=== PATIENT | female | born 1945 | race Caucasian/White ===

== ENCOUNTER 2018-02-15 13:08 | Inpatient (IN) | payer MEDICARE, SELFPAY ==
[2018-02-15 13:09] VITALS: BP 132/83; PULSE 80; RESP 16; TEMP 36.6; O2SAT 97; BMI 23.6
--- NOTE | 2018-02-15 13:36 | NURSING ---
NO LW OR POA
--- NOTE | 2018-02-15 13:54 | CT_ITS ---
STUDY: CT BRAIN WITHOUT CONTRAST REASON FOR EXAM: Female, 72 years old. Fall RADIATION DOSAGE (If Supplied By Facility): CTDIvol = ( 44.99 ) mGy, DLP = ( 796.11 ) mGycm TECHNIQUE: Transaxial CT imaging of the brain was performed without administration of intravenous contrast material. Individualized dose optimization techniques were used for this CT. COMPARISON: None. FINDINGS: No evidence for shift of midline structures, mass effect or compression of ventricles noted. No acute intra-axial or extra-axial hemorrhage is seen. Bilateral frontal approach deep brain stimulator leads noted with its tip likely in the thalami. Intracranial atherosclerotic vascular calcifications seen. The calvarium appears intact. Mucosal thickening of the ethmoid air cells with partial opacification likely relate with sinusitis. IMPRESSION: No evidence for acute intracranial hemorrhage, mass effect or acute large territory infarcts. Mild chronic small vessel disease with age-related involutional changes. Bifrontal approach deep brain stimulator leads with their tips likely in the thalami. Electronically Signed: Jeff Griffin, at 14:53 EDT Tel , Service support , CT/Brain/Head without Contrast
--- NOTE | 2018-02-15 13:55 | CT_ITS ---
STUDY: CT ABDOMEN AND PELVIS WITH CONTRAST REASON FOR EXAM: Female, 72 years old. Fall and left hip pain RADIATION DOSAGE (If Supplied By Facility): CTDIvol = ( 12.97 ) mGy, DLP = ( 630.17 ) mGycm TECHNIQUE: Transaxial images were obtained from the dome of the diaphragm to the symphysis pubis without oral contrast. 100 ml of Isovue 300 contrast was administered. Sagittal and coronal images were reconstructed. Individualized dose optimization techniques were used for this CT. COMPARISON: None. FINDINGS: Lung bases demonstrate no evidence for consolidative process. Small cyst in the right middle lobe. Some no pericardial effusion. Small hiatal hernia Hepatic steatosis. Mild dilatation of the intra and extrahepatic bile ducts. Gallbladder is not visualized. Adrenal glands appear unremarkable. Spleen appears unremarkable. The pancreas are grossly within normal limits. Kidneys demonstrate no evidence for hydronephrosis. Uncomplicated colonic diverticulosis seen. Low-attenuation lesion in the left kidney likely renal cysts. Degenerative changes in the sacroiliac joints. Diffuse osteopenia. Degenerative changes in the lumbar spine L1 vertebral body compression fracture with approximately 20% loss of vertebral body height and minimal retropulsion. IMPRESSION: Acute L1 vertebral body compression fracture with 20% loss of vertebral body height and mild retropulsion. Mild dilatation of the intra and extrahepatic bile ducts postcholecystectomy. Subtle left-sided femoral neck fracture suspected however not confirmed. Please consider dedicated CT examination of the left hip for further assessment. Electronically Signed: Jeff Griffin, at 15:48 EDT Tel , Service support , CT/Abdomen/Pelvis W IV Cont ONLY
[2018-02-15 14:16] LABS: Absolute Lymphocyte Count 0.98 X10^3/ul (0.83-4.51); Absolute Neutrophil Count 4.4 X10^3/uL (2.0-7.7); Basophil# 0.01 X10^3/uL; Basophil% 0.2 % (0-1); Eosinophil# 0.03 X10^3/uL; Eosinophils% 0.5 % (0-5); Hematocrit 38.5 % (37-47); Hemoglobin 12.4 g/dl (12.0-15.0); Lymphocyte # 0.98 X10^3/ul (4.0); Lymphocyte % 16.2 % (19-41); Mean Corp Hgb Conc 32.2 g/gl (32-36); Mean Corpuscular Hgb 29.6 pg (27.0-32.0); Mean Corpuscular Volume 91.9 fL (81-99); Mean Platelet Vol. 10.2 fl (6.2-12.0); Monocyte# 0.56 X10^3/uL; Monocyte% 9.3 % (0-10); Neutrophil # 4.43 X10^3/uL (2.7-7.7); Neutrophil % 73.1 % (47-70); POSITIVE COUNT NO; POSITIVE DIFFERENTIAL NO; POSITIVE MORPHOLOGY NO; Platelet Count 191 K/mm3 (150-450); RBC Distribution Width CV 13.5 % (11.6-14.6); RBC Distribution Width SD 44.8 fl (35.1-43.9); Red Blood Count 4.19 M/mm3 (4.2-5.4); White Blood Count 6.1 K/mm3 (4.4-11.0)
[2018-02-15] MEDS: Ondansetron 4 MG/2 ML Vial IV (14:20)
[2018-02-15] MEDS: Morphine 4 MG/ML Syringe IV ×2 (14:20→16:40)
[2018-02-15 14:28] LABS: Anion Gap 7 (5-15); BUN 24 mg/dL (7-18); BUN/Creat Ratio 31.4 RATIO (10-20); Calcium,Total 8.5 mg/dL (8.5-10.1); Chloride 105 mmol/L (98-107); Creatinine, Serum 0.76 mg/dL (0.55-1.02); EST Glomerular Filtration Rate 79 mL/min (>60); Est Glom Filt Rate - Afr Amer 96 mL/min (>60); Estimated Creatinine Clearance 46.43 ml/min; Glucose 87 mg/dL (74-106); Potassium 4.2 mmol/L (3.5-5.1); Sodium Level 142 mmol/L (136-145)
--- NOTE | 2018-02-15 14:42 | RAD_ITS ---
STUDY: X-RAY CHEST REASON FOR EXAM: Female, 72 years old. Status post fall and pain TECHNIQUE: COMPARISON: None. FINDINGS: No lung consolidation or pneumothorax. Cardiac size is enlarged. Prominent superior mediastinum noted possibly relate with a enlarged substernal thyroid. Slight leftward deviation of the trachea. Vagal stimulator seen. Small nodule in the right lower lobe. Slight eventration of the right hemidiaphragm. Vascular calcifications of the aortic knob. IMPRESSION: No evidence for focal airspace consolidation or pneumothorax Electronically Signed: Jeff Griffin, at 15:42 EDT Tel , Service support , RAD/Chest 1 View (Portable)
--- NOTE | 2018-02-15 14:47 | RAD_ITS ---
STUDY: X-RAY - LEFT SHOULDER REASON FOR EXAM: Female, 72 years old. Status post fall TECHNIQUE: 2 view(s) of the shoulder. COMPARISON: None. FINDINGS: Degenerative changes in the glenohumeral joints as well as acromioclavicular joints noted. No definite evidence for acute fractures. Visualized ribs appear intact. IMPRESSION: No definite evidence for acute humeral fractures or dislocation Electronically Signed: Jeff Grfifin, at 15:43 EDT Tel , Service support , RAD/Shoulder min 2 Views
[2018-02-15 15:35] VITALS: BP 137/89; PULSE 79; RESP 20; O2SAT 96
--- NOTE | 2018-02-15 16:04 | NURSING ---
DR WILEY FOR DR HEMPHILL
--- NOTE | 2018-02-15 16:06 | CT_ITS ---
STUDY: CT LEFT hip WITHOUT CONTRAST REASON FOR EXAM: Female, 72 years old. Fall left hip pain RADIATION DOSAGE (If Supplied By Facility): CTDIvol = ( 19.30 ) mGy, DLP = ( 443.09 ) mGycm TECHNIQUE: Thin section transaxial imaging was obtained, with sagittal and coronal reconstructed images. Individualized dose optimization techniques were used for this CT. COMPARISON: None. FINDINGS: No acute fracture is demonstrated. There is no dislocation. There is mild hip joint space narrowing. There is colonic diverticulosis. CT/Extremity Lower without Contra IMPRESSION: No acute fracture is demonstrated. Electronically Signed: Lili Rosenthal MD at 16:50 EDT , Service support ,
--- NOTE | 2018-02-15 16:13 | ED.DCSUM_ITS ---
- ER Visit Summary Date of Service: 02/15/18 Chief Complaint: [Fall] History of Present Illness: The patient is a 72 F [presents to the emergency department via EMS status post fall at home today. Patient states that she reached for something on the kitchen table and lost her balance falling to the floor. Patient complaining of pain in her left hip, back, and left shoulder. Patient denies loss of consciousness. Patient does not believe she hit her head. She denies any neck pain. She denies any abdominal pain. She denies any dyspnea.] Physical Examination: [HEENT-PERRLA, EOMI. Cranial nerves II through XII grossly intact. TMs clear. Mucous membranes moist. No adenopathy. Head is atraumatic. Patient has no C-spine tenderness on palpation and normal active range of motion is painless. Cardiovascular-regular rate and rhythm without murmur or ectopy Lungs-clear to auscultation, chest wall stable without crepitus or subcu emphysema Abdomen-normoactive bowel sounds, soft, nontender, no rebound or rigidity, no peritoneal signs. Back exam-patient has diffuse tenderness to the upper lumbar spine on palpation. Patient has tenderness diffusely to the lumbar paraspinal musculature. Extremities-intact ?4, normal range of motion, normal pulses, atraumatic]. Left hip-no shortening or rotational deformity noted. Minimal tenderness with logrolling and straight leg raise. Neurovascularly intact distally. Test Results: CBC with differential obtained was normal. Chemistries were normal. Chest x-ray showed nothing acute. Left shoulder x-rays showed no fractures. CT brain showed nothing acute. CT abdomen and pelvis showed L1 compression fracture that appears to be acute of about 20%. Patient also noted to have a subtle femoral neck fracture on the left and recommended dedicated CT of the hip versus MRI to definitively diagnose. [] Emergency Department Course and Treatment: [Patient was medicated with morphine and Zofran] Treatment Plan: [Patient will be admitted and a CT scan of the left hip was ordered.] Disposition: [Admit] Impression: [Mechanical fall L1 compression fracture Left femoral neck fracture] This note was generated with [employer] dictation software. It may contain incorrect words, spelling, and punctuation that were not noted in review of the chart prior to signing ED Disposition - Plan for ED Patient: Chief Complaint: Fall Referrals: [facility] Doctor,Out of [Primary Care Provider] -
--- NOTE | 2018-02-15 16:18 | NURSING ---
MED SURG ACUTE L1 COMPRESSION FX, LT HIP FX PAINTSIL
--- NOTE | 2018-02-15 16:36 | PCM.HP.STD ---
<Km Dang - Last Filed: 02/15/18 16:36> Problem List (1) Hip fracture Status: Acute (2) Compression fracture Status: Acute (3) Debility Status: Chronic (4) Parkinson disease Status: Chronic (5) Orthostatic hypotension due to Parkinson's disease Status: Chronic History of Present Illness Date of Admission: 02/15/18 Chief Complaint: fall, back pain The patient is a 72 year old F who presented to the ER by squad for severe back pain. She has a hx of advanced parkinson s/p DPS placement, orthostatic hypotension, and debility. She fell today when she attempted to reach out for something on the table. She normally uses a walker and was noted not to be using it at the time. She loss balance falling forward, striking the table, then striking the refrigerator and falling to the floor. This was not witnessed. Prior to the fall she denies any LH, or dizziness, or CP. She lay on the ground in excruciating pain. Her called 911 as he could not get her up. She was brought to the ER and CT showed possible left hip fracture and L1 compression fracture. She appears to be in significant pain with grimace throughout the interview. She also had a fall at home last week. She denies VIZCARRA. She is very slow to respond. and sister are present. Advance directives are at home, plans to retrieve, in the mean time he expressly desires her to be full code at this time until the advance directives are found. [] Past Medical History Past Medical History (Chronic Problems): Chronic Problems Debility (Chronic) Parkinson disease (Chronic) Orthostatic hypotension due to Parkinson's disease (Chronic) Allergies Penicillins Allergy (Verified 02/15/18 13:13) Swelling Home Medications: Ambulatory Orders Medication Instructions Recorded Atorvastatin Calcium [Lipitor] 10 mg PO QHS 02/15/18 Carbidopa/Levodopa 25/100 [Sinemet] 1 tablet PO TIDAC 02/15/18 Cholecalciferol (Vitamin D3) 2,000 unit PO DAILY 02/15/18 [Vitamin D3] Clopidogrel Bisulfate [Plavix] 75 mg PO DAILY 02/15/18 Donepezil HCl [Aricept] 10 mg PO DAILY 02/15/18 Famotidine [Pepcid] 40 mg PO DAILY 02/15/18 Ferrous Gluconate 325 mg PO DAILY@0802/15/18 Flaxseed Oil [[place]-3 Flaxseed Oil] 1,000 mg PO DAILY 02/15/18 Fludrocortisone Acetate [Florinef] 0.1 mg GT DAILY@79902/15/18 Gabapentin [Neurontin] 300 mg PO QHS 02/15/18 Midodrine HCl 10 mg PO TID 02/15/18 Potassium Chloride [Klor-Con 10] 10 meq PO BID 02/15/18 Sertraline HCl [Zoloft] 50 mg PO DAILY 02/15/18 Ubidecarenone [Co Q-10] 100 mg PO DAILY 02/15/18 Surgical History: cholecystectomy, hysterectomy, - - DBS Psychiatric History: No pertinent psych hx RETAIL GROCER History: No pertinent RETAIL GROCER history Lives: Alone Smoking Status: Former smoker Tobacco Use: Non-smoker Alcohol: None Drugs: None - *Family History Maternal History Items: Dementia Paternal History Items: Dementia Sibling History Items: Heart Disease Review of Systems Constitutional: Denies: Chills, Fever, Weight Change HEENT: Denies: Head Aches, Sinus Congestion, Sinus Drainage Cardiovascular: Denies: Chest Pain, Palpitations Respiratory: Denies: Cough, Shortness of breath at rest, Sputum production Gastrointestinal: Denies: Abdominal Pain, Nausea, Vomiting Genitourinary: Denies: Dysuria Musculoskeletal: Reports: Joint Pain, Muscle pain. Denies: Joint Tenderness Skin: Denies: Rash, Wounds Neurological: Denies: Focal weakness, Numbness, Tingling Psychiatric: Denies: Anxiety, Depression, Homicidal Ideations, Suicidal Ideations Hematologic/ Lymphatic: Denies: Easy Bruising, Easy Bleeding VTE Information - Inpt Only VTE Present on Admission: No VTE Mechan Device Prophylaxis: SCD's VTE Pharm Prophylaxis ordered?: No Patient Problems: Active and Suspected Problems Compression fracture (Acute) Hip fracture (Acute) - Physical Exam General: Alert, Oriented x3, Cooperative HEENT: Atraumatic, PERRLA, EOMI, Normocephalic Neck: Supple, No JVD, Negative Carotid Bruits Lungs: Clear to auscultation, Normal air movement Cardiovascular: Regular rate, No murmurs Abdomen: Bowel Sounds Present, Soft, Non Tender Extremities: No edema, Capillary Refill Less than 3 Seconds, Tenderness - left hip Skin: No rashes, No breakdown, - - small bruise left hip Musculoskeletal: No Tenderness to Palpation of Joints or Extremities Neurological: Cranial nerves II-XII grossly intact, - - masked facies Psych/Mental Status: Normal Affect, Appropriate, Alert and oriented to time, place, person, mood and affect Vital Signs Temp Pulse Resp BP Pulse Ox 97.8 F 79 20 H 137/89 H 96 02/15/18 13:09 02/15/18 15:35 02/15/18 15:35 02/15/18 15:35 02/15/18 15:35 Assessment/Plan Active and Suspected Problems Compression fracture (Acute) Hip fracture (Acute) 1. Acute left hip fracture s/p mechanical fall - follow up imaging is pending. Consult to Dr. Easley. CBC and BMP unremarkable at this time. Continue Vit D. Will get preop EKG, gentle IV hydration. Shoudler XR negative. CT brain with chronic changes. Get PTOT evals. She has minimal activity at home normally. Her is her primary caregiver. 2. Acute L1 compression fracture - consult to Dr. Valdez for possible kyphoplasty 3. Hx advanced parkinson disease and with related orthostatic hypotension - continue home meds. has deep brain stimulator, Pt likely cannot have MRI with this. Follows Dr. Mcclelland in [place] for neurology. . Code status: FULL code at this time DVT ppx: SCDs DC planning: PTOT, likely needs placed. <Paintsil,[place] - Last Filed: 02/15/18 17:17> History of Present Illness The patient is a 72 year old F [] Past Medical History Allergies Penicillins Allergy (Verified 02/15/18 13:13) Swelling - Physical Exam Vital Signs Temp Pulse Resp BP Pulse Ox 97.8 F 80 14 142/87 H 96 02/15/18 13:09 02/15/18 16:46 02/15/18 16:46 02/15/18 16:46 02/15/18 16:46 Assessment/Plan Patient was seen and examined with physician human resources executive assistant Km Dang. She is a 72-year-old female with past medical history of advanced Parkinson's disease complicated by dementia and autonomic dysfunction, on Florinef, Aricept, ambulates with a walker who was asymptomatic this morning and was said to be reaching across a table when she overreached and fell on her left side and back and hit her head. The EMS was called. Her vitals were stable in the ED, labs were stable, she is not on any blood thinners. Imaging of the head was negative for any bleed. Abdominal pelvis CT showed L1 compression fracture, probable left hip fracture. Patient lives alone with the who also ambulates with a cane. Skin exam shows patient was alert oriented with mask facies, not pale no jaundice, in mild discomfort from pain. Heart sounds 1 and 2 are present, no murmurs, loud S1, lung exam was vesicular breath sounds no added sounds. Abdominal exam was unremarkable with no palpable organs or hepatosplenomegaly. There is tenderness over the left hip and the low back with some old bruises over her left hip. a/p: 1. Mechanical fall in a patient with advanced Parkinson's disease 2. Acute L1 compression fracture, will consult Dr. Valdez 3. Acute left hip fracture, Dr. Thompson consult, pain control, PT and OT to evaluate and treat 4. Parkinson's disease, advanced with cognitive impairment and autonomic dysfunction 5. Deficiency anemia, on p.o. iron 6. Code Status is full code, is a healthcare power of state's attorney, will bring paperwork for DNR later Code Visit Inpatient E&M: 80812 Init Hosp L3
[2018-02-15] MEDS: Carbidopa/Levodopa 25/100 Tablet PO (16:39)
[2018-02-15] MEDS: Ferrous Gluconate 325 MG Tablet PO (16:39)
[2018-02-15] MEDS: Midodrine HCl 5 MG Tablet 10 MG PO ×2 (16:40→22:38)
[2018-02-15 16:46] VITALS: BP 142/87; PULSE 80; RESP 14; O2SAT 96
--- NOTE | 2018-02-15 16:46 | HP.PCM_ITS ---
<Km Dang - Last Filed: 02/15/18 16:36> Problem List (1) Hip fracture Status: Acute (2) Compression fracture Status: Acute (3) Debility Status: Chronic (4) Parkinson disease Status: Chronic (5) Orthostatic hypotension due to Parkinson's disease Status: Chronic History of Present Illness Date of Admission: 02/15/18 Chief Complaint: fall, back pain The patient is a 72 year old F who presented to the ER by squad for severe back pain. She has a hx of advanced parkinson s/p DPS placement, orthostatic hypotension, and debility. She fell today when she attempted to reach out for something on the table. She normally uses a walker and was noted not to be using it at the time. She loss balance falling forward, striking the table, then striking the refrigerator and falling to the floor. This was not witnessed. Prior to the fall she denies any LH, or dizziness, or CP. She lay on the ground in excruciating pain. Her called 911 as he could not get her up. She was brought to the ER and CT showed possible left hip fracture and L1 compression fracture. She appears to be in significant pain with grimace throughout the interview. She also had a fall at home last week. She denies VIZCARRA. She is very slow to respond. and sister are present. Advance directives are at home, plans to retrieve, in the mean time he expressly desires her to be full code at this time until the advance directives are found. [] Past Medical History Past Medical History (Chronic Problems): Chronic Problems Debility (Chronic) Parkinson disease (Chronic) Orthostatic hypotension due to Parkinson's disease (Chronic) Allergies Penicillins Allergy (Verified 02/15/18 13:13) Swelling Home Medications: Ambulatory Orders Medication Instructions Recorded Atorvastatin Calcium [Lipitor] 10 mg PO QHS 02/15/18 Carbidopa/Levodopa 25/100 [Sinemet] 1 tablet PO TIDAC 02/15/18 Cholecalciferol (Vitamin D3) 2,000 unit PO DAILY 02/15/18 [Vitamin D3] Clopidogrel Bisulfate [Plavix] 75 mg PO DAILY 02/15/18 Donepezil HCl [Aricept] 10 mg PO DAILY 02/15/18 Famotidine [Pepcid] 40 mg PO DAILY 02/15/18 Ferrous Gluconate 325 mg PO DAILY@0802/15/18 Flaxseed Oil [[place]-3 Flaxseed Oil] 1,000 mg PO DAILY 02/15/18 Fludrocortisone Acetate [Florinef] 0.1 mg GT DAILY@79902/15/18 Gabapentin [Neurontin] 300 mg PO QHS 02/15/18 Midodrine HCl 10 mg PO TID 02/15/18 Potassium Chloride [Klor-Con 10] 10 meq PO BID 02/15/18 Sertraline HCl [Zoloft] 50 mg PO DAILY 02/15/18 Ubidecarenone [Co Q-10] 100 mg PO DAILY 02/15/18 Surgical History: cholecystectomy, hysterectomy, - - DBS Psychiatric History: No pertinent psych hx PRACTICE DIRECTOR History: No pertinent PRACTICE DIRECTOR history Lives: Alone Smoking Status: Former smoker Tobacco Use: Non-smoker Alcohol: None Drugs: None - *Family History Maternal History Items: Dementia Paternal History Items: Dementia Sibling History Items: Heart Disease Review of Systems Constitutional: Denies: Chills, Fever, Weight Change HEENT: Denies: Head Aches, Sinus Congestion, Sinus Drainage Cardiovascular: Denies: Chest Pain, Palpitations Respiratory: Denies: Cough, Shortness of breath at rest, Sputum production Gastrointestinal: Denies: Abdominal Pain, Nausea, Vomiting Genitourinary: Denies: Dysuria Musculoskeletal: Reports: Joint Pain, Muscle pain. Denies: Joint Tenderness Skin: Denies: Rash, Wounds Neurological: Denies: Focal weakness, Numbness, Tingling Psychiatric: Denies: Anxiety, Depression, Homicidal Ideations, Suicidal Ideations Hematologic/ Lymphatic: Denies: Easy Bruising, Easy Bleeding VTE Information - Inpt Only VTE Present on Admission: No VTE Mechan Device Prophylaxis: SCD's VTE Pharm Prophylaxis ordered?: No Patient Problems: Active and Suspected Problems Compression fracture (Acute) Hip fracture (Acute) - Physical Exam General: Alert, Oriented x3, Cooperative HEENT: Atraumatic, PERRLA, EOMI, Normocephalic Neck: Supple, No JVD, Negative Carotid Bruits Lungs: Clear to auscultation, Normal air movement Cardiovascular: Regular rate, No murmurs Abdomen: Bowel Sounds Present, Soft, Non Tender Extremities: No edema, Capillary Refill Less than 3 Seconds, Tenderness - left hip Skin: No rashes, No breakdown, - - small bruise left hip Musculoskeletal: No Tenderness to Palpation of Joints or Extremities Neurological: Cranial nerves II-XII grossly intact, - - masked facies Psych/Mental Status: Normal Affect, Appropriate, Alert and oriented to time, place, person, mood and affect Vital Signs Temp Pulse Resp BP Pulse Ox 97.8 F 79 20 H 137/89 H 96 02/15/18 13:09 02/15/18 15:35 02/15/18 15:35 02/15/18 15:35 02/15/18 15:35 Assessment/Plan Active and Suspected Problems Compression fracture (Acute) Hip fracture (Acute) 1. Acute left hip fracture s/p mechanical fall - follow up imaging is pending. Consult to Dr. Easley. CBC and BMP unremarkable at this time. Continue Vit D. Will get preop EKG, gentle IV hydration. Shoudler XR negative. CT brain with chronic changes. Get PTOT evals. She has minimal activity at home normally. Her is her primary caregiver. 2. Acute L1 compression fracture - consult to Dr. Valdez for possible kyphoplasty 3. Hx advanced parkinson disease and with related orthostatic hypotension - continue home meds. has deep brain stimulator, Pt likely cannot have MRI with this. Follows Dr. Mcclelland in [place] for neurology. . Code status: FULL code at this time DVT ppx: SCDs DC planning: PTOT, likely needs placed. <Paintsil,[place] - Last Filed: 02/15/18 17:17> History of Present Illness The patient is a 72 year old F [] Past Medical History Allergies Penicillins Allergy (Verified 02/15/18 13:13) Swelling - Physical Exam Vital Signs Temp Pulse Resp BP Pulse Ox 97.8 F 80 14 142/87 H 96 02/15/18 13:09 02/15/18 16:46 02/15/18 16:46 02/15/18 16:46 02/15/18 16:46 Assessment/Plan Patient was seen and examined with physician visitor use assistant Km Dang. She is a 72-year-old female with past medical history of advanced Parkinson's disease complicated by dementia and autonomic dysfunction, on Florinef, Aricept , ambulates with a walker who was asymptomatic this morning and was said to be reaching across a table when she overreached and fell on her left side and back and hit her head. The EMS was called. Her vitals were stable in the ED, labs were stable, she is not on any blood thinners. Imaging of the head was negative for any bleed. Abdominal pelvis CT showed L1 compression fracture, probable left hip fracture. Patient lives alone with the who also ambulates with a cane. Skin exam shows patient was alert oriented with mask facies, not pale no jaundice, in mild discomfort from pain. Heart sounds 1 and 2 are present, no murmurs, loud S1, lung exam was vesicular breath sounds no added sounds. Abdominal exam was unremarkable with no palpable organs or hepatosplenomegaly. There is tenderness over the left hip and the low back with some old bruises over her left hip. a/p: 1. Mechanical fall in a patient with advanced Parkinson's disease 2. Acute L1 compression fracture, will consult Dr. Valdez 3. Acute left hip fracture, Dr. Thompson consult, pain control, PT and OT to evaluate and treat 4. Parkinson's disease, advanced with cognitive impairment and autonomic dysfunction 5. Deficiency anemia, on p.o. iron 6. Code Status is full code, is a healthcare power of private duty rn, will bring paperwork for DNR later Code Visit Inpatient E&M: 67164 Init Hosp L3
[2018-02-15 17:19] VITALS: BMI 21.8
[2018-02-15 17:45] VITALS: BP 148/84; PULSE 81; RESP 16; TEMP 36.8; O2SAT 98
--- NOTE | 2018-02-15 19:41 | PCM.HOSP.N ---
Hospitalist Note Discussed imaging w/ Dr. Easley, no acute hip fracture on dedicated CT. Discussed L1 fx and at that time will d/c consult with Orthopedic surgery and request consult to Dr. Valdez.
[2018-02-15] MEDS: 0.9% Normal Saline 1,000 ML 75 ML IV (19:58)
[2018-02-15 19:59] VITALS: PULSE 73
[2018-02-15] MEDS: Morphine 2 MG/ML Syringe 1 MG IV (20:04)
[2018-02-15] MEDS: 0.9% NaCl Peripheral Flush Adult/Peds IV (20:04)
[2018-02-15] MEDS: Gabapentin 300 MG Capsule PO (22:37)
[2018-02-15] MEDS: Atorvastatin Calcium 10 MG Tablet PO (22:37)
[2018-02-15] MEDS: Acetaminophen 500 MG Tablet 1000 MG PO (22:38)
[2018-02-15 22:50] VITALS: BP 125/83; PULSE 77; RESP 18; TEMP 36.4; O2SAT 94
[2018-02-16] VITALS (10 sets, daily range): BP systolic 127–189; BP diastolic 69–107; PULSE 68–92; RESP 16–18; TEMP 36.6–37; O2SAT 93–97
[2018-02-16] MEDS: Midodrine HCl 5 MG Tablet 10 MG PO ×2 (05:12→14:49)
[2018-02-16] MEDS: Acetaminophen 500 MG Tablet 1000 MG PO ×3 (05:12→22:42)
[2018-02-16 06:23] LABS: Absolute Lymphocyte Count 1.11 X10^3/ul (0.83-4.51); Absolute Neutrophil Count 3.7 X10^3/uL (2.0-7.7); Basophil# 0.01 X10^3/uL; Basophil% 0.2 % (0-1); Eosinophil# 0.11 X10^3/uL; Hematocrit 37.9 % (37-47); Lymphocyte # 1.11 X10^3/ul (4.0); Lymphocyte % 20.7 % (19-41); Mean Corp Hgb Conc 31.7 g/gl (32-36); Mean Corpuscular Hgb 29.2 pg (27.0-32.0); Mean Corpuscular Volume 92.2 fL (81-99); Mean Platelet Vol. 10.5 fl (6.2-12.0); Monocyte# 0.43 X10^3/uL; Neutrophil % 68.9 % (47-70); Platelet Count 217 K/mm3 (150-450); RBC Distribution Width CV 13.4 % (11.6-14.6); RBC Distribution Width SD 45.3 fl (35.1-43.9); Red Blood Count 4.11 M/mm3 (4.2-5.4); White Blood Count 5.4 K/mm3 (4.4-11.0)
[2018-02-16 06:38] LABS: Anion Gap 6 (5-15); BUN 22 mg/dL (7-18); BUN/Creat Ratio 26.8 RATIO (10-20); Calcium,Total 8.2 mg/dL (8.5-10.1); Chloride 108 mmol/L (98-107); Creatinine, Serum 0.82 mg/dL (0.55-1.02); EST Glomerular Filtration Rate 73 mL/min (>60); Est Glom Filt Rate - Afr Amer 88 mL/min (>60); Estimated Creatinine Clearance 54.34 ml/min; Glucose 80 mg/dL (74-106); Potassium 4.1 mmol/L (3.5-5.1); Sodium Level 143 mmol/L (136-145)
[2018-02-16 07:00] LABS: POSITIVE COUNT NO; POSITIVE DIFFERENTIAL NO; POSITIVE MORPHOLOGY NO
[2018-02-16] MEDS: 0.9% Normal Saline 1,000 ML 75 ML IV ×2 (07:30→20:40)
--- NOTE | 2018-02-16 09:00 | PCM.PN.HOSP ---
Patient Problems: Active and Suspected Problems Compression fracture (Acute) Hip fracture (Acute) Subjective: Patient is a 72-year-old lady with past medical history sent on for advanced Parkinson's disease complicated by dementia with autonomic dysfunction who presented following a fall. CT obtained demonstrated L1 compression fracture also suspicion of probable left hip fracture however imaging studies did not demonstrate any hip fracture. Patient admitted to regular regular floor for further management Objective: GENERAL: in no apparent distress. HEENT: Clear conjunctiva, NECK; supple, normal thyroid, CHEST: Clear to auscultation bilaterally, HEART: Regular S1 S2, no audible murmurs ABDOMEN: soft, non-tender, normoactive bowel sounds, RECTAL: deferred EXTREMITIES: No edema, no clubbing, no cyanosis. 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; unsteady gait SKIN: No rash Vitals/I&O's: Vital Signs Temp Pulse Resp BP Pulse Ox 98.6 F 68 16 157/69 H 93 02/16/18 05:05 02/16/18 05:05 02/16/18 05:05 02/16/18 05:05 02/16/18 05:05 Oxygen Delivery Method Room Air Weight: 59.421 kg Body Mass Index (BMI) 21.8 Intake and Output for Last 24 Hours 02/14/18 02/15/18 02/16/18 23:59 23:59 23:59 Intake Total 240 / 240 869 / 869 Output Total 400 / 400 Balance 240 / 240 469 / 469 Laboratory Results 02/16/18 05:34: WBC 5.4, RBC 4.11 L, Hgb 12.0, Hct 37.9, MCV 92.2, MCH 29.2, MCHC 31.7 L, RDW 13.4, RDW Differential 45.3 H, Plt Count 217, MPV 10.5, Immature Gran % (Auto) 0.200, Neut % (Auto) 68.9, Lymph % (Auto) 20.7, Christian % (Auto) 8.0, Eos % (Auto) 2.0, Baso % (Auto) 0.2, Absolute Neuts (auto) 3.7, Absolute Lymphs (auto) 1.11, Total Counted Not Reportable 02/16/18 05:34: Sodium 143, Potassium 4.1, Chloride 108 H, Carbon Dioxide 29.0, Anion Gap 6, BUN 22 H, Creatinine 0.82, Estim Creat Clear Calc 54.34, Est GFR (MDRD) Af Amer 88, Est GFR (MDRD) Non-Af 73, BUN/Creatinine Ratio 26.8 H, Glucose 80, Calcium 8.2 L Current Medications Acetaminophen (Tylenol) 1,000 mg PO Q8 [facility] Last Admin: 02/16/18 05:12 Dose: 1,000 mg Atorvastatin Calcium (Lipitor) 10 mg PO QHS [facility] Last Admin: 02/15/18 22:37 Dose: 10 mg Bisacodyl (Dulcolax) 5 mg PO DAILY PRN PRN PRN Reason: Constipation Carbidopa/Levodopa (Sinemet) 1 tablet PO 5X/DAY [facility] Cholecalciferol (Vitamin D) 2,000 unit PO DAILY [facility] Clopidogrel Bisulfate (Plavix) 75 mg PO DAILY [facility] Donepezil HCl (Aricept) 10 mg PO DAILY [facility] Enoxaparin Sodium (Lovenox) 40 mg SC DAILY@1000 [facility] Famotidine (Pepcid) 40 mg PO DAILY [facility] Ferrous Gluconate (Ferrous Gluconate) 325 mg PO DAILY@0800 [facility] Fludrocortisone Acetate (Florinef) 0.1 mg PO DAILY@0800 [facility] Gabapentin (Neurontin) 600 mg PO QHS [facility] Sodium Chloride () 1,000 mls @ 75 mls/hr IV .[id number] [facility] Last Admin: 02/15/18 19:58 Dose: 75 mls/hr Magnesium Hydroxide (Milk Of Magnesia) 30 ml PO DAILY PRN PRN PRN Reason: Constipation Midodrine (Proamatine) 10 mg PO TID [facility] Last Admin: 02/16/18 05:12 Dose: 10 mg Morphine Sulfate () 1 mg IV Q4H PRN PRN PRN Reason: SEVERE PAIN (6-10/10) Last Admin: 02/15/18 20:04 Dose: 1 mg Ondansetron HCl (Zofran) 4 mg IV Q8H PRN PRN PRN Reason: NAUSEA Oxycodone HCl (Oxyir) 5 mg PO Q4H PRN PRN PRN Reason: SEVERE PAIN (6-10/10) Potassium Chloride (K-Dur) 10 meq PO BID [facility] Last Admin: 02/15/18 22:38 Dose: 10 meq Psyllium Hydrophilic Mucilloid (Metamucil) 1 packet PO DAILY PRN PRN PRN Reason: CONSTIPATION Sertraline HCl (Zoloft) 50 mg PO DAILY [facility] Sodium Chloride () 5 - 30 ml IV UD PRN PRN Reason: SALINE FLUSH Last Admin: 02/15/18 20:04 Dose: 5 ml Sodium Chloride (Sodium Chloride) 1 gm PO TID [facility] Medical Necessity - Tobacco Use Smoking Status: Former smoker Tobacco Use: Non-smoker Assessment/Plan Active and Suspected Problems Compression fracture (Acute) Hip fracture (Acute) Patient is a 72-year-old lady with past medical history sent on for advanced Parkinson's disease complicated by dementia with autonomic dysfunction who presented following a fall. CT obtained demonstrated L1 compression fracture also suspicion of probable left hip fracture however imaging studies did not demonstrate any hip fracture. Patient admitted to regular regular floor for further management 1. Mechanical fall with L1 compression fracture patient has been admitted to regular nursing floor for symptomatic management 2. Left hip contusion CT was negative for hip fracture 3. Advanced Parkinson's disease with cognitive impairment and autonomic dysfunction 4. Anemia secondary to anemia of chronic disorder Clinical Impression(s) from Imaging Studies Lower Extremity CT 02/15/18 16:06 IMPRESSION: No acute fracture is demonstrated. Electronically Signed: Lili Rosenthal MD at 16:50 EDT , Service support , Code Visit Inpatient E&M: 41921 Subs Hosp L2
--- NOTE | 2018-02-16 09:09 | PN_ITS ---
Patient Problems: Active and Suspected Problems Compression fracture (Acute) Hip fracture (Acute) Subjective: Patient is a 72-year-old lady with past medical history sent on for advanced Parkinson's disease complicated by dementia with autonomic dysfunction who presented following a fall. CT obtained demonstrated L1 compression fracture also suspicion of probable left hip fracture however imaging studies did not demonstrate any hip fracture. Patient admitted to regular regular floor for further management Objective: GENERAL: in no apparent distress. HEENT: Clear conjunctiva, NECK; supple, normal thyroid, CHEST: Clear to auscultation bilaterally, HEART: Regular S1 S2, no audible murmurs ABDOMEN: soft, non-tender, normoactive bowel sounds, RECTAL: deferred EXTREMITIES: No edema, no clubbing, no cyanosis. CARE WORKER: no lateralizing signs; unsteady gait SKIN: No rash Vitals/I&O's: Vital Signs Temp Pulse Resp BP Pulse Ox 98.6 F 68 16 157/69 H 93 02/16/18 05:05 02/16/18 05:05 02/16/18 05:05 02/16/18 05:05 02/16/18 05:05 Oxygen Delivery Method Room Air Weight: 59.421 kg Body Mass Index (BMI) 21.8 Intake and Output for Last 24 Hours 02/14/18 02/15/18 02/16/18 23:59 23:59 23:59 Intake Total 240 / 240 869 / 869 Output Total 400 / 400 Balance 240 / 240 469 / 469 Laboratory Results 02/16/18 05:34: WBC 5.4, RBC 4.11 L, Hgb 12.0, Hct 37.9, MCV 92.2, MCH 29.2, MCHC 31.7 L, RDW 13.4, RDW Differential 45.3 H, Plt Count 217, MPV 10.5, Immature Gran % (Auto) 0.200, Neut % (Auto) 68.9, Lymph % (Auto) 20.7, [place] % ( Auto) 8.0, Eos % (Auto) 2.0, Baso % (Auto) 0.2, Absolute Neuts (auto) 3.7, Absolute Lymphs (auto) 1.11, Total Counted Not Reportable 02/16/18 05:34: Sodium 143, Potassium 4.1, Chloride 108 H, Carbon Dioxide 29.0, Anion Gap 6, BUN 22 H, Creatinine 0.82, Estim Creat Clear Calc 54.34, Est GFR ( MDRD) Af Amer 88, Est GFR (MDRD) Non-Af 73, BUN/Creatinine Ratio 26.8 H, Glucose 80, Calcium 8.2 L Current Medications Acetaminophen (Tylenol) 1,000 mg PO Q8 [facility] Last Admin: 02/16/18 05:12 Dose: 1,000 mg Atorvastatin Calcium (Lipitor) 10 mg PO QHS [facility] Last Admin: 02/15/18 22:37 Dose: 10 mg Bisacodyl (Dulcolax) 5 mg PO DAILY PRN PRN PRN Reason: Constipation Carbidopa/Levodopa (Sinemet) 1 tablet PO 5X/DAY [facility] Cholecalciferol (Vitamin D) 2,000 unit PO DAILY [facility] Clopidogrel Bisulfate (Plavix) 75 mg PO DAILY [facility] Donepezil HCl (Aricept) 10 mg PO DAILY [facility] Enoxaparin Sodium (Lovenox) 40 mg SC DAILY@1000 [facility] Famotidine (Pepcid) 40 mg PO DAILY [facility] Ferrous Gluconate (Ferrous Gluconate) 325 mg PO DAILY@0800 [facility] Fludrocortisone Acetate (Florinef) 0.1 mg PO DAILY@0800 [facility] Gabapentin (Neurontin) 600 mg PO QHS [facility] Sodium Chloride () 1,000 mls @ 75 mls/hr IV .[id number] [facility] Last Admin: 02/15/18 19:58 Dose: 75 mls/hr Magnesium Hydroxide (Milk Of Magnesia) 30 ml PO DAILY PRN PRN PRN Reason: Constipation Midodrine (Proamatine) 10 mg PO TID [facility] Last Admin: 02/16/18 05:12 Dose: 10 mg Morphine Sulfate () 1 mg IV Q4H PRN PRN PRN Reason: SEVERE PAIN (6-10/10) Last Admin: 02/15/18 20:04 Dose: 1 mg Ondansetron HCl (Zofran) 4 mg IV Q8H PRN PRN PRN Reason: NAUSEA Oxycodone HCl (Oxyir) 5 mg PO Q4H PRN PRN PRN Reason: SEVERE PAIN (6-10/10) Potassium Chloride (K-Dur) 10 meq PO BID [facility] Last Admin: 02/15/18 22:38 Dose: 10 meq Psyllium Hydrophilic Mucilloid (Metamucil) 1 packet PO DAILY PRN PRN PRN Reason: CONSTIPATION Sertraline HCl (Zoloft) 50 mg PO DAILY [facility] Sodium Chloride () 5 - 30 ml IV UD PRN PRN Reason: SALINE FLUSH Last Admin: 02/15/18 20:04 Dose: 5 ml Sodium Chloride (Sodium Chloride) 1 gm PO TID [facility] Medical Necessity - Tobacco Use Smoking Status: Former smoker Tobacco Use: Non-smoker Assessment/Plan Active and Suspected Problems Compression fracture (Acute) Hip fracture (Acute) Patient is a 72-year-old lady with past medical history sent on for advanced Parkinson's disease complicated by dementia with autonomic dysfunction who presented following a fall. CT obtained demonstrated L1 compression fracture also suspicion of probable left hip fracture however imaging studies did not demonstrate any hip fracture. Patient admitted to regular regular floor for further management 1. Mechanical fall with L1 compression fracture patient has been admitted to regular nursing floor for symptomatic management 2. Left hip contusion CT was negative for hip fracture 3. Advanced Parkinson's disease with cognitive impairment and autonomic dysfunction 4. Anemia secondary to anemia of chronic disorder Clinical Impression(s) from Imaging Studies Lower Extremity CT 02/15/18 16:06 IMPRESSION: No acute fracture is demonstrated. Electronically Signed: Lili Rosenthal MD at 16:50 EDT , Service support , Code Visit Inpatient E&M: 11006 Subs Hosp L2
--- NOTE | 2018-02-16 10:09 | CASEMGMT ---
Addendum entered by Staci Waggoner 02/16/18 10:29: It should be noted that pt did mention a history of depression. She states that she is currently taking Zoloft for her depression. She denied receiving counseling services and denied symptoms at this time. Original Note: Social Work Assessment Referral Date: 02/16/2018 Date of Assessment: 02/16/2018 Reason for Consult: Possible SNF placement at discharge Informant: Dr. Florin RENE met with pt to complete initial assessment. SW introduced self and role at [facility]. Pt was alert and orientated x4. Pt states that she lives with her at home and it is a 3 story home. Pt states that there are steps to enter her home but states that she enters her home through her garage where there are no steps. Pt sates that before coming to hospital she was dependent on ADLs. She states that her was her primary support and assist her with ADLs. Pt states that she has a walker, grab bars in shower and that her has a cane at home. SW asked pt if she would be interested in SNF placement at discharge due to her recent fall and weakness. Pt states that she may be interested but is unsure of what facility she would like. SW left a copy of nearby nursing facilities and informed pt to look over sheet and that this worker will be back later to see if she would like this worker to send a referral to one of the nursing facilities. SW will check back with pt later to see if she has determined a nursing facility. SW also informed pt that she may be interested in home health care with skilled therapy coming into her home for additional help if needed. Pt was receptive to this. Substance Abuse Hx: Pt denied Mental Health Hx: Pt denied Plan: Possible SNF placement Rn Wound will continue to follow to assist with discharge planning. Staci Waggoner RETAIL TEAM LEADER, TANK TRUCK ENGINE MECHANIC
[2018-02-16] MEDS: Ferrous Gluconate 325 MG Tablet PO (10:14)
[2018-02-16] MEDS: Fludrocortisone Acetate 0.1 MG Tablet PO (10:21)
[2018-02-16] MEDS: Carbidopa/Levodopa 25/100 Tablet PO ×4 (10:21→22:23)
[2018-02-16] MEDS: Clopidogrel Bisulfate 75 MG Tablet PO (10:21)
[2018-02-16] MEDS: Famotidine 20 MG Tablet 40 MG PO (10:21)
[2018-02-16] MEDS: Enoxaparin 40 MG/0.4 ML Syringe SC (10:22)
[2018-02-16] MEDS: Donepezil HCl 10 MG Tablet PO (10:22)
[2018-02-16] MEDS: Sertraline 50 MG Tablet PO (10:22)
[2018-02-16] MEDS: oxyCODONE 5 MG Tablet PO (10:32)
[2018-02-16] MEDS: Bisacodyl 5 MG Tablet PO (10:33)
--- NOTE | 2018-02-16 12:30 | CASEMGMT ---
Addendum entered by Staci Waggoner 02/16/18 13:41: ANJU met with pt's in room with pt. SW informed pt and her that pt/ot are recommending pt go to a care home facility for rehabilitation. SW encouraged pt and her to discuss nursing homes and to discuss possible placement. SW informed pt and her that pt is requiring moderate to max assist and that a short term stay at a care home facility could be beneficial for pt to gain her strength. Pt and pt's was receptive to this and states that they will discuss possible placement. Hog Worker will continue to follow to assist with discharge planning. Plan: Possible SNF placement [facility] Original Note: Social Work Note SW met with pt again to provide list of nursing homes that are in network with [facility]. Pt states that she has reviewed the fci list but would like this worker to talk to her regarding fci placement. ANJU called pt's [facility] and left a message regarding fci placement. Hog Worker will follow up with pt and pt's as time allows. Plan: Possible SNF placement [facility]
[2018-02-16] MEDS: SODIUM CHLORIDE 1 GM TABLET PO ×2 (14:54→22:23)
[2018-02-16] MEDS: Gabapentin 600 MG Tablet PO (22:22)
[2018-02-16] MEDS: Atorvastatin Calcium 10 MG Tablet PO (22:22)
[2018-02-17 02:27] VITALS: PULSE 66
[2018-02-17 05:04] VITALS: BP 174/110; PULSE 70; RESP 16; TEMP 36.8; O2SAT 99
[2018-02-17] MEDS: SODIUM CHLORIDE 1 GM TABLET PO ×2 (05:08→14:37)
[2018-02-17] MEDS: Carbidopa/Levodopa 25/100 Tablet PO ×3 (05:08→14:37)
[2018-02-17 06:18] VITALS: PULSE 72
[2018-02-17] MEDS: hydrALAZINE 20 MG/ML Vial 10 MG IV (06:18)
[2018-02-17] MEDS: Acetaminophen 500 MG Tablet 1000 MG PO ×2 (06:44→14:37)
--- NOTE | 2018-02-17 08:12 | PCM.PN.HOSP ---
Patient Problems: Active and Suspected Problems Compression fracture (Acute) Hip fracture (Acute) Subjective: Patient seen still complains of hip pain. Patient case was discussed with the by case management plan is for patient to be discharged to snf facility pending insurance approval Objective: GENERAL: in no apparent distress. HEENT: Clear conjunctiva, NECK; supple, normal thyroid, CHEST: Clear to auscultation bilaterally, HEART: Regular S1 S2, no audible murmurs ABDOMEN: soft, non-tender, normoactive bowel sounds, RECTAL: deferred EXTREMITIES: No edema, no clubbing, no cyanosis. 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; unsteady gait SKIN: No rash Vitals/I&O's: Vital Signs Temp Pulse Resp BP Pulse Ox 98.3 F 72 16 174/110 H 99 02/17/18 05:04 02/17/18 06:18 02/17/18 05:04 02/17/18 05:04 02/17/18 05:04 Oxygen Delivery Method Room Air Weight: 59.421 kg Body Mass Index (BMI) 21.8 Intake and Output for Last 24 Hours 02/15/18 02/16/18 02/17/18 23:59 23:59 23:59 Intake Total 240 / 240 2336 / 2336 528 / 528 Output Total 500 / 500 Balance 240 / 240 1836 / 1836 528 / 528 Current Medications Acetaminophen (Tylenol) 1,000 mg PO Q8 [facility] Last Admin: 02/17/18 06:44 Dose: 1,000 mg Atorvastatin Calcium (Lipitor) 10 mg PO QHS [facility] Last Admin: 02/16/18 22:22 Dose: 10 mg Bisacodyl (Dulcolax) 5 mg PO DAILY PRN PRN PRN Reason: Constipation Last Admin: 02/16/18 10:33 Dose: 5 mg Carbidopa/Levodopa (Sinemet) 1 tablet PO 5X/DAY [facility] Last Admin: 02/17/18 05:08 Dose: 1 tablet Cholecalciferol (Vitamin D) 2,000 unit PO DAILY [facility] Last Admin: 02/16/18 10:22 Dose: 2,000 unit Clopidogrel Bisulfate (Plavix) 75 mg PO DAILY [facility] Last Admin: 02/16/18 10:21 Dose: 75 mg Donepezil HCl (Aricept) 10 mg PO DAILY [facility] Last Admin: 02/16/18 10:22 Dose: 10 mg Enoxaparin Sodium (Lovenox) 40 mg SC DAILY@1000 [facility] Last Admin: 02/16/18 10:22 Dose: 40 mg Famotidine (Pepcid) 40 mg PO DAILY [facility] Last Admin: 02/16/18 10:21 Dose: 40 mg Ferrous Gluconate (Ferrous Gluconate) 325 mg PO DAILY@0800 [facility] Last Admin: 02/16/18 10:14 Dose: 325 mg Fludrocortisone Acetate (Florinef) 0.1 mg PO DAILY@0800 [facility] Last Admin: 02/16/18 10:21 Dose: 0.1 mg Gabapentin (Neurontin) 600 mg PO QHS [facility] Last Admin: 02/16/18 22:22 Dose: 600 mg Hydralazine HCl (Apresoline Iv) 10 mg IV Q6H PRN PRN PRN Reason: Hypertension Last Admin: 02/17/18 06:18 Dose: 10 mg Sodium Chloride () 1,000 mls @ 75 mls/hr IV .[id number] [facility] Last Admin: 02/16/18 20:40 Dose: 75 mls/hr Lidocaine (Lidoderm Patch) 2 patch TOPICAL DAILY [facility] PRN Reason: Protocol Magnesium Hydroxide (Milk Of Magnesia) 30 ml PO DAILY PRN PRN PRN Reason: Constipation Midodrine (Proamatine) 10 mg PO TID [facility] Last Admin: 02/17/18 06:07 Dose: Not Given Morphine Sulfate () 1 mg IV Q4H PRN PRN PRN Reason: SEVERE PAIN (6-10/10) Last Admin: 02/15/18 20:04 Dose: 1 mg Nutritional Formula (Lactose Free) (Ensure Enlive) 120 ml PO 4X/DAY [facility] Last Admin: 02/16/18 22:23 Dose: 120 ml Ondansetron HCl (Zofran) 4 mg IV Q8H PRN PRN PRN Reason: NAUSEA Oxycodone HCl (Oxyir) 5 mg PO Q4H PRN PRN PRN Reason: SEVERE PAIN (6-10/10) Last Admin: 02/16/18 10:32 Dose: 5 mg Potassium Chloride (K-Dur) 10 meq PO BID [facility] Last Admin: 02/16/18 22:22 Dose: 10 meq Psyllium Hydrophilic Mucilloid (Metamucil) 1 packet PO DAILY PRN PRN PRN Reason: CONSTIPATION Sertraline HCl (Zoloft) 50 mg PO DAILY [facility] Last Admin: 02/16/18 10:22 Dose: 50 mg Sodium Chloride () 5 - 30 ml IV UD PRN PRN Reason: SALINE FLUSH Last Admin: 02/15/18 20:04 Dose: 5 ml Sodium Chloride (Sodium Chloride) 1 gm PO TID [facility] Last Admin: 02/17/18 05:08 Dose: 1 gm Medical Necessity - Tobacco Use Smoking Status: Former smoker Tobacco Use: Non-smoker Assessment/Plan Active and Suspected Problems Compression fracture (Acute) Hip fracture (Acute) Patient is a 72-year-old lady with past medical history sent on for advanced Parkinson's disease complicated by dementia with autonomic dysfunction who presented following a fall. CT obtained demonstrated L1 compression fracture also suspicion of probable left hip fracture however imaging studies did not demonstrate any hip fracture. Patient admitted to regular regular floor for further management 1. Mechanical fall with L1 compression fracture patient has been admitted to regular nursing floor for symptomatic management consult was placed to PT OT recommendation is for patient to be discharged to a snf facility. Case subsequently discussed with case management arrangements are underway for patient to be placed once insurance approval is obtained 2. Left hip contusion CT was negative for hip fracture 3. Advanced Parkinson's disease with cognitive impairment and autonomic dysfunction 4. Anemia secondary to anemia of chronic disorder 5. DVT prophylaxis; Lovenox Clinical Impression(s) from Imaging Studies Lower Extremity CT 02/15/18 16:06 IMPRESSION: No acute fracture is demonstrated. Electronically Signed: Lili Rosenthal MD at 16:50 EDT , Service support , Code Visit Inpatient E&M: [id number] Subs Hosp L2
--- NOTE | 2018-02-17 08:17 | PN_ITS ---
Patient Problems: Active and Suspected Problems Compression fracture (Acute) Hip fracture (Acute) Subjective: Patient seen still complains of hip pain. Patient case was discussed with the by case management plan is for patient to be discharged to [facility] facility pending insurance approval Objective: GENERAL: in no apparent distress. HEENT: Clear conjunctiva, NECK; supple, normal thyroid, CHEST: Clear to auscultation bilaterally, HEART: Regular S1 S2, no audible murmurs ABDOMEN: soft, non-tender, normoactive bowel sounds, RECTAL: deferred EXTREMITIES: No edema, no clubbing, no cyanosis. 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; unsteady gait SKIN: No rash Vitals/I&O's: Vital Signs Temp Pulse Resp BP Pulse Ox 98.3 F 72 16 174/110 H 99 02/17/18 05:04 02/17/18 06:18 02/17/18 05:04 02/17/18 05:04 02/17/18 05:04 Oxygen Delivery Method Room Air Weight: 59.421 kg Body Mass Index (BMI) 21.8 Intake and Output for Last 24 Hours 02/15/18 02/16/18 02/17/18 23:59 23:59 23:59 Intake Total 240 / 240 2336 / 2336 528 / 528 Output Total 500 / 500 Balance 240 / 240 1836 / 1836 528 / 528 Current Medications Acetaminophen (Tylenol) 1,000 mg PO Q8 [facility] Last Admin: 02/17/18 06:44 Dose: 1,000 mg Atorvastatin Calcium (Lipitor) 10 mg PO QHS [facility] Last Admin: 02/16/18 22:22 Dose: 10 mg Bisacodyl (Dulcolax) 5 mg PO DAILY PRN PRN PRN Reason: Constipation Last Admin: 02/16/18 10:33 Dose: 5 mg Carbidopa/Levodopa (Sinemet) 1 tablet PO 5X/DAY [facility] Last Admin: 02/17/18 05:08 Dose: 1 tablet Cholecalciferol (Vitamin D) 2,000 unit PO DAILY [facility] Last Admin: 02/16/18 10:22 Dose: 2,000 unit Clopidogrel Bisulfate (Plavix) 75 mg PO DAILY [facility] Last Admin: 02/16/18 10:21 Dose: 75 mg Donepezil HCl (Aricept) 10 mg PO DAILY [facility] Last Admin: 02/16/18 10:22 Dose: 10 mg Enoxaparin Sodium (Lovenox) 40 mg SC DAILY@1000 [facility] Last Admin: 02/16/18 10:22 Dose: 40 mg Famotidine (Pepcid) 40 mg PO DAILY [facility] Last Admin: 02/16/18 10:21 Dose: 40 mg Ferrous Gluconate (Ferrous Gluconate) 325 mg PO DAILY@0800 [facility] Last Admin: 02/16/18 10:14 Dose: 325 mg Fludrocortisone Acetate (Florinef) 0.1 mg PO DAILY@0800 [facility] Last Admin: 02/16/18 10:21 Dose: 0.1 mg Gabapentin (Neurontin) 600 mg PO QHS [facility] Last Admin: 02/16/18 22:22 Dose: 600 mg Hydralazine HCl (Apresoline Iv) 10 mg IV Q6H PRN PRN PRN Reason: Hypertension Last Admin: 02/17/18 06:18 Dose: 10 mg Sodium Chloride () 1,000 mls @ 75 mls/hr IV .[id number] [facility] Last Admin: 02/16/18 20:40 Dose: 75 mls/hr Lidocaine (Lidoderm Patch) 2 patch TOPICAL DAILY [facility] PRN Reason: Protocol Magnesium Hydroxide (Milk Of Magnesia) 30 ml PO DAILY PRN PRN PRN Reason: Constipation Midodrine (Proamatine) 10 mg PO TID [facility] Last Admin: 02/17/18 06:07 Dose: Not Given Morphine Sulfate () 1 mg IV Q4H PRN PRN PRN Reason: SEVERE PAIN (6-10/10) Last Admin: 02/15/18 20:04 Dose: 1 mg Nutritional Formula (Lactose Free) (Ensure Enlive) 120 ml PO 4X/DAY [facility] Last Admin: 02/16/18 22:23 Dose: 120 ml Ondansetron HCl (Zofran) 4 mg IV Q8H PRN PRN PRN Reason: NAUSEA Oxycodone HCl (Oxyir) 5 mg PO Q4H PRN PRN PRN Reason: SEVERE PAIN (6-10/10) Last Admin: 02/16/18 10:32 Dose: 5 mg Potassium Chloride (K-Dur) 10 meq PO BID [facility] Last Admin: 02/16/18 22:22 Dose: 10 meq Psyllium Hydrophilic Mucilloid (Metamucil) 1 packet PO DAILY PRN PRN PRN Reason: CONSTIPATION Sertraline HCl (Zoloft) 50 mg PO DAILY [facility] Last Admin: 02/16/18 10:22 Dose: 50 mg Sodium Chloride () 5 - 30 ml IV UD PRN PRN Reason: SALINE FLUSH Last Admin: 02/15/18 20:04 Dose: 5 ml Sodium Chloride (Sodium Chloride) 1 gm PO TID [facility] Last Admin: 02/17/18 05:08 Dose: 1 gm Medical Necessity - Tobacco Use Smoking Status: Former smoker Tobacco Use: Non-smoker Assessment/Plan Active and Suspected Problems Compression fracture (Acute) Hip fracture (Acute) Patient is a 72-year-old lady with past medical history sent on for advanced Parkinson's disease complicated by dementia with autonomic dysfunction who presented following a fall. CT obtained demonstrated L1 compression fracture also suspicion of probable left hip fracture however imaging studies did not demonstrate any hip fracture. Patient admitted to regular regular floor for further management 1. Mechanical fall with L1 compression fracture patient has been admitted to regular nursing floor for symptomatic management consult was placed to PT OT recommendation is for patient to be discharged to a [facility] facility. Case subsequently discussed with case management arrangements are underway for patient to be placed once insurance approval is obtained 2. Left hip contusion CT was negative for hip fracture 3. Advanced Parkinson's disease with cognitive impairment and autonomic dysfunction 4. Anemia secondary to anemia of chronic disorder 5. DVT prophylaxis; Lovenox Clinical Impression(s) from Imaging Studies Lower Extremity CT 02/15/18 16:06 IMPRESSION: No acute fracture is demonstrated. Electronically Signed: Lili Rosenthal MD at 16:50 EDT , Service support , Code Visit Inpatient E&M: [id number] Subs Hosp L2
[2018-02-17 08:24] VITALS: BP 92/61; PULSE 83; RESP 18; TEMP 36.3; O2SAT 97
--- NOTE | 2018-02-17 09:02 | PCM.DC ---
- Discharge Diagnoses Current Active Problems: Current Active and Chronic Problems Debility (Chronic) Parkinson disease (Chronic) Compression fracture (Acute) Hip fracture (Acute) Orthostatic hypotension due to Parkinson's disease (Chronic) You will use the following diet at home:: No restrictions Allergies/Adverse Reactions: Allergies Penicillins Allergy (Verified 02/15/18 13:13) Swelling Medications to take at Discharge Atorvastatin Calcium [Lipitor] 10 mg PO QHS 02/15/18 Carbidopa/Levodopa 25/100 [Sinemet 25/100] 1 tablet PO 5X/DAY 02/15/18 Cholecalciferol (Vitamin D3) [Vitamin D3] 2,000 unit PO DAILY 02/15/18 Clopidogrel Bisulfate [Plavix] 75 mg PO QHS 02/15/18 Donepezil HCl [Aricept] 10 mg PO QHS 02/15/18 Famotidine [Pepcid] 40 mg PO QHS 02/15/18 Ferrous Gluconate 325 mg PO DAILY@1500 02/15/18 Flaxseed Oil [[place]-3 Flaxseed Oil] 1,000 mg PO DAILY 02/15/18 Fludrocortisone Acetate [Florinef] 0.1 mg GT DAILY@0900 02/15/18 Gabapentin [Neurontin] 600 mg PO QHS 02/15/18 Midodrine HCl 10 mg PO TID 02/15/18 Potassium Chloride [Klor-Con 10] 10 meq PO BID 02/15/18 Sertraline HCl [Zoloft] 50 mg PO QHS 02/15/18 Ubidecarenone [Co Q-10] 100 mg PO DAILY 02/15/18 Sodium Chloride 1 gm PO TID 02/16/18 Acetaminophen [Tylenol] 1,000 mg PO Q8 #0 tablet 02/17/18 Primary Care Physician: Ravin Farias,Out of [Primary Care Provider] - Please follow up with your Primary Care Physician in: in 5-7 days Proposed Discharge Date: 02/17/18
--- NOTE | 2018-02-17 09:05 | PCM.DC.SUM ---
Discharge Date and Diagnosis - Problem List Patient Problems: Active and Suspected Problems Compression fracture (Acute) Date of Admission: 02/15/18 Date of Discharge: 02/17/18 - Primary Discharge Diagnosis Active and Suspected Problems Compression fracture (Acute) - Secondary Discharge Diagnosis Chronic Problems Debility (Chronic) Parkinson disease (Chronic) Orthostatic hypotension due to Parkinson's disease (Chronic) Hospital Course and Treatment Imaging Results: Clinical Impression(s) from Imaging Studies Lower Extremity CT 02/15/18 16:06 IMPRESSION: No acute fracture is demonstrated. Electronically Signed: Lili Rosenthal MD at 16:50 EDT , Service support , Summary of Care Provided: Patient is a 72-year-old lady with past medical history sent on for advanced Parkinson's disease complicated by dementia with autonomic dysfunction who presented following a fall. CT obtained demonstrated L1 compression fracture also suspicion of probable left hip fracture however imaging studies did not demonstrate any hip fracture. Patient admitted to regular regular floor for further management 1. Mechanical fall with L1 compression fracture patient has been admitted to regular nursing floor for symptomatic management consult was placed to PT OT recommendation is for patient to be discharged to a half-way facility. Case subsequently discussed with case management recommendation was for patient to have been discharged to half-way facility however insisted on home with home health versus outpatient therapy so seen in consultation by Dr. Valdez pain management recommended initiation of Lidoderm patch plan is for patient to undergo kyphoplasty as outpatient on 02/18/18 2. Left hip contusion CT was negative for hip fracture 3. Advanced Parkinson's disease with cognitive impairment and autonomic dysfunction 4. Anemia secondary to anemia of chronic disorder 5. DVT prophylaxis; Lovenox Discharge Diet: No Restrictions Discharge Activity: Return to Normal Activity Home Medications: Medications to take at Discharge Atorvastatin Calcium [Lipitor] 10 mg PO QHS 02/15/18 Carbidopa/Levodopa 25/100 [Sinemet 25/100] 1 tablet PO 5X/DAY 02/15/18 Cholecalciferol (Vitamin D3) [Vitamin D3] 2,000 unit PO DAILY 02/15/18 Clopidogrel Bisulfate [Plavix] 75 mg PO QHS 02/15/18 Donepezil HCl [Aricept] 10 mg PO QHS 02/15/18 Famotidine [Pepcid] 40 mg PO QHS 02/15/18 Ferrous Gluconate 325 mg PO DAILY@1500 02/15/18 Flaxseed Oil [[place]-3 Flaxseed Oil] 1,000 mg PO DAILY 02/15/18 Fludrocortisone Acetate [Florinef] 0.1 mg GT DAILY@0900 02/15/18 Gabapentin [Neurontin] 600 mg PO QHS 02/15/18 Midodrine HCl 10 mg PO TID 02/15/18 Potassium Chloride [Klor-Con 10] 10 meq PO BID 02/15/18 Sertraline HCl [Zoloft] 50 mg PO QHS 02/15/18 Ubidecarenone [Co Q-10] 100 mg PO DAILY 02/15/18 Sodium Chloride 1 gm PO TID 02/16/18 Acetaminophen [Tylenol] 1,000 mg PO Q8 #0 tablet 02/17/18 Lidocaine [Lidoderm Patch] 2 patch TOPICAL DAILY #30 patch 02/17/18 Following Prescrptions Were Given to Patient: Lidocaine [Lidoderm Patch] 2 patch TOPICAL DAILY #30 patch Primary Care Physician: Ravin Farias,Out of [Primary Care Provider] - Please follow up with your Primary Care Physician in: in 5-7 days Disposition: Home with Home Health Minutes spent on discharge:: 35 Patient Condition:: Stable Medical Necessity - Tobacco Use Smoking Status: Former smoker Tobacco Use: Non-smoker Meaningful Use Info Meaningful Use Diagnoses (Choose all that apply): None applicable Code Visit Inpatient E&M: 87059 Disch Hosp
--- NOTE | 2018-02-17 09:09 | CASEMGMT ---
Social Work Note SW met with pt to discuss d/c planning. SW asked pt if she has determined discharge plans and informed her that doctor is ready for discharge. Pt states that she thinks she and her family are leaning towards more outpatient therapy vs. home health therapy instead of senior care placement. SW asked pt for permission to call her [facility] and pt gave permissions. SW placed call to pt's [facility] and left a message in regards to discharge planning. SW informed Pepe that doctor is ready for discharge. SW will wait for call back from pt's and will see if pt's comes into the hospital to see pt. Station Supervisor will continue to follow to assist with discharge planning. Plan: Outpatient therapy vs. Home Health Staci Waggoner MEDIA OPERATOR, LITHOGRAPH PRINTER
--- NOTE | 2018-02-17 09:54 | CASEMGMT ---
Social Work Note Pt's is now in room with pt. SW met with pt and pt's to discuss discharge planning. SW informed pt and pt's that the doctor is ready to discharge pt and that this worker has the scripts for outpatient therapy if they want to follow up with outpatient therapy at discharge. Per this workers conversation with pt and her family yesterday they are wanting outpatient therapy and not SNF placement. Pt's states that he would like to follow up with Dr. Valdez who wants to follow up with the orthopedics to see about hip. Pt's states that he will be calling Dr. Valdez about pt's hip. Pt's states that they are wanting outpatient therapy at discharge. SW states that this worker will let staff know pt's request and that he will be calling Dr. Valdez. SW informed charge nurse Kelsie about this. Per Kelsie, pt's CT scan came back negative for fracture and that pt has a hip contusion. ODALIS Lobo and Charge Nurse Kelsie instructed this worker to inform pt and her that the CT scan was negative and that pt can follow up with outpatient therapy, pt can see her PCP in 5-7 days and if pt continues to have hip pain then she can follow up outpatient with an orthopedic surgeon. SW informed pt and pt's of this. Per, pt's Dr. Vadlez informed them that pt's CT scan may actually show a fracture and that is why he wanted pt to follow up with orthopedic before pt discharges. SW informed pt that this worker will relay the message to staff. SW informed pt and pt's that this worker has the scripts for outpatient therapy and that they can take the scripts to a facility of their choice to receive outpatient therapy. SW informed Charge Nurse Kelsie of pt's comments regarding Dr. Valdez telling the family pt may have a hip fracture. Charge Nurse Kelsie in to speak with pt. Plan: Outpatient therapy Staci Waggoner FAMILY AND MARRIAGE COUNSELLOR, HELPER STEEL FABRICATION
[2018-02-17] MEDS: Clopidogrel Bisulfate 75 MG Tablet PO (10:06)
[2018-02-17] MEDS: Sertraline 50 MG Tablet PO (10:06)
[2018-02-17] MEDS: Donepezil HCl 10 MG Tablet PO (10:06)
[2018-02-17] MEDS: Famotidine 20 MG Tablet 40 MG PO (10:06)
[2018-02-17] MEDS: Fludrocortisone Acetate 0.1 MG Tablet PO (10:07)
[2018-02-17] MEDS: Enoxaparin 40 MG/0.4 ML Syringe SC (10:07)
[2018-02-17] MEDS: Lidocaine 5% Patch 2 PATCH TOPICAL (10:07)
[2018-02-17] MEDS: Ferrous Gluconate 325 MG Tablet PO (10:07)
[2018-02-17] MEDS: 0.9% Normal Saline 1,000 ML 75 ML IV (10:17)
--- NOTE | 2018-02-17 11:14 | CASEMGMT ---
Social Work Note ODALIS Lobo and SW in to see patient and pt's regarding discharge planning. ODALIS Lobo explained to pt outpatient therapy verse home health therapy. ODALIS Luna explained that if pt wanted Home Health care then pt would have to be deemed home bound. ODALIS Luna explained that pt will be unable to do both outpatient therapy and home health therapy at the same time. ODALIS COSBY informed pt and her about private care for pt and pt's states that they won't be able to afford private duty. ODALIS COSBY states that outpatient therapy scripts are ready for pt and pt and her can take the scripts to any facility they want for outpatient therapy. ODALIS Luna informed pt and pt's that pt is ready for discharge and discharge paperwork has been submitted. Pt's states that he has to leave for physical therapy but should be back to the hospital around 1:30-3:00. Pt's sister also came into room during discussion and this information was relayed to her as well. Pt's sister was receptive to information provided to them, but pt's states that he still would like to hear back from Dr. Valdez regarding hip. ODALIS Luna states that there were two ct scans done on pt and the second one confirmed that pt doesn't have a fracture and medically pt is ready for discharge. ANJU placed outpatient therapy scripts and medication list on pt's chart. Plan: Discharge Home and follow up with outpatient therapy and PCP in 5-7 days Staci Waggoner MSW, ANTIQUE FINISHER
[2018-02-17 14:24] VITALS: BP 111/66; PULSE 89; RESP 18; TEMP 36.4; O2SAT 97
[2018-02-17] MEDS: Midodrine HCl 5 MG Tablet 10 MG PO (14:38)
== END 2018-02-17 15:00 | disposition home health service (06) | DRG 552 ==
LOC: ED 16:21 → MS3 16:30
PROVIDERS: Admitting Provider Internal Medicine; Emergency Provider Emergency Medicine; Visit Provider Internal Medicine
DX: S32.019A Unspecified fracture of first lumbar vertebra, initial encounter for closed fracture (principal); G20 Parkinson's disease; F02.80 Dementia in other diseases classified elsewhere, unspecified severity, without behavioral disturbance, psychotic disturbance, mood disturbance, and anxiety; I95.1 Orthostatic hypotension; F45.8 Other somatoform disorders; D53.9 Nutritional anemia, unspecified; D63.8 Anemia in other chronic diseases classified elsewhere; S70.02XA Contusion of left hip, initial encounter; W01.10XA Fall on same level from slipping, tripping and stumbling with subsequent striking against unspecified object, initial encounter; Y93.9 Activity, unspecified; Y92.000 Kitchen of unspecified non-institutional (private) residence as the place of occurrence of the external cause; Y99.9 Unspecified external cause status; Z79.02 Long term (current) use of antithrombotics/antiplatelets; Z79.899 Other long term (current) drug therapy; Z87.891 Personal history of nicotine dependence
CPT/HCPCS: 36415; 70450; 71045; 73030; 73700; 74177; 80048; 85025; 97162; 97166; 97530; 97802; 99285; J7030; Q9967; A4216; J2405

== ENCOUNTER 2018-04-12 11:05 | Emergency (ER) | payer MEDICARE, SELFPAY ==
[2018-04-12 11:06] VITALS: BP 160/141; PULSE 82; RESP 18; TEMP 36.4; O2SAT 98; BMI 19.0
--- NOTE | 2018-04-12 11:45 | CT_ITS ---
STUDY: CT BRAIN WITHOUT CONTRAST REASON FOR EXAM: Female, 73 years old. Fall. History of Parkinson's disease. RADIATION DOSAGE (If Supplied By Facility): CTDIvol = ( 44.99 ) mGy, DLP = ( 745.49 ) mGycm TECHNIQUE: Transaxial CT imaging of the brain was performed without administration of intravenous contrast material. Individualized dose optimization techniques were used for this CT. COMPARISON: None. FINDINGS: There is hyperostosis frontalis internus. Stimulator leads pass through bifrontal jones holes and through the periventricular tissues to the bilateral thalami. Lead wires connected to the stimulator is passed through the frontoparietal to occipital scalp and down the posterior aspect of the visualized upper neck. There is mild cerebral atrophy with widening of the extra-axial spaces and ventricular dilatation. There is mildly asymmetric left temporoparietal atrophy and enlargement of the left sylvian fissure compared to the right. On the other hand, the posterior and temporal horns of the right lateral ventricle is mildly larger than the left. Normal white matter tracts of the cerebral hemispheres. Normal basal ganglia and thalami. Focal low density in the mid jelani of the left of midline on series 2 image 12, series 6 on image 51 may be artifact versus focal old lacunar infarct. Normal cerebellum. There is no intracranial hemorrhage. There are no findings of an acute ischemic infarction. The right posterior ethmoid sinus is opacified. CT/Brain/Head without Contrast IMPRESSION: 1. Stimulator leads passing through bifrontal jones holes to the bilateral thalami are noted. 2. Chronic involutional changes of the brain. No acute intracranial pathology/injury. 3. Opacified right posterior ethmoid sinus. Electronically Signed: Christian Gonsalves MD at 12:41 EDT , Service support ,
--- NOTE | 2018-04-12 11:45 | RAD_ITS ---
STUDY: X-RAY - LEFT HAND, ATTENTION THIRD FINGER REASON FOR EXAM: Female, 73 years old. Fall, pain. TECHNIQUE: 3 view(s) of the finger were obtained. COMPARISON: None. FINDINGS: Normal metacarpal head. Normal metacarpophalangeal joint. Normal proximal phalanx. Normal middle phalanx. Normal distal phalanx. Normal proximal interphalangeal joint. Normal distal interphalangeal joint. Mild soft tissue swelling at the level of the head of the proximal phalanx. There is no demonstrated fracture. RAD/Finger(s) Min 2 Views IMPRESSION: No acute fracture of the left third finger. Electronically Signed: Christian Gonsalves MD at 12:32 EDT , Service support ,
[2018-04-12] MEDS: HYDROcodone Bitartrate/Apap 5/325 Tablet PO (12:04)
[2018-04-12] MEDS: Ondansetron ODT 4 MG Tablet PO (12:05)
[2018-04-12] MEDS: Carbidopa/Levodopa 25/100 Tablet PO (12:33)
[2018-04-12] MEDS: Midodrine HCl 5 MG Tablet 10 MG PO (12:33)
[2018-04-12 12:35] VITALS: BP 170/125
--- NOTE | 2018-04-12 12:54 | ED.DCSUM_ITS ---
- ER Visit Summary Date of Service: 04/12/18 Chief Complaint: Fall History of Present Illness: The patient is a [address] Grider. Patient fell approximately 1030 this morning. She is typically wheelchair bound. had left and she was in the kitchen. When he returned he found that she did try to get out of her wheelchair and falling. No loss of consciousness. She is on Plavix, but no blood thinners. She denies any neck, back, shoulder, wrist, or hip pain. She reports that she has moderate pain to her left middle finger. Physical Examination: Vitals: Stable. Afebrile. Head: Abrasions to the right side of the forehead and to the hairline on the right. Neck: No vertebral tenderness. Full ROM without difficulty. Cleared by NEXUS criteria. Back: No vertebral tenderness. General: A&O x 3. NAD. Cardiovascular exam: Regular rate and rhythm, no murmur, rub or gallop. Respiratory exam: Chest nontender. No crepitus. Clear to auscultation bilaterally. No wheezes or stridor. Abdominal exam: Soft, nontender, nondistended, normal bowel sounds. No pain in RUQ or LUQ specifically. No peritoneal signs. Extremity: Contusion to the back of the PIP joint left middle finger. Decreased range of motion secondary to pain. Neurovascular intact distally. Test Results: CT head shows chronic changes. Left third finger x-ray shows no fracture. Emergency Department Course and Treatment: Patient was treated with [place], Sinemet, and Midrin. She is resting comfortably. Treatment Plan: Patient be discharged instructions to follow-up with Dr. Grider in 1 week if not improving. Return to the emergency department for any worsening symptoms. Disposition: To home in improved and stable condition. Impression: 1. Mechanical fall. 2. Abrasions to forehead. 3. Contusion left middle finger. This note was generated with [employer] dictation software. It may contain incorrect words, spelling, and punctuation that were not noted in review of the chart prior to signing ED Disposition - Plan for ED Patient: Disposition: Home or Assisted Living Chief Complaint: Fall Instructions: ED Contusion Finger, ED Head Injury Closed Referrals: Moises Whelan MD [Primary Care Provider] - 1 Week if not improving
[2018-04-12 13:20] VITALS: BP 171/94; PULSE 70; RESP 16; O2SAT 96
--- NOTE | 2018-04-12 13:20 | ED.RN ---
RN HELPED PT TO BEDSIDE COMMODE. HELPED GET HER DRESSED AND INTO WHEELCHAIR. USED WHEELCHAIR TO ASSIST INTO CAR.
== END 2018-04-12 13:21 | disposition home or self-care (01) ==
LOC: ED 12:36
PROVIDERS: Emergency Provider Emergency Medicine
DX: S60.032A Contusion of left middle finger without damage to nail, initial encounter (principal); S00.81XA Abrasion of other part of head, initial encounter; E78.00 Pure hypercholesterolemia, unspecified; G20 Parkinson's disease; Z99.3 Dependence on wheelchair; Z79.02 Long term (current) use of antithrombotics/antiplatelets; Z79.899 Other long term (current) drug therapy; W05.0XXA Fall from non-moving wheelchair, initial encounter; Y93.89 Activity, other specified; Y92.000 Kitchen of unspecified non-institutional (private) residence as the place of occurrence of the external cause; Y99.8 Other external cause status
CPT/HCPCS: 70450; 73140; 99284

== ENCOUNTER 2018-05-31 23:01 | Emergency (ER) | payer MEDICARE, SELFPAY ==
[2018-05-31 23:02] VITALS: BP 198/115; PULSE 80; RESP 18; TEMP 37; O2SAT 99; BMI 21.2
--- NOTE | 2018-05-31 23:04 | ED.VISSUMM ---
- ER Visit Summary Date of Service: 05/31/18 Chief Complaint: Fall, left hip pain History of Present Illness: The patient is a 73 F with history of Parkinson's disease who is in a wheelchair presents after fall. Patient cannot remember the details of the fall. Apparently, per squad, she fell and landed on her left side. There was no report of head injury. Since then, she has had increasing pain in the left side and has been able to bear weight. Patient denies any prior fracture. She does have a recent history of lumbar compression fracture, but she states the pain is only in her left groin. She denies any fevers, chills, other systemic symptoms. She has not taken anything for the pain. Physical Examination: Vital signs reviewed General: Well-nourished, well-developed Head: Normocephalic, atraumatic Eyes: Pupils equal and reactive, extraocular muscles intact Neck, supple, no lymphadenopathy Heart: Regular rate and rhythm Respiratory: No distress, clear bilaterally Abdomen: Soft, nontender, nondistended, no peritoneal signs Back: Nontender Extremities: Mild tenderness over the left greater trochanter and pain with motion. Normal pulses. Skin intact. Skin: Normal color no rash Neuro: Alert and oriented, no focal or lateralizing deficits Test Results: [] Emergency Department Course and Treatment: The patient only had mild pain over the left greater trochanter on arrival. She was given fentanyl and Zofran. Plain films were obtained which did not show evidence of acute fracture. The patient did have nitrite positive urine, but only 0-5 whites. She has had no urinary symptoms. I do not feel this represents a urinary tract infection. With negative x-ray, the patient was able to stand and bear weight. She is basically wheelchair-bound at home. She has had no further pain. I do feel that this is likely contusion. At this time, I do for the patient is safe for discharge and agrees with plan of care. Treatment Plan: [] Disposition: Discharge Impression: 1. Left hip contusion This note was generated with [email or web address].comation software. It may contain incorrect words, spelling, and punctuation that were not noted in review of the chart prior to signing ED Disposition - Plan for ED Patient: Chief Complaint: Fall Instructions: ED Mechanical Fall Referrals: Moises Whelan MD [Primary Care Provider] -
[2018-05-31 23:06] VITALS: O2SAT 99
[2018-05-31 23:32] LABS: Mucous, Urine 0 SEEN /hpf (<or=2+); Red Blood Cells-Urine 0 SEEN /hpf (0-5); Squamous Epithelial Cells - UA 0 SEEN /hpf (5-10)
[2018-05-31] MEDS: Ondansetron 4 MG/2 ML Vial IV (23:35)
[2018-05-31] MEDS: fentaNYL 100 MCG/2 ML Ampul 25 MCG IV (23:36)
[2018-05-31 23:49] LABS: Absolute Lymphocyte Count 1.76 X10^3/ul (0.83-4.51); Absolute Neutrophil Count 7.2 X10^3/uL (2.0-7.7); Basophil# 0.02 X10^3/uL; Basophil% 0.2 % (0-1); Eosinophil# 0.08 X10^3/uL; Eosinophils% 0.8 % (0-5); Hematocrit 40.5 % (37-47); Hemoglobin 13.3 g/dl (12.0-15.0); Lymphocyte # 1.76 X10^3/ul (4.0); Lymphocyte % 17.4 % (19-41); Mean Corp Hgb Conc 32.8 g/gl (32-36); Mean Corpuscular Hgb 29.9 pg (27.0-32.0); Mean Platelet Vol. 10.4 fl (6.2-12.0); Monocyte# 1.02 X10^3/uL; Monocyte% 10.1 % (0-10); Neutrophil # 7.19 X10^3/uL (2.7-7.7); Neutrophil % 71.2 % (47-70); Platelet Count 257 K/mm3 (150-450); RBC Distribution Width CV 14.1 % (11.6-14.6); RBC Distribution Width SD 46.6 fl (35.1-43.9); Red Blood Count 4.45 M/mm3 (4.2-5.4); White Blood Count 10.1 K/mm3 (4.4-11.0)
--- NOTE | 2018-05-31 23:50 | RAD_ITS ---
STUDY: X-RAY - PELVIS AND LEFT HIP REASON FOR EXAM: Female, 73 years old. Status post fall. TECHNIQUE: Radiological exam, hip, unilateral, with pelvis, 3 views. COMPARISON: None. FINDINGS: There is a non-specific bowel gas pattern. There are multiple calcified phleboliths. Normal bilateral iliac wings, sacroiliac joints and visualized sacrum. Normal bilateral superior and inferior pubic rami. Normal pubic symphysis. Normal bilateral ischial tuberosities. There are osteoarthritic changes of the femoral head with marginal osteophyte formation. There is osteoarthritic spur formation of the acetabular rim. Normal hip joint. RAD/Hip 2-3 Views with Pelvis IMPRESSION: Mild degenerative arthrosis of the hip. No demonstrated fracture, dislocation, or destructive osseous lesion. Electronically Signed: Phan Woods MD at 0:34 EDT , Service support ,
[2018-05-31 23:55] LABS: Color, Urine Yellow (Yellow); Glucose, Dipstick NEGATIVE (Normal); Ketone-Dipstick 5 mg/dl (Negative); Leukocyte Esterase-Dipstick 100 /ul (Negative); Nitrite-Dipstick Positive (Negative); Occult Blood-Urine 50 /ul (Negative); Protein-Dipstick Negative (Negative); Urine Bilirubin Dipstick Negative (Negative); Urine Clarity Clear (Clear); Urine Urobilinogen Normal (Normal)
[2018-05-31 23:56] LABS: POSITIVE COUNT NO; POSITIVE DIFFERENTIAL NO; POSITIVE MORPHOLOGY NO
[2018-06-01 00:04] LABS: ALB/GLOB Ratio 1.2 RATIO (0.9-2.4); AST(SGOT) 11 U/L (15-37); Alanine Aminotransfer ALT/SGPT 10 U/L (13-56); Alkaline Phosphatase 105 U/L (45-117); Anion Gap 9 (5-15); BUN 34 mg/dL (7-18); BUN/Creat Ratio 37.4 RATIO (10-20); Calcium,Total 9.9 mg/dL (8.5-10.1); Chloride 105 mmol/L (98-107); Creatinine, Serum 0.91 mg/dL (0.55-1.02); EST Glomerular Filtration Rate 65 mL/min (>60); Est Glom Filt Rate - Afr Amer 78 mL/min (>60); Estimated Creatinine Clearance 50.28 ml/min; Globulin 3.3 g/dL (2.2-4.2); Glucose 92 mg/dL (74-106); Potassium 4.2 mmol/L (3.5-5.1); Protein, Total 7.3 g/dL (6.4-8.2); Sodium Level 143 mmol/L (136-145)
[2018-06-01 00:07] LABS: Bacteria 3+ /hpf (None Seen); White Blood Cells 0-5 SEEN /hpf (0-5)
[2018-06-01 01:08] VITALS: RESP 18; O2SAT 96
[2018-06-01 01:54] VITALS: BP 165/95; PULSE 69; RESP 18; O2SAT 98
== END 2018-06-01 01:55 | disposition skilled nursing facility (03) ==
PROVIDERS: Emergency Provider Emergency Medicine
DX: S70.02XA Contusion of left hip, initial encounter (principal); W19.XXXA Unspecified fall, initial encounter; Y93.9 Activity, unspecified; Y92.9 Unspecified place or not applicable; Y99.9 Unspecified external cause status; G20 Parkinson's disease; I25.10 Atherosclerotic heart disease of native coronary artery without angina pectoris; I10 Essential (primary) hypertension; F03.90 Unspecified dementia, unspecified severity, without behavioral disturbance, psychotic disturbance, mood disturbance, and anxiety; Z99.3 Dependence on wheelchair; Z79.02 Long term (current) use of antithrombotics/antiplatelets; Z79.899 Other long term (current) drug therapy
CPT/HCPCS: 51702; 73502; 80053; 81001; 85025; 96374; 96375; 99285; A4216; J2405

== ENCOUNTER → 2018-07-08 06:00 | Outpatient (REF) | payer MEDICARE, SELFPAY ==
[2018-07-08 08:06] LABS: Color, Urine Yellow (Yellow); Glucose, Dipstick Normal (Normal); Ketone-Dipstick Negative (Negative); Leukocyte Esterase-Dipstick 500 /ul (Negative); Nitrite-Dipstick Positive (Negative); Occult Blood-Urine 25 /ul (Negative); Protein-Dipstick 15 mg/dl (Negative); Urine Bilirubin Dipstick Negative (Negative); Urine Clarity Sl. Cloudy (Clear); Urine Urobilinogen Normal (Normal)
== END ==
DX: N39.0 Urinary tract infection, site not specified (principal)
CPT/HCPCS: 81002; 87086; 87088; 87186

== ENCOUNTER 2018-07-14 10:10 | Emergency (ER) | payer MEDICARE, SELFPAY ==
[2018-07-14] VITALS (8 sets, daily range): BP systolic 113–158; BP diastolic 87–105; PULSE 79–195; RESP 12–20; TEMP 36.3; O2SAT 94–99; BMI 21.0
--- NOTE | 2018-07-14 10:17 | EKG12_ITS ---
Test Reason : REPEAT Blood Pressure : / mmHG Vent. Rate : 083 BPM Atrial Rate : 083 BPM P-R Int : 132 ms QRS Dur : 062 ms QT Int : 380 ms P-R-T Axes : 037 002 030 degrees QTc Int : 446 ms Normal sinus rhythm Cannot rule out Inferior infarct , age undetermined Abnormal ECG Confirmed by ANTONIO MARTIN ([id number]), news videotape editor SHINE PENNINGTON ([id number]) on 07/21/2018 2:15:08 PM Referred By: AGAPITO Confirmed By:ANTONIO MARTIN
--- NOTE | 2018-07-14 10:23 | ED.DCSUM_ITS ---
- ER Visit Summary Date of Service: 07/14/18 Chief Complaint: Palpitations History of Present Illness: The patient is a 73 F with palpitations that started 1 hour ago. She has a history of Parkinson's disease and hypertension. She feels lightheaded and dizzy and weak. No chest pain shortness of breath prior to this. No history of arrhythmias. Physical Examination: Patient is slightly diaphoretic, quite tachycardic in the 180s and 190s. She has clear lung soft abdomen does not look pale, she does appear in some distress. Test Results: Emergency Department Course and Treatment: EKG did show SVT, was given to give adenosine the patient spontaneously converted to sinus rhythm. He was monitored for a few hours, she has an unremarkable workup she continues to remain in sinus rhythm I will discharge her. I did talk to Dr. Kirk who will see her outpatient and he suggested low-dose beta blockers. The hospital EKG showed SVT, however the prehospital EKG showed atrial fibrillation which makes me worried about underlying atrial flutter that would have been missed on the hospital EKG, however I cannot see flutter waves. Regardless after discussing with Dr. Kirk he does not recommend any new blood thinners and he will follow up with her in the next 2-3 days. Disposition: [Discharge stable condition] Impression: [SVT] This note was generated with [employer] dictation software. It may contain incorrect words, spelling, and punctuation that were not noted in review of the chart prior to signing ED Disposition - Plan for ED Patient: Disposition: Home or Assisted Living Chief Complaint: Palpitations Prescriptions: Metoprolol Tartrate 25 mg PO BID #60 tab Referrals: Owen Grewal MD [STAFF PHYSICIAN] - 3-5 Days
[2018-07-14 10:33] LABS: Absolute Neutrophil Count 3.4 X10^3/uL (2.0-7.7); Basophil# 0.04 X10^3/uL; Basophil% 0.7 % (0-1); Eosinophil# 0.04 X10^3/uL; Eosinophils% 0.7 % (0-5); Hematocrit 41.6 % (37-47); Hemoglobin 13.7 g/dl (12.0-15.0); Lymphocyte % 30.9 % (19-41); Mean Corp Hgb Conc 32.9 g/gl (32-36); Mean Corpuscular Hgb 29.9 pg (27.0-32.0); Mean Corpuscular Volume 90.8 fL (81-99); Mean Platelet Vol. 10.5 fl (6.2-12.0); Monocyte# 0.56 X10^3/uL; Monocyte% 9.6 % (0-10); Neutrophil # 3.38 X10^3/uL (2.7-7.7); Neutrophil % 57.9 % (47-70); Platelet Count 294 K/mm3 (150-450); RBC Distribution Width CV 15.1 % (11.6-14.6); RBC Distribution Width SD 49.3 fl (35.1-43.9); Red Blood Count 4.58 M/mm3 (4.2-5.4); White Blood Count 5.8 K/mm3 (4.4-11.0)
[2018-07-14] MEDS: Ondansetron 4 MG/2 ML Vial IV (10:33)
[2018-07-14 10:35] LABS: POSITIVE COUNT NO; POSITIVE DIFFERENTIAL NO; POSITIVE MORPHOLOGY NO
--- NOTE | 2018-07-14 10:46 | EKG12_ITS ---
Test Reason : CP/AFIB Blood Pressure : / mmHG Vent. Rate : 187 BPM Atrial Rate : 187 BPM P-R Int : 000 ms QRS Dur : 068 ms QT Int : 234 ms P-R-T Axes : 000 037 176 degrees QTc Int : 413 ms Supraventricular tachycardia Marked ST abnormality, possible inferolateral subendocardial injury Abnormal ECG Confirmed by ANTONIO MARTIN ([id number]), fan mail editor SHINE PENNINGTON ([id number]) on 07/21/2018 2:15:25 PM Referred By: JOBY/AGAPITO Confirmed By:ANTONIO MARTIN
[2018-07-14 10:50] LABS: Anion Gap 11 (5-15); BUN 20 mg/dL (7-18); BUN/Creat Ratio 18.5 RATIO (10-20); Calcium,Total 9.4 mg/dL (8.5-10.1); Chloride 105 mmol/L (98-107); Creatinine, Serum 1.08 mg/dL (0.55-1.02); EST Glomerular Filtration Rate 53 mL/min (>60); Est Glom Filt Rate - Afr Amer 64 mL/min (>60); Estimated Creatinine Clearance 43.93 ml/min; Glucose 119 mg/dL (74-106); Potassium 3.9 mmol/L (3.5-5.1); Sodium Level 143 mmol/L (136-145)
[2018-07-14] MEDS: Carbidopa/Levodopa 25/100 Tablet PO (13:55)
== END 2018-07-14 14:43 | disposition home or self-care (01) ==
PROVIDERS: Emergency Provider Emergency Medicine; Family Provider Family Medicine; PCP Family Medicine
DX: I47.1 Supraventricular tachycardia (principal); I48.91 Unspecified atrial fibrillation; G20 Parkinson's disease; I10 Essential (primary) hypertension; Z72.0 Tobacco use; Z79.899 Other long term (current) drug therapy
CPT/HCPCS: 71045; 80048; 84484; 85025; 93005; 96374; 99285; J7030; A4216; J0153; J2405

== ENCOUNTER → 2018-07-28 09:00 | Outpatient (REF) | payer MEDICARE, SELFPAY ==
[2018-07-28 11:01] LABS: Color, Urine Yellow (Yellow); Glucose, Dipstick Normal (Normal); Ketone-Dipstick Negative (Negative); Leukocyte Esterase-Dipstick 500 /ul (Negative); Nitrite-Dipstick Positive (Negative); Occult Blood-Urine 25 /ul (Negative); Protein-Dipstick 15 mg/dl (Negative); Specific Gravity, Urine 1.015 (1.002-1.030); Urine Bilirubin Dipstick Negative (Negative); Urine Clarity Sl. Cloudy (Clear); Urine Urobilinogen Normal (Normal); Urine pH 6.5 (5.0 - 8.0)
== END ==
DX: N32.81 Overactive bladder (principal)
CPT/HCPCS: 81002; 87086; 87088; 87186

== ENCOUNTER 2018-09-29 14:43 | Emergency (ER) | payer MEDICARE, SELFPAY ==
[2018-09-29 14:45] VITALS: BP 132/78; PULSE 88; RESP 16; TEMP 35.9; O2SAT 98; BMI 20.5
--- NOTE | 2018-09-29 15:04 | CT_ITS ---
STUDY: CT CERVICAL SPINE WITHOUT CONTRAST REASON FOR EXAM: Female, 73 years old. History of Parkinson's. Lost balance, fall. RADIATION DOSAGE (If Supplied By Facility): CTDIvol = ( 17.11 ) mGy, DLP = ( 344.93 ) mGycm TECHNIQUE: High resolution transaxial imaging was performed without contrast material. Sagittal and coronal images were reconstructed. Individualized dose optimization techniques were used for this CT. COMPARISON: None FINDINGS: Normal craniovertebral junction. There are degenerative changes of the anterior atlantoaxial articulation. There is mild chronic deformity of the odontoid process. Normal to mildly exaggerated cervical lordosis. No acute fracture of the vertebral bodies and posterior osseous elements. C2-3: Right posterolateral endplate spurring. There is right posterior disc height narrowing. There are hypertrophic degenerative arthrosis of the bilateral facet articulations with moderately severe joint space narrowing Normal central canal and intervertebral neuroforamina. C3-4: There is osseous fusion of the vertebral endplates. Osseous fusion of the bilateral facet articulations also noted. Normal central canal and intervertebral neuroforamina. C4-5: Anterior C4 endplate osteophyte and mild left posterolateral endplate spurring. Normal disc height and morphology. Degenerative degenerative arthroses of the bilateral facet articulations with moderately severe joint space narrowing on the right and moderate narrowing on the left. Normal central canal. Mild osseous encroachment on the left intervertebral neuroforamen. C5-6: Anterior endplate spurring. Subcortical cystic degenerative change at the anterior margin of the superior C6 endplate. Normal disc height and morphology. Hypertrophic degenerative arthroses and moderate joint space narrowing of the bilateral facet articulations. Normal central canal and intervertebral neuroforamina. C6-7: Normal endplates. Normal disc height and morphology. Early degenerative arthrosis of the right facet articulation. Normal central canal and intervertebral neuroforamina. C7-T1: Minor anterior and posterior lateral endplate spurring. Normal disc height and morphology. Early degenerative arthrosis of the right facet articulation. Normal central canal and intervertebral neuroforamina. Normal visualized soft tissue structures. Not fully included in the [id number] is a 10.2 x 7 x 4.85 cm heterogeneous right thyroid mass that mildly displaces the lower cervical trachea and extends into the upper mediastinum. There is also mild heterogeneous enlargement of the lower left thyroid lobe. CT/Spine Cervical without Contras IMPRESSION: 1. No acute fracture of the cervical spine. 2. Multilevel degenerative changes, as described above. 3. Large right thyroid mass as well as mild heterogeneous enlargement of the lower left thyroid lobe. If clinically indicated, this can be further evaluated with thyroid ultrasound and/or nuclear medicine thyroid uptake and scan. Electronically Signed: Christian Gonsalves MD at 16:01 EST , Service support ,
--- NOTE | 2018-09-29 15:04 | CT_ITS ---
STUDY: CT BRAIN WITHOUT CONTRAST REASON FOR EXAM: Female, 73 years old. Lost balance, fall. RADIATION DOSAGE (If Supplied By Facility): CTDIvol = ( 44.99 ) mGy, DLP = ( 779.24 ) mGycm TECHNIQUE: Transaxial CT imaging of the brain was performed without administration of intravenous contrast material. Individualized dose optimization techniques were used for this CT. COMPARISON: Noncontrast CT brain April 12, 2018. FINDINGS: Stimulator leads again seen passing up along the bilateral soft tissues of the neck, then coursing to the upper frontal scalp where they pass through bilateral high frontal jones holes to the bilateral thalami. There is hyperostosis frontalis internus. There is mild cerebral atrophy with widening of the extra-axial spaces and ventricular dilatation. Mildly asymmetric left temporal lobe atrophy compared to the right is unchanged. Normal white matter tracts of the cerebral hemispheres. Normal basal ganglia and thalami. Normal brainstem. Normal cerebellum. There is no intracranial hemorrhage. There are no findings of an acute ischemic infarction. There is mucoperiosteal thickening versus mucus inclusion cyst and a posterior right ethmoid air cell. CT/Brain/Head without Contrast IMPRESSION: 1. Stable chronic involutional changes of the brain. No acute intracranial injury. 2. Bilateral stimulator leads extending to the bilateral thalami unchanged. 3. Stable opacification of the posterior right ethmoid air cell. Electronically Signed: Christian Gonsalves MD at 16:06 EST , Service support ,
[2018-09-29] MEDS: HYDROcodone Bitartrate/Apap 5/325 Tablet PO (15:15)
--- NOTE | 2018-09-29 15:30 | RAD_ITS ---
STUDY: X-RAY - RIGHT HAND REASON FOR EXAM: Right hand pain, fall. TECHNIQUE: 3 view(s) of the hand. COMPARISON: None. FINDINGS: There is osteopenia. Normal radiocarpal articulation. Normal distal radioulnar joint. Normal visualized carpal bones. Normal carpal articulations Normal carpometacarpal articulation of the thumb. Normal second through fifth carpometacarpal joints. Normal metacarpi. Normal metacarpophalangeal joint of the thumb. Normal interphalangeal joint of the thumb. Normal proximal and distal phalanges of the thumb. Normal metacarpophalangeal joints of the second through fifth fingers. Normal proximal and distal interphalangeal joints of the second through fifth fingers. Normal phalanges of the second through fifth fingers. The soft tissue structures are unremarkable. RAD/Hand Min 3 Views IMPRESSION: Osteopenia. No demonstrated fracture. Electronically Signed: Allen Peters MD at 16:01 EST Tel , Service support ,
--- NOTE | 2018-09-29 16:28 | ED.VISSUMM ---
- ER Visit Summary Date of Service: 09/29/18 Chief Complaint: Head injury from fall History of Present Illness: The patient is a 73 F who presents for evaluation after a head injury from a fall. Patient has Parkinson's disease and falls easily. She got out of her wheelchair on her own, which she is not supposed to do and subsequently fell onto operative surface. She is complaining of forehead and neck pain. Patient also scraped her hands. Patient denies loss of consciousness. She denies any chest pain, shortness of breath, abdominal pain, or any other complaints. Patient is on Plavix. Physical Examination: Vital signs: afebrile, hemodynamically stable, no hypoxia on room air General: well nourished, well developed, in no distress, coarse resting tremor of the head Skin: warm, dry, no rash, no pallor, abrasions to the dorsum of the hands, contusion over the thenar eminence of the right hand HEENT: normocephalic, superficial abrasions to the mid forehead and the superior bridge of the nose; PERRL, EOMI, moist mucous membranes illusion, no hemotympanum, no septal hematomas Neck: Full range of motion, mild midline tenderness diffusely, no deformities or step-offs Cardiovascular: regular rate and rhythm without murmurs, no peripheral edema, 2+ pulses all distal extremities Respiratory: No increased work of breathing, lungs are clear to auscultation bilaterally, no rales, rhonchi or wheezing, chest nontender Abdominal: Abdomen is soft, nontender with normoactive bowel sounds, no guarding or rebound, no masses MSK: Moves all extremities without pain, no deformities, normal strength, legs of equal length, no pelvic tenderness, full flexion and anterior/exterior rotation of the hips bilaterally without pain Neuro: Awake and alert, oriented ?4. No facial droop, sensation and motor function intact and symmetric Test Results: Clinical Impression(s) from Imaging Studies Brain CT 09/29/18 15:04 IMPRESSION: 1. Stable chronic involutional changes of the brain. No acute intracranial injury. 2. Bilateral stimulator leads extending to the bilateral thalami unchanged. 3. Stable opacification of the posterior right ethmoid air cell. Electronically Signed: Christian Gonsalves MD at 16:06 EST , Service support , Cervical Spine CT 09/29/18 15:04 IMPRESSION: 1. No acute fracture of the cervical spine. 2. Multilevel degenerative changes, as described above. 3. Large right thyroid mass as well as mild heterogeneous enlargement of the lower left thyroid lobe. If clinically indicated, this can be further evaluated with thyroid ultrasound and/or nuclear medicine thyroid uptake and scan. Electronically Signed: Christian Gonsalves MD at 16:01 EST , Service support , Hand X-Ray 09/29/18 15:30 IMPRESSION: Osteopenia. No demonstrated fracture. Electronically Signed: Allen Peters MD at 16:01 EST Tel , Service support , Medications Given Discontinued Medications Hydrocodone Bitart/Acetaminophen ([place] 5mg-325mg) 1 tablet PO X1 ONE Stop: 09/29/18 15:12 Last Admin: 09/29/18 15:15 Dose: 1 tablet Emergency Department Course and Treatment: Patient was given a dose of [place] for pain, as this is the pain medication she is on at home. CT scan of the head showed no intracranial hemorrhage. C-spine CT showed no fractures or dislocations. X-ray of the right hand was performed and showed no fracture. Bacitracin ointment was applied to the superficial abrasions on the forehead and bridge of the nose. Patient is tetanus is up-to-date. She was discharged back to her assisted living facility. Treatment Plan: [] Disposition: [] Impression: Fall with forehead abrasion, nasal bridge abrasion, bilateral hand abrasions, right hand contusion This note was generated with [employer] software. It may contain incorrect words, spelling, and punctuation that were not noted in review of the chart prior to signing ED Disposition - Plan for ED Patient: Chief Complaint: Fall Referrals: Moises Grider MD [Primary Care Provider] -
--- NOTE | 2018-09-29 16:32 | ED.DCSUM_ITS ---
- ER Visit Summary Date of Service: 09/29/18 Chief Complaint: Head injury from fall History of Present Illness: The patient is a 73 F who presents for evaluation after a head injury from a fall. Patient has Parkinson's disease and falls easily. She got out of her wheelchair on her own, which she is not supposed to do and subsequently fell onto operative surface. She is complaining of forehead and neck pain. Patient also scraped her hands. Patient denies loss of consciousness. She denies any chest pain, shortness of breath, abdominal pain, or any other complaints. Patient is on Plavix. Physical Examination: Vital signs: afebrile, hemodynamically stable, no hypoxia on room air General: well nourished, well developed, in no distress, coarse resting tremor of the head Skin: warm, dry, no rash, no pallor, abrasions to the dorsum of the hands, contusion over the thenar eminence of the right hand HEENT: normocephalic, superficial abrasions to the mid forehead and the superior bridge of the nose; PERRL, EOMI, moist mucous membranes illusion, no hemotympanum, no septal hematomas Neck: Full range of motion, mild midline tenderness diffusely, no deformities or step-offs Cardiovascular: regular rate and rhythm without murmurs, no peripheral edema, 2+ pulses all distal extremities Respiratory: No increased work of breathing, lungs are clear to auscultation bilaterally, no rales, rhonchi or wheezing, chest nontender Abdominal: Abdomen is soft, nontender with normoactive bowel sounds, no guarding or rebound, no masses MSK: Moves all extremities without pain, no deformities, normal strength, legs of equal length, no pelvic tenderness, full flexion and anterior/exterior rotation of the hips bilaterally without pain Neuro: Awake and alert, oriented ?4. No facial droop, sensation and motor function intact and symmetric Test Results: Clinical Impression(s) from Imaging Studies Brain CT 09/29/18 15:04 IMPRESSION: 1. Stable chronic involutional changes of the brain. No acute intracranial injury. 2. Bilateral stimulator leads extending to the bilateral thalami unchanged. 3. Stable opacification of the posterior right ethmoid air cell. Electronically Signed: Christian Gonsalves MD at 16:06 EST , Service support , Cervical Spine CT 09/29/18 15:04 IMPRESSION: 1. No acute fracture of the cervical spine. 2. Multilevel degenerative changes, as described above. 3. Large right thyroid mass as well as mild heterogeneous enlargement of the lower left thyroid lobe. If clinically indicated, this can be further evaluated with thyroid ultrasound and/or nuclear medicine thyroid uptake and scan. Electronically Signed: Christian Gonsalves MD at 16:01 EST , Service support , Hand X-Ray 09/29/18 15:30 IMPRESSION: Osteopenia. No demonstrated fracture. Electronically Signed: Allen Peters MD at 16:01 EST Tel , Service support , Medications Given Discontinued Medications Hydrocodone Bitart/Acetaminophen ([place] 5mg-325mg) 1 tablet PO X1 ONE Stop: 09/29/18 15:12 Last Admin: 09/29/18 15:15 Dose: 1 tablet Emergency Department Course and Treatment: Patient was given a dose of [place] for pain, as this is the pain medication she is on at home. CT scan of the head showed no intracranial hemorrhage. C-spine CT showed no fractures or dislocations. X-ray of the right hand was performed and showed no fracture. Bacitracin ointment was applied to the superficial abrasions on the forehead and bridge of the nose. Patient is tetanus is up-to-date. She was discharged back to her assisted living facility. Treatment Plan: [] Disposition: [] Impression: Fall with forehead abrasion, nasal bridge abrasion, bilateral hand abrasions, right hand contusion This note was generated with [employer] software. It may contain incorrect words, spelling, and punctuation that were not noted in review of the chart prior to signing ED Disposition - Plan for ED Patient: Chief Complaint: Fall Referrals: Moises Grider MD [Primary Care Provider] -
--- NOTE | 2018-09-29 16:32 | ED.DEP ---
ED Disposition - Plan for ED Patient: Disposition: Home or Assisted Living Chief Complaint: Fall Instructions: ED Prevention Fall, ED Abrasion Referrals: Moises Grider MD [Primary Care Provider] - 1-2 Days if not improving Additional Instructions: Please keep your wounds clean and protected. Cleanse them gently with warm water and mild soap. You may apply bacitracin ointment to them twice daily, especially on your forehead and nasal bridge. Cover with a bandage as needed for comfort and protection of the wounds. If you have any worsening of your condition or any new concerning symptoms, please return immediately to the emergency department for another evaluation.
[2018-09-29 16:50] VITALS: RESP 16
== END 2018-09-29 16:51 | disposition home or self-care (01) ==
PROVIDERS: Emergency Provider Emergency Medicine; Family Provider Family Medicine; PCP Family Medicine
DX: S00.81XA Abrasion of other part of head, initial encounter (principal); S00.31XA Abrasion of nose, initial encounter; S60.221A Contusion of right hand, initial encounter; S60.512A Abrasion of left hand, initial encounter; M54.2 Cervicalgia; R29.6 Repeated falls; W05.0XXA Fall from non-moving wheelchair, initial encounter; Y93.9 Activity, unspecified; Y92.9 Unspecified place or not applicable; Y99.9 Unspecified external cause status; G20 Parkinson's disease; Z79.02 Long term (current) use of antithrombotics/antiplatelets; Z79.899 Other long term (current) drug therapy
CPT/HCPCS: 70450; 72125; 73130; 99282

== ENCOUNTER → 2018-10-10 16:00 | Outpatient (REF) | payer MEDICARE, SELFPAY ==
[2018-09-29 14:45] VITALS: BMI 20.5
[2018-10-10 16:54] LABS: Color, Urine Yellow (Yellow); Glucose, Dipstick Normal (Normal); Ketone-Dipstick 15 mg/dl (Negative); Leukocyte Esterase-Dipstick 500 /ul (Negative); Nitrite-Dipstick Negative (Negative); Occult Blood-Urine 50 /ul (Negative); Protein-Dipstick 30 mg/dl (Negative); Urine Clarity Cloudy (Clear); Urine Urobilinogen 1 mg/dl (Normal)
[2018-10-10 16:55] LABS: Urine Bilirubin Dipstick 1 mg/dL (Negative)
--- OUTSIDE RECORDS SUMMARY | 2018-12-04 21:28 | XMS RPT_ITS ---
:1945 Author Organization OHIP Support Name Relationship Address Phone R Unavailable Unavailable Unavailable Pepe Laughlin Unavailable [address] + [address] [place] [address] Allen Mildred Unavailable Unavailable + R Unavailable Unavailable Unavailable TRUMAN PEPE Unavailable [address] + [address] [place] [address] ALLEN, MILDRED Unavailable Unavailable + R Unavailable Unavailable Unavailable Pepe Laughlin Unavailable [address] + [address] [place] [address] Allen, Mildred Unavailable Unavailable + R Unavailable Unavailable Unavailable TrumanScoobye Unavailable [address] + [address] [place] [address] Allen, Mildred Unavailable Unavailable + R Unavailable Unavailable Unavailable Truman Pepe Unavailable [address] + [address] [place] [address] Allen Mildred Unavailable Unavailable + R Unavailable Unavailable Unavailable PEPE LAUGHLIN Unavailable [address] + [address] [place] [address] ALLEN MILDRED Unavailable Unavailable + R Unavailable Unavailable Unavailable PEPE LAUGHLIN Unavailable [address] + [place] [address] R Unavailable Unavailable Unavailable PEPE LAUGHLIN Unavailable [address] [phone] [place] [address] R Unavailable Unavailable Unavailable PEPE LAUGHLIN Unavailable [address] [phone] [place] [address] R Unavailable Unavailable Unavailable TRUMAN, PEPE Unavailable [address] [phone] [place] [address] R Unavailable Unavailable Unavailable TRUMAN, PEPE Unavailable [address] [facility] [phone] [place] [address] Care Team Providers Name Role Phone DOCTOR, OUT [facility] Primary Care Unavailable Ungur, Remus Referring Unavailable [place], [place] Admitting Unavailable Kittoe, Riddhi Attending Unavailable Basali, Ayman Consulting Unavailable [place], [place] Admitting Unavailable Ungur, Remus Referring Unavailable DOCTOR, OUT [facility] Primary Care Unavailable [place], [place] Consulting Unavailable [place], [place] Attending Unavailable [place], [place] Admitting Unavailable Kittoe, Riddhi Attending Unavailable Ungur, Remus Referring Unavailable DOCTOR, OUT [facility] Primary Care Unavailable Basali, Ayman Consulting Unavailable Kittoe, Riddhi Consulting Unavailable [place], [place] Admitting Unavailable Kitt[place] Riddhi Attending Unavailable Ungur, Remus Referring Unavailable DOCTOR, OUT [facility] Primary Care Unavailable Basali, Ayman Consulting Unavailable Kittoe, Riddhi Consulting Unavailable Josephine, Brian Attending Unavailable Bursely, Moises Primary Care Unavailable Bursely, Moises Primary Care Unavailable Mariza Shea Attending Unavailable Place, [place] Attending Unavailable José Leal Attending Unavailable Bursley, Moises Primary Care Unavailable Place, [place] Attending Unavailable Bursley, Moises Primary Care Unavailable Meg Jones Attending Unavailable Place, [place] Attending Unavailable ANDREY FORD (PT) Attending Unavailable JESSENIA GRIDER) Referring Unavailable ANDREY FORD (PT) Attending Unavailable JESSENIA GRIDER) Referring Unavailable GOLANDREY GANDARA (PT) Attending Unavailable JESSENIA GRIDER) Referring Unavailable JESSENIA GRIDER) Referring Unavailable JESSENIA GRIDER) Referring Unavailable ANDREY FORD (PT) Attending Unavailable JESSENIA GRIDER) Referring Unavailable SHAYNA ROBISON Attending Unavailable JESSENIA GRIDER) Referring Unavailable JESSENIA GRIDER) Attending Unavailable JESSENIA GRIDER) Referring Unavailable JESSENIA GRIDER) Attending Unavailable JESSENIA GRIDER) Referring Unavailable BURSJESSENIA FRANCOIS) Referring Unavailable JESSENIA GRIDER) Referring Unavailable BURSJESSENIA FRANCOIS) Referring Unavailable JESSENIA GRIDER) Referring Unavailable VENIERSEBASTIEN Wahl Admitting Unavailable SEBASTIEN ANNE Attending Unavailable JESSENIA GRIDER) Referring Unavailable PODLOGAR, BONITA (CHASSIS DRIVER) Referring Unavailable JESSENIA GRIDER) Attending Unavailable JESSENIA GRIDER) Referring Unavailable DENISESHIRA BERUMEN (PT) Attending Unavailable TOI LORENZO Referring Unavailable BURSJESSENIA FRANCOIS) Attending Unavailable JESSENIA GRIDER) Referring Unavailable BURSJESSENIA FRANCOIS) Referring Unavailable RICKISHAYNA Attending Unavailable JACOB, OWEN E Attending Unavailable JACOB, OWEN E Referring Unavailable PODLOGAR, BONITA (CHASSIS DRIVER) Attending Unavailable PODLOGAR, BONITA (CHASSIS DRIVER) Referring Unavailable BURSJESSENIA FRANCOIS) Attending Unavailable JESSENIA GRIDER) Referring Unavailable BURSJESSENIA FRANCOIS) Referring Unavailable VETOVITZ, CHICA (PA) Attending Unavailable JESSENIA GRIDER) Referring Unavailable SHAYNA ROBISON Attending Unavailable JACOB, OWEN E Attending Unavailable JACOB, OWEN E Referring Unavailable VETOVITZ, CHICA (PA) Referring Unavailable VETOVITZ, CHICA (PA) Attending Unavailable JESSENIA GRIDER) Referring Unavailable JESSENIA GRIDER) Attending Unavailable JESSENIA GRIDER) Referring Unavailable JACOB, OWEN E Attending Unavailable JACOB, OWEN E Referring Unavailable JESSENIA GRIDER) Attending Unavailable JESSENIA GRIDER) Referring Unavailable SUDHA POE (NS) Attending Unavailable OWEN JAMES Attending Unavailable SAMUEL JAMESNETH Referring Unavailable PROBLEMS PROBLEMS DATE TYPE CONDITION / CODE ATTENDING STATUS SOURCE 09/07/2018 Unknown N32.81 - Place, Active [place] Overactive [facility] bladder / Hospital N32.81(ICD-10) Repository 07/27/2018 Active Pelvic and NA Active [facility] perineal pain / [place] R10.2(ICD-10) Repository 07/27/2018 Active Overactive NA Active [facility] bladder / [place] N32.81(ICD-10) Repository 07/01/2018 Active Other specified NA Active [facility] fracture of right [place] pubis, subsequent Repository encounter for fracture with routine healing / S32.591D(ICD-10) 07/01/2018 Active Other specified NA Active [facility] fracture of left [place] pubis, subsequent Repository encounter for fracture with routine healing / S32.592D(ICD-10) 08/27/2018 Unknown N39.0 - Urinary Place, Active [place] tract infection, [place] [facility] site not Hospital specified / Repository N39.0(ICD-10) 06/19/2018 Active Left lower NA Active [facility] quadrant pain / [place] R10.32(ICD-10) Repository 06/05/2018 Active Pain in left hip NA Active [facility] / M25.552(ICD-10) [place] Repository 02/23/2018 Unknown S32.019A - Riddhi Jacinto Active [place] [facility] lumbar vertebra, Repository initial encounter for closed fracture / S32.019A(ICD-10) 02/09/2018 Active Diarrhea, NA Active [facility] unspecified / [place] R19.7(ICD-10) Repository 02/09/2018 Active Lower abdominal NA Active [facility] pain, unspecified [place] / R10.30(ICD-10) Repository 02/09/2018 Active Other diseases of NA Active [facility] mediastinum, not [place] elsewhere Repository classified / J98.59(ICD-10) 02/02/2018 Active Disorder of DEBIIEROSEBASTIEN Active [facility] thyroid, C [place] unspecified / Repository E07.9(ICD-10) 01/19/2018 Active Other specified NA Active [facility] diseases of upper [place] respiratory tract Repository / J39.8(ICD-10) 01/16/2018 Active Cramp and spasm / NA Active [facility] R25.2(ICD-10) [place] Repository 01/16/2018 Active Other fatigue / NA Active [facility] R53.83(ICD-10) [place] Repository 01/16/2018 Active Chest pain, NA Active [facility] unspecified / [place] R07.9(ICD-10) Repository 10/30/2017 Active Unknown / ANDREY FORD Active [facility] UNK(Unknown) (PT) [place] Repository PROCEDURES PROCEDURES No Procedure Records FoundRESULTS RESULTS PROGRESS Observed: 10/19/2018 Status: COMPLETED Source: [place] 1:41 PM [facility] REPOSITORY HNO ID: [id number] Author: Sudha Curtis (Car) Jerry Service: (none) Author Type: Nurse Specialist Type: Progress Notes Filed: 10/20/2018 5:06 PM Note Text: October 19, 2018 Jessenia Gridre MD [address] [facility] [place] [address] Mail note to pt. RE: Sandra Laughlin : 1945 MEDICAL NOTE: History of Present Illness: Sandra Laughlin is a 73 year old year old right-handed woman who returns today for evaluation of Parkinson's disease, diagnosed over 30 years ago. The patient is seen accompanied by , ARMEN, and sister, Mildred. She is seen for routine follow up. Last seen by Dr. Robison in June 2018. The plan on that date was: PLAN: --->?Sinemet 25/100 1 tab 5x/day at 9a, noon, 3p, 6p, bedtime ? --->?Continue Aricept, Namenda. ? ? ---> Follow-up: 3 months HPI: Review of Symptoms: Sleep problems/RBD/RLS: yes Impaired memory/Cognition/Driving: yes Bowels/Constipation: yes Urinary problems: yes frequency, urgency, and incontinence Sialorrhea: yes Daytime Swallowing difficulty: yes Depress mood/Anxiety: yes both Rehab/exercise: no She is taking PT at present In addition, the following symptoms typically related to PD were asked: Cognitive difficulties - Yes Hallucinations - Yes Impulse control disorder - No + falls when trying to walk; was reaching for something on the floor and fell forward out of the wheelchair Past Medical History: PAST MEDICAL HISTORY Diagnosis Date - Anxiety - Cataracts, bilateral s/p removal - Dementia - Depression - GERD (gastroesophageal reflux disease) - Hyperlipidemia - Hypotension seeing Dr. James - Incontinence urinary - PAF (paroxysmal atrial fibrillation) ([facility]) 07/19/2018 - Parkinson disease (HCC) - S/P deep brain stimulator placement Seeing Dr. Robison - TIA (transient ischemic attack) suspected Past Family History: FAMILY HISTORY Problem Relation Age of Onset - Cancer Mother - Breast Cancer Sister - Cancer Father skin No family history of PD Allergies: ALLERGIES Allergen Reactions - Penicillin Swelling Current Medications: Current Outpatient Prescriptions: sertraline (ZOLOFT) 100 mg tablet Take 2 tablets by mouth once daily. Disp: 180 tablet Rfl: 1 oxybutynin XL (DITROPAN XL) 5 mg 24 hr tablet Take 1 tablet by mouth once daily. Disp: 30 tablet Rfl: 5 HYDROcodone-acetaminophen (NORCO) 5-325 mg per tablet Take 1 tablet by mouth three times daily for 30 days. Disp: 84 tablet Rfl: 0 COMPOUNDED PRESCRIPTION Dispense one lift chair ICD: G20 Disp: 1 Device Rfl: 0 memantine (NAMENDA) 5 mg tablet Take 1 tablet by mouth once daily. Disp: 30 tablet Rfl: 11 sodium chloride 1 gram tab TAKE 1 TABLET BY MOUTH 3 TIMES A DAY Disp: 90 tablet Rfl: 1 gabapentin (NEURONTIN) 300 mg capsule Take 1 capsule by mouth twice daily for 180 days. Disp: 180 capsule Rfl: 1 fludrocortisone (FLORINEF) 0.1 mg tablet TAKE 1 TABLET EVERY DAY Disp: 90 tablet Rfl: 1 Midodrine HCl (PROAMATINE) 10 mg tablet TAKE 1 TABLET BY MOUTH THREE TIMES DAILY. Disp: 90 tablet Rfl: 5 Cholecalciferol, Vitamin D3, (VITAMIN D-3) 2,000 unit cap Take by mouth. Disp: Rfl: clopidogrel (PLAVIX) 75 mg tablet Take 1 tablet by mouth once daily. Disp: 90 tablet Rfl: 3 donepezil (ARICEPT) 10 mg tablet Take 1 tablet by mouth once daily. Disp: 90 tablet Rfl: 3 famotidine (PEPCID) 40 mg tablet Take 1 tablet by mouth once daily. Disp: 90 tablet Rfl: 0 atorvastatin (LIPITOR) 10 mg tablet Take 1 tablet by mouth once daily. Disp: 90 tablet Rfl: 3 KLOR-CON 10 10 mEq tablet Take 1 tablet by mouth twice daily. Disp: 180 tablet Rfl: 3 carbidopa-levodopa (SINEMET 25-100) 25-100 mg per tablet Take 1 tablet by mouth five times daily. Disp: 450 tablet Rfl: 3 FLAXSEED OIL ORAL Take 1,200 mg by mouth once daily. Disp: Rfl: UBIDECARENONE/VITAMIN E MIXED (COQ10 SG 100 ORAL) Take 100 mg by mouth once daily. Disp: Rfl: ferrous gluconate 324 mg (37.5 mg iron) tablet Take 324 mg by mouth daily with breakfast. Disp: Rfl: Current Facility-Administered Medications: onabotulinum toxin type A 100 Units injection (BOTOX) 100 Units INTRAMUSCULAR q 3 MONTHS Shayna Robison 50 Units at 03/27/18 1210 PHYSICAL EXAMINATION: BP 125/80 Pulse 81 Ht 165.1 cm (5' 5) Wt 51.3 kg (113 lb) SpO2 100% BMI 18.80 kg/m? General Description of Patient: Well appearing, comfortable FOCUSED NEUROLOGIC EXAMINATION: Mental Status: Alert and Oriented to person, place, and date, Normal attention and concentration, Normal fund of knowledge, Normal Language function Memory somewhat impaired Significant anterocollis, unable to straighten very much in the W/C Gait not tested for safety reasons Facial expression: lips parted much of the time, moderately diminished Speech: volume very low, sometimes needed to repeat self to be understood 0 drooling 0 resting tremor 0 rigidity to arms bilaterally Assessment: Sandra Laughlin is a 73 year old year old woman with idiopathic Parkinson's disease who presents today for medical follow up and DBS check. She transferred care from [facility] to [facility] last year. given the length of time she groves had PD, she is doing reasonably well. Hallucinations are worsening. In Dr. Robison's last note she wrote that she will either prescribe Quetiapine or Nuplazid if hallucintations did not improve after UTI was treated. I consulted Dr. Robison today. She was concerned that Quetiapine would cause BP to drop further. Plan: 1. Start Nuplazid 34 mg one tablet daily. Give this at least 3 months to see if it reduces the hallucinations. This is only available through a specialty pharmacy so I submitted it today for insurance approval. The prescription will not be mailed to patient as they cannot obtain it from usual pharmacy. 2. Continue Carbidopa/levodopa 25/100, one every 3 hours for 5 doses daily. 3. Return in [address] Robison for medical visit (Botox) and myself for DBS check. Medical decision making was high complexity due to patient's high complexity due to patient's, complex treatment regimen, multiple medications and risk of side effects, cognitive/behavioral problems effecting or limiting treatment options, complex interaction between medication adjustment and DBS stimulation Time: 3099-5507 medical visit Sudha Poe RN TELECOMMUNICATIONS NETWORK ENGINEER.[facility] PROCEDURE NOTE: History: Bilateral STN DBS placed at [facility] for advanced Parkinson's disease in 2011. Electrode Impedance Check: Rt Electrode Impedance check at 3.0 V did not show open or short circuit. Lt Electrode Impedance check at 3.0 V did not show open or short circuit. Site Cathode (-) Anode (+) Amp (V) PW (us) Rate (Hz) RT PT KT FT OCF Rig Side effects LSTN On 2 1 3.0 60 130 Baseline RIGHT STN 8 9 3.7V 60 130 ITherapy Impedance and Battery check at final settings: Rt brain Lt brain Therapy Impedance OK OK Impression and Plan: This is a 73 year old female with Bilateral STN for Parkinson's disease and cervical dystonia. Notable changes from today's programming include: no changes.. Time: 2788-8831 30 minutes Programming performed by Sudha Poe RN TELECOMMUNICATIONS NETWORK ENGINEER.[facility] Sudha Poe RN APRN.[facility] CNOV Observed: 10/19/2018 Status: COMPLETED Source: [place] 1:25 PM [facility] REPOSITORY Office Visit (NEURMM) SANDRA LAUGHLIN ([id number]) 1945 F Date Time Provider Department 10/19/18 1:25 PM SUDHA POE (CAR) NEURJD During your visit today, we recorded the following information about you: Pulse Blood pressure Weight Height 81/minute 125/80 51.3 kg 1.651 m Sudha Poe RN TELECOMMUNICATIONS NETWORK ENGINEER.SLOT SHIFT MANAGER 10/20/2018 5:06 PM Signed October 19, 2018 Jessenia Grider MD [address] [facility] [address] Mail note to pt. RE: Sandra Laughlin : 1945 MEDICAL NOTE: History of Present Illness: Sandra Laughlin is a 73 year old year old right-handed woman who returns today for evaluation of Parkinson's disease, diagnosed over 30 years ago. The patient is seen accompanied by , ARMEN, and sister, Mildred. She is seen for routine follow up. Last seen by Dr. Robison in June 2018. The plan on that date was: PLAN: --->?Sinemet 25/100 1 tab 5x/day at 9a, noon, 3p, 6p, bedtime ? --->?Continue Aricept, Namenda. ? ? ---> Follow-up: 3 months HPI: Review of Symptoms: Sleep problems/RBD/RLS: yes Impaired memory/Cognition/Driving: yes Bowels/Constipation: yes Urinary problems: yes frequency, urgency, and incontinence Sialorrhea: yes Daytime Swallowing difficulty: yes Depress mood/Anxiety: yes both Rehab/exercise: no She is taking PT at present In addition, the following symptoms typically related to PD were asked: Cognitive difficulties - Yes Hallucinations - Yes Impulse control disorder - No + falls when trying to walk; was reaching for something on the floor and fell forward out of the wheelchair Past Medical History: PAST MEDICAL HISTORY Diagnosis Date - Anxiety - Cataracts, bilateral s/p removal - Dementia - Depression - GERD (gastroesophageal reflux disease) - Hyperlipidemia - Hypotension seeing Dr. James - Incontinence urinary - PAF (paroxysmal atrial fibrillation) ([facility]) 07/19/2018 - Parkinson disease (HCC) - S/P deep brain stimulator placement Seeing Dr. Robison - TIA (transient ischemic attack) suspected Past Family History: FAMILY HISTORY Problem Relation Age of Onset - Cancer Mother - Breast Cancer Sister - Cancer Father skin No family history of PD Allergies: ALLERGIES Allergen Reactions - Penicillin Swelling Current Medications: Current Outpatient Prescriptions: sertraline (ZOLOFT) 100 mg tablet Take 2 tablets by mouth once daily. Disp: 180 tablet Rfl: 1 oxybutynin XL (DITROPAN XL) 5 mg 24 hr tablet Take 1 tablet by mouth once daily. Disp: 30 tablet Rfl: 5 HYDROcodone-acetaminophen (NORCO) 5-325 mg per tablet Take 1 tablet by mouth three times daily for 30 days. Disp: 84 tablet Rfl: 0 COMPOUNDED PRESCRIPTION Dispense one lift chair ICD: G20 Disp: 1 Device Rfl: 0 memantine (NAMENDA) 5 mg tablet Take 1 tablet by mouth once daily. Disp: 30 tablet Rfl: 11 sodium chloride 1 gram tab TAKE 1 TABLET BY MOUTH 3 TIMES A DAY Disp: 90 tablet Rfl: 1 gabapentin (NEURONTIN) 300 mg capsule Take 1 capsule by mouth twice daily for 180 days. Disp: 180 capsule Rfl: 1 fludrocortisone (FLORINEF) 0.1 mg tablet TAKE 1 TABLET EVERY DAY Disp: 90 tablet Rfl: 1 Midodrine HCl (PROAMATINE) 10 mg tablet TAKE 1 TABLET BY MOUTH THREE TIMES DAILY. Disp: 90 tablet Rfl: 5 Cholecalciferol, Vitamin D3, (VITAMIN D-3) 2,000 unit cap Take by mouth. Disp: Rfl: clopidogrel (PLAVIX) 75 mg tablet Take 1 tablet by mouth once daily. Disp: 90 tablet Rfl: 3 donepezil (ARICEPT) 10 mg tablet Take 1 tablet by mouth once daily. Disp: 90 tablet Rfl: 3 famotidine (PEPCID) 40 mg tablet Take 1 tablet by mouth once daily. Disp: 90 tablet Rfl: 0 atorvastatin (LIPITOR) 10 mg tablet Take 1 tablet by mouth once daily. Disp: 90 tablet Rfl: 3 KLOR-CON 10 10 mEq tablet Take 1 tablet by mouth twice daily. Disp: 180 tablet Rfl: 3 carbidopa-levodopa (SINEMET 25-100) 25-100 mg per tablet Take 1 tablet by mouth five times daily. Disp: 450 tablet Rfl: 3 FLAXSEED OIL ORAL Take 1,200 mg by mouth once daily. Disp: Rfl: UBIDECARENONE/VITAMIN E MIXED (COQ10 SG 100 ORAL) Take 100 mg by mouth once daily. Disp: Rfl: ferrous gluconate 324 mg (37.5 mg iron) tablet Take 324 mg by mouth daily with breakfast. Disp: Rfl: Current Facility-Administered Medications: onabotulinum toxin type A 100 Units injection (BOTOX) 100 Units INTRAMUSCULAR q 3 MONTHS Shayna Robison 50 Units at 03/27/18 1210 PHYSICAL EXAMINATION: BP 125/80 Pulse 81 Ht 165.1 cm (5' 5) Wt 51.3 kg (113 lb) SpO2 100% BMI 18.80 kg/m? General Description of Patient: Well appearing, comfortable FOCUSED NEUROLOGIC EXAMINATION: Mental Status: Alert and Oriented to person, place, and date, Normal attention and concentration, Normal fund of knowledge, Normal Language function Memory somewhat impaired Significant anterocollis, unable to straighten very much in the W/C Gait not tested for safety reasons Facial expression: lips parted much of the time, moderately diminished Speech: volume very low, sometimes needed to repeat self to be understood 0 drooling 0 resting tremor 0 rigidity to arms bilaterally Assessment: Sandra Laughlin is a 73 year old year old woman with idiopathic Parkinson's disease who presents today for medical follow up and DBS check. She transferred care from [facility] to [facility] last year. given the length of time she groves had PD, she is doing reasonably well. Hallucinations are worsening. In Dr. Robison's last note she wrote that she will either prescribe Quetiapine or Nuplazid if hallucintations did not improve after UTI was treated. I consulted Dr. Robison today. She was concerned that Quetiapine would cause BP to drop further. Plan: 1. Start Nuplazid 34 mg one tablet daily. Give this at least 3 months to see if it reduces the hallucinations. This is only available through a specialty pharmacy so I submitted it today for insurance approval. The prescription will not be mailed to patient as they cannot obtain it from usual pharmacy. 2. Continue Carbidopa/levodopa 25/100, one every 3 hours for 5 doses daily. 3. Return in [address] Robison for medical visit (Botox) and myself for DBS check. Medical decision making was high complexity due to patient's high complexity due to patient's, complex treatment regimen, multiple medications and risk of side effects, cognitive/behavioral problems effecting or limiting treatment options, complex interaction between medication adjustment and DBS stimulation Time: 8993-7829 medical visit Sudah Poe RN TELECOMMUNICATIONS NETWORK ENGINEER.[facility] PROCEDURE NOTE: History: Bilateral STN DBS placed at [facility] for advanced Parkinson's disease in 2011. Electrode Impedance Check: Rt Electrode Impedance check at 3.0 V did not show open or short circuit. Lt Electrode Impedance check at 3.0 V did not show open or short circuit. Site Cathode (-) Anode (+) Amp (V) PW (us) Rate (Hz) RT PT KT FT OCF Rig Side effects LSTN On 2 1 3.0 60 130 Baseline RIGHT STN 8 9 3.7V 60 130 ITherapy Impedance and Battery check at final settings: Rt brain Lt brain Therapy Impedance OK OK Impression and Plan: This is a 73 year old female with Bilateral STN for Parkinson's disease and cervical dystonia. Notable changes from today's programming include: no changes.. Time: 7884-6567 30 minutes Programming performed by Sudha Poe RN TELECOMMUNICATIONS NETWORK ENGINEER.SLOT SHIFT MANAGER Sudha Poe RN TELECOMMUNICATIONS NETWORK ENGINEER.SLOT SHIFT MANAGER [facility] Referring Provider: SELF [200] Allergies As of Date: 10/19/2018 Noted Allergy Reaction PENICILLIN 05/29/2017 7 - Swelling Date Reviewed: 10/19/2018 Reviewed by: Gabriella Dominguez - Fully Assessed Reason for Visit: Follow Up [171] Cmt: DBS adjustments Primary Visit Diagnosis:Parkinson's disease (HCC) [G20] Other Visit Diagnoses:Hallucinations [R44.3] Abnormality of gait [R26.9] Cervical dystonia [G24.3] Order(s):QUEtiapine (SEROQUEL) 25 mg tabletTake 1 tablet by mouth daily at bedtime.Disp: Rfl: Prescriptions as of 10/19/2018 Sig: ATORVASTATIN 10 MG TABLET Take 1 tablet by mouth once d* CARBIDOPA 25 MG-LEVODOPA 100 * Take 1 tablet by mouth five t* CHOLECALCIFEROL (VITAMIN D3) * Take by mouth. CLOPIDOGREL 75 MG TABLET Take 1 tablet by mouth once d* COMPOUNDED PRESCRIPTION Dispense one lift chair ICD: * DONEPEZIL 10 MG TABLET Take 1 tablet by mouth once d* FAMOTIDINE 40 MG TABLET Take 1 tablet by mouth once d* FERROUS GLUCONATE 324 MG (37.* Take 324 mg by mouth daily wi* FLAXSEED OIL ORAL Take 1,200 mg by mouth once d* FLUDROCORTISONE 0.1 MG TABLET TAKE 1 TABLET EVERY DAY GABAPENTIN 300 MG CAPSULE Take 1 capsule by mouth twice* HYDROCODONE 5 MG-ACETAMINOPHE* Take 1 tablet by mouth three * KLOR-CON 10 MEQ TABLET,EXTEND* Take 1 tablet by mouth twice * MEMANTINE 5 MG TABLET Take 1 tablet by mouth once d* MIDODRINE 10 MG TABLET TAKE 1 TABLET BY MOUTH THREE * OXYBUTYNIN CHLORIDE ER 5 MG T* Take 1 tablet by mouth once d* SERTRALINE 100 MG TABLET Take 2 tablets by mouth once * SODIUM CHLORIDE 1 GRAM TABLET TAKE 1 TABLET BY MOUTH 3 TIME* COQ10 SG 100 ORAL Take 100 mg by mouth once vinod* QUETIAPINE 25 MG TABLET Take 1 tablet by mouth daily * Problem List As Of Date 10/19/2018 Noted Resolved Dementia [F03.90] Parkinson disease (HCC) [G20] Hypotension [I95.9] 10/14/2017 Hyperlipidemia [E78.5] GERD (gastroesophageal reflux disease) [K21.9] TIA (transient ischemic attack) [G45.9] More... Falling [R29.6] INVALID FOR* Crouched gait [R26.89] INVALID FOR* Depression [F32.9] Postural hypotension [I95.1] INVALID FOR* Falls frequently [R29.6] INVALID FOR* Closed bilateral fracture of pubic rami ([facility]) [*INVALID FOR* PAF (paroxysmal atrial fibrillation) ([facility]) [I48*INVALID FOR* Prescriptions ordered this encounter Disp Refills Start End QUETIAPINE 25 MG TABLET 10/20/2018 Class: Med Update Route: ORAL Sig: Take 1 tablet by mouth daily at bedtime. Letter Text Encounter Status:Closed by SUDHA CHILEL on 10/20/18 RALPH Observed: 10/13/2018 Status: COMPLETED Source: [place] 2:00 PM [facility] REPOSITORY [facility] SANDRA LAUGHLIN ([id number]) 1945 F Date Time Provider Department 10/13/18 2:00 PM JESSENIA GRIDER) [facility] During your visit today, we recorded the following information about you: Pulse Respiration Blood pressure 76/minute 14/minute 124/72 Jessenia Grider MD 10/13/2018 5:05 PM Signed Chief Complaint Patient presents with: 4 month follow up HPI Sandra Laughlin is a 73 year old female who presents here today for 4 month follow up appointment. Accompanied by today. Since last OV, patient has had multiple falls at [place]. states that she has been trying to get up and walk on her own without walker or aide around. Has not had any recent injuries with the falls. Has PT sessions twice weekly LE strength and balance. Recently diagnosed with UTI and has been taking bactrim DS as prescribed. Has not been pushing PO fluids as recommended. Only taken 2 doses of abx at this time. UA initiated because nurses did not think patient was acting right, no improvement in behavior thus far. Has not followed up with neurology since last OV. Has appointment with Dr. Robison on 11/23 and with nurse on 10/19. has noticed gradual decline in memory without behavioral disturbance. Parkinsons symptoms have been improved since she had deep brain stimulator placed. Depression: Taking zoloft as prescribed without side effects. has not noticed any worsening mood. Patient states that she gets frustrated easily due to parkinson's and dementia. Admits to feeling more depressed, decreased interest/energy/concentration. Requesting increased dosage of zoloft. Currently taking 150 mg daily. Due for pneumovax. Past medical history, appointments, medications, allergies reviewed. Previous Medical History PAST MEDICAL HISTORY Diagnosis Date - Anxiety - Cataracts, bilateral s/p removal - Dementia - Depression - GERD (gastroesophageal reflux disease) - Hyperlipidemia - Hypotension seeing Dr. James - Incontinence urinary - PAF (paroxysmal atrial fibrillation) ([facility]) 07/19/2018 - Parkinson disease ([facility]) - S/P deep brain stimulator placement Seeing Dr. Robison - TIA (transient ischemic attack) suspected Previous Surgical History PAST SURGICAL HISTORY Procedure Laterality Date - CATARACT SURGERY, COMPLEX Bilateral 2013 - CHOLECYSTECTOMY - HYSTERECTOMY HX - PAST SURGICAL HISTORY OF 2011 deep brain stimulator placement - ROTATOR CUFF REPAIR Bilateral Family History FAMILY HISTORY Problem Relation Age of Onset - Cancer Mother - Breast Cancer Sister - Cancer Father skin Patient Allergies ALLERGIES Allergen Reactions - Penicillin Swelling Current Medications Current Outpatient Prescriptions on File Prior to Visit: sulfamethoxazole-trimethoprim (BACTRIM DS) 800-160 mg per tablet Take 1 tablet by mouth twice daily for 3 days. oxybutynin XL (DITROPAN XL) 5 mg 24 hr tablet Take 1 tablet by mouth once daily. HYDROcodone-acetaminophen (NORCO) 5-325 mg per tablet Take 1 tablet by mouth three times daily for 30 days. sertraline (ZOLOFT) 100 mg tablet Take 1.5 tablets by mouth once daily. COMPOUNDED PRESCRIPTION Dispense one lift chair ICD: G20 memantine (NAMENDA) 5 mg tablet Take 1 tablet by mouth once daily. sodium chloride 1 gram tab TAKE 1 TABLET BY MOUTH 3 TIMES A DAY gabapentin (NEURONTIN) 300 mg capsule Take 1 capsule by mouth twice daily for 180 days. fludrocortisone (FLORINEF) 0.1 mg tablet TAKE 1 TABLET EVERY DAY Midodrine HCl (PROAMATINE) 10 mg tablet TAKE 1 TABLET BY MOUTH THREE TIMES DAILY. Cholecalciferol, Vitamin D3, (VITAMIN D-3) 2,000 unit cap Take by mouth. clopidogrel (PLAVIX) 75 mg tablet Take 1 tablet by mouth once daily. donepezil (ARICEPT) 10 mg tablet Take 1 tablet by mouth once daily. famotidine (PEPCID) 40 mg tablet Take 1 tablet by mouth once daily. atorvastatin (LIPITOR) 10 mg tablet Take 1 tablet by mouth once daily. KLOR-CON 10 10 mEq tablet Take 1 tablet by mouth twice daily. carbidopa-levodopa (SINEMET 25-100) 25-100 mg per tablet Take 1 tablet by mouth five times daily. FLAXSEED OIL ORAL Take 1,200 mg by mouth once daily. UBIDECARENONE/VITAMIN E MIXED (COQ10 SG 100 ORAL) Take 100 mg by mouth once daily. ferrous gluconate 324 mg (37.5 mg iron) tablet Take 324 mg by mouth daily with breakfast. Current Facility-Administered Medications on File Prior to Visit: onabotulinum toxin type A 100 Units injection (BOTOX) Social History Social History Marital status: Spouse name: Years of education: Number of children: Social History Main Topics Smoking status: Former Smoker Packs/day: 0.00 Years: 0.00 Types: Cigarettes Quit date: 11/1999 Smokeless tobacco: Never Used Alcohol use: No Drug use: No Sexual activity: No Review of Symptoms REVIEW OF SYSTEMS GENERAL: No weight loss, malaise or fevers RESPIRATORY: Negative for cough, hemoptysis, wheezing, COPD, dyspnea or shortness of breath CARDIOVASCULAR: Negative for chest pain, leg swelling, hypertension, CHF or palpitations GI: No nausea, vomiting, or diarrhea SKIN: Negative for lesions, rash, and itching EXAM: BP 124/72 Pulse 76 Resp 14 General Appearance: Well appearing, alert, in no acute distress, well-hydrated, well nourished.. Skin: Skin color, texture, turgor normal, no suspicious rashes or lesions. Lungs: lungs clear to auscultation. No wheezing, rhonchi, rales. Heart: RRR without murmur, gallop, or rubs. No ectopy. Abdomen: Normal abdominal exam, Abdomen soft, non-tender. Bowel sounds normal. No masses, organomegaly. Extremities: No deformities, edema, skin discoloration, clubbing or cyanosis. Good capillary refill. . Health Maintenance List DTAP,TDAP,TD(1 - Tdap) due on 1965 BONE DENSITY due on 2011 PAP EVERY 3 YEARS (65-80 YEARS OLD) due on 2011 PNEUMOVAX AGE 65 AND OVER WITH 5YR LOOKBACK(1) due on 2011 MAMMOGRAM due on 05/29/2018 FECAL OCCULT BLOOD due on 10/16/2018 DIABETES SCREEN due on 03/18/2021 LIPID SCREEN due on 05/27/2022 ADULT PREVNAR-13 Completed INFLUENZA Completed HEPATITIS C SCREENING Completed Data reviewed Component Latest Ref Rng AND Units 03/18/2018 07/27/2018 WBC 3.70 - 11.00 k/uL 8.01 6.68 RBC 3.90 - 5.20 m/uL 4.29 4.43 Hemoglobin 11.5 - 15.5 g/dL 12.4 12.8 Hematocrit 36.0 - 46.0 % 39.5 41.4 MCV 80.0 - 100.0 fL 92.1 93.5 MCH 26.0 - 34.0 pG 28.9 28.9 MCHC 30.5 - 36.0 g/dL 31.4 30.9 RDW-CV 11.5 - 15.0 % 13.2 14.5 Platelet Count 150 - 400 k/uL 301 242 MPV 9.0 - 12.7 fL 11.0 10.6 Neut% % 72.0 Abs Neut (ANC) 1.45 - 7.50 k/uL 5.77 Lymph% % 17.4 Abs Lymph 1.00 - 4.00 k/uL 1.39 Peñuelas% % 9.5 Abs Pe[place]uel[place] <0.87 k/uL 0.76 Eosin% % 0.6 Abs Eosin <0.46 k/uL 0.05 Baso% % 0.5 Abs Baso <0.11 k/uL 0.04 Nucleated Reds 0 /100 WBC 0.0 Absolute nRBC <0.01 k/uL <0.01 <0.01 Diff Type Auto Diff Protein, Total 6.3 - 8.0 g/dL 7.5 Albumin 3.9 - 4.9 g/dL 4.2 Calcium 8.5 - 10.2 mg/dL 9.7 Bilirubin, Total 0.2 - 1.3 mg/dL 0.4 Alkaline Phosphatase 32 - 117 U/L 120 (H) AST 13 - 35 U/L 13 Glucose 74 - 99 mg/dL 88 BUN 7 - 21 mg/dL 21 Creatinine 0.58 - 0.96 mg/dL 0.73 Sodium 136 - 144 mmol/L 141 Potassium 3.7 - 5.1 mmol/L 4.0 Chloride 97 - 105 mmol/L 100 CO2 22 - 30 mmol/L 25 Anion Gap 9 - 18 mmol/L 16 ALT 7 - 38 U/L 7 eGFR- >60 eGFR-All Other Races . >60 WSR 0 - 20 mm/hr 18 7 CRP <0.9 mg/dL 0.5 0.2 Lipase 16 - 61 U/L 45 ASSESSMENT/PLAN: 1. Parkinson disease (HCC) - ICD9: 332.0, ICD10: G20 (primary diagnosis) Doing well on sinemet and deep brain stimulator. Follow up with neurology as scheduled. 2. 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 Continue aricept and namenda. F/u with neurology. 3. Moderate episode of recurrent major depressive disorder (HCC) - ICD9: 296.32, ICD10: F33.1 Uncontrolled. Increase zoloft to 200 mg daily. Recheck in 3-4 months. - SERTRALINE 100 MG TABLET 4. Hyperlipidemia, unspecified hyperlipidemia type - ICD9: 272.4, ICD10: E78.5 - good control - Continue current medication. - Encouraged following a low fat, low cholesterol diet. - Discussed the benefits of regular aerobic exercise and weight loss. 5. Recurrent falls - ICD9: V15.88, ICD10: R29.6 Continue PT. Discussed only using wheelchair for ambulation at this time. Should not be ambulating without assistance at all. 6. PAF (paroxysmal atrial fibrillation) (HCC) - ICD9: 427.31, ICD10: I48.0 Rate controlled on current regimen. 7. 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 (HCC) [G20, F02.80] Moderate episode of recurrent major depressive disorder (HCC) [F33.1] Hyperlipidemia, unspecified hyperlipidemia type [E78.5] Recurrent falls [R29.6] PAF (paroxysmal atrial fibrillation) (HCC) [I48.0] Need for vaccination [Z23] Order(s):sertraline (ZOLOFT) 100 mg tabletTake 2 tablets by mouth once daily.Disp: 180 tabletRfl: 1 PNEUMOCOCCAL IMMUNIZATION PPSV 23 [[id number]] Order #: [id number] Prescriptions as of 10/13/2018 Sig: SERTRALINE 100 MG TABLET Take 2 tablets by mouth once * SULFAMETHOXAZOLE 800 MG-TRIME* Take 1 tablet by mouth twice * OXYBUTYNIN CHLORIDE ER 5 MG T* Take 1 tablet by mouth once d* HYDROCODONE 5 MG-ACETAMINOPHE* Take 1 tablet by mouth three * COMPOUNDED PRESCRIPTION Dispense one lift chair ICD: * MEMANTINE 5 MG TABLET Take 1 tablet by mouth once d* SODIUM CHLORIDE 1 GRAM TABLET TAKE 1 TABLET BY MOUTH 3 TIME* GABAPENTIN 300 MG CAPSULE Take 1 capsule by mouth twice* FLUDROCORTISONE 0.1 MG TABLET TAKE 1 TABLET EVERY DAY MIDODRINE 10 MG TABLET TAKE 1 TABLET BY MOUTH THREE * CHOLECALCIFEROL (VITAMIN D3) * Take by mouth. CLOPIDOGREL 75 MG TABLET Take 1 tablet by mouth once d* DONEPEZIL 10 MG TABLET Take 1 tablet by mouth once d* FAMOTIDINE 40 MG TABLET Take 1 tablet by mouth once d* ATORVASTATIN 10 MG TABLET Take 1 tablet by mouth once d* KLOR-CON 10 MEQ TABLET,EXTEND* Take 1 tablet by mouth twice * CARBIDOPA 25 MG-LEVODOPA 100 * Take 1 tablet by mouth five t* FLAXSEED OIL ORAL Take 1,200 mg by mouth once d* COQ10 SG 100 ORAL Take 100 mg by mouth once vinod* FERROUS GLUCONATE 324 MG (37.* Take 324 mg by mouth daily wi* Problem List As Of Date 10/13/2018 Noted Resolved Dementia [F03.90] Parkinson disease (HCC) [G20] Hypotension [I95.9] 10/14/2017 Hyperlipidemia [E78.5] GERD (gastroesophageal reflux disease) [K21.9] TIA (transient ischemic attack) [G45.9] More... Falling [R29.6] INVALID FOR* Crouched gait [R26.89] INVALID FOR* Depression [F32.9] Postural hypotension [I95.1] INVALID FOR* Falls frequently [R29.6] INVALID FOR* Closed bilateral fracture of pubic rami (HCC) [*INVALID FOR* PAF (paroxysmal atrial fibrillation) ([facility]) [I48*INVALID FOR* Prescriptions ordered this encounter Disp Refills Start End SERTRALINE 100 MG TABLET 180 * 1 10/13/2018 Route: ORAL Sig: Take 2 tablets by mouth once daily. Medications Discontinued During This Encounter sertraline (ZOLOFT) 100 mg tablet 45 t* 5 06/19/2018 10/13/2018 Route: ORAL Sig: Take 1.5 tablets by mouth once daily. Disc: Reason for discontinue is not on file. Encounter Status:Closed by JESSENIA GRIDER MD on 10/13/18 PROGRESS Observed: 10/13/2018 Status: COMPLETED Source: [place] 1:59 PM [facility] REPOSITORY O ID: [id number] Author: Jessenia Moreno) Cheo Service: (none) Author Type: Physician Type: Progress Notes Filed: 10/13/2018 5:05 PM Note Text: Chief Complaint Patient presents with: 4 month follow up HPI Sandra Laughlin is a 73 year old female who presents here today for 4 month follow up appointment. Accompanied by today. Since last OV, patient has had multiple falls at [place]. states that she has been trying to get up and walk on her own without walker or aide around. Has not had any recent injuries with the falls. Has PT sessions twice weekly LE strength and balance. Recently diagnosed with UTI and has been taking bactrim DS as prescribed. Has not been pushing PO fluids as recommended. Only taken 2 doses of abx at this time. UA initiated because nurses did not think patient was acting right, no improvement in behavior thus far. Has not followed up with neurology since last OV. Has appointment with Dr. Robison on 11/23 and with nurse on 10/19. has noticed gradual decline in memory without behavioral disturbance. Parkinsons symptoms have been improved since she had deep brain stimulator placed. Depression: Taking zoloft as prescribed without side effects. has not noticed any worsening mood. Patient states that she gets frustrated easily due to parkinson's and dementia. Admits to feeling more depressed, decreased interest/energy/concentration. Requesting increased dosage of zoloft. Currently taking 150 mg daily. Due for pneumovax. Past medical history, appointments, medications, allergies reviewed. Previous Medical History PAST MEDICAL HISTORY Diagnosis Date - Anxiety - Cataracts, bilateral s/p removal - Dementia - Depression - GERD (gastroesophageal reflux disease) - Hyperlipidemia - Hypotension seeing Dr. James - Incontinence urinary - PAF (paroxysmal atrial fibrillation) ([facility]) 07/19/2018 - Parkinson disease ([facility]) - S/P deep brain stimulator placement Seeing Dr. Robison - TIA (transient ischemic attack) suspected Previous Surgical History PAST SURGICAL HISTORY Procedure Laterality Date - CATARACT SURGERY, COMPLEX Bilateral 2013 - CHOLECYSTECTOMY - HYSTERECTOMY HX - PAST SURGICAL HISTORY OF 2011 deep brain stimulator placement - ROTATOR CUFF REPAIR Bilateral Family History FAMILY HISTORY Problem Relation Age of Onset - Cancer Mother - Breast Cancer Sister - Cancer Father skin Patient Allergies ALLERGIES Allergen Reactions - Penicillin Swelling Current Medications Current Outpatient Prescriptions on File Prior to Visit: sulfamethoxazole-trimethoprim (BACTRIM DS) 800-160 mg per tablet Take 1 tablet by mouth twice daily for 3 days. oxybutynin XL (DITROPAN XL) 5 mg 24 hr tablet Take 1 tablet by mouth once daily. HYDROcodone-acetaminophen (NORCO) 5-325 mg per tablet Take 1 tablet by mouth three times daily for 30 days. sertraline (ZOLOFT) 100 mg tablet Take 1.5 tablets by mouth once daily. COMPOUNDED PRESCRIPTION Dispense one lift chair ICD: G20 memantine (NAMENDA) 5 mg tablet Take 1 tablet by mouth once daily. sodium chloride 1 gram tab TAKE 1 TABLET BY MOUTH 3 TIMES A DAY gabapentin (NEURONTIN) 300 mg capsule Take 1 capsule by mouth twice daily for 180 days. fludrocortisone (FLORINEF) 0.1 mg tablet TAKE 1 TABLET EVERY DAY Midodrine HCl (PROAMATINE) 10 mg tablet TAKE 1 TABLET BY MOUTH THREE TIMES DAILY. Cholecalciferol, Vitamin D3, (VITAMIN D-3) 2,000 unit cap Take by mouth. clopidogrel (PLAVIX) 75 mg tablet Take 1 tablet by mouth once daily. donepezil (ARICEPT) 10 mg tablet Take 1 tablet by mouth once daily. famotidine (PEPCID) 40 mg tablet Take 1 tablet by mouth once daily. atorvastatin (LIPITOR) 10 mg tablet Take 1 tablet by mouth once daily. KLOR-CON 10 10 mEq tablet Take 1 tablet by mouth twice daily. carbidopa-levodopa (SINEMET 25-100) 25-100 mg per tablet Take 1 tablet by mouth five times daily. FLAXSEED OIL ORAL Take 1,200 mg by mouth once daily. UBIDECARENONE/VITAMIN E MIXED (COQ10 SG 100 ORAL) Take 100 mg by mouth once daily. ferrous gluconate 324 mg (37.5 mg iron) tablet Take 324 mg by mouth daily with breakfast. Current Facility-Administered Medications on File Prior to Visit: onabotulinum toxin type A 100 Units injection (BOTOX) Social History Social History Marital status: Spouse name: Years of education: Number of children: Social History Main Topics Smoking status: Former Smoker Packs/day: 0.00 Years: 0.00 Types: Cigarettes Quit date: 11/1999 Smokeless tobacco: Never Used Alcohol use: No Drug use: No Sexual activity: No Review of Symptoms REVIEW OF SYSTEMS GENERAL: No weight loss, malaise or fevers RESPIRATORY: Negative for cough, hemoptysis, wheezing, COPD, dyspnea or shortness of breath CARDIOVASCULAR: Negative for chest pain, leg swelling, hypertension, CHF or palpitations GI: No nausea, vomiting, or diarrhea SKIN: Negative for lesions, rash, and itching EXAM: BP 124/72 Pulse 76 Resp 14 General Appearance: Well appearing, alert, in no acute distress, well-hydrated, well nourished.. Skin: Skin color, texture, turgor normal, no suspicious rashes or lesions. Lungs: lungs clear to auscultation. No wheezing, rhonchi, rales. Heart: RRR without murmur, gallop, or rubs. No ectopy. Abdomen: Normal abdominal exam, Abdomen soft, non-tender. Bowel sounds normal. No masses, organomegaly. Extremities: No deformities, edema, skin discoloration, clubbing or cyanosis. Good capillary refill. . Health Maintenance List DTAP,TDAP,TD(1 - Tdap) due on 1965 BONE DENSITY due on 2011 PAP EVERY 3 YEARS (65-80 YEARS OLD) due on 2011 PNEUMOVAX AGE 65 AND OVER WITH 5YR LOOKBACK(1) due on 2011 MAMMOGRAM due on 05/29/2018 FECAL OCCULT BLOOD due on 10/16/2018 DIABETES SCREEN due on 03/18/2021 LIPID SCREEN due on 05/27/2022 ADULT PREVNAR-13 Completed INFLUENZA Completed HEPATITIS C SCREENING Completed Data reviewed Component Latest Ref Rng AND Units 03/18/2018 07/27/2018 WBC 3.70 - 11.00 k/uL 8.01 6.68 RBC 3.90 - 5.20 m/uL 4.29 4.43 Hemoglobin 11.5 - 15.5 g/dL 12.4 12.8 Hematocrit 36.0 - 46.0 % 39.5 41.4 MCV 80.0 - 100.0 fL 92.1 93.5 MCH 26.0 - 34.0 pG 28.9 28.9 MCHC 30.5 - 36.0 g/dL 31.4 30.9 RDW-CV 11.5 - 15.0 % 13.2 14.5 Platelet Count 150 - 400 k/uL 301 242 MPV 9.0 - 12.7 fL 11.0 10.6 Neut% % 72.0 Abs Neut (ANC) 1.45 - 7.50 k/uL 5.77 Lymph% % 17.4 Abs Lymph 1.00 - 4.00 k/uL 1.39 Peñuelas% % 9.5 Abs Pe[place]uel[place] <0.87 k/uL 0.76 Eosin% % 0.6 Abs Eosin <0.46 k/uL 0.05 Baso% % 0.5 Abs Baso <0.11 k/uL 0.04 Nucleated Reds 0 /100 WBC 0.0 Absolute nRBC <0.01 k/uL <0.01 <0.01 Diff Type Auto Diff Protein, Total 6.3 - 8.0 g/dL 7.5 Albumin 3.9 - 4.9 g/dL 4.2 Calcium 8.5 - 10.2 mg/dL 9.7 Bilirubin, Total 0.2 - 1.3 mg/dL 0.4 Alkaline Phosphatase 32 - 117 U/L 120 (H) AST 13 - 35 U/L 13 Glucose 74 - 99 mg/dL 88 BUN 7 - 21 mg/dL 21 Creatinine 0.58 - 0.96 mg/dL 0.73 Sodium 136 - 144 mmol/L 141 Potassium 3.7 - 5.1 mmol/L 4.0 Chloride 97 - 105 mmol/L 100 CO2 22 - 30 mmol/L 25 Anion Gap 9 - 18 mmol/L 16 ALT 7 - 38 U/L 7 eGFR- >60 eGFR-All Other Races . >60 WSR 0 - 20 mm/hr 18 7 CRP <0.9 mg/dL 0.5 0.2 Lipase 16 - 61 U/L 45 ASSESSMENT/PLAN: 1. Parkinson disease (HCC) - ICD9: 332.0, ICD10: G20 (primary diagnosis) Doing well on sinemet and deep brain stimulator. Follow up with neurology as scheduled. 2. 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 Continue aricept and namenda. F/u with neurology. 3. Moderate episode of recurrent major depressive disorder (HCC) - ICD9: 296.32, ICD10: F33.1 Uncontrolled. Increase zoloft to 200 mg daily. Recheck in 3-4 months. - SERTRALINE 100 MG TABLET 4. Hyperlipidemia, unspecified hyperlipidemia type - ICD9: 272.4, ICD10: E78.5 - good control - Continue current medication. - Encouraged following a low fat, low cholesterol diet. - Discussed the benefits of regular aerobic exercise and weight loss. 5. Recurrent falls - ICD9: V15.88, ICD10: R29.6 Continue PT. Discussed only using wheelchair for ambulation at this time. Should not be ambulating without assistance at all. 6. PAF (paroxysmal atrial fibrillation) (HCC) - ICD9: 427.31, ICD10: I48.0 Rate controlled on current regimen. 7. Need for vaccination - ICD9: V05.9, ICD10: Z23 - PNEUMOCOCCAL IMMUNIZATION PPSV 23 Jessenia Grider MD URINALYSIS, ROUTINE Collected: 10/10/2018 Status: F Source: [place] ([place]) 4:00 PM [facility] [place] Order Comment: How was Urine Obtained? CLEAN CATCH TYPE CODE TESTS RESULT OUT OF RANGE REFERENCE UNITS LAB L400.3000 Yellow COLOR Normal Yellow LAB L400.3050 Clear Normal CLARITY Cloudy LAB L400.3200 Normal mg/dl Normal GLUCOSE, UR Normal LAB L400.3300 Negative mg/dL High BILIRUBIN URINE 1 Result Comment: COLOR OF URINE MAY AFFECT DIPSTICK RESULTS. LAB L400.3400 Negative mg/dl High KETONE UR 15 LAB L400.3465 1.002-1.030 Normal SP.GR. DIPSTX 1.020 LAB L400.3550 5.0 - 8.0 pH Normal UR 5.0 LAB L400.3600 Negative mg/dl High PROT DIPSTX 30 LAB L400.3700 Normal mg/dl High UROBILI 1 LAB L400.3750 Negative Normal NITRITE UR Negative LAB L400.3780 Negative /ul High OCCULT 50 BLOOD-UR LAB L400.3800 Negative /ul High LEUK ESTERASE 500 Performed By: #### L400.2010 #### [facility] [address] [place], [address] Observed: 10/10/2018 Status: F Source: [place] CULTURE, URINE 4:00 PM [facility] [place] Urine Culture ORGANISM 1: Presumptive E. coli [place] Count >100,000 Presumptive E. coli: REACTION Amoxacillin/Clavulanic Acid $ <=2 S Ampicillin $ <=2 S Ampicillin/Sulbactam $ <=2 S Cefazolin $ <=4 S Cefepime $ <=1 S Ceftriaxone $ <=1 S Ciprofloxacin $ <=0.25 S ESBL - Ertapenim $$$ <=0.5 S Gentamicin $ <=1 S Imipenem *NF <=0.25 S Levofloxacin $ <=0.12 S Nitrofurantoin $ 32 S Piperacillin/Tazobactam $$ <=4 S Tobramycin $ <=1 S Trimethoprim/Sulfametho $ <=20 S (NF) indicates non-formulary drug at [facility]. Approval by Infectious Disease Specialist required before non-formulary drugs may be ordered and/or dispensed. Performed By: #### [id number] #### [facility] [address] [place], [address] PROGRESS Observed: 10/08/2018 Status: COMPLETED Source: [place] 2:01 PM [facility] REPOSITORY HNO ID: [id number] Author: Owen James Service: (none) Author Type: Physician Type: Progress Notes Filed: 10/08/2018 4:54 PM Note Text: PERTINENT CARDIAC HISTORY TIA - on Plavix Parkinsons - DBS Hypotension - postural HL PAF - high risk for A/C ADHERENCE TO GUIDELINES JOSE ALEJANDRO-I or ARB for HF with prior LVEF<40 (NQF 0081) - N/A ASA or Plavix for ASHD (NQF 0067) - N/A Beta david for ASHD with prior KS or prior LVEF<40 (NQF 0070) - N/A Beta david for HF with prior LVEF<40 (NQF 0083) - N/A JOSE ALEJANDRO-I or ARB for ASHD with DM or prior LVEF<40 (NQF 0066) - N/A Statin therapy for ASHD or FHL or DM - met BMI documented and plan if >25 (NQF 0421) - lifestyle recommendation form Tobacco use screening and referral (NQF 0028) - lifestyle recommendation form Recommendation for whole food, plant based diet - lifestyle recommendation form CLINICAL IMPRESSION/PLAN: Sandra Laughlin is doing well. She is advised to continue her current medication. I've asked her to let me know she has recurrent palpitations. We will not give anticoagulation at this time as she is high risk. I will see her in 6 months or as needed. Written and verbal health teaching given to patient, patient verbalizes understanding and agrees with treatment plan. DIAGNOSIS FOR VISIT: Postural hypotension PAF HISTORY OF PRESENT ILLNESS Sandra Laughlin returns for follow-up of her PAF and postural hypotension. She's had no recurrent palpitations. She's had no recent falls. She denies chest pain. She's had no orthopnea, edema, syncope, TIAs, amaurosis. She discontinued metoprolol as requested. ALLERGIES: ALLERGIES Allergen Reactions - Penicillin Swelling CURRENT OUTPATIENT MEDICATIONS: oxybutynin XL (DITROPAN XL) 5 mg 24 hr tablet Take 1 tablet by mouth once daily. sertraline (ZOLOFT) 100 mg tablet Take 1.5 tablets by mouth once daily. COMPOUNDED PRESCRIPTION Dispense one lift chair ICD: G20 memantine (NAMENDA) 5 mg tablet Take 1 tablet by mouth once daily. sodium chloride 1 gram tab TAKE 1 TABLET BY MOUTH 3 TIMES A DAY fludrocortisone (FLORINEF) 0.1 mg tablet TAKE 1 TABLET EVERY DAY Midodrine HCl (PROAMATINE) 10 mg tablet TAKE 1 TABLET BY MOUTH THREE TIMES DAILY. Cholecalciferol, Vitamin D3, (VITAMIN D-3) 2,000 unit cap Take by mouth. clopidogrel (PLAVIX) 75 mg tablet Take 1 tablet by mouth once daily. donepezil (ARICEPT) 10 mg tablet Take 1 tablet by mouth once daily. famotidine (PEPCID) 40 mg tablet Take 1 tablet by mouth once daily. KLOR-CON 10 10 mEq tablet Take 1 tablet by mouth twice daily. carbidopa-levodopa (SINEMET 25-100) 25-100 mg per tablet Take 1 tablet by mouth five times daily. FLAXSEED OIL ORAL Take 1,200 mg by mouth once daily. UBIDECARENONE/VITAMIN E MIXED (COQ10 SG 100 ORAL) Take 100 mg by mouth once daily. ferrous gluconate 324 mg (37.5 mg iron) tablet Take 324 mg by mouth daily with breakfast. HYDROcodone-acetaminophen (NORCO) 5-325 mg per tablet Take 1 tablet by mouth three times daily for 30 days. gabapentin (NEURONTIN) 300 mg capsule Take 1 capsule by mouth twice daily for 180 days. atorvastatin (LIPITOR) 10 mg tablet Take 1 tablet by mouth once daily. PHYSICAL EXAMINATION: VITAL SIGNS: BP 122/78 Pulse 75 Chest: Clear to auscultation. Trachea is midline. Air entry is equal. Cardiac: Regular rhythm. S1 and S2 are normal. PMI is nondisplaced. There is a soft systolic ejection murmur without radiation. Carotids are brisk without bruits. JVP is less than 10 cm. Abdomen: Soft and nontender. There are no pulsatile masses or bruits. No liver enlargement. Bowel sounds are active. Extremities: No edema. Pulses are intact and symmetrical. Recent labs were reviewed. Renal function is normal. Hemoglobin is normal. Electronically Signed: Owen James MD October 08, 2018 2:01 PM CC: Jessenia Grider MD CNOV Observed: 10/08/2018 Status: COMPLETED Source: [place] 2:00 PM [facility] REPOSITORY Office Visit (CAWSTR) SANDRA LAUGHLIN ([id number]) 1945 F Date Time Provider Department 10/08/18 2:00 PM OWEN JAMES CA[facility]STR During your visit today, we recorded the following information about you: Pulse Blood pressure 75/minute 122/78 Owen James MD 10/08/2018 4:54 PM Signed PERTINENT CARDIAC HISTORY TIA - on Plavix Parkinsons - DBS Hypotension - postural HL PAF - high risk for A/C ADHERENCE TO GUIDELINES JOSE ALEJANDRO-I or ARB for HF with prior LVEF<40 (NQF 0081) - N/A ASA or Plavix for ASHD (NQF 0067) - N/A Beta david for ASHD with prior KS or prior LVEF<40 (NQF 0070) - N/A Beta david for HF with prior LVEF<40 (NQF 0083) - N/A JOSE ALEJANDRO-I or ARB for ASHD with DM or prior LVEF<40 (NQ 0066) - N/A Statin therapy for ASHD or FHL or DM - met BMI documented and plan if >25 (NQ 0421) - lifestyle recommendation form Tobacco use screening and referral ([facility] 0028) - lifestyle recommendation form Recommendation for whole food, plant based diet - lifestyle recommendation form CLINICAL IMPRESSION/PLAN: Sandra Laughlin is doing well. She is advised to continue her current medication. I've asked her to let me know she has recurrent palpitations. We will not give anticoagulation at this time as she is high risk. I will see her in 6 months or as needed. Written and verbal health teaching given to patient, patient verbalizes understanding and agrees with treatment plan. DIAGNOSIS FOR VISIT: Postural hypotension PAF HISTORY OF PRESENT ILLNESS Sandra Laughlin returns for follow-up of her PAF and postural hypotension. She's had no recurrent palpitations. She's had no recent falls. She denies chest pain. She's had no orthopnea, edema, syncope, TIAs, amaurosis. She discontinued metoprolol as requested. ALLERGIES: ALLERGIES Allergen Reactions - Penicillin Swelling CURRENT OUTPATIENT MEDICATIONS: oxybutynin XL (DITROPAN XL) 5 mg 24 hr tablet Take 1 tablet by mouth once daily. sertraline (ZOLOFT) 100 mg tablet Take 1.5 tablets by mouth once daily. COMPOUNDED PRESCRIPTION Dispense one lift chair ICD: G20 memantine (NAMENDA) 5 mg tablet Take 1 tablet by mouth once daily. sodium chloride 1 gram tab TAKE 1 TABLET BY MOUTH 3 TIMES A DAY fludrocortisone (FLORINEF) 0.1 mg tablet TAKE 1 TABLET EVERY DAY Midodrine HCl (PROAMATINE) 10 mg tablet TAKE 1 TABLET BY MOUTH THREE TIMES DAILY. Cholecalciferol, Vitamin D3, (VITAMIN D-3) 2,000 unit cap Take by mouth. clopidogrel (PLAVIX) 75 mg tablet Take 1 tablet by mouth once daily. donepezil (ARICEPT) 10 mg tablet Take 1 tablet by mouth once daily. famotidine (PEPCID) 40 mg tablet Take 1 tablet by mouth once daily. KLOR-CON 10 10 mEq tablet Take 1 tablet by mouth twice daily. carbidopa-levodopa (SINEMET 25-100) 25-100 mg per tablet Take 1 tablet by mouth five times daily. FLAXSEED OIL ORAL Take 1,200 mg by mouth once daily. UBIDECARENONE/VITAMIN E MIXED (COQ10 SG 100 ORAL) Take 100 mg by mouth once daily. ferrous gluconate 324 mg (37.5 mg iron) tablet Take 324 mg by mouth daily with breakfast. HYDROcodone-acetaminophen (NORCO) 5-325 mg per tablet Take 1 tablet by mouth three times daily for 30 days. gabapentin (NEURONTIN) 300 mg capsule Take 1 capsule by mouth twice daily for 180 days. atorvastatin (LIPITOR) 10 mg tablet Take 1 tablet by mouth once daily. PHYSICAL EXAMINATION: VITAL SIGNS: BP 122/78 Pulse 75 Chest: Clear to auscultation. Trachea is midline. Air entry is equal. Cardiac: Regular rhythm. S1 and S2 are normal. PMI is nondisplaced. There is a soft systolic ejection murmur without radiation. Carotids are brisk without bruits. JVP is less than 10 cm. Abdomen: Soft and nontender. There are no pulsatile masses or bruits. No liver enlargement. Bowel sounds are active. Extremities: No edema. Pulses are intact and symmetrical. Recent labs were reviewed. Renal function is normal. Hemoglobin is normal. Electronically Signed: Owen James MD October 08, 2018 2:01 PM CC: MD Owen Lopez MD 10/08/2018 2:01 PM Signed LIFESTYLE CHANGE A healthy lifestyle is the most important component of your overall treatment plan. 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 EAT A WHOLE FOOD, PLANT BASED DIET The nutrition your body gets is more important than the medicine you take. What matters most is the overall way you eat. We encourage you to minimize the use of animal products (which include dairy and all meats except fatty fish) and use whole, unprocessed plant foods to provide your protein, vitamins and other nutrients. We have a lot of information to share with you on this topic. This is not a diet. It is a way of life that you will keep with you. EXERCISE REGULARLY It is not important to spend hours in the gym, lifting weights and perspiring heavily. A total of 2-3 hours per week of aerobic (causing you to be moderately short of breath) exercise is sufficient to improve your health. Talk to us before you begin a new exercise program, if you have heart disease or experience shortness of breath or chest pain. REDUCE STRESS Chronic emotional and physical stress leads to disease. Ways of reducing stress include meditation, visualization, prayer, yoga and other forms of relaxation therapy. Consistency is the vasquez. Find a technique that works for you and do it every day. CULTIVATE RELATIONSHIPS Loneliness and isolation have a major negative impact on health. Seek out others who can love, care for and nurture you. Avoid hurtful relationships. MAINTAIN IDEAL BODY WEIGHT The best way to do this is to do all the things above. Our bodies naturally find the right weight if we keep moving and feed ourselves the right food. If your BMI is greater than 25, we strongly recommend a referral to a weight management program. Please speak to us or your family physician about available programs. AVOID NICOTINE IN ALL FORMS This includes all tobacco products, whether chewed, smoked, vaped, or rubbed on the skin. Smoking cessation programs, which can make use of tobacco substitutes, medications to suppress cravings and behavior management, are available. Please contact your family physician about programs in your area. Referring Provider: OWEN JAMES [[id number]] Allergies As of Date: 10/08/2018 Noted Allergy Reaction PENICILLIN 05/29/2017 7 - Swelling Date Reviewed: 10/08/2018 Reviewed by: Mary Lopez MA - Fully Assessed Reason for Visit: Established Patient [175] Primary Visit Diagnosis:PAF (paroxysmal atrial fibrillation) ([facility]) [I48.0] Other Visit Diagnosis:Hypotension, postural [I95.1] Prescriptions as of 10/08/2018 Sig: OXYBUTYNIN CHLORIDE ER 5 MG T* Take 1 tablet by mouth once d* SERTRALINE 100 MG TABLET Take 1.5 tablets by mouth onc* COMPOUNDED PRESCRIPTION Dispense one lift chair ICD: * MEMANTINE 5 MG TABLET Take 1 tablet by mouth once d* SODIUM CHLORIDE 1 GRAM TABLET TAKE 1 TABLET BY MOUTH 3 TIME* FLUDROCORTISONE 0.1 MG TABLET TAKE 1 TABLET EVERY DAY MIDODRINE 10 MG TABLET TAKE 1 TABLET BY MOUTH THREE * CHOLECALCIFEROL (VITAMIN D3) * Take by mouth. CLOPIDOGREL 75 MG TABLET Take 1 tablet by mouth once d* DONEPEZIL 10 MG TABLET Take 1 tablet by mouth once d* FAMOTIDINE 40 MG TABLET Take 1 tablet by mouth once d* KLOR-CON 10 MEQ TABLET,EXTEND* Take 1 tablet by mouth twice * CARBIDOPA 25 MG-LEVODOPA 100 * Take 1 tablet by mouth five t* FLAXSEED OIL ORAL Take 1,200 mg by mouth once d* COQ10 SG 100 ORAL Take 100 mg by mouth once vinod* FERROUS GLUCONATE 324 MG (37.* Take 324 mg by mouth daily wi* HYDROCODONE 5 MG-ACETAMINOPHE* Take 1 tablet by mouth three * GABAPENTIN 300 MG CAPSULE Take 1 capsule by mouth twice* ATORVASTATIN 10 MG TABLET Take 1 tablet by mouth once d* Problem List As Of Date 10/08/2018 Noted Resolved Dementia [F03.90] Parkinson disease (HCC) [G20] Hypotension [I95.9] 10/14/2017 Hyperlipidemia [E78.5] GERD (gastroesophageal reflux disease) [K21.9] TIA (transient ischemic attack) [G45.9] More... Falling [R29.6] INVALID FOR* Crouched gait [R26.89] INVALID FOR* Depression [F32.9] Postural hypotension [I95.1] INVALID FOR* Falls frequently [R29.6] INVALID FOR* Closed bilateral fracture of pubic rami (HCC) [*INVALID FOR* PAF (paroxysmal atrial fibrillation) (HCC) [I48*INVALID FOR* Other instructions from your clinician: LIFESTYLE CHANGE A healthy lifestyle is the most important component of your overall treatment plan. 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 EAT A WHOLE FOOD, PLANT BASED DIET The nutrition your body gets is more important than the medicine you take. What matters most is the overall way you eat. We encourage you to minimize the use of animal products (which include dairy and all meats except fatty fish) and use whole, unprocessed plant foods to provide your protein, vitamins and other nutrients. We have a lot of information to share with you on this topic. This is not a diet. It is a way of life that you will keep with you. EXERCISE REGULARLY It is not important to spend hours in the gym, lifting weights and perspiring heavily. A total of 2-3 hours per week of aerobic (causing you to be moderately short of breath) exercise is sufficient to improve your health. Talk to us before you begin a new exercise program, if you have heart disease or experience shortness of breath or chest pain. REDUCE STRESS Chronic emotional and physical stress leads to disease. Ways of reducing stress include meditation, visualization, prayer, yoga and other forms of relaxation therapy. Consistency is the vasquez. Find a technique that works for you and do it every day. CULTIVATE RELATIONSHIPS Loneliness and isolation have a major negative impact on health. Seek out others who can love, care for and nurture you. Avoid hurtful relationships. MAINTAIN IDEAL BODY WEIGHT The best way to do this is to do all the things above. Our bodies naturally find the right weight if we keep moving and feed ourselves the right food. If your BMI is greater than 25, we strongly recommend a referral to a weight management program. Please speak to us or your family physician about available programs. AVOID NICOTINE IN ALL FORMS This includes all tobacco products, whether chewed, smoked, vaped, or rubbed on the skin. Smoking cessation programs, which can make use of tobacco substitutes, medications to suppress cravings and behavior management, are available. Please contact your family physician about programs in your area. Encounter Status:Closed by OWEN JAMES MD on 10/08/18 EMERGENCY DEPARTMENT Observed: 09/29/2018 Status: F Source: [place] SUMMARY 5:25 PM [facility] Medical Records Department [address] [place] [address] Emergency Department Summary 09/29/18 1628 MR#: [id number] Acct: [id number] Name: SANDRA LAUGHLIN Rep #: [id number] : 1945 73 From: Meg Jones MD PCP: Moises Grider MD Status: DEP ER - ER Visit Summary Date of Service: 09/29/18 Chief Complaint: Head injury from fall History of Present Illness: The patient is a 73 F who presents for evaluation after a head injury from a fall. Patient has Parkinson's disease and falls easily. She got out of her wheelchair on her own, which she is not supposed to do and subsequently fell onto operative surface. She is complaining of forehead and neck pain. Patient also scraped her hands. Patient denies loss of consciousness. She denies any chest pain, shortness of breath, abdominal pain, or any other complaints. Patient is on Plavix. Physical Examination: Vital signs: afebrile, hemodynamically stable, no hypoxia on room air General: well nourished, well developed, in no distress, coarse resting tremor of the head Skin: warm, dry, no rash, no pallor, abrasions to the dorsum of the hands, contusion over the thenar eminence of the right hand HEENT: normocephalic, superficial abrasions to the mid forehead and the superior bridge of the nose; PERRL, EOMI, moist mucous membranes illusion, no hemotympanum, no septal hematomas Neck: Full range of motion, mild midline tenderness diffusely, no deformities or step-offs Cardiovascular: regular rate and rhythm without murmurs, no peripheral edema, 2+ pulses all distal extremities Respiratory: No increased work of breathing, lungs are clear to auscultation bilaterally, no rales, rhonchi or wheezing, chest nontender Abdominal: Abdomen is soft, nontender with normoactive bowel sounds, no guarding or rebound, no masses MSK: Moves all extremities without pain, no deformities, normal strength, legs of equal length, no pelvic tenderness, full flexion and anterior/exterior rotation of the hips bilaterally without pain Neuro: Awake and alert, oriented 4. No facial droop, sensation and motor function intact and symmetric Test Results: Clinical Impression(s) from Imaging Studies Brain CT 09/29/18 15:04 IMPRESSION: 1. Stable chronic involutional changes of the brain. No acute intracranial injury. 2. Bilateral stimulator leads extending to the bilateral thalami unchanged. 3. Stable opacification of the posterior right ethmoid air cell. Electronically Signed: Gloria Gonsalves MD at 16:06 EST , Service support , Cervical Spine CT 09/29/18 15:04 IMPRESSION: 1. No acute fracture of the cervical spine. 2. Multilevel degenerative changes, as described above. 3. Large right thyroid mass as well as mild heterogeneous enlargement of the lower left thyroid lobe. If clinically indicated, this can be further evaluated with thyroid ultrasound and/or nuclear medicine thyroid uptake and scan. Electronically Signed: Gloria Gonsalves MD at 16:01 EST , Service support , Hand X-Ray 09/29/18 15:30 IMPRESSION: Osteopenia. No demonstrated fracture. Electronically Signed: Allen Peters MD at 16:01 EST Tel , Service support , Medications Given Discontinued Medications Hydrocodone Bitart/Acetaminophen ([place] 5mg-325mg) 1 tablet PO X1 ONE Stop: 09/29/18 15:12 Last Admin: 09/29/18 15:15 Dose: 1 tablet Emergency Department Course and Treatment: Patient was given a dose of [place] for pain, as this is the pain medication she is on at home. CT scan of the head showed no intracranial hemorrhage. C-spine CT showed no fractures or dislocations. X-ray of the right hand was performed and showed no fracture. Bacitracin ointment was applied to the superficial abrasions on the forehead and bridge of the nose. Patient is tetanus is up-to-date. She was discharged back to her assisted living facility. Treatment Plan: [] Disposition: [] Impression: Fall with forehead abrasion, nasal bridge abrasion, bilateral hand abrasions, right hand contusion This note was generated with Satarii dictation software. It may contain incorrect words, spelling, and punctuation that were not noted in review of the chart prior to signing ED Disposition - Plan for ED Patient: Chief Complaint: Fall Referrals: Moises Grider MD [Primary Care Provider] - What to do if you have Problems For any increased pain, shortness of breath, bleeding, nausea or vomiting, chest pain, or any unexpected problems, contact your Primary Care Provider. Call [facility] ([phone]) or report to the closest Emergency Room. Call 911 if necessary. 09/29/18 8897 <Electronically signed by Meg Jones MD> Date Meg Jones MD Cosigner Signature (If Indicated): Date CC: Moises Grider MD DISCHARGE INSTRUCTION Observed: 09/29/2018 Status: F Source: [place] 5:25 PM [facility] Medical Records Department [address] [place] [address] Discharge Instruction 09/29/18 1632 MR#: [id number] Acct: [id number] Name: SANDRA LAUGHLIN Rep #: [id number] : 1945 73 From: Meg Jones MD PCP: Moises Grider MD Status: DEP ER ED Disposition - Plan for ED Patient: Disposition: Home or Assisted Living Chief Complaint: Fall Instructions: ED Prevention Fall, ED Abrasion Referrals: Moises Grider MD [Primary Care Provider] - 1-2 Days if not improving Additional Instructions: Please keep your wounds clean and protected. Cleanse them gently with warm water and mild soap. You may apply bacitracin ointment to them twice daily, especially on your forehead and nasal bridge. Cover with a bandage as needed for comfort and protection of the wounds. If you have any worsening of your condition or any new concerning symptoms, please return immediately to the emergency department for another evaluation. What to do if you have Problems For any increased pain, shortness of breath, bleeding, nausea or vomiting, chest pain, or any unexpected problems, contact your Primary Care Provider. Call [facility] ([phone]) or report to the closest Emergency Room. Call 911 if necessary. 09/29/18 5165 <Electronically signed by Meg Jones MD> Date Meg Jones MD Cosigner Signature (If Indicated): Date CC: Moises Grider MD SPINE CERVICAL Observed: 09/29/2018 Status: F Source: [place] WITHOUT CONTRAS 3:12 PM [facility] Imaging Services [address] [place] [address] Spine Cervical without Contras MR#: [id number] Acct: [id number] Name: SANDRA LAUGHLIN Rep #: [id number] : 1945 F 73 From: Jose Gonsalves MD PCP: Moises Grider MD Status: REG ER Study: Spine Cervical without Contras Date of Exam: 09/29/18 Exam# [id number] Ordering Dr: Meg Jones MD STUDY: CT CERVICAL SPINE WITHOUT CONTRAST REASON FOR EXAM: Female, 73 years old. History of Parkinson's. Lost balance, fall. RADIATION DOSAGE (If Supplied By Facility): CTDIvol = ( 17.11 ) mGy, DLP = ( 344.93 ) mGycm TECHNIQUE: High resolution transaxial imaging was performed without contrast material. Sagittal and coronal images were reconstructed. Individualized dose optimization techniques were used for this CT. COMPARISON: None FINDINGS: Normal craniovertebral junction. There are degenerative changes of the anterior atlantoaxial articulation. There is mild chronic deformity of the odontoid process. Normal to mildly exaggerated cervical lordosis. No acute fracture of the vertebral bodies and posterior osseous elements. C2-3: Right posterolateral endplate spurring. There is right posterior disc height narrowing. There are hypertrophic degenerative arthrosis of the bilateral facet articulations with moderately severe joint space narrowing Normal central canal and intervertebral neuroforamina. C3-4: There is osseous fusion of the vertebral endplates. Osseous fusion of the bilateral facet articulations also noted. Normal central canal and intervertebral neuroforamina. C4-5: Anterior C4 endplate osteophyte and mild left posterolateral endplate spurring. Normal disc height and morphology. Degenerative degenerative arthroses of the bilateral facet articulations with moderately severe joint space narrowing on the right and moderate narrowing on the left. Normal central canal. Mild osseous encroachment on the left intervertebral neuroforamen. C5-6: Anterior endplate spurring. Subcortical cystic degenerative change at the anterior margin of the superior C6 endplate. Normal disc height and morphology. Hypertrophic degenerative arthroses and moderate joint space narrowing of the bilateral facet articulations. Normal central canal and intervertebral neuroforamina. C6-7: Normal endplates. Normal disc height and morphology. Early degenerative arthrosis of the right facet articulation. Normal central canal and intervertebral neuroforamina. C7-T1: Minor anterior and posterior lateral endplate spurring. Normal disc height and morphology. Early degenerative arthrosis of the right facet articulation. Normal central canal and intervertebral neuroforamina. Normal visualized soft tissue structures. Not fully included in the [id number] is a 10.2 x 7 x 4.85 cm heterogeneous right thyroid mass that mildly displaces the lower cervical trachea and extends into the upper mediastinum. There is also mild heterogeneous enlargement of the lower left thyroid lobe. CT/Spine Cervical without Contras IMPRESSION: 1. No acute fracture of the cervical spine. 2. Multilevel degenerative changes, as described above. 3. Large right thyroid mass as well as mild heterogeneous enlargement of the lower left thyroid lobe. If clinically indicated, this can be further evaluated with thyroid ultrasound and/or nuclear medicine thyroid uptake and scan. Electronically Signed: Gloria Gonsalves MD at 16:01 EST , Service support , CC: Moises Grider MD; Meg Jones MD Profiler: Signed HAND MIN 3 VIEWS Observed: 09/29/2018 Status: F Source: [place] 3:12 PM [facility] [place] [facility] Imaging Services [address] [place] [id number] Hand Min 3 Views MR#: [id number] Acct: [id number] Name: SANDRA LAUGHLIN Rep #: [id number] : 1945 F 73 From: Allen Peters MD PCP: Moises Grider MD Status: REG ER Study: Hand Min 3 Views Date of Exam: 09/29/18 Exam# [id number] Ordering Dr: Meg Jones MD STUDY: X-RAY - RIGHT HAND REASON FOR EXAM: Right hand pain, fall. TECHNIQUE: 3 view(s) of the hand. COMPARISON: None. FINDINGS: There is osteopenia. Normal radiocarpal articulation. Normal distal radioulnar joint. Normal visualized carpal bones. Normal carpal articulations Normal carpometacarpal articulation of the thumb. Normal second through fifth carpometacarpal joints. Normal metacarpi. Normal metacarpophalangeal joint of the thumb. Normal interphalangeal joint of the thumb. Normal proximal and distal phalanges of the thumb. Normal metacarpophalangeal joints of the second through fifth fingers. Normal proximal and distal interphalangeal joints of the second through fifth fingers. Normal phalanges of the second through fifth fingers. The soft tissue structures are unremarkable. RAD/Hand Min 3 Views IMPRESSION: Osteopenia. No demonstrated fracture. Electronically Signed: Allen Peters MD at 16:01 EST Tel , Service support , CC: Moises Grider MD; Meg Jones MD Profiler: Signed BRAIN/HEAD WITHOUT Observed: 09/29/2018 Status: F Source: [place] CONTRAST 3:12 PM [facility] Imaging Services [address] [place] [id number] Brain/Head without Contrast MR#: [id number] Acct: [id number] Name: SANDRA LAUGHLIN Rep #: [id number] : 1945 F 73 From: Jose Gonsalves MD PCP: Moises Grider MD Status: REG ER Study: Brain/Head without Contrast Date of Exam: 09/29/18 Exam# [id number] Ordering Dr: Meg Jones MD STUDY: CT BRAIN WITHOUT CONTRAST REASON FOR EXAM: Female, 73 years old. Lost balance, fall. RADIATION DOSAGE (If Supplied By Facility): CTDIvol = ( 44.99 ) mGy, DLP = ( 779.24 ) mGycm TECHNIQUE: Transaxial CT imaging of the brain was performed without administration of intravenous contrast material. Individualized dose optimization techniques were used for this CT. COMPARISON: Noncontrast CT brain April 12, 2018. FINDINGS: Stimulator leads again seen passing up along the bilateral soft tissues of the neck, then coursing to the upper frontal scalp where they pass through bilateral high frontal jones holes to the bilateral thalami. There is hyperostosis frontalis internus. There is mild cerebral atrophy with widening of the extra- axial spaces and ventricular dilatation. Mildly asymmetric left temporal lobe atrophy compared to the right is unchanged. Normal white matter tracts of the cerebral hemispheres. Normal basal ganglia and thalami. Normal brainstem. Normal cerebellum. There is no intracranial hemorrhage. There are no findings of an acute ischemic infarction. There is mucoperiosteal thickening versus mucus inclusion cyst and a posterior right ethmoid air cell. CT/Brain/Head without Contrast IMPRESSION: 1. Stable chronic involutional changes of the brain. No acute intracranial injury. 2. Bilateral stimulator leads extending to the bilateral thalami unchanged. 3. Stable opacification of the posterior right ethmoid air cell. Electronically Signed: Gloria Gonsalves MD at 16:06 EST , Service support , CC: Moises Grider MD; Meg Jones MD Profiler: Signed PROGRESS Observed: 09/07/2018 Status: COMPLETED Source: [place] 8:41 AM [facility] REPOSITORY HNO ID: [id number] Author: Kaylee sAhby Service: (none) Author Type: Automotive Warranty Administrator Type: Progress Notes Filed: 09/07/2018 3:50 PM Note Text: Noted. Thanks PROGRESS Observed: 09/07/2018 Status: COMPLETED Source: [place] 8:41 AM [facility] REPOSITORY HNO ID: [id number] Author: Kaylee Carrera) Isma Service: (none) Author Type: Automotive Warranty Administrator Type: Progress Notes Filed: 09/07/2018 3:50 PM Note Text: Noted. Thanks PROGRESS Observed: 09/04/2018 Status: COMPLETED Source: [place] 1:04 PM [facility] REPOSITORY HNO ID: [id number] Author: Jessenia Moreno) Cheo Service: (none) Author Type: Physician Type: Progress Notes Filed: 09/04/2018 1:04 PM Note Text: Reviewed. PROGRESS Observed: 09/03/2018 Status: COMPLETED Source: [place] 4:03 PM [facility] REPOSITORY HNO ID: [id number] Author: Kaylee García) Almaz Service: (none) Author Type: Registered Nurse Type: Progress Notes Filed: 09/04/2018 12:07 PM Note Text: PRIMARY CARE COORDINATION FOLLOW-UP NOTE Provider Action/FYI Pt functioning well at assisted living with assist for ADLs and Transfer by staff Had her hand caught in W/C spokes recently, no treatment, states it is healing now Discussed PHMA monitoring with spouse, agreeable. Patient identified by name and date of . YES Spoke to spouse Summary: Patient function well with staff assist at [facility]. No recent falls. Staff assist with ADLs and transferring patient States pt got her hand caught in spokes of wheelchair recently and hand looked nasty but is healing now. Agronomy Manager plan for next outreach: Patient will be followed by PHMA monitoring TC to spouse, left message to please call PCC back Kaylee Muse RN September 03, 2018 4:04 PM Signature Kaylee Muse RN September 03, 2018 CNPTOUTREACH Observed: 09/03/2018 Status: COMPLETED Source: [place] 12:00 AM [facility] REPOSITORY Patient Outreach (FAMPWS) SANDRA LAUGHLIN ([id number]) 1945 F Date Time Provider Department 09/03/18 KAYLEE MUSE (RN) CARIEWS During your visit today, we recorded the following information about you: Kaylee Muse RN 09/04/2018 12:07 PM Signed PRIMARY CARE COORDINATION FOLLOW-UP NOTE Provider Action/FYI Pt functioning well at assisted living with assist for ADLs and Transfer by staff Had her hand caught in W/C spokes recently, no treatment, states it is healing now Discussed PHMA monitoring with spouse, agreeable. Patient identified by name and date of . YES Spoke to spouse Summary: Patient function well with staff assist at [facility]. No recent falls. Staff assist with ADLs and transferring patient States pt got her hand caught in spokes of wheelchair recently and hand looked nasty but is healing now. Agronomy Manager plan for next outreach: Patient will be followed by PHMA monitoring TC to spouse, left message to please call PCC back Kaylee Muse RN September 03, 2018 4:04 PM Signature Kaylee Muse RN September 03, 2018 Jessenia Grider MD 09/04/2018 1:04 PM Signed Reviewed. Kaylee Ashby MA 09/07/2018 3:50 PM Signed Noted. Thanks Kaylee Ashby MA 09/07/2018 3:50 PM Signed Noted. 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 CLOPIDOGREL 75 MG TABLET Take 1 tablet by mouth once d* DONEPEZIL 10 MG TABLET Take 1 tablet by mouth once d* FAMOTIDINE 40 MG TABLET Take 1 tablet by mouth once d* ATORVASTATIN 10 MG TABLET Take 1 tablet by mouth once d* KLOR-CON 10 MEQ TABLET,EXTEND* Take 1 tablet by mouth twice * CARBIDOPA 25 MG-LEVODOPA 100 * Take 1 tablet by mouth five t* FLAXSEED OIL ORAL Take 1,200 mg by mouth once d* COQ10 SG 100 ORAL Take 100 mg by mouth once vinod* FERROUS GLUCONATE 324 MG (37.* Take 324 mg by mouth daily wi* Problem List As Of Date 09/03/2018 Noted Resolved Dementia [F03.90] Parkinson disease (HCC) [G20] Hypotension [I95.9] 10/14/2017 Hyperlipidemia [E78.5] GERD (gastroesophageal reflux disease) [K21.9] TIA (transient ischemic attack) [G45.9] More... Falling [R29.6] INVALID FOR* Crouched gait [R26.89] INVALID FOR* Depression [F32.9] Postural hypotension [I95.1] INVALID FOR* Falls frequently [R29.6] INVALID FOR* Closed bilateral fracture of pubic rami (HCC) [*INVALID FOR* PAF (paroxysmal atrial fibrillation) (HCC) [I48*INVALID FOR* Encounter Status:Closed by KAYLEE MUSE on 09/07/18 URINALYSIS, ROUTINE Collected: 07/28/2018 Status: F Source: [place] (DIPSTICK) 9:30 AM [facility] Order Comment: How was Urine Obtained? CLEAN CATCH TYPE CODE TESTS RESULT OUT OF RANGE REFERENCE UNITS LAB L400.3000 Yellow COLOR Normal Yellow LAB L400.3050 Clear Normal CLARITY Sl. Cloudy LAB L400.3200 Normal mg/dl Normal GLUCOSE, UR Normal LAB L400.3300 Negative mg/dL Normal BILIRUBIN URINE Negative LAB L400.3400 Negative mg/dl Normal KETONE UR Negative LAB L400.3465 1.002-1.030 Normal SP.GR. DIPSTX 1.015 LAB L400.3550 5.0 - 8.0 pH UR Normal 6.5 LAB L400.3600 Negative mg/dl High PROT 15 DIPSTX LAB L400.3700 Normal mg/dl Normal UROBILI Normal LAB L400.3750 Negative High NITRITE UR Positive LAB L400.3780 Negative /ul High 25 OCCULT BLOOD-UR LAB L400.3800 Negative /ul High LEUK ESTERASE 500 Performed By: #### L400.2011 #### [facility] [address] [place], [place], [address] Observed: 07/28/2018 Status: F Source: [place] CULTURE, URINE 9:30 AM [facility] Urine Culture ORGANISM 1: Presumptive E. coli [place] Count >100,000 Presumptive E. coli: REACTION Amoxacillin/Clavulanic Acid $ <=2 S Ampicillin $ <=2 S Ampicillin/Sulbactam $ <=2 S Cefazolin $ <=4 S Cefepime $ <=1 S Ceftriaxone $ <=1 S Ciprofloxacin $ <=0.25 S ESBL - Ertapenim $$$ <=0.5 S Gentamicin $ <=1 S Imipenem *NF <=0.25 S Levofloxacin $ <=0.12 S Nitrofurantoin $ 64 I Piperacillin/Tazobactam $$ <=4 S Tobramycin $ <=1 S Trimethoprim/Sulfametho $ <=20 S (NF) indicates non-formulary drug at [facility]. Approval by Infectious Disease Specialist required before non-formulary drugs may be ordered and/or dispensed. Performed By: #### M100.0650 #### [facility] [address] [place], [address] CBC Collected: 07/27/2018 Status: F Source: [place] 12:46 PM [facility] RE[facility] TYPE CODE TESTS RESULT OUT OF REFERENCE UNITS RANGE LAB WBC 3.70-11.00 k/uL WBC 6.68 LAB RBC 3.90-5.20 m/uL RBC 4.43 LAB HGB 11.5-15.5 g/dL Hemoglobin 12.8 LAB HCT 36.0-46.0 % Hematocrit 41.4 LAB MCV 80.0-100.0 fL MCV 93.5 LAB MCH 26.0-34.0 pG MCH 28.9 LAB MCHC 30.5-36.0 g/dL MCHC 30.9 LAB RDWCV 11.5-15.0 % RDW-CV 14.5 LAB PLTCT 150-400 k/uL Platelet Count 242 LAB MPV 9.0-12.7 fL MPV 10.6 LAB ABSNUC <0.01 k/uL Absolute nRBC <0.01 Performed By: #### CBC, WSR, CRP, LIPA #### [facility] [address] [place] [address] SED RATE WESTERGREN Collected: 07/27/2018 Status: F Source: [place] 12:46 PM [facility] REPOSITORY TYPE CODE TESTS RESULT OUT OF REFERENCE UNITS RANGE LAB WSR 0-20 mm/hr Sed Rate Westergren 7 Performed By: #### CBC, WSR, CRP, LIPA #### [place] [address] C-REACTIVE PROTEIN Collected: 07/27/2018 Status: F Source: [place] 12:46 PM [facility] REPOSITORY TYPE CODE TESTS RESULT OUT OF REFERENCE UNITS RANGE LAB CRP <0.9 mg/dL C-Reactive 0.2 Protein Performed By: #### CBC, WSR, CRP, LIPA #### [place] [address] LIPASE Collected: 07/27/2018 Status: F Source: [place] 12:46 PM [facility] REPOSITORY TYPE CODE TESTS RESULT OUT OF REFERENCE UNITS RANGE LAB LIPA 16-61 U/L Lipase 45 Performed By: #### CBC, WSR, CRP, LIPA #### [place] [address] PROGRESS Observed: 07/27/2018 Status: COMPLETED Source: [place] 11:42 AM [facility] REPOSITORY HNO ID: [id number] Author: Jessenia Moreno) Cheo Service: (none) Author Type: Physician Type: Progress Notes Filed: 07/27/2018 9:18 PM Note Text: Chief Complaint Patient presents with: follow up afib Imm/Inj: Flu Vaccine HPI Sandra Laughlin is a 73 year old female who presents here today for Above Complaints. accompanying patient today. Patient was evaluated in the ED for atrial fib/flutter after palpitations and converted spontaneously. Started on metoprolol prior to discharge and recommended follow up with PCP and cardiology. Seen by Dr. James on 07/17 with following recommendations: ?CLINICAL IMPRESSION/PLAN: Sandra Laughlin has had at least one episode of atrial fibrillation. I discussed with her, the fact that she is at significant risk of anticoagulation due to her movement disorder, with occasional falls. In fact, as I was examining her and talking to her in the office, her movement disorder caused her to hit her head several times on the desk. There was no apparent injury . I advised her to discontinue metoprolol and we will watch her rhythm. If she has recurrent palpitations, she has been advised to resume the metoprolol and contact me. She should go back to the emergency department if she has episodes which last more than an hour or are associated with lightheadedness, chest pain or shortness of breath. Her TIAs in the past are of unclear etiology. It is possible that she is having intermittent atrial fibrillation. If she has recurrent episodes, we will have to reevaluate , but anticoagulation will not be started at this time . Total duration of this visit was greater than 30 minutes, of which more than 50% was counseling. I will see her as previously scheduled. Written and verbal health teaching given to patient, patient verbalizes understanding and agrees with treatment plan. Since that OV, patient is still taking metoprolol, they do not remember being told to discontinue at OV with cardiology. Has not had any recurrent symptoms. Denies chest pain, lightheadedness, SOB. Patient continues to have recurrent falls despite using wheelchair. Has alert button in case of falls. Still attending PT 2-3 times per week. Released from ortho for pubic rami fractures. Complaining today of urinary incontinence and diarrhea. States that she gets sudden urge to urinate and cannot make it to the restroom. Denies other urinary symptoms. Present for 6 months. Diarrhea started in the last couple weeks, described as watery with foul odor. Denies blood or mucous. Admits to dark color. Not treating at home. Past medical history, appointments, medications, allergies reviewed. Previous Medical History PAST MEDICAL HISTORY Diagnosis Date - Anxiety - Cataracts, bilateral s/p removal - Dementia - Depression - GERD (gastroesophageal reflux disease) - Hyperlipidemia - Hypotension seeing Dr. James - Incontinence urinary - PAF (paroxysmal atrial fibrillation) ([facility]) 07/19/2018 - Parkinson disease (HCC) - S/P deep brain stimulator placement Seeing Dr. Robison - TIA (transient ischemic attack) suspected Previous Surgical History PAST SURGICAL HISTORY Procedure Laterality Date - CATARACT SURGERY, COMPLEX Bilateral 2013 - CHOLECYSTECTOMY - HYSTERECTOMY HX - PAST SURGICAL HISTORY OF 2011 deep brain stimulator placement - ROTATOR CUFF REPAIR Bilateral Family History FAMILY HISTORY Problem Relation Age of Onset - Cancer Mother - Breast Cancer Sister - Cancer Father skin Patient Allergies ALLERGIES Allergen Reactions - Penicillin Swelling Current Medications Current Outpatient Prescriptions on File Prior to Visit: metoprolol tartrate, short acting, (LOPRESSOR) 25 mg tablet Take 1 tablet by mouth twice daily. Take as needed for HR greater than 100.If rapid HR persists for more than two hours, return to the ED for treatment HYDROcodone-acetaminophen (NORCO) 5-325 mg per tablet Take 1 tablet by mouth three times daily for 30 days. sertraline (ZOLOFT) 100 mg tablet Take 1.5 tablets by mouth once daily. COMPOUNDED PRESCRIPTION Dispense one lift chair ICD: G20 memantine (NAMENDA) 5 mg tablet Take 1 tablet by mouth once daily. sodium chloride 1 gram tab TAKE 1 TABLET BY MOUTH 3 TIMES A DAY gabapentin (NEURONTIN) 300 mg capsule Take 1 capsule by mouth twice daily for 180 days. fludrocortisone (FLORINEF) 0.1 mg tablet TAKE 1 TABLET EVERY DAY Midodrine HCl (PROAMATINE) 10 mg tablet TAKE 1 TABLET BY MOUTH THREE TIMES DAILY. Cholecalciferol, Vitamin D3, (VITAMIN D-3) 2,000 unit cap Take by mouth. clopidogrel (PLAVIX) 75 mg tablet Take 1 tablet by mouth once daily. donepezil (ARICEPT) 10 mg tablet Take 1 tablet by mouth once daily. famotidine (PEPCID) 40 mg tablet Take 1 tablet by mouth once daily. atorvastatin (LIPITOR) 10 mg tablet Take 1 tablet by mouth once daily. KLOR-CON 10 10 mEq tablet Take 1 tablet by mouth twice daily. carbidopa-levodopa (SINEMET 25-100) 25-100 mg per tablet Take 1 tablet by mouth five times daily. FLAXSEED OIL ORAL Take 1,200 mg by mouth once daily. UBIDECARENONE/VITAMIN E MIXED (COQ10 SG 100 ORAL) Take 100 mg by mouth once daily. ferrous gluconate 324 mg (37.5 mg iron) tablet Take 324 mg by mouth daily with breakfast. Current Facility-Administered Medications on File Prior to Visit: onabotulinum toxin type A 100 Units injection (BOTOX) Social History Social History Marital status: Spouse name: Years of education: Number of children: Social History Main Topics Smoking status: Former Smoker Packs/day: 0.00 Years: 0.00 Types: Cigarettes Quit date: 11/1999 Smokeless tobacco: Never Used Alcohol use: No Drug use: No Sexual activity: No Review of Symptoms REVIEW OF SYSTEMS GENERAL: No weight loss, malaise or fevers RESPIRATORY: Negative for cough, hemoptysis, wheezing, COPD, dyspnea or shortness of breath CARDIOVASCULAR: Negative for chest pain, leg swelling, hypertension, CHF or palpitations GI: No nausea, vomiting : See HPI SKIN: Negative for lesions, rash, and itching EXAM: BP 138/86 Pulse 64 Temp 36.3 ?C (97.4 ?F) (Tympanic) Resp 16 Wt 56.2 kg (124 lb) BMI 20.63 kg/m? General Appearance: Well appearing, alert, in no acute distress, well-hydrated, well nourished.. Skin: Skin color, texture, turgor normal, no suspicious rashes or lesions. Lungs: Lungs clear to auscultation. No wheezing, rhonchi, rales. Heart: RRR without murmur, gallop, or rubs. No ectopy. Abdomen: Normal abdominal exam, Abdomen soft, non-tender. Bowel sounds normal. No masses, organomegaly. Extremities: No deformities, edema, skin discoloration, clubbing or cyanosis. Good capillary refill. . Health Maintenance List DTAP,TDAP,TD(1 - Tdap) due on 1965 BONE DENSITY due on 2011 PNEUMOVAX AGE 65 AND OVER WITH 5YR LOOKBACK(1) due on 2011 MAMMOGRAM due on 05/29/2018 INFLUENZA(1) due on 07/11/2018 FECAL OCCULT BLOOD due on 10/16/2018 DIABETES SCREEN due on 03/18/2021 LIPID SCREEN due on 05/27/2022 ADULT PREVNAR-13 Completed HEPATITIS C SCREENING Completed ASSESSMENT/PLAN: 1. PAF (paroxysmal atrial fibrillation) (HCC) - ICD9: 427.31, ICD10: I48.0 (primary diagnosis) Normal exam today. Discontinue metoprolol as recommended by cardiology. Will monitor. 2. Closed bilateral fracture of pubic rami with routine healing, subsequent encounter - ICD9: V54.13, ICD10: S32.591D, S32.592D Healing well per ortho. Released from their service. 3. OAB (overactive bladder) - ICD9: 596.51, ICD10: N32.81 Start oxybutynin daily. Obtain UA and culture to rule out infection. - OXYBUTYNIN CHLORIDE ER 5 MG TABLET,EXTENDED RELEASE 24 HR - URINALYSIS WITH MICROSCOPIC - URINE CULTURE 4. Diarrhea, unspecified type - ICD9: 787.91, ICD10: R19.7 Push PO fluids, increase fiber. Obtain labs to rule out infectious cause. - FECAL OCCULT BLOOD TEST - STOOL CULTURE/EIA - C. DIFFICILE PCR - CBC 5. Dark stools - ICD9: 792.1, ICD10: R19.5 Check FOBT and CBC. 6. Need for vaccination - ICD9: V05.9, ICD10: Z23 - INFLUENZA SEASONAL HIGH DOSE AGE 65+ Jessenia Grider MD PROGRESS Observed: 07/27/2018 Status: COMPLETED Source: [place] 11:40 AM [facility] REPOSITORY O ID: [id number] Author: Jessenia Moreno) Cheo Service: (none) Author Type: Physician Type: Progress Notes Filed: 07/27/2018 9:18 PM Note Text: 73 year old female here for INACTIVATED INFLUENZA VACCINE. 2323-1135 Season Patient is identified by name and date of : Yes [] CONTRAINDICATIONS color enhanced section Age less than 6 months? No Allergy to eggs, chicken, chicken feathers, or chicken dander? No Allergy to thimerosal (a preservative) or formaldehyde? No History of severe reaction to any vaccine component or a previous dose of influenza vaccination? No History of Guillain-Kasson Syndrome within 6 weeks after a previous influenza vaccine? No Current moderate or severe illness? No Current temperature greater or equal to 100.4F? No History of Bone Marrow Transplant in past 6 months or solid organ transplant in the past 3 months ? No [] VERIFICATION color enhanced section Was the answer Yes for any of the above contraindications? No contraindications present. Acceptable to proceed with vaccine. Patient/guardian agrees the above answers are true to the best of their knowledge? Yes Flu vaccine information sheet given? Yes See immunization activity in [facility] for details of immunizations adminstered today. Patient age: [age] year old For The Flu Season 6-35 months old: Fluzone 0.25 ml - IM (Preservative Free) 3 years of age: Fluzone 0.5 ml - IM (Preservative Free) 3 years and older: Fluzone 0.5 ml- IM-(with Preservatives) 65+ years old: Fluzone High-Dose 0.5 ml - IM (Preservative Free) REMEMBER: If patient is less than 9 years of age and this is the first vaccine of Influenza to be received in any flu season, they should receive a second dose in one months time. CNOV Observed: 07/27/2018 Status: COMPLETED Source: [place] 11:40 AM [facility] REPOSITORY [facility] SANDRA LAUGHLIN ([id number]) 1945 F Date Time Provider Department 07/27/18 11:40 AM JESSENIA GRIDER) [facility] During your visit today, we recorded the following information about you: Temperature Pulse Respiration Blood pressure 97.4 degrees 64/minute 16/minute 138/86 Weight 56.2 kg Jessenia Grider MD 07/27/2018 9:18 PM Signed 73 year old female here for INACTIVATED INFLUENZA VACCINE. Season Patient is identified by name and date of : Yes [] CONTRAINDICATIONS color enhanced section Age less than 6 months? No Allergy to eggs, chicken, chicken feathers, or chicken dander? No Allergy to thimerosal (a preservative) or formaldehyde? No History of severe reaction to any vaccine component or a previous dose of influenza vaccination? No History of Guillain-Kasson Syndrome within 6 weeks after a previous influenza vaccine? No Current moderate or severe illness? No Current temperature greater or equal to 100.4F? No History of Bone Marrow Transplant in past 6 months or solid organ transplant in the past 3 months ? No [] VERIFICATION color enhanced section Was the answer Yes for any of the above contraindications? No contraindications present. Acceptable to proceed with vaccine. Patient/guardian agrees the above answers are true to the best of their knowledge? Yes Flu vaccine information sheet given? Yes See immunization activity in [facility] for details of immunizations adminstered today. Patient age: [age] year old For The 2263-1411 Flu Season 6-35 months old: Fluzone 0.25 ml - IM (Preservative Free) 3 years of age: Fluzone 0.5 ml - IM (Preservative Free) 3 years and older: Fluzone 0.5 ml- IM-(with Preservatives) 65+ years old: Fluzone High-Dose 0.5 ml - IM (Preservative Free) REMEMBER: If patient is less than 9 years of age and this is the first vaccine of Influenza to be received in any flu season, they should receive a second dose in one months time. Jessenia Grider MD 07/27/2018 9:18 PM Signed Chief Complaint Patient presents with: follow up afib Imm/Inj: Flu Vaccine HPI Sandra Laughlin is a 73 year old female who presents here today for Above Complaints. accompanying patient today. Patient was evaluated in the ED for atrial fib/flutter after palpitations and converted spontaneously. Started on metoprolol prior to discharge and recommended follow up with PCP and cardiology. Seen by Dr. James on 07/17 with following recommendations: ?CLINICAL IMPRESSION/PLAN: Sandra Laughlin has had at least one episode of atrial fibrillation. I discussed with her, the fact that she is at significant risk of anticoagulation due to her movement disorder, with occasional falls. In fact, as I was examining her and talking to her in the office, her movement disorder caused her to hit her head several times on the desk. There was no apparent injury . I advised her to discontinue metoprolol and we will watch her rhythm. If she has recurrent palpitations, she has been advised to resume the metoprolol and contact me. She should go back to the emergency department if she has episodes which last more than an hour or are associated with lightheadedness, chest pain or shortness of breath. Her TIAs in the past are of unclear etiology. It is possible that she is having intermittent atrial fibrillation. If she has recurrent episodes, we will have to reevaluate , but anticoagulation will not be started at this time . Total duration of this visit was greater than 30 minutes, of which more than 50% was counseling. I will see her as previously scheduled. Written and verbal health teaching given to patient, patient verbalizes understanding and agrees with treatment plan. Since that OV, patient is still taking metoprolol, they do not remember being told to discontinue at OV with cardiology. Has not had any recurrent symptoms. Denies chest pain, lightheadedness, SOB. Patient continues to have recurrent falls despite using wheelchair. Has alert button in case of falls. Still attending PT 2-3 times per week. Released from ortho for pubic rami fractures. Complaining today of urinary incontinence and diarrhea. States that she gets sudden urge to urinate and cannot make it to the restroom. Denies other urinary symptoms. Present for 6 months. Diarrhea started in the last couple weeks, described as watery with foul odor. Denies blood or mucous. Admits to dark color. Not treating at home. Past medical history, appointments, medications, allergies reviewed. Previous Medical History PAST MEDICAL HISTORY Diagnosis Date - Anxiety - Cataracts, bilateral s/p removal - Dementia - Depression - GERD (gastroesophageal reflux disease) - Hyperlipidemia - Hypotension seeing Dr. James - Incontinence urinary - PAF (paroxysmal atrial fibrillation) ([facility]) 07/19/2018 - Parkinson disease (HCC) - S/P deep brain stimulator placement Seeing Dr. Robison - TIA (transient ischemic attack) suspected Previous Surgical History PAST SURGICAL HISTORY Procedure Laterality Date - CATARACT SURGERY, COMPLEX Bilateral 2013 - CHOLECYSTECTOMY - HYSTERECTOMY HX - PAST SURGICAL HISTORY OF 2011 deep brain stimulator placement - ROTATOR CUFF REPAIR Bilateral Family History FAMILY HISTORY Problem Relation Age of Onset - Cancer Mother - Breast Cancer Sister - Cancer Father skin Patient Allergies ALLERGIES Allergen Reactions - Penicillin Swelling Current Medications Current Outpatient Prescriptions on File Prior to Visit: metoprolol tartrate, short acting, (LOPRESSOR) 25 mg tablet Take 1 tablet by mouth twice daily. Take as needed for HR greater than 100.If rapid HR persists for more than two hours, return to the ED for treatment HYDROcodone-acetaminophen (NORCO) 5-325 mg per tablet Take 1 tablet by mouth three times daily for 30 days. sertraline (ZOLOFT) 100 mg tablet Take 1.5 tablets by mouth once daily. COMPOUNDED PRESCRIPTION Dispense one lift chair ICD: G20 memantine (NAMENDA) 5 mg tablet Take 1 tablet by mouth once daily. sodium chloride 1 gram tab TAKE 1 TABLET BY MOUTH 3 TIMES A DAY gabapentin (NEURONTIN) 300 mg capsule Take 1 capsule by mouth twice daily for 180 days. fludrocortisone (FLORINEF) 0.1 mg tablet TAKE 1 TABLET EVERY DAY Midodrine HCl (PROAMATINE) 10 mg tablet TAKE 1 TABLET BY MOUTH THREE TIMES DAILY. Cholecalciferol, Vitamin D3, (VITAMIN D-3) 2,000 unit cap Take by mouth. clopidogrel (PLAVIX) 75 mg tablet Take 1 tablet by mouth once daily. donepezil (ARICEPT) 10 mg tablet Take 1 tablet by mouth once daily. famotidine (PEPCID) 40 mg tablet Take 1 tablet by mouth once daily. atorvastatin (LIPITOR) 10 mg tablet Take 1 tablet by mouth once daily. KLOR-CON 10 10 mEq tablet Take 1 tablet by mouth twice daily. carbidopa-levodopa (SINEMET 25-100) 25-100 mg per tablet Take 1 tablet by mouth five times daily. FLAXSEED OIL ORAL Take 1,200 mg by mouth once daily. UBIDECARENONE/VITAMIN E MIXED (COQ10 SG 100 ORAL) Take 100 mg by mouth once daily. ferrous gluconate 324 mg (37.5 mg iron) tablet Take 324 mg by mouth daily with breakfast. Current Facility-Administered Medications on File Prior to Visit: onabotulinum toxin type A 100 Units injection (BOTOX) Social History Social History Marital status: Spouse name: Years of education: Number of children: Social History Main Topics Smoking status: Former Smoker Packs/day: 0.00 Years: 0.00 Types: Cigarettes Quit date: 11/1999 Smokeless tobacco: Never Used Alcohol use: No Drug use: No Sexual activity: No Review of Symptoms REVIEW OF SYSTEMS GENERAL: No weight loss, malaise or fevers RESPIRATORY: Negative for cough, hemoptysis, wheezing, COPD, dyspnea or shortness of breath CARDIOVASCULAR: Negative for chest pain, leg swelling, hypertension, CHF or palpitations GI: No nausea, vomiting : See HPI SKIN: Negative for lesions, rash, and itching EXAM: BP 138/86 Pulse 64 Temp 36.3 ?C (97.4 ?F) (Tympanic) Resp 16 Wt 56.2 kg (124 lb) BMI 20.63 kg/m? General Appearance: Well appearing, alert, in no acute distress, well-hydrated, well nourished.. Skin: Skin color, texture, turgor normal, no suspicious rashes or lesions. Lungs: Lungs clear to auscultation. No wheezing, rhonchi, rales. Heart: RRR without murmur, gallop, or rubs. No ectopy. Abdomen: Normal abdominal exam, Abdomen soft, non-tender. Bowel sounds normal. No masses, organomegaly. Extremities: No deformities, edema, skin discoloration, clubbing or cyanosis. Good capillary refill. . Health Maintenance List DTAP,TDAP,TD(1 - Tdap) due on 1965 BONE DENSITY due on 2011 PNEUMOVAX AGE 65 AND OVER WITH 5YR LOOKBACK(1) due on 2011 MAMMOGRAM due on 05/29/2018 INFLUENZA(1) due on 07/11/2018 FECAL OCCULT BLOOD due on 10/16/2018 DIABETES SCREEN due on 03/18/2021 LIPID SCREEN due on 05/27/2022 ADULT PREVNAR-13 Completed HEPATITIS C SCREENING Completed ASSESSMENT/PLAN: 1. PAF (paroxysmal atrial fibrillation) (HCC) - ICD9: 427.31, ICD10: I48.0 (primary diagnosis) Normal exam today. Discontinue metoprolol as recommended by cardiology. Will monitor. 2. Closed bilateral fracture of pubic rami with routine healing, subsequent encounter - ICD9: V54.13, ICD10: S32.591D, S32.592D Healing well per ortho. Released from their service. 3. OAB (overactive bladder) - ICD9: 596.51, ICD10: N32.81 Start oxybutynin daily. Obtain UA and culture to rule out infection. - OXYBUTYNIN CHLORIDE ER 5 MG TABLET,EXTENDED RELEASE 24 HR - URINALYSIS WITH MICROSCOPIC - URINE CULTURE 4. Diarrhea, unspecified type - ICD9: 787.91, ICD10: R19.7 Push PO fluids, increase fiber. Obtain labs to rule out infectious cause. - FECAL OCCULT BLOOD TEST - STOOL CULTURE/EIA - C. DIFFICILE PCR - CBC 5. Dark stools - ICD9: 792.1, ICD10: R19.5 Check FOBT and CBC. 6. Need for vaccination - ICD9: V05.9, ICD10: Z23 - INFLUENZA SEASONAL HIGH DOSE AGE 65+ Jessenia Grider MD Referring Provider: SELF [200] Allergies As of Date: 07/27/2018 Noted Allergy Reaction PENICILLIN 05/29/2017 7 - Swelling Date Reviewed: 07/27/2018 Reviewed by: Shahab Christina Ma - Fully Assessed Reason for Visit: follow up afib [Other] Imm/Inj [58] Cmt: Flu Vaccine Reason For Visit History Recorded Primary Visit Diagnosis:PAF (paroxysmal atrial fibrillation) ([facility]) [I48.0] Other Visit Diagnoses:Closed bilateral fracture of pubic rami with routine healing, subsequent encounter [S32.591D, S32.592D] OAB (overactive bladder) [N32.81] Diarrhea, unspecified type [R19.7] Dark stools [R19.5] Need for vaccination [Z23] Order(s):INFLUENZA SEASONAL HIGH DOSE AGE 65+ [[id number]] Order #: [id number] oxybutynin XL (DITROPAN XL) 5 mg 24 hr tabletTake 1 tablet by mouth once daily.Disp: 30 tabletRfl: 5 URINALYSIS WITH MICROSCOPIC [SQUAWMIC] Order #: [id number] URINE CULTURE [SQURCUL] Order #: [id number] FUTURE FECAL OCCULT BLOOD TEST [SQIFOBT] Order #: [id number] FUTURE STOOL CULTURE/EIA [SQSTOCUL] Order #: [id number] FUTURE C. DIFFICILE PCR [SQCDPCR] Order #: [id number] CBC [SQCBC] Order #: [id number] FUTURE Prescriptions as of 07/27/2018 Sig: OXYBUTYNIN CHLORIDE ER 5 MG T* Take 1 tablet by mouth once d* HYDROCODONE 5 MG-ACETAMINOPHE* Take 1 tablet by mouth three * SERTRALINE 100 MG TABLET Take 1.5 tablets by mouth onc* COMPOUNDED PRESCRIPTION Dispense one lift chair ICD: * MEMANTINE 5 MG TABLET Take 1 tablet by mouth once d* SODIUM CHLORIDE 1 GRAM TABLET TAKE 1 TABLET BY MOUTH 3 TIME* GABAPENTIN 300 MG CAPSULE Take 1 capsule by mouth twice* FLUDROCORTISONE 0.1 MG TABLET TAKE 1 TABLET EVERY DAY MIDODRINE 10 MG TABLET TAKE 1 TABLET BY MOUTH THREE * CHOLECALCIFEROL (VITAMIN D3) * Take by mouth. CLOPIDOGREL 75 MG TABLET Take 1 tablet by mouth once d* DONEPEZIL 10 MG TABLET Take 1 tablet by mouth once d* FAMOTIDINE 40 MG TABLET Take 1 tablet by mouth once d* ATORVASTATIN 10 MG TABLET Take 1 tablet by mouth once d* KLOR-CON 10 MEQ TABLET,EXTEND* Take 1 tablet by mouth twice * CARBIDOPA 25 MG-LEVODOPA 100 * Take 1 tablet by mouth five t* FLAXSEED OIL ORAL Take 1,200 mg by mouth once d* COQ10 SG 100 ORAL Take 100 mg by mouth once vinod* FERROUS GLUCONATE 324 MG (37.* Take 324 mg by mouth daily wi* Problem List As Of Date 07/27/2018 Noted Resolved Dementia [F03.90] Parkinson disease (HCC) [G20] Hypotension [I95.9] 10/14/2017 Hyperlipidemia [E78.5] GERD (gastroesophageal reflux disease) [K21.9] TIA (transient ischemic attack) [G45.9] More... Falling [R29.6] INVALID FOR* Crouched gait [R26.89] INVALID FOR* Depression [F32.9] Postural hypotension [I95.1] INVALID FOR* Falls frequently [R29.6] INVALID FOR* Closed bilateral fracture of pubic rami (HCC) [*INVALID FOR* PAF (paroxysmal atrial fibrillation) ([facility]) [I48*INVALID FOR* Prescriptions ordered this encounter Disp Refills Start End OXYBUTYNIN CHLORIDE ER 5 MG TABLET,E* 30 t* 5 07/27/2018 Class: Print RX Route: ORAL Sig: Take 1 tablet by mouth once daily. Medications Discontinued During This Encounter metoprolol tartrate, short acting, (* 07/19/2018 07/27/2018 Class: Med Update Route: ORAL Sig: Take 1 tablet by mouth twice daily. Take as needed for HR greater than 100. If rapid HR persists for more than two hours, return to the ED for treatment Disc: Reason for discontinue is not on file. Encounter Status:Closed by JESSENIA GRIDER MD on 07/27/18 PROGRESS Observed: 07/27/2018 Status: COMPLETED Source: [place] 11:11 AM [facility] REPOSITORY HNO ID: [id number] Author: Chica Velasco (Pa) Service: (none) Author Type: Physician Music Instructor Type: Progress Notes Filed: 07/27/2018 3:07 PM Note Text: Chica Velasco PA-C Department of Orthopaedics Orthopaedics [facility] [address] Dept: [phone] Dept July 27, 2018 CHIEF COMPLAINT: Established Patient (8 week 1 day post b/l Pubic rami fx, xray ) Ms. Sandra Laughlin is a 73 year old female she presents following multiple falls about 8 weeks ago. Her notes that she fell after having a lumbar steroid injection. Patient has pubic rami fractures. She normally relies on the use of a wheelchair and assistance for transfers. The patient has Parkinson's disease. She denies any groin pain today. Has been able to put weight on the left leg during transfers without issues. She has not had any additional falls since her last office visit. ASSESSMENT: S32.591A, S32.592A Closed bilateral fracture of pubic rami, initial encounter ([facility]) (primary encounter diagnosis) PLAN: X-rays shows evidence of healing pubic rami fractures. The patient was advised to continue to increase activities and weightbearing as tolerated until she reaches her baseline. Follow-up as needed. Ms. Sandra Laughlin was advised as to contrast therapies and/or to take analgesics/anti-inflammatories as needed and all contraindications were reviewed. OBJECTIVE: Ms. Sandra Laughlin is a pleasant 73 year old in no apparent distress. Gen:There were no vitals taken for this visit. nl development, non obese, no deformities ENT: Normocephalic, normal hearing, moist mucosa CV: Pulses:DP/PT= 2+ and symmetric, capillary refill < 2 secs, no peripheral edema/varicosities Skin: no rash, bruising or lesions. Good turgor. Psych: cooperative and appropriate, alert and oriented x 3, good mood and affect. Musculoskeletal: No tenderness to palpation. Passive flexion, internal rotation and external rotation of the left hip is without pain. Strength testing was not performed. Patient is neurologically intact. Imaging: * * *Final Report* * * DATE OF EXAM: Jul 27 2018 10:40AM ? WRX ? 5353 ?- ?XR HIP KARTHIK 5V PEL+ AP/LAT EA HIP ?/ PROCEDURE REASON: multiple diagnoses ?? ? * * * * Physician Interpretation * * * * ?HISTORY: 73-YEAR-OLD FEMALE WITH ? Other specified fracture of right pubis, subsequent encounter for fracture with routine healing Other specified fracture of left pubis, subsequent encounter for fracture with routine healing ?. ?bilateral hip pain/fracture followup TECHNIQUE: XR HIP KARTHIK 5V PEL+ AP/LAT EA HIP ?? Laterality: ?BILATERAL ?? Number of different views (projections): 5 COMPARISON: 06/05/2018 left hip RESULT: ?Right hip: Coxa profunda. ?The right hip joint space is maintained. Left hip: Minimal superolateral hip joint space narrowing posteriorly. ? No fracture. Callus formation about healing inferior ischial fracture on the left. Sacroiliac joints are intact. ?Degenerative changes in the symphysis pubis. ?Degenerative changes visualized lumbar spine. Impression IMPRESSION: NO ACUTE BONY ABNORMALITY IN THE RIGHT HIP. MILD DEGENERATIVE CHANGES OF LEFT HIP UNCHANGED. HEALING LEFT INFERIOR ISCHIAL FRACTURE. Profiler: MARGI ? Transcribe Date/Time: Jul 27 2018 ?2:50P Dictated by : GLORIA PAYNE MD This examination was interpreted and the report reviewed and electronically signed by: GLORIA PAYNE MD on Jul 27 2018 ?2:57PM ?EST Supporting Subjective Information Below: Past Surgical History: PAST SURGICAL HISTORY Procedure Laterality Date - CATARACT SURGERY, COMPLEX Bilateral 2014 - CHOLECYSTECTOMY - HYSTERECTOMY HX - PAST SURGICAL HISTORY OF 2012 deep brain stimulator placement - ROTATOR CUFF REPAIR Bilateral Medications: Current Outpatient Prescriptions: metoprolol tartrate, short acting, (LOPRESSOR) 25 mg tablet Take 1 tablet by mouth twice daily. Take as needed for HR greater than 100.If rapid HR persists for more than two hours, return to the ED for treatment HYDROcodone-acetaminophen (NORCO) 5-325 mg per tablet Take 1 tablet by mouth three times daily for 30 days. sertraline (ZOLOFT) 100 mg tablet Take 1.5 tablets by mouth once daily. COMPOUNDED PRESCRIPTION Dispense one lift chair ICD: G20 memantine (NAMENDA) 5 mg tablet Take 1 tablet by mouth once daily. sodium chloride 1 gram tab TAKE 1 TABLET BY MOUTH 3 TIMES A DAY gabapentin (NEURONTIN) 300 mg capsule Take 1 capsule by mouth twice daily for 180 days. fludrocortisone (FLORINEF) 0.1 mg tablet TAKE 1 TABLET EVERY DAY Midodrine HCl (PROAMATINE) 10 mg tablet TAKE 1 TABLET BY MOUTH THREE TIMES DAILY. Cholecalciferol, Vitamin D3, (VITAMIN D-3) 2,000 unit cap Take by mouth. clopidogrel (PLAVIX) 75 mg tablet Take 1 tablet by mouth once daily. donepezil (ARICEPT) 10 mg tablet Take 1 tablet by mouth once daily. famotidine (PEPCID) 40 mg tablet Take 1 tablet by mouth once daily. atorvastatin (LIPITOR) 10 mg tablet Take 1 tablet by mouth once daily. KLOR-CON 10 10 mEq tablet Take 1 tablet by mouth twice daily. carbidopa-levodopa (SINEMET 25-100) 25-100 mg per tablet Take 1 tablet by mouth five times daily. FLAXSEED OIL ORAL Take 1,200 mg by mouth once daily. UBIDECARENONE/VITAMIN E MIXED (COQ10 SG 100 ORAL) Take 100 mg by mouth once daily. ferrous gluconate 324 mg (37.5 mg iron) tablet Take 324 mg by mouth daily with breakfast. Current Facility-Administered Medications: onabotulinum toxin type A 100 Units injection (BOTOX) 100 Units INTRAMUSCULAR q 3 MONTHS Allergies: Penicillin ROS: General (negative for fatigue, malaise, weight loss/gain) HEENT (negative for headache, earache, recent vision changes, sinus pain, sore throat) Respiratory (no recent shortness of breath, hemoptysis) CV (negative for chest tightness, palpitations) Musculoskeletal (see HPI) Psych (no depression, anxiety) This note was partially generated using [employer] voice recognition system, and there may be some incorrect words, spellings, and punctuation that were not noted in checking the note before saving. Chica Velasco PA-C PROGRESS Observed: 07/27/2018 Status: COMPLETED Source: [place] 10:49 AM [facility] REPOSITORY HNO ID: [id number] Author: Georgia (Rn) YUE Heard Service: (none) Author Type: Registered Nurse Type: Progress Notes Filed: 07/27/2018 3:07 PM Note Text: AMB ROOMING INTAKE FLOWSHEET DATA Patient presents with: Established Patient: 8 week 1 day post b/l Pubic rami fx, xray patient is here in wheelchair with spouse. Patient denies pain at this time, xray completed. Georgia Heard RN XR HIP KARTHIK 5V PEL+ Observed: 07/27/2018 Status: F Source: [place] AP/LAT EA HIP 10:40 AM [facility] REPOSITORY * * *Final Report* * * DATE OF EXAM: Jul 27 2018 10:40AM WRX [id number] - XR HIP KARTHIK 5V PEL+ AP/LAT EA HIP / PROCEDURE REASON: multiple diagnoses * * * * Physician Interpretation * * * * HISTORY: 73-YEAR-OLD FEMALE WITH Other specified fracture of right pubis, subsequent encounter for fracture with routine healing Other specified fracture of left pubis, subsequent encounter for fracture with routine healing . bilateral hip pain/fracture followup TECHNIQUE: XR HIP KARTHIK 5V PEL+ AP/LAT EA HIP Laterality: BILATERAL Number of different views (projections): 5 COMPARISON: 06/05/2018 left hip RESULT: Right hip: Coxa profunda. The right hip joint space is maintained. Left hip: Minimal superolateral hip joint space narrowing posteriorly. No fracture. Callus formation about healing inferior ischial fracture on the left. Sacroiliac joints are intact. Degenerative changes in the symphysis pubis. Degenerative changes visualized lumbar spine. IMPRESSION: NO ACUTE BONY ABNORMALITY IN THE RIGHT HIP. MILD DEGENERATIVE CHANGES OF LEFT HIP UNCHANGED. HEALING LEFT INFERIOR ISCHIAL FRACTURE. Profiler: MARGI Transcribe Date/Time: Jul 27 2018 2:50P Dictated by : GLORIA PAYNE MD This examination was interpreted and the report reviewed and electronically signed by: GLORIA PAYNE MD on Jul 27 2018 2:57PM EST [id number] Observed: 07/27/2018 Status: COMPLETED Source: [place] 10:30 AM [facility] REPOSITORY Office Visit (ORTHWS) SANDRA LAUGHLIN ([id number]) 1945 F Date Time Provider Department 07/27/18 10:30 AM CHICA VELASCO) MAGGY During your visit today, we recorded the following information about you: Georgia Heard RN, RN 07/27/2018 3:07 PM Signed AMB ROOMING INTAKE FLOWSHEET DATA Patient presents with: Established Patient: 8 week 1 day post b/l Pubic rami fx, xray patient is here in wheelchair with spouse. Patient denies pain at this time, xray completed. YUE Orona PA-C 07/27/2018 3:07 PM Signed Chica Velasco PA-C Department of Orthopaedics Orthopaedics [address] [place] [id number] Dept: [phone] Dept July 27, 2018 CHIEF COMPLAINT: Established Patient (8 week 1 day post b/l Pubic rami fx, xray ) Ms. Sandra Laughlin is a 73 year old female she presents following multiple falls about 8 weeks ago. Her notes that she fell after having a lumbar steroid injection. Patient has pubic rami fractures. She normally relies on the use of a wheelchair and assistance for transfers. The patient has Parkinson's disease. She denies any groin pain today. Has been able to put weight on the left leg during transfers without issues. She has not had any additional falls since her last office visit. ASSESSMENT: S32.591A, S32.592A Closed bilateral fracture of pubic rami, initial encounter ([facility]) (primary encounter diagnosis) PLAN: X-rays shows evidence of healing pubic rami fractures. The patient was advised to continue to increase activities and weightbearing as tolerated until she reaches her baseline. Follow-up as needed. Ms. Sandra Laughlin was advised as to contrast therapies and/or to take analgesics/anti-inflammatories as needed and all contraindications were reviewed. OBJECTIVE: Ms. Sandra Laughlin is a pleasant 73 year old in no apparent distress. Gen:There were no vitals taken for this visit. nl development, non obese, no deformities ENT: Normocephalic, normal hearing, moist mucosa CV: Pulses:DP/PT= 2+ and symmetric, capillary refill < 2 secs, no peripheral edema/varicosities Skin: no rash, bruising or lesions. Good turgor. Psych: cooperative and appropriate, alert and oriented x 3, good mood and affect. Musculoskeletal: No tenderness to palpation. Passive flexion, internal rotation and external rotation of the left hip is without pain. Strength testing was not performed. Patient is neurologically intact. Imaging: * * *Final Report* * * DATE OF EXAM: Jul 27 2018 10:40AM ? WRX ? 5353 ?- ?XR HIP KARTHIK 5V PEL+ AP/LAT EA HIP ?/ PROCEDURE REASON: multiple diagnoses ?? ? * * * * Physician Interpretation * * * * ?HISTORY: 73-YEAR-OLD FEMALE WITH ? Other specified fracture of right pubis, subsequent encounter for fracture with routine healing Other specified fracture of left pubis, subsequent encounter for fracture with routine healing ?. ?bilateral hip pain/fracture followup TECHNIQUE: XR HIP KARTHIK 5V PEL+ AP/LAT EA HIP ?? Laterality: ?BILATERAL ?? Number of different views (projections): 5 COMPARISON: 06/05/2018 left hip RESULT: ?Right hip: Coxa profunda. ?The right hip joint space is maintained. Left hip: Minimal superolateral hip joint space narrowing posteriorly. ? No fracture. Callus formation about healing inferior ischial fracture on the left. Sacroiliac joints are intact. ?Degenerative changes in the symphysis pubis. ?Degenerative changes visualized lumbar spine. Impression IMPRESSION: NO ACUTE BONY ABNORMALITY IN THE RIGHT HIP. MILD DEGENERATIVE CHANGES OF LEFT HIP UNCHANGED. HEALING LEFT INFERIOR ISCHIAL FRACTURE. Profiler: MARGI ? Transcribe Date/Time: Jul 27 2018 ?2:50P Dictated by : GLORIA PAYNE MD This examination was interpreted and the report reviewed and electronically signed by: GLORIA PAYNE MD on Jul 27 2018 ?2:57PM ?EST Supporting Subjective Information Below: Past Surgical History: PAST SURGICAL HISTORY Procedure Laterality Date - CATARACT SURGERY, COMPLEX Bilateral 2014 - CHOLECYSTECTOMY - HYSTERECTOMY HX - PAST SURGICAL HISTORY OF 2011 deep brain stimulator placement - ROTATOR CUFF REPAIR Bilateral Medications: Current Outpatient Prescriptions: metoprolol tartrate, short acting, (LOPRESSOR) 25 mg tablet Take 1 tablet by mouth twice daily. Take as needed for HR greater than 100.If rapid HR persists for more than two hours, return to the ED for treatment HYDROcodone-acetaminophen (NORCO) 5-325 mg per tablet Take 1 tablet by mouth three times daily for 30 days. sertraline (ZOLOFT) 100 mg tablet Take 1.5 tablets by mouth once daily. COMPOUNDED PRESCRIPTION Dispense one lift chair ICD: G20 memantine (NAMENDA) 5 mg tablet Take 1 tablet by mouth once daily. sodium chloride 1 gram tab TAKE 1 TABLET BY MOUTH 3 TIMES A DAY gabapentin (NEURONTIN) 300 mg capsule Take 1 capsule by mouth twice daily for 180 days. fludrocortisone (FLORINEF) 0.1 mg tablet TAKE 1 TABLET EVERY DAY Midodrine HCl (PROAMATINE) 10 mg tablet TAKE 1 TABLET BY MOUTH THREE TIMES DAILY. Cholecalciferol, Vitamin D3, (VITAMIN D-3) 2,000 unit cap Take by mouth. clopidogrel (PLAVIX) 75 mg tablet Take 1 tablet by mouth once daily. donepezil (ARICEPT) 10 mg tablet Take 1 tablet by mouth once daily. famotidine (PEPCID) 40 mg tablet Take 1 tablet by mouth once daily. atorvastatin (LIPITOR) 10 mg tablet Take 1 tablet by mouth once daily. KLOR-CON 10 10 mEq tablet Take 1 tablet by mouth twice daily. carbidopa-levodopa (SINEMET 25-100) 25-100 mg per tablet Take 1 tablet by mouth five times daily. FLAXSEED OIL ORAL Take 1,200 mg by mouth once daily. UBIDECARENONE/VITAMIN E MIXED (COQ10 SG 100 ORAL) Take 100 mg by mouth once daily. ferrous gluconate 324 mg (37.5 mg iron) tablet Take 324 mg by mouth daily with breakfast. Current Facility-Administered Medications: onabotulinum toxin type A 100 Units injection (BOTOX) 100 Units INTRAMUSCULAR q 3 MONTHS Allergies: Penicillin ROS: General (negative for fatigue, malaise, weight loss/gain) HEENT (negative for headache, earache, recent vision changes, sinus pain, sore throat) Respiratory (no recent shortness of breath, hemoptysis) CV (negative for chest tightness, palpitations) Musculoskeletal (see HPI) Psych (no depression, anxiety) This note was partially generated using Satarii voice recognition system, and there may be some incorrect words, spellings, and punctuation that were not noted in checking the note before saving. Chica Velasco PA-C Referring Provider: JESSENIA GRIDER) [[id number]] Allergies As of Date: 07/27/2018 Noted Allergy Reaction PENICILLIN 05/29/2017 7 - Swelling Date Reviewed: 07/27/2018 Reviewed by: Shahab Christina Ma - Fully Assessed Reason for Visit: Established Patient [175] Cmt: 8 week 1 day post b/l Pubic rami fx, xray Primary Visit Diagnosis:Closed bilateral fracture of pubic rami, initial encounter ([facility]) [S32.591A, S32.592A] Prescriptions as of 07/27/2018 Sig: X METOPROLOL TARTRATE 25 MG TAB* Take 1 tablet by mouth twice * HYDROCODONE 5 MG-ACETAMINOPHE* Take 1 tablet by mouth three * SERTRALINE 100 MG TABLET Take 1.5 tablets by mouth onc* COMPOUNDED PRESCRIPTION Dispense one lift chair ICD: * MEMANTINE 5 MG TABLET Take 1 tablet by mouth once d* SODIUM CHLORIDE 1 GRAM TABLET TAKE 1 TABLET BY MOUTH 3 TIME* GABAPENTIN 300 MG CAPSULE Take 1 capsule by mouth twice* FLUDROCORTISONE 0.1 MG TABLET TAKE 1 TABLET EVERY DAY MIDODRINE 10 MG TABLET TAKE 1 TABLET BY MOUTH THREE * CHOLECALCIFEROL (VITAMIN D3) * Take by mouth. CLOPIDOGREL 75 MG TABLET Take 1 tablet by mouth once d* DONEPEZIL 10 MG TABLET Take 1 tablet by mouth once d* FAMOTIDINE 40 MG TABLET Take 1 tablet by mouth once d* ATORVASTATIN 10 MG TABLET Take 1 tablet by mouth once d* KLOR-CON 10 MEQ TABLET,EXTEND* Take 1 tablet by mouth twice * CARBIDOPA 25 MG-LEVODOPA 100 * Take 1 tablet by mouth five t* FLAXSEED OIL ORAL Take 1,200 mg by mouth once d* COQ10 SG 100 ORAL Take 100 mg by mouth once vinod* FERROUS GLUCONATE 324 MG (37.* Take 324 mg by mouth daily wi* Problem List As Of Date 07/27/2018 Noted Resolved Dementia [F03.90] Parkinson disease (HCC) [G20] Hypotension [I95.9] 10/14/2017 Hyperlipidemia [E78.5] GERD (gastroesophageal reflux disease) [K21.9] TIA (transient ischemic attack) [G45.9] More... Falling [R29.6] INVALID FOR* Crouched gait [R26.89] INVALID FOR* Depression [F32.9] Postural hypotension [I95.1] INVALID FOR* Falls frequently [R29.6] INVALID FOR* Closed bilateral fracture of pubic rami (HCC) [*INVALID FOR* PAF (paroxysmal atrial fibrillation) (HCC) [I48*INVALID FOR* Encounter Status:Closed by CHICA VELASCO PA-C on 07/27/18 PROGRESS Observed: 07/27/2018 Status: COMPLETED Source: [place] 10:24 AM [facility] REPOSITORY O ID: [id number] Author: Jovi Taylor (Tech) Service: (none) Author Type: Drupal Php Developer Type: Progress Notes Filed: 07/27/2018 10:41 AM Note Text: Radiology Service Progress Note PATIENT NAME: Sandra Laughlin DATE OF SERVICE: July 27, 2018 TIME: 10:24 AM PATIENT IDENTITY VERIFICATION COMPLETED USING TWO (2) METHODS: Patient confirmed name verbally and Date of . PATIENT GENDER DATA: Female. status: : No status: NO. PATIENT RELEVANT IMPLANT DATA REVIEWED: Not Applicable RADIOLOGY DEPARTMENT: General X-ray: Exam(s) Completed: Pelvis X-Ray: Pelvis with Hip Bilateral PERIPHERAL IV DATA: Not applicable SIGNED BY: Jovi Lemons July 27, 2018 10:24 AM 12 LEAD ELECTROCARDIOGRAM Observed: 07/21/2018 Status: F Source: [place] 2:15 PM [facility] [place] [facility] Cardiovascular Services [address] [place] [address] 12 Lead EKG 07/14/18 1027 MR#: [id number] Acct: [id number] Name: SANDRA LAUGHLIN Rep #: [id number] : 1945 73 From: Temo Martin MD Attending Dr: Status: DEP ER Ordering Dr: José Leal MD Date: 07/14/18 Location: ED Sex: F C Admitted: Test Reason : REPEAT Blood Pressure : / mmHG Vent. Rate : 083 BPM Atrial Rate : 083 BPM P-R Int : 132 ms QRS Dur : 062 ms QT Int : 380 ms P-R-T Axes : 037 002 030 degrees QTc Int : 446 ms Normal sinus rhythm Cannot rule out Inferior infarct , age undetermined Abnormal ECG Confirmed by TEMO MARTIN ([id number]), scientific editor SHINE PENNINGTON ([id number]) on 07/21/2018 2:15:08 PM Referred By: AGAPITO Confirmed By:TEMO MARTIN 07/21/18 1415 Date Temo Martin MD CC: Moises Grider MD; José Leal MD Signed 12 LEAD ELECTROCARDIOGRAM Observed: 07/21/2018 Status: F Source: [place] 2:15 PM [facility] [place] [facility] Cardiovascular Services [address] [place] [address] 12 Lead EKG 07/14/18 1012 MR#: [id number] Acct: [id number] Name: SANDRA LAUGHLIN Rep #: [id number] : 1945 73 From: Temo Martin MD Attending Dr: Status: DEP ER Ordering Dr: José eLal MD Date: 07/14/18 Location: ED Sex: F C Admitted: Test Reason : CP/AFIB Blood Pressure : / mmHG Vent. Rate : 187 BPM Atrial Rate : 187 BPM P-R Int : 000 ms QRS Dur : 068 ms QT Int : 234 ms P-R-T Axes : 000 037 176 degrees QTc Int : 413 ms Supraventricular tachycardia Marked ST abnormality, possible inferolateral subendocardial injury Abnormal ECG Confirmed by TEMO MARTIN ([id number]), scientific editor SHINE PENNINGTON ([id number]) on 07/21/2018 2:15:25 PM Referred By: VINICIUS Confirmed By:TEMO MARTIN 07/21/18 1415 Date Temo Martin MD CC: Moises Grider MD; José Leal MD Signed PROGRESS Observed: 07/17/2018 Status: COMPLETED Source: [place] 10:14 AM [facility] REPOSITORY [facility] ID: [id number] Author: Owen James Service: (none) Author Type: Physician Type: Progress Notes Filed: 07/19/2018 12:29 PM Note Text: PERTINENT CARDIAC HISTORY TIA - on Plavix Parkinsons - DBS Hypotension - postural HL ADHERENCE TO GUIDELINES JOSE ALEJANDRO-I or ARB for HF with prior LVEF<40 (NQF 0081) - N/A ASA or Plavix for ASHD (NQF 0067) - N/A Beta david for ASHD with prior KS or prior LVEF<40 (NQF 0070) - N/A Beta david for HF with prior LVEF<40 (NQF 0083) - N/A JOSE ALEJANDRO-I or ARB for ASHD with DM or prior LVEF<40 (NQF 0066) - N/A Statin therapy for ASHD or FHL or DM - met BMI documented and plan if >25 (NQF 0421) - lifestyle recommendation form Tobacco use screening and referral (NQF 0028) - lifestyle recommendation form Recommendation for whole food, plant based diet - lifestyle recommendation form CLINICAL IMPRESSION/PLAN: Sandra Laughlin has had at least one episode of atrial fibrillation. I discussed with her, the fact that she is at significant risk of anticoagulation due to her movement disorder, with occasional falls. In fact, as I was examining her and talking to her in the office, her movement disorder caused her to hit her head several times on the desk. There was no apparent injury . I advised her to discontinue metoprolol and we will watch her rhythm. If she has recurrent palpitations, she has been advised to resume the metoprolol and contact me. She should go back to the emergency department if she has episodes which last more than an hour or are associated with lightheadedness, chest pain or shortness of breath. Her TIAs in the past are of unclear etiology. It is possible that she is having intermittent atrial fibrillation. If she has recurrent episodes, we will have to reevaluate , but anticoagulation will not be started at this time . Total duration of this visit was greater than 30 minutes, of which more than 50% was counseling. I will see her as previously scheduled. Written and verbal health teaching given to patient, patient verbalizes understanding and agrees with treatment plan. DIAGNOSIS FOR VISIT: PAF HISTORY OF PRESENT ILLNESS Sandra Laughlin returns for problem follow-up visit. She was recently in the emergency department for evaluation of an episode of palpitation. She was noted in transport to be in atrial fibrillation. She developed what appears to be atrial flutter in the emergency department and then spontaneously converted. She was started on metoprolol. She's had no previous episodes of this type. She has had no chest discomfort. She denies orthopnea, edema, syncope. She's had no TIAs, amaurosis. ALLERGIES: ALLERGIES Allergen Reactions - Penicillin Swelling CURRENT OUTPATIENT MEDICATIONS: metoprolol tartrate, short acting, (LOPRESSOR) 25 mg tablet Take 25 mg by mouth twice daily. HYDROcodone-acetaminophen (NORCO) 5-325 mg per tablet Take 1 tablet by mouth three times daily for 30 days. sertraline (ZOLOFT) 100 mg tablet Take 1.5 tablets by mouth once daily. COMPOUNDED PRESCRIPTION Dispense one lift chair ICD: G20 memantine (NAMENDA) 5 mg tablet Take 1 tablet by mouth once daily. sodium chloride 1 gram tab TAKE 1 TABLET BY MOUTH 3 TIMES A DAY gabapentin (NEURONTIN) 300 mg capsule Take 1 capsule by mouth twice daily for 180 days. fludrocortisone (FLORINEF) 0.1 mg tablet TAKE 1 TABLET EVERY DAY Midodrine HCl (PROAMATINE) 10 mg tablet TAKE 1 TABLET BY MOUTH THREE TIMES DAILY. Cholecalciferol, Vitamin D3, (VITAMIN D-3) 2,000 unit cap Take by mouth. clopidogrel (PLAVIX) 75 mg tablet Take 1 tablet by mouth once daily. donepezil (ARICEPT) 10 mg tablet Take 1 tablet by mouth once daily. famotidine (PEPCID) 40 mg tablet Take 1 tablet by mouth once daily. atorvastatin (LIPITOR) 10 mg tablet Take 1 tablet by mouth once daily. KLOR-CON 10 10 mEq tablet Take 1 tablet by mouth twice daily. carbidopa-levodopa (SINEMET 25-100) 25-100 mg per tablet Take 1 tablet by mouth five times daily. FLAXSEED OIL ORAL Take 1,200 mg by mouth once daily. UBIDECARENONE/VITAMIN E MIXED (COQ10 SG 100 ORAL) Take 100 mg by mouth once daily. ferrous gluconate 324 mg (37.5 mg iron) tablet Take 324 mg by mouth daily with breakfast. PHYSICAL EXAMINATION: VITAL SIGNS: BP 93/61 Pulse 78 Chest: Clear to auscultation. Trachea is midline. Air entry is equal. Cardiac: Regular rhythm. S1 and S2 are normal. PMI is nondisplaced. There is a soft systolic ejection murmur. Carotids are brisk without bruits. JVP is less than 10 cm. Abdomen: Soft and nontender. There are no pulsatile masses or bruits. No liver enlargement. Bowel sounds are active. Extremities: No edema. Pulses are intact and symmetrical. EKG is as described above. Laboratory studies showed no evidence of acute coronary syndrome. Renal function was mildly impaired. Electronically Signed: Owen James MD July 17, 2018 10:14 AM CC: Jessenia Grider MD CNOV Observed: 07/17/2018 Status: COMPLETED Source: [place] 10:00 AM [facility] REPOSITORY Office Visit (CAWSTR) SANDRA LAUGHLIN ([id number]) 1945 F Date Time Provider Department 07/17/18 10:00 AM OWEN JAMES During your visit today, we recorded the following information about you: Pulse Blood pressure 78/minute 93/61 Owen James MD 07/19/2018 12:29 PM Signed PERTINENT CARDIAC HISTORY TIA - on Plavix Parkinsons - DBS Hypotension - postural HL ADHERENCE TO GUIDELINES JOSE ALEJANDRO-I or ARB for HF with prior LVEF<40 (NQF 0081) - N/A ASA or Plavix for ASHD (NQF 0067) - N/A Beta david for ASHD with prior KS or prior LVEF<40 (NQF 0070) - N/A Beta david for HF with prior LVEF<40 (NQF 0083) - N/A JOSE ALEJANDRO-I or ARB for ASHD with DM or prior LVEF<40 (NQF 0066) - N/A Statin therapy for ASHD or FHL or DM - met BMI documented and plan if >25 (NQF 0421) - lifestyle recommendation form Tobacco use screening and referral (NQF 0028) - lifestyle recommendation form Recommendation for whole food, plant based diet - lifestyle recommendation form CLINICAL IMPRESSION/PLAN: Sandra Laughlin has had at least one episode of atrial fibrillation. I discussed with her, the fact that she is at significant risk of anticoagulation due to her movement disorder, with occasional falls. In fact, as I was examining her and talking to her in the office, her movement disorder caused her to hit her head several times on the desk. There was no apparent injury . I advised her to discontinue metoprolol and we will watch her rhythm. If she has recurrent palpitations, she has been advised to resume the metoprolol and contact me. She should go back to the emergency department if she has episodes which last more than an hour or are associated with lightheadedness, chest pain or shortness of breath. Her TIAs in the past are of unclear etiology. It is possible that she is having intermittent atrial fibrillation. If she has recurrent episodes, we will have to reevaluate , but anticoagulation will not be started at this time . Total duration of this visit was greater than 30 minutes, of which more than 50% was counseling. I will see her as previously scheduled. Written and verbal health teaching given to patient, patient verbalizes understanding and agrees with treatment plan. DIAGNOSIS FOR VISIT: PAF HISTORY OF PRESENT ILLNESS Sandra Laughlin returns for problem follow-up visit. She was recently in the emergency department for evaluation of an episode of palpitation. She was noted in transport to be in atrial fibrillation. She developed what appears to be atrial flutter in the emergency department and then spontaneously converted. She was started on metoprolol. She's had no previous episodes of this type. She has had no chest discomfort. She denies orthopnea, edema, syncope. She's had no TIAs, amaurosis. ALLERGIES: ALLERGIES Allergen Reactions - Penicillin Swelling CURRENT OUTPATIENT MEDICATIONS: metoprolol tartrate, short acting, (LOPRESSOR) 25 mg tablet Take 25 mg by mouth twice daily. HYDROcodone-acetaminophen (NORCO) 5-325 mg per tablet Take 1 tablet by mouth three times daily for 30 days. sertraline (ZOLOFT) 100 mg tablet Take 1.5 tablets by mouth once daily. COMPOUNDED PRESCRIPTION Dispense one lift chair ICD: G20 memantine (NAMENDA) 5 mg tablet Take 1 tablet by mouth once daily. sodium chloride 1 gram tab TAKE 1 TABLET BY MOUTH 3 TIMES A DAY gabapentin (NEURONTIN) 300 mg capsule Take 1 capsule by mouth twice daily for 180 days. fludrocortisone (FLORINEF) 0.1 mg tablet TAKE 1 TABLET EVERY DAY Midodrine HCl (PROAMATINE) 10 mg tablet TAKE 1 TABLET BY MOUTH THREE TIMES DAILY. Cholecalciferol, Vitamin D3, (VITAMIN D-3) 2,000 unit cap Take by mouth. clopidogrel (PLAVIX) 75 mg tablet Take 1 tablet by mouth once daily. donepezil (ARICEPT) 10 mg tablet Take 1 tablet by mouth once daily. famotidine (PEPCID) 40 mg tablet Take 1 tablet by mouth once daily. atorvastatin (LIPITOR) 10 mg tablet Take 1 tablet by mouth once daily. KLOR-CON 10 10 mEq tablet Take 1 tablet by mouth twice daily. carbidopa-levodopa (SINEMET 25-100) 25-100 mg per tablet Take 1 tablet by mouth five times daily. FLAXSEED OIL ORAL Take 1,200 mg by mouth once daily. UBIDECARENONE/VITAMIN E MIXED (COQ10 SG 100 ORAL) Take 100 mg by mouth once daily. ferrous gluconate 324 mg (37.5 mg iron) tablet Take 324 mg by mouth daily with breakfast. PHYSICAL EXAMINATION: VITAL SIGNS: BP 93/61 Pulse 78 Chest: Clear to auscultation. Trachea is midline. Air entry is equal. Cardiac: Regular rhythm. S1 and S2 are normal. PMI is nondisplaced. There is a soft systolic ejection murmur. Carotids are brisk without bruits. JVP is less than 10 cm. Abdomen: Soft and nontender. There are no pulsatile masses or bruits. No liver enlargement. Bowel sounds are active. Extremities: No edema. Pulses are intact and symmetrical. EKG is as described above. Laboratory studies showed no evidence of acute coronary syndrome. Renal function was mildly impaired. Electronically Signed: Owen James MD July 17, 2018 10:14 AM CC: MD Owen Lopez MD 07/17/2018 10:16 AM Signed LIFESTYLE CHANGE A healthy lifestyle is the most important component of your overall treatment plan. Please give serious thought to the following areas and commit to making intermediate changes. EAT A WHOLE FOOD, PLANT BASED DIET The nutrition your body gets is more important than the medicine you take. What matters most is the overall way you eat. We encourage you to minimize the use of animal products (which include dairy and all meats except fatty fish) and use whole, unprocessed plant foods to provide your protein, vitamins and other nutrients. We have a lot of information to share with you on this topic. This is not a diet. It is a way of life that you will keep with you. EXERCISE REGULARLY It is not important to spend hours in the gym, lifting weights and perspiring heavily. A total of 2-3 hours per week of aerobic (causing you to be moderately short of breath) exercise is sufficient to improve your health. Talk to us before you begin a new exercise program, if you have heart disease or experience shortness of breath or chest pain. REDUCE STRESS Chronic emotional and physical stress leads to disease. Ways of reducing stress include meditation, visualization, prayer, yoga and other forms of relaxation therapy. Consistency is the vasquez. Find a technique that works for you and do it every day. CULTIVATE RELATIONSHIPS Loneliness and isolation have a major negative impact on health. Seek out others who can love, care for and nurture you. Avoid hurtful relationships. MAINTAIN IDEAL BODY WEIGHT The best way to do this is to do all the things above. Our bodies naturally find the right weight if we keep moving and feed ourselves the right food. If your BMI is greater than 25, we strongly recommend a referral to a weight management program. Please speak to us or your family physician about available programs. AVOID NICOTINE IN ALL FORMS This includes all tobacco products, whether chewed, smoked, vaped, or rubbed on the skin. Smoking cessation programs, which can make use of tobacco substitutes, medications to suppress cravings and behavior management, are available. Please contact your family physician about programs in your area. Referring Provider: OWEN JAMES [[id number]] Allergies As of Date: 07/17/2018 Noted Allergy Reaction PENICILLIN 05/29/2017 7 - Swelling Date Reviewed: 07/17/2018 Reviewed by: Karyn Poe RN - Fully Assessed Reason for Visit: Recheck [92] Visit Diagnosis:PAF (paroxysmal atrial fibrillation) ([facility]) [I48.0] Order(s):metoprolol tartrate, short acting, (LOPRESSOR) 25 mg tabletTake 1 tablet by mouth twice daily. Take as needed for HR greater than 100. If rapid HR persists for more than two hours, return to the ED for treatmentDisp: Rfl: Prescriptions as of 07/17/2018 Sig: METOPROLOL TARTRATE 25 MG TAB* Take 1 tablet by mouth twice * HYDROCODONE 5 MG-ACETAMINOPHE* Take 1 tablet by mouth three * SERTRALINE 100 MG TABLET Take 1.5 tablets by mouth onc* COMPOUNDED PRESCRIPTION Dispense one lift chair ICD: * MEMANTINE 5 MG TABLET Take 1 tablet by mouth once d* SODIUM CHLORIDE 1 GRAM TABLET TAKE 1 TABLET BY MOUTH 3 TIME* GABAPENTIN 300 MG CAPSULE Take 1 capsule by mouth twice* FLUDROCORTISONE 0.1 MG TABLET TAKE 1 TABLET EVERY DAY MIDODRINE 10 MG TABLET TAKE 1 TABLET BY MOUTH THREE * CHOLECALCIFEROL (VITAMIN D3) * Take by mouth. CLOPIDOGREL 75 MG TABLET Take 1 tablet by mouth once d* DONEPEZIL 10 MG TABLET Take 1 tablet by mouth once d* FAMOTIDINE 40 MG TABLET Take 1 tablet by mouth once d* ATORVASTATIN 10 MG TABLET Take 1 tablet by mouth once d* KLOR-CON 10 MEQ TABLET,EXTEND* Take 1 tablet by mouth twice * CARBIDOPA 25 MG-LEVODOPA 100 * Take 1 tablet by mouth five t* FLAXSEED OIL ORAL Take 1,200 mg by mouth once d* COQ10 SG 100 ORAL Take 100 mg by mouth once vinod* FERROUS GLUCONATE 324 MG (37.* Take 324 mg by mouth daily wi* Problem List As Of Date 07/17/2018 Noted Resolved Dementia [F03.90] Parkinson disease (HCC) [G20] Hypotension [I95.9] 10/14/2017 Hyperlipidemia [E78.5] GERD (gastroesophageal reflux disease) [K21.9] TIA (transient ischemic attack) [G45.9] More... Falling [R29.6] INVALID FOR* Crouched gait [R26.89] INVALID FOR* Depression [F32.9] Postural hypotension [I95.1] INVALID FOR* Falls frequently [R29.6] INVALID FOR* Closed bilateral fracture of pubic rami (HCC) [*INVALID FOR* Other instructions from your clinician: LIFESTYLE CHANGE A healthy lifestyle is the most important component of your overall treatment plan. Please give serious thought to the following areas and commit to making intermediate changes. EAT A WHOLE FOOD, PLANT BASED DIET The nutrition your body gets is more important than the medicine you take. What matters most is the overall way you eat. We encourage you to minimize the use of animal products (which include dairy and all meats except fatty fish) and use whole, unprocessed plant foods to provide your protein, vitamins and other nutrients. We have a lot of information to share with you on this topic. This is not a diet. It is a way of life that you will keep with you. EXERCISE REGULARLY It is not important to spend hours in the gym, lifting weights and perspiring heavily. A total of 2-3 hours per week of aerobic (causing you to be moderately short of breath) exercise is sufficient to improve your health. Talk to us before you begin a new exercise program, if you have heart disease or experience shortness of breath or chest pain. REDUCE STRESS Chronic emotional and physical stress leads to disease. Ways of reducing stress include meditation, visualization, prayer, yoga and other forms of relaxation therapy. Consistency is the vasquez. Find a technique that works for you and do it every day. CULTIVATE RELATIONSHIPS Loneliness and isolation have a major negative impact on health. Seek out others who can love, care for and nurture you. Avoid hurtful relationships. MAINTAIN IDEAL BODY WEIGHT The best way to do this is to do all the things above. Our bodies naturally find the right weight if we keep moving and feed ourselves the right food. If your BMI is greater than 25, we strongly recommend a referral to a weight management program. Please speak to us or your family physician about available programs. AVOID NICOTINE IN ALL FORMS This includes all tobacco products, whether chewed, smoked, vaped, or rubbed on the skin. Smoking cessation programs, which can make use of tobacco substitutes, medications to suppress cravings and behavior management, are available. Please contact your family physician about programs in your area. Prescriptions ordered this encounter Disp Refills Start End METOPROLOL TARTRATE 25 MG TABLET 07/19/2018 Class: Med Update Route: ORAL Sig: Take 1 tablet by mouth twice daily. Take as needed for HR greater than 100. If rapid HR persists for more than two hours, return to the ED for treatment Medications Discontinued During This Encounter metoprolol tartrate, short acting, (* 07/19/2018 Class: Historical Med Route: ORAL Sig: Take 25 mg by mouth twice daily. Disc: Reason for discontinue is not on file. Follow-up and Disposition History Recorded Encounter Status:Closed by OWEN JAMES MD on 07/19/18 PROGRESS Observed: 07/16/2018 Status: COMPLETED Source: [place] 9:20 AM [facility] REPOSITORY HNO ID: [id number] Author: Jessenia Moreno) Cheo Service: (none) Author Type: Physician Type: Progress Notes Filed: 07/16/2018 9:20 AM Note Text: Reviewed. Thanks! PROGRESS Observed: 07/15/2018 Status: COMPLETED Source: [place] 3:27 PM [facility] REPOSITORY HNO ID: [id number] Author: Kaylee BaerRn) Almaz Service: (none) Author Type: Registered Nurse Type: Progress Notes Filed: 07/15/2018 3:57 PM Note Text: [employer] EMERGENCY DEPARTMENT FOLLOW UP INITIAL CONTACT Provider Action/FYI: Pt seeing Dr. James on Friday, 07/17 Initial contact with patient post discharge, spoke to spouse. Patient identified by name and date : YES SUMMARY: -Patient discharged from [facility] ED on 07/14. -Follow up appointment on TBD with Kirsten James. -Medication review done yes. -Presented with: Palpitations CONCERNS: Patient is feeling well, no palpitations or chest pain since ER NEW MEDICATIONS: Metoprolol 25 mg BID MEDS HELD/DISCONTINUED: None BRIEF ED COURSE: History of Present Illness: The patient is a 73 F with palpitations that started 1 hour ago. She has a history of Parkinson's disease and hypertension. She feels lightheaded and dizzy and weak. No chest pain shortness of breath prior to this. No history of arrhythmias. Physical Examination: Patient is slightly diaphoretic, quite tachycardic in the 180s and 190s. She has clear lung soft abdomen does not look pale, she does appear in some distress. Emergency Department Course and Treatment: EKG did show SVT, was given to give adenosine the patient spontaneously converted to sinus rhythm. He was monitored for a few hours, she has an unremarkable workup she continues to remain in sinus rhythm I will discharge her. I did talk to Dr. Kirk who will see her outpatient and he suggested low- dose beta blockers. The hospital EKG showed SVT, however the prehospital EKG showed atrial fibrillation which makes me worried about underlying atrial flutter that would have been missed on the hospital EKG, however I cannot see flutter waves. Regardless after discussing with Dr. Kirk he does not recommend any new blood thinners and he will follow up with her in the next 2-3 days. 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 James on Friday, 07/17 Initial contact with patient post discharge, spoke to spouse. Patient identified by name and date : YES SUMMARY: -Patient discharged from [facility] ED on 07/14. -Follow up appointment on TBD with Kirsten James. -Medication review done yes. -Presented with: Palpitations CONCERNS: Patient is feeling well, no palpitations or chest pain since ER NEW MEDICATIONS: Metoprolol 25 mg BID MEDS HELD/DISCONTINUED: None BRIEF ED COURSE: History of Present Illness: The patient is a 73 F with palpitations that started 1 hour ago. She has a history of Parkinson's disease and hypertension. She feels lightheaded and dizzy and weak. No chest pain shortness of breath prior to this. No history of arrhythmias. Physical Examination: Patient is slightly diaphoretic, quite tachycardic in the 180s and 190s. She has clear lung soft abdomen does not look pale, she does appear in some distress. Emergency Department Course and Treatment: EKG did show SVT, was given to give adenosine the patient spontaneously converted to sinus rhythm. He was monitored for a few hours, she has an unremarkable workup she continues to remain in sinus rhythm I will discharge her. I did talk to Dr. Kirk who will see her outpatient and he suggested low-dose beta blockers. The hospital EKG showed SVT, however the prehospital EKG showed atrial fibrillation which makes me worried about underlying atrial flutter that would have been missed on the hospital EKG, however I cannot see flutter waves. Regardless after discussing with Dr. Kirk he does not recommend any new blood thinners and he will follow up with her in the next 2-3 days. Impression: [SVT] Disposition: Home or Assisted Living Chief Complaint: Palpitations Prescriptions: Metoprolol Tartrate 25 mg PO BID #60 tab Referrals: Owen James MD [STAFF PHYSICIAN] - 3-5 Days YUE Shook MD 07/16/2018 9:20 AM Signed Reviewed. Thanks! 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 Follow Up [3696] Prescriptions as of 07/15/2018 Sig: SULFAMETHOXAZOLE 800 MG-TRIME* Take 1 tablet by mouth twice * HYDROCODONE 5 MG-ACETAMINOPHE* Take 1 tablet by mouth three * SERTRALINE 100 MG TABLET Take 1.5 tablets by mouth onc* COMPOUNDED PRESCRIPTION Dispense one lift chair ICD: * MEMANTINE 5 MG TABLET Take 1 tablet by mouth once d* SODIUM CHLORIDE 1 GRAM TABLET TAKE 1 TABLET BY MOUTH 3 TIME* GABAPENTIN 300 MG CAPSULE Take 1 capsule by mouth twice* FLUDROCORTISONE 0.1 MG TABLET TAKE 1 TABLET EVERY DAY MIDODRINE 10 MG TABLET TAKE 1 TABLET BY MOUTH THREE * CHOLECALCIFEROL (VITAMIN D3) * Take by mouth. CLOPIDOGREL 75 MG TABLET Take 1 tablet by mouth once d* DONEPEZIL 10 MG TABLET Take 1 tablet by mouth once d* FAMOTIDINE 40 MG TABLET Take 1 tablet by mouth once d* ATORVASTATIN 10 MG TABLET Take 1 tablet by mouth once d* KLOR-CON 10 MEQ TABLET,EXTEND* Take 1 tablet by mouth twice * CARBIDOPA 25 MG-LEVODOPA 100 * Take 1 tablet by mouth five t* FLAXSEED OIL ORAL Take 1,200 mg by mouth once d* COQ10 SG 100 ORAL Take 100 mg by mouth once vinod* FERROUS GLUCONATE 324 MG (37.* Take 324 mg by mouth daily wi* Problem List As Of Date 07/15/2018 Noted Resolved Dementia [F03.90] Parkinson disease (HCC) [G20] Hypotension [I95.9] 10/14/2017 Hyperlipidemia [E78.5] GERD (gastroesophageal reflux disease) [K21.9] TIA (transient ischemic attack) [G45.9] More... Falling [R29.6] INVALID FOR* Crouched gait [R26.89] INVALID FOR* Depression [F32.9] Postural hypotension [I95.1] INVALID FOR* Falls frequently [R29.6] INVALID FOR* Closed bilateral fracture of pubic rami (HCC) [*INVALID FOR* Encounter Status:Closed by KAYLEE MUSE on 07/16/18 EMERGENCY DEPARTMENT Observed: 07/14/2018 Status: F Source: [place] SUMMARY 5:30 PM [facility] Medical Records Department [address] [place] [address] Emergency Department Summary 07/14/18 1020 MR#: [id number] Acct: [id number] Name: SANDRA LAUGHLIN Rep #: [id number] : 1945 73 From: José Leal MD PCP: Moises Grider MD Status: DEP ER - ER Visit Summary Date of Service: 07/14/18 Chief Complaint: Palpitations History of Present Illness: The patient is a 73 F with palpitations that started 1 hour ago. She has a history of Parkinson's disease and hypertension. She feels lightheaded and dizzy and weak. No chest pain shortness of breath prior to this. No history of arrhythmias. Physical Examination: Patient is slightly diaphoretic, quite tachycardic in the 180s and 190s. She has clear lung soft abdomen does not look pale, she does appear in some distress. Test Results: Emergency Department Course and Treatment: EKG did show SVT, was given to give adenosine the patient spontaneously converted to sinus rhythm. He was monitored for a few hours, she has an unremarkable workup she continues to remain in sinus rhythm I will discharge her. I did talk to Dr. Kirk who will see her outpatient and he suggested low-dose beta blockers. The hospital EKG showed SVT, however the prehospital EKG showed atrial fibrillation which makes me worried about underlying atrial flutter that would have been missed on the hospital EKG, however I cannot see flutter waves. Regardless after discussing with Dr. Kirk he does not recommend any new blood thinners and he will follow up with her in the next 2-3 days. Disposition: [Discharge stable condition] Impression: [SVT] This note was generated with Satarii dictation software. It may contain incorrect words, spelling, and punctuation that were not noted in review of the chart prior to signing ED Disposition - Plan for ED Patient: Disposition: Home or Assisted Living Chief Complaint: Palpitations Prescriptions: Metoprolol Tartrate 25 mg PO BID #60 tab Referrals: Owen James MD [STAFF PHYSICIAN] - 3-5 Days What to do if you have Problems For any increased pain, shortness of breath, bleeding, nausea or vomiting, chest pain, or any unexpected problems, contact your Primary Care Provider. Call [facility] ([phone]) or report to the closest Emergency Room. Call 911 if necessary. 07/14/18 4100 <Electronically signed by José Leal MD> Date José Leal MD Cosigner Signature (If Indicated): Date CC: Moises Grider MD CBC W/DIFF, AUTOMATED Collected: 07/14/2018 Status: F Source: [place] 10:22 AM [facility] [place] TYPE CODE TESTS RESULT OUT OF RANGE REFERENCE UNITS LAB L100.1000 4.4-11.0 K/mm3 Normal WBC 5.8 LAB L100.1200 4.2-5.4 M/mm3 Normal RBC 4.58 LAB L100.1300 12.0-15.0 g/dl Normal HGB 13.7 LAB L100.1400 37-47 % Normal HCT 41.6 LAB L100.1500 81-99 fL Normal MCV 90.8 LAB L100.1600 27.0-32.0 pg Normal MCH 29.9 LAB L100.1700 32-36 g/gl Normal MCHC 32.9 LAB L100.1810 11.6-14.6 % High RDW CV 15.1 LAB L100.1820 35.1-43.9 fl High RDW SD 49.3 LAB L100.1900 150-450 K/mm3 Normal PLT 294 LAB L100.2000 6.2-12.0 fl Normal MPV 10.5 LAB L100.2100 47-70 % Normal NEUT% 57.9 LAB L100.2200 19-41 % Normal LY% 30.9 LAB L100.2300 0-10 % Normal MONO% 9.6 LAB L100.2400 0-5 % Normal EO% 0.7 LAB L100.2500 0-1 % Normal BASO% 0.7 LAB L100.2550 0.0-0.9 % Normal IM GRAN % 0.200 Result Comment: IG% - Immature Granulocytes (promyelocytes, myelocytes and metamyelocytes) > 1% indicates that a LEFT SHIFT is Present. LAB L100.2620 2.0-7.7 X10 3/uL Normal Absolute Neut 3.4 LAB L100.2720 0.83-4.51 X10 3/ul Normal Absolute Lymph 1.80 Performed By: #### L100.0100 #### [facility] [address] [place], [address] BASIC METABOLIC Collected: 07/14/2018 Status: F Source: [place] PROFILE (BMP) 10:22 AM [facility] [place] TYPE CODE TESTS RESULT OUT OF RANGE REFERENCE UNITS LAB L501.0100 74-106 mg/dL High GLU 119 Result Comment: Fasting Glucose result from 100 to 125 mg/dL suggests IMPAIRED HOMEOSTASIS per A.D.A. criteria. Please note revised GLUCOSE reference range effective 2017. LAB L501.1000 7-18 mg/dL High BUN 20 LAB L501.1100 0.55-1.02 mg/dL High CREAT,SERUM 1.08 Result Comment: The validity of the calculated GFR AND GFRAA in patients over 70 years has not been determined. Clinical correlation is essential. LAB L501.1110 >60 mL/min Low EST GFR 53 Result Comment: Non- GFR Calc LAB L501.1115 >60 mL/min Normal EST GFR - AA 64 Result Comment: GFR Calc LAB L501.1255 ml/min Normal Estimated CRCL 43.93 LAB L501.1300 10-20 RATIO Normal BUN/CRE 18.5 LAB L501.2200 8.5-10 mg/dL Normal .1 CA 9.4 LAB L501.5300 136-14 mmol/L Normal 5 NA 143 LAB L501.5600 3.5-5. mmol/L Normal 1 K 3.9 LAB L501.5900 98-107 mmol/L Normal CL 105 LAB L501.6100 21.0-3 mmol/L Normal 2.0 CO2 27.0 LAB L501.6200 5-15 Normal GAP 11 Performed By: #### L500.2500, L501.4010 #### [facility] [address] [place], [address] TROPONIN-I Collected: 07/14/2018 Status: F Source: [place] 10:22 AM [facility] [place] TYPE CODE TESTS RESULT OUT OF RANGE REFERENCE UNITS LAB L501.4010 <0.045 ng/mL Normal < 0.015 TROPONIN-I Result Comment: TROPONIN-I EXPECTED VALUES <0.045 Negative 0.045 - 0.590 Consistent with Cardiac Damage > OR = 0.600 Critical Value Not every elevated troponin is indicative of KS. These values should be used with clinical judgement in examining the patient's clinical picture for diagnosis. To establish a diagnosis of KS versus myocardial injury, there must be a demonstrated rise and/or fall in the troponin values, in addition to ischemic symptoms, EKG changes, new regional wall motion abnormality, and/or angiographical evidence. PLEASE NOTE: REFERENCE RANGES EDITED 18 Performed By: #### L500.2500, L501.4010 #### [facility] [address] [place], [address] CHEST 1 VIEW Observed: 07/14/2018 Status: F Source: [place] (PORTABLE) 10:18 AM [facility] Imaging Services [address] [place] [address] Chest 1 View (Portable) MR#: [id number] Acct: [id number] Name: SANDRA LAUGHLIN Rep #: [id number] : 1945 F 73 From: Pedro Barth MD PCP: Moises Grider MD Status: DEP ER Study: Chest 1 View (Portable) Date of Exam: 07/14/18 Exam# [id number] Ordering Dr: José Leal MD STUDY: X-RAY CHEST REASON FOR EXAM: Female, 73 years old. Chest pain TECHNIQUE: Portable chest upright COMPARISON: 02/15/2018 chest x-ray. FINDINGS: Left pectoral neurostimulator device with wire leads ascending to the neck. Pulmonary hyperlucency and hyperinflation consistent with underlying COPD/emphysema. Lungs otherwise acutely clear. No effusion or pneumothorax. There is no cardiomegaly. No significant aortomegaly. There is chronic widening of the right paratracheal soft tissues in the superior mediastinum, stable compared to prior imaging, and associated with slight displacement of the proximal thoracic trachea toward the left. Favoring goiter. Other mass or lymphadenopathy cannot be excluded. CT chest with contrast is recommended. No acute osseous or upper abdominal process. RAD/Chest 1 View (Portable) IMPRESSION: COPD/emphysema. No other acute cardiopulmonary process is evident. Widening of the right side of the mediastinum. Differential considerations include substernal goiter, mass, lymphadenopathy, or anomalous vascular structure. CT chest with IV contrast is recommended for more complete characterization. Electronically Signed: Pedro Barth, at 15:24 EDT Tel , Service support , CC: Moises Grider MD; José Leal MD Profiler: Signed PROGRESS Observed: 07/08/2018 Status: COMPLETED Source: [place] 1:42 PM [facility] REPOSITORY HNO ID: [id number] Author: Shayna Robison Service: (none) Author Type: Physician Type: Progress Notes Filed: 07/08/2018 2:44 PM Note Text: Neurology Follow-up Visit ASSESSMENT: year old female with PD since 1984, bilateral STN DBS placed around 2011 at [facility] here for follow-up PD and cervical dystonia. Since her last visit she fell again and was found to have fractures of her pelvis. It is unclear if these fractures are old or new but found during workup for groin pain. She continues to take [place]. She is essentially falling every time she tries to walk. She recently moved to assisted living and has not fallen since. Changes to medications or DBS are very unlikely to help her falls, she just needs more care and assistance. Cervical dystonia/anterocollis treated at last visit with Botox was not helpful. There were no side effects. Upon discussion with the patient about her neck does not bother her so we will defer injections today and discuss them again next time. She continues to have sundowning, mainly confusion with no hallucinations or paranoia. Continue Aricept and Namenda. There are no behavior symptoms so no need for additional medications. Today she admits hallucinations but cannot tell me how long she has had them for what she is actually seeing. She has not mentioned this to her family before so I am unclear on the reliability of this complaint. She also has a UTI right now so it is possible to hallucinations are new and could get better with antibiotics. Again no new medication for this today but instructed her family to periodically ask her about this to help determine the validity. If she is truly having hallucinations and they are bothersome then consider addition of Seroquel or Nuplazid. Family reporting new visual symptoms. It has been greater than one year since her last eye exam so recommend seeing control systems developer. It is possible the visual symptoms could be related to Parkinson's but there would be no treatment. ?? Continue current Sinemet regimen. ? On Midrin and Florinef for orthostatic hypotension. Blood pressure today is good. ? ? PLAN: --->?Sinemet 25/100 1 tab 5x/day at 9a, noon, 3p, 6p, bedtime ? ---> Continue Aricept, Namenda. ? ---> Follow-up: 3 months Interval Hx: Diagnosed with UTI today. Checked due to frequency. Not on antibiotics yet. Fell and fractured her pelvis few weeks ago. Pain is getting better. Clayhole TID. Falls pretty much every time she walks. Dropping things more often. ing. Confusion. No behavior. [place] doesn't seem to matter. Loses track of her days. Vision trouble, feeling for things more. Last eye exam was in [place]. Has floaters. Cataracts already removed. Moved to [place] in April. Aides helping with transfers, ADLs. Current PD meds: Sinemet 25/100 1 tab 5x/day at 9a, noon, 3p, 6p, bedtime Wearing off: no Dyskinesia: yes Other side effects: Nausea,vomiting: no Hallucination: yes. Daily. Not scary or bothersome. She has not mentioned to family, news to them. Falls/Imbalance: none since fractured her pelvis Sleep problems/RBD/RLS: aides check on her and wake her up. Sialorrhea: yes Swallowing difficulty: some. Takes pills with applesauce Botox with no improvement noticed. No side effects. Current Outpatient Prescriptions: HYDROcodone-acetaminophen (NORCO) 5-325 mg per tablet Take 1 tablet by mouth three times daily for 30 days. sertraline (ZOLOFT) 100 mg tablet Take 1.5 tablets by mouth once daily. COMPOUNDED PRESCRIPTION Dispense one lift chair ICD: G20 memantine (NAMENDA) 5 mg tablet Take 1 tablet by mouth once daily. sodium chloride 1 gram tab TAKE 1 TABLET BY MOUTH 3 TIMES A DAY gabapentin (NEURONTIN) 300 mg capsule Take 1 capsule by mouth twice daily for 180 days. fludrocortisone (FLORINEF) 0.1 mg tablet TAKE 1 TABLET EVERY DAY Midodrine HCl (PROAMATINE) 10 mg tablet TAKE 1 TABLET BY MOUTH THREE TIMES DAILY. Cholecalciferol, Vitamin D3, (VITAMIN D-3) 2,000 unit cap Take by mouth. clopidogrel (PLAVIX) 75 mg tablet Take 1 tablet by mouth once daily. donepezil (ARICEPT) 10 mg tablet Take 1 tablet by mouth once daily. famotidine (PEPCID) 40 mg tablet Take 1 tablet by mouth once daily. atorvastatin (LIPITOR) 10 mg tablet Take 1 tablet by mouth once daily. KLOR-CON 10 10 mEq tablet Take 1 tablet by mouth twice daily. carbidopa-levodopa (SINEMET 25-100) 25-100 mg per tablet Take 1 tablet by mouth five times daily. FLAXSEED OIL ORAL Take 1,200 mg by mouth once daily. UBIDECARENONE/VITAMIN E MIXED (COQ10 SG 100 ORAL) Take 100 mg by mouth once daily. ferrous gluconate 324 mg (37.5 mg iron) tablet Take 324 mg by mouth daily with breakfast. lidocaine (LIDODERM) 5 % Apply patch for 12 hours then remove for 12 hours. Location: lumbar spine (Patient not taking: Reported on 07/01/2018 ) Current Facility-Administered Medications: onabotulinum toxin type A 100 Units injection (BOTOX) 100 Units INTRAMUSCULAR q 3 MONTHS Exam: BP 142/86 Pulse 89 Wt 57.6 kg (127 lb) SpO2 94% BMI 21.13 kg/m? GEN: Alert. NAD. Cooperative. HEENT: No rhinorrhea, lacrimation or conjunctival injection. Normal mucosa. NECK/BACK: Supple EXT: No cyanosis. No edema. No erythema. ? NEUROLOGICAL: MENTAL STATUS: Alert. Attentive. Majority of history from . Follows commands appropriately. Speech fluent. ? CN: II: Pupils equal III, IV, : EOMI. No ptosis present. VII: Face symmetric. ? MOTOR: Anterocollis. Movement disorders examination: To quantify parkinsonism, Part III of the MDS-Unified Parkinson?s Disease Rating Scale was performed and detailed in the succeeding sections in this report. Please see the neurological health status section or the next paragraph for details. Each item is scored from 0 to 4. In general, a score of 0 means normal; 1 means mild; 2 means moderate; 3 means moderate to severe; 4 means severe. Motor UPDRS SPEECH ON 2 FACIAL EXPRESSION ON 2 REST TREMOR - CRANIAL ON 0 REST TREMOR - HANDS RT ON 0 REST TREMOR - HANDS LT ON 0 REST TREMOR - FEET RT ON 0 REST TREMOR - FEET LT ON 0 ACTION TREMOR - RT ON 0 ACTION TREMOR - LT ON 0 RIGIDITY - NECK ON 0 RIGIDITY - UE - RT ON 0 RIGIDITY - UE - LT ON 0 RIGIDITY - LE - RT ON 0 RIGIDITY - LE - LT ON 0 FINGER TAPS - RT ON 2 FINGER TAPS - LT ON 2.5 HAND CLASSIFIED ADVERTISING CLERK - RT ON 1 HAND CLASSIFIED ADVERTISING CLERK - LT ON 2 PRONATE/SUPINATE - RT ON 1 PRONATE/SUPINATE - LT ON 1 LEG AGILITY - RT ON 1 LEG AGILITY - LT ON 1 BODY BRADYKINESIA ON 2 Gait not tested d/t safety. Constant mild dyskinesia ? CEREBELLAR: No ataxia or nystagmus. Shayna Robison M.D. [facility] [place] Department [facility] cc: SELF Jessenia Grider MD [address] [place] [address] CNOV Observed: 07/08/2018 Status: COMPLETED Source: [place] 1:20 PM [facility] REPOSITORY Office Visit (NEURMM) SANDRA LAUGHLIN ([id number]) 1945 F Date Time Provider Department 07/08/18 1:20 PM SHAYNA ROBISON During your visit today, we recorded the following information about you: Pulse Blood pressure Weight 89/minute 142/86 57.6 kg Shayna Robison MD 07/08/2018 2:44 PM Signed Neurology Follow-up Visit ASSESSMENT: year old female with PD since 1984, bilateral STN DBS placed around 2011 at [facility] here for follow-up PD and cervical dystonia. Since her last visit she fell again and was found to have fractures of her pelvis. It is unclear if these fractures are old or new but found during workup for groin pain. She continues to take [place]. She is essentially falling every time she tries to walk. She recently moved to assisted living and has not fallen since. Changes to medications or DBS are very unlikely to help her falls, she just needs more care and assistance. Cervical dystonia/anterocollis treated at last visit with Botox was not helpful. There were no side effects. Upon discussion with the patient about her neck does not bother her so we will defer injections today and discuss them again next time. She continues to have sundowning, mainly confusion with no hallucinations or paranoia. Continue Aricept and Namenda. There are no behavior symptoms so no need for additional medications. Today she admits hallucinations but cannot tell me how long she has had them for what she is actually seeing. She has not mentioned this to her family before so I am unclear on the reliability of this complaint. She also has a UTI right now so it is possible to hallucinations are new and could get better with antibiotics. Again no new medication for this today but instructed her family to periodically ask her about this to help determine the validity. If she is truly having hallucinations and they are bothersome then consider addition of Seroquel or Nuplazid. Family reporting new visual symptoms. It has been greater than one year since her last eye exam so recommend seeing control systems developer. It is possible the visual symptoms could be related to Parkinson's but there would be no treatment. ?? Continue current Sinemet regimen. ? On Midrin and Florinef for orthostatic hypotension. Blood pressure today is good. ? ? PLAN: --->?Sinemet 25/100 1 tab 5x/day at 9a, noon, 3p, 6p, bedtime ? ---> Continue Aricept, Namenda. ? ---> Follow-up: 3 months Interval Hx: Diagnosed with UTI today. Checked due to frequency. Not on antibiotics yet. Fell and fractured her pelvis few weeks ago. Pain is getting better. Clayhole TID. Falls pretty much every time she walks. Dropping things more often. ing. Confusion. No behavior. [place] doesn't seem to matter. Loses track of her days. Vision trouble, feeling for things more. Last eye exam was in [place]. Has floaters. Cataracts already removed. Moved to [place] in April. Aides helping with transfers, ADLs. Current PD meds: Sinemet 25/100 1 tab 5x/day at 9a, noon, 3p, 6p, bedtime Wearing off: no Dyskinesia: yes Other side effects: Nausea,vomiting: no Hallucination: yes. Daily. Not scary or bothersome. She has not mentioned to family, news to them. Falls/Imbalance: none since fractured her pelvis Sleep problems/RBD/RLS: aides check on her and wake her up. Sialorrhea: yes Swallowing difficulty: some. Takes pills with applesauce Botox with no improvement noticed. No side effects. Current Outpatient Prescriptions: HYDROcodone-acetaminophen (NORCO) 5-325 mg per tablet Take 1 tablet by mouth three times daily for 30 days. sertraline (ZOLOFT) 100 mg tablet Take 1.5 tablets by mouth once daily. COMPOUNDED PRESCRIPTION Dispense one lift chair ICD: G20 memantine (NAMENDA) 5 mg tablet Take 1 tablet by mouth once daily. sodium chloride 1 gram tab TAKE 1 TABLET BY MOUTH 3 TIMES A DAY gabapentin (NEURONTIN) 300 mg capsule Take 1 capsule by mouth twice daily for 180 days. fludrocortisone (FLORINEF) 0.1 mg tablet TAKE 1 TABLET EVERY DAY Midodrine HCl (PROAMATINE) 10 mg tablet TAKE 1 TABLET BY MOUTH THREE TIMES DAILY. Cholecalciferol, Vitamin D3, (VITAMIN D-3) 2,000 unit cap Take by mouth. clopidogrel (PLAVIX) 75 mg tablet Take 1 tablet by mouth once daily. donepezil (ARICEPT) 10 mg tablet Take 1 tablet by mouth once daily. famotidine (PEPCID) 40 mg tablet Take 1 tablet by mouth once daily. atorvastatin (LIPITOR) 10 mg tablet Take 1 tablet by mouth once daily. KLOR-CON 10 10 mEq tablet Take 1 tablet by mouth twice daily. carbidopa-levodopa (SINEMET 25-100) 25-100 mg per tablet Take 1 tablet by mouth five times daily. FLAXSEED OIL ORAL Take 1,200 mg by mouth once daily. UBIDECARENONE/VITAMIN E MIXED (COQ10 SG 100 ORAL) Take 100 mg by mouth once daily. ferrous gluconate 324 mg (37.5 mg iron) tablet Take 324 mg by mouth daily with breakfast. lidocaine (LIDODERM) 5 % Apply patch for 12 hours then remove for 12 hours. Location: lumbar spine (Patient not taking: Reported on 07/01/2018 ) Current Facility-Administered Medications: onabotulinum toxin type A 100 Units injection (BOTOX) 100 Units INTRAMUSCULAR q 3 MONTHS Exam: BP 142/86 Pulse 89 Wt 57.6 kg (127 lb) SpO2 94% BMI 21.13 kg/m? GEN: Alert. NAD. Cooperative. HEENT: No rhinorrhea, lacrimation or conjunctival injection. Normal mucosa. NECK/BACK: Supple EXT: No cyanosis. No edema. No erythema. ? NEUROLOGICAL: MENTAL STATUS: Alert. Attentive. Majority of history from . Follows commands appropriately. Speech fluent. ? CN: II: Pupils equal III, IV, : EOMI. No ptosis present. VII: Face symmetric. ? MOTOR: Anterocollis. Movement disorders examination: To quantify parkinsonism, Part III of the MDS-Unified Parkinson?s Disease Rating Scale was performed and detailed in the succeeding sections in this report. Please see the neurological health status section or the next paragraph for details. Each item is scored from 0 to 4. In general, a score of 0 means normal; 1 means mild; 2 means moderate; 3 means moderate to severe; 4 means severe. Motor UPDRS SPEECH ON 2 FACIAL EXPRESSION ON 2 REST TREMOR - CRANIAL ON 0 REST TREMOR - HANDS RT ON 0 REST TREMOR - HANDS LT ON 0 REST TREMOR - FEET RT ON 0 REST TREMOR - FEET LT ON 0 ACTION TREMOR - RT ON 0 ACTION TREMOR - LT ON 0 RIGIDITY - NECK ON 0 RIGIDITY - UE - RT ON 0 RIGIDITY - UE - LT ON 0 RIGIDITY - LE - RT ON 0 RIGIDITY - LE - LT ON 0 FINGER TAPS - RT ON 2 FINGER TAPS - LT ON 2.5 HAND CLASSIFIED ADVERTISING CLERK - RT ON 1 HAND CLASSIFIED ADVERTISING CLERK - LT ON 2 PRONATE/SUPINATE - RT ON 1 PRONATE/SUPINATE - LT ON 1 LEG AGILITY - RT ON 1 LEG AGILITY - LT ON 1 BODY BRADYKINESIA ON 2 Gait not tested d/t safety. Constant mild dyskinesia ? CEREBELLAR: No ataxia or nystagmus. Shayna Robison M.D. 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, F02.80] Gait instability [R26.81] Orthostatic hypotension [I95.1] Prescriptions as of 07/08/2018 Sig: HYDROCODONE 5 MG-ACETAMINOPHE* Take 1 tablet by mouth three * SERTRALINE 100 MG TABLET Take 1.5 tablets by mouth onc* COMPOUNDED PRESCRIPTION Dispense one lift chair ICD: * MEMANTINE 5 MG TABLET Take 1 tablet by mouth once d* SODIUM CHLORIDE 1 GRAM TABLET TAKE 1 TABLET BY MOUTH 3 TIME* GABAPENTIN 300 MG CAPSULE Take 1 capsule by mouth twice* FLUDROCORTISONE 0.1 MG TABLET TAKE 1 TABLET EVERY DAY MIDODRINE 10 MG TABLET TAKE 1 TABLET BY MOUTH THREE * CHOLECALCIFEROL (VITAMIN D3) * Take by mouth. CLOPIDOGREL 75 MG TABLET Take 1 tablet by mouth once d* DONEPEZIL 10 MG TABLET Take 1 tablet by mouth once d* FAMOTIDINE 40 MG TABLET Take 1 tablet by mouth once d* ATORVASTATIN 10 MG TABLET Take 1 tablet by mouth once d* KLOR-CON 10 MEQ TABLET,EXTEND* Take 1 tablet by mouth twice * CARBIDOPA 25 MG-LEVODOPA 100 * Take 1 tablet by mouth five t* FLAXSEED OIL ORAL Take 1,200 mg by mouth once d* COQ10 SG 100 ORAL Take 100 mg by mouth once vinod* FERROUS GLUCONATE 324 MG (37.* Take 324 mg by mouth daily wi* Problem List As Of Date 07/08/2018 Noted Resolved Dementia [F03.90] Parkinson disease (HCC) [G20] Hypotension [I95.9] 10/14/2017 Hyperlipidemia [E78.5] GERD (gastroesophageal reflux disease) [K21.9] TIA (transient ischemic attack) [G45.9] More... Falling [R29.6] INVALID FOR* Crouched gait [R26.89] INVALID FOR* Depression [F32.9] Postural hypotension [I95.1] INVALID FOR* Falls frequently [R29.6] INVALID FOR* Closed bilateral fracture of pubic rami (HCC) [*INVALID FOR* Medications Discontinued During This Encounter lidocaine (LIDODERM) 5 % 30 P* 1 02/26/2018 07/08/2018 Class: Call Rx Sig: Apply patch for 12 hours then remove for 12 hours. Location: lumbar spine Patient not taking: Reported on 07/01/2018 Disc: Discontinued by Patient Disposition: Return in about 3 months (around 10/08/2018). Follow-up and Disposition History Recorded Questionnaire: UPDRS - MOTOR EXAMINATION ON SPEECH ON -> 2 FACIAL EXPRESSION ON -> 2 REST TREMOR - CRANIAL ON -> 0 REST TREMOR - HANDS RT ON -> 0 REST TREMOR - HANDS LT ON -> 0 REST TREMOR - FEET RT ON -> 0 REST TREMOR - FEET LT ON -> 0 ACTION TREMOR - RT ON -> 0 ACTION TREMOR - LT ON -> 0 RIGIDITY - NECK ON -> 0 RIGIDITY - UE - RT ON -> 0 RIGIDITY - UE - LT ON -> 0 RIGIDITY - LE - RT ON -> 0 RIGIDITY - LE - LT ON -> 0 FINGER TAPS - RT ON -> 2 FINGER TAPS - LT ON -> 2.5 HAND CLASSIFIED ADVERTISING CLERK - RT ON -> 1 HAND CLASSIFIED ADVERTISING CLERK - LT ON -> 2 PRONATE/SUPINATE - RT ON -> 1 PRONATE/SUPINATE - LT ON -> 1 LEG AGILITY - RT ON -> 1 LEG AGILITY - LT ON -> 1 BODY BRADYKINESIA ON -> 2 Encounter Status:Closed by SHAYNA ROBISON MD on 07/08/18 URINALYSIS, ROUTINE Collected: 07/08/2018 Status: F Source: [place] (DIPSTICK) 6:00 AM [facility] [place] [facility] Order Comment: How was Urine Obtained? CLEAN CATCH TYPE CODE TESTS RESULT OUT OF RANGE REFERENCE UNITS LAB L400.3000 Yellow COLOR Normal Yellow LAB L400.3050 Clear Normal CLARITY Sl. Cloudy LAB L400.3200 Normal mg/dl Normal GLUCOSE, UR Normal LAB L400.3300 Negative mg/dL Normal BILIRUBIN URINE Negative LAB L400.3400 Negative mg/dl Normal KETONE UR Negative LAB L400.3465 1.002-1.030 Normal SP.GR. DIPSTX 1.010 LAB L400.3550 5.0 - 8.0 pH UR Normal 7.0 LAB L400.3600 Negative mg/dl High PROT 15 DIPSTX LAB L400.3700 Normal mg/dl Normal UROBILI Normal LAB L400.3750 Negative High NITRITE UR Positive LAB L400.3780 Negative /ul High 25 OCCULT BLOOD-UR LAB L400.3800 Negative /ul High LEUK ESTERASE 500 Performed By: #### L400.2010 #### [facility] [place], [address] Observed: 07/08/2018 Status: F Source: [place] CULTURE, URINE 6:00 AM [facility] [place] [facility] Urine Culture ORGANISM 1: Presumptive E. coli [place] Count >100,000 Presumptive E. coli: REACTION Amoxacillin/Clavulanic Acid $ <=2 S Ampicillin $ <=2 S Ampicillin/Sulbactam $ <=2 S Cefazolin $ <=4 S Cefepime $ <=1 S Ceftriaxone $ <=1 S Ciprofloxacin $ <=0.25 S ESBL - Ertapenim $$$ <=0.5 S Gentamicin $ <=1 S Imipenem *NF <=0.25 S Levofloxacin $ <=0.12 S Nitrofurantoin $ 64 I Piperacillin/Tazobactam $$ <=4 S Tobramycin $ <=1 S Trimethoprim/Sulfametho $ <=20 S (NF) indicates non-formulary drug at [facility]. Approval by Infectious Disease Specialist required before non-formulary drugs may be ordered and/or dispensed. Performed By: #### M100.0650 #### [facility] [address] [place], [address] PROGRESS Observed: 07/01/2018 Status: COMPLETED Source: [place] 2:12 PM [facility] [place] REPOSITORY O ID: [id number] Author: Chica Velasco (Pa) Service: (none) Author Type: Physician Music Instructor Type: Progress Notes Filed: 07/01/2018 2:25 PM Note Text: Chica Velasco PA-C Department of Orthopaedics Orthopaedics [address] [facility] [address] Dept: [phone] Dept July 01, 2018 CHIEF COMPLAINT: New Patient (Pubic Rami fracture - Ref. Dr. Grider) HPI: Ms. Sandra Laughlin is a 73 year old female. She presents with left groin pain following a fall about 3 weeks ago. The patient presents with her who assists with providing history of her injury. states that the patient was seen by Dr. Lorenzo for a lumbar injection about 3 weeks ago, after the injection the patient nicole from her wheelchair and try to walk across the room. The reports hearing a loud thud from the other room. He found his laying on the floor. Patient was seen by her primary care and had a negative x- ray. Subsequent CT scan showed fractures of the left inferior and superior pubic rami. Patient complains of 3 out of 10 groin pain on the left that is worse when she is moved during transfers. She is taking Clayhole as needed for pain which is very effective. She has Parkinson's disease and uses a wheelchair. Her and her reside in assisted living and the patient receives assistance for transfers. ASSESSMENT: S32.591A, S32.592A Closed bilateral fracture of pubic rami, initial encounter ([facility]) (primary encounter diagnosis) R10.32, G89.29 Groin pain, chronic, left PLAN: Discussed with patient and her that her CT scan shows evidence of healing and then will take additional time to heal her pelvic fractures. In the meantime we will have her continue to use her wheelchair, no weightbearing on left leg and to have assistance during transfers. Continue Clayhole as needed for pain. We will see her back in 3 weeks with repeat x-ray. FOLLOW UP INSTRUCTIONS: In 3 weeks with repeat x-ray Ms. Sandra Laughlin was advised as to contrast therapies and/or to take analgesics/anti-inflammatories as needed and all contraindications were reviewed. OBJECTIVE: Ms. Sandra Laughlin is a pleasant 73 year old in no apparent distress. Gen:BP 93/58 Pulse 89 Ht 5' 5 (1.65m) Wt 123 lb (55.8kg) BMI 20.47 kg/(m2). nl development, non obese, no deformities ENT: Normocephalic, normal hearing, moist mucosa CV: Pulses:DP/PT= 2+ and symmetric, capillary refill < 2 secs, no peripheral edema/varicosities Skin: no rash, bruising or lesions. Good turgor. Psych: cooperative and appropriate, alert and oriented x 3, good mood and affect. Musculoskeletal: Tender to palpation over the left pubic bone. Passive flexion, internal rotation and external rotation of the left hip is without pain. Strength testing was not performed. IMAGING: IMPRESSION: Subacute nondisplaced healing fractures of the left inferior and superior pubic rami. Profiler: MARGI ? Transcribe Date/Time: Jun 19 2018 ?1:42P Dictated by : MOE MCKEON MD This examination was interpreted and the report reviewed and electronically signed by: ABHIJIT RIVER MD on Jun 19 2018 ?4:00PM ?EST Results-Findings * * *Final Report* * * DATE OF EXAM: Jun 19 2018 ?1:38PM ? [facility] ? 0079 ?- ?CT HIP WO IVCON LT ?/ PROCEDURE REASON: Pain in left hip ?? ? * * * * Physician Interpretation * * * * ?EXAM: ?CT HIP WO IVCON LT EXAM DATE: ?06/19/2018 1:38 PM CLINICAL HISTORY: ?73 years Female presenting with left groin and hip pain since fall 3 months ago. TECHNIQUE: ? CT HIP WO IVCON LT -- Left Dose-Length Product (DLP): 210 mGy*cm CT Dose Reduction Employed: Yes COMPARISON: Hip x-ray 06/05/2018 RESULT: There is a nondisplaced oblique fracture of the inferior pubic ramus (series 61 image 58) with surrounding callus formation and blood products in the adjacent soft tissues. An additional fracture is in the superior pubic ramus (series 602 image 31) with minimal surrounding callus formation. Supporting Subjective Information Below: Past Medical History: PAST MEDICAL HISTORY Diagnosis Date - Anxiety - Cataracts, bilateral s/p removal - Dementia - Depression - GERD (gastroesophageal reflux disease) - Hyperlipidemia - Hypotension seeing Dr. James - Incontinence urinary - Parkinson disease (HCC) - S/P deep brain stimulator placement Seeing Dr. Robison - TIA (transient ischemic attack) suspected Past Surgical History: PAST SURGICAL HISTORY Procedure Laterality Date - CATARACT SURGERY, COMPLEX Bilateral 2013 - CHOLECYSTECTOMY - HYSTERECTOMY HX - PAST SURGICAL HISTORY OF 2011 deep brain stimulator placement - ROTATOR CUFF REPAIR Bilateral Family History: FAMILY HISTORY Problem Relation Age of Onset - Cancer Mother - Breast Cancer Sister - Cancer Father skin Social History:Social History Marital status: Spouse name: Years of education: Number of children: Social History Main Topics Smoking status: Former Smoker Packs/day: 0.00 Years: 0.00 Types: Cigarettes Quit date: 11/1999 Smokeless tobacco: Never Used Alcohol use: No Drug use: No Sexual activity: No Medications: Current Outpatient Prescriptions: HYDROcodone-acetaminophen (NORCO) 5-325 mg per tablet Take 1 tablet by mouth three times daily for 30 days. sertraline (ZOLOFT) 100 mg tablet Take 1.5 tablets by mouth once daily. COMPOUNDED PRESCRIPTION Dispense one lift chair ICD: G20 memantine (NAMENDA) 5 mg tablet Take 1 tablet by mouth once daily. sodium chloride 1 gram tab TAKE 1 TABLET BY MOUTH 3 TIMES A DAY gabapentin (NEURONTIN) 300 mg capsule Take 1 capsule by mouth twice daily for 180 days. fludrocortisone (FLORINEF) 0.1 mg tablet TAKE 1 TABLET EVERY DAY Midodrine HCl (PROAMATINE) 10 mg tablet TAKE 1 TABLET BY MOUTH THREE TIMES DAILY. Cholecalciferol, Vitamin D3, (VITAMIN D-3) 2,000 unit cap Take by mouth. clopidogrel (PLAVIX) 75 mg tablet Take 1 tablet by mouth once daily. donepezil (ARICEPT) 10 mg tablet Take 1 tablet by mouth once daily. famotidine (PEPCID) 40 mg tablet Take 1 tablet by mouth once daily. atorvastatin (LIPITOR) 10 mg tablet Take 1 tablet by mouth once daily. KLOR-CON 10 10 mEq tablet Take 1 tablet by mouth twice daily. carbidopa-levodopa (SINEMET 25-100) 25-100 mg per tablet Take 1 tablet by mouth five times daily. FLAXSEED OIL ORAL Take 1,200 mg by mouth once daily. UBIDECARENONE/VITAMIN E MIXED (COQ10 SG 100 ORAL) Take 100 mg by mouth once daily. ferrous gluconate 324 mg (37.5 mg iron) tablet Take 324 mg by mouth daily with breakfast. lidocaine (LIDODERM) 5 % Apply patch for 12 hours then remove for 12 hours. Location: lumbar spine (Patient not taking: Reported on 07/01/2018 ) Current Facility-Administered Medications: onabotulinum toxin type A 100 Units injection (BOTOX) 100 Units INTRAMUSCULAR q 3 MONTHS Allergies: Penicillin ROS: General (negative for fatigue, malaise, weight loss/gain) HEENT (negative for headache, earache, recent vision changes, sinus pain, sore throat) Respiratory (no recent shortness of breath, hemoptysis) CV (negative for chest tightness, palpitations) Musculoskeletal (see HPI) Psych (no depression, anxiety) REFERRING PHYSICIAN: Ms. Sandra Laughlin was referred to me for consultation by the following physician. This consultation note will be sent to the following physician by either mail or electronic medical record. Jessenia Grider MD [id number] [facility] [address] Jessenia Grider MD [address] [facility] [address] This note was partially generated using [employer]i voice recognition system, and there may be some incorrect words, spellings, and punctuation that were not noted in checking the note before saving. CARMELA Mendez Observed: 07/01/2018 Status: COMPLETED Source: [place] 1:30 PM [facility] REPOSITORY Office Visit (ORTHWS) SANDRA LAUGHLIN ([id number]) 1945 F Date Time Provider Department 07/01/18 1:30 PM CHICA VELASCO (PA) During your visit today, we recorded the following information about you: Pulse Blood pressure Weight Height 89/minute 93/58 55.8 kg 1.651 m Selene Child De 07/01/2018 2:25 PM Signed Patient presents with: New Patient: Pubic Rami fracture - Ref. Dr. Grider AMB ROOMING INTAKE FLOWSHEET DATA Risk Screening Do you have concerns about personal safety or safety in the home?: No Pain Pain Score: 3/10 Pain Location: Pelvis Duration Amount of Time: 2 Duration Units: Weeks Frequency: Intermittent (Occurs when getting moved out of her wheelchair) Intervention: Medication Patient arrives in office in a wheelchair with her Uday. states his had injections by Dr Lorenzo for her compression fracture 2-3 weeks ago. She had gotten up out of her wheelchair and states he heard a thud from the other room he was in and found her on the floor. Referred by Dr. Hutson. X-rays done on 06/05/[address] scan on 06/19/18. Lives in a assisted community and has help with aids to transfer her. Taking Clayhole for the pain and is effective. Chica Velasco PA-C 07/01/2018 2:25 PM Signed Chica Velasco PA-C Department of Orthopaedics Orthopaedics [address] [place] [address] Dept: [phone] Dept July 01, 2018 CHIEF COMPLAINT: New Patient (Pubic Rami fracture - Ref. Dr. Grider) HPI: Ms. Sandra Laughlin is a 73 year old female. She presents with left groin pain following a fall about 3 weeks ago. The patient presents with her who assists with providing history of her injury. states that the patient was seen by Dr. Lorenzo for a lumbar injection about 3 weeks ago, after the injection the patient nicole from her wheelchair and try to walk across the room. The reports hearing a loud thud from the other room. He found his laying on the floor. Patient was seen by her primary care and had a negative x-ray. Subsequent CT scan showed fractures of the left inferior and superior pubic rami. Patient complains of 3 out of 10 groin pain on the left that is worse when she is moved during transfers. She is taking Clayhole as needed for pain which is very effective. She has Parkinson's disease and uses a wheelchair. Her and her reside in assisted living and the patient receives assistance for transfers. ASSESSMENT: S32.591A, S32.592A Closed bilateral fracture of pubic rami, initial encounter ([facility]) (primary encounter diagnosis) R10.32, G89.29 Groin pain, chronic, left PLAN: Discussed with patient and her that her CT scan shows evidence of healing and then will take additional time to heal her pelvic fractures. In the meantime we will have her continue to use her wheelchair, no weightbearing on left leg and to have assistance during transfers. Continue Clayhole as needed for pain. We will see her back in 3 weeks with repeat x-ray. FOLLOW UP INSTRUCTIONS: In 3 weeks with repeat x-ray Ms. Sandra Laughlin was advised as to contrast therapies and/or to take analgesics/anti-inflammatories as needed and all contraindications were reviewed. OBJECTIVE: Ms. Sandra Laughlin is a pleasant 73 year old in no apparent distress. Gen:BP 93/58 Pulse 89 Ht 5' 5 (1.65m) Wt 123 lb (55.8kg) BMI 20.47 kg/(m2). nl development, non obese, no deformities ENT: Normocephalic, normal hearing, moist mucosa CV: Pulses:DP/PT= 2+ and symmetric, capillary refill < 2 secs, no peripheral edema/varicosities Skin: no rash, bruising or lesions. Good turgor. Psych: cooperative and appropriate, alert and oriented x 3, good mood and affect. Musculoskeletal: Tender to palpation over the left pubic bone. Passive flexion, internal rotation and external rotation of the left hip is without pain. Strength testing was not performed. IMAGING: IMPRESSION: Subacute nondisplaced healing fractures of the left inferior and superior pubic rami. Profiler: MARGI ? Transcribe Date/Time: Jun 19 2018 ?1:42P Dictated by : MOE MCKEON MD This examination was interpreted and the report reviewed and electronically signed by: ABHIJIT RIVER MD on Jun 19 2018 ?4:00PM ?EST Results-Findings * * *Final Report* * * DATE OF EXAM: Jun 19 2018 ?1:38PM ? [facility] ? 0079 ?- ?CT HIP WO IVCON LT ?/ PROCEDURE REASON: Pain in left hip ?? ? * * * * Physician Interpretation * * * * ?EXAM: ?CT HIP WO IVCON LT EXAM DATE: ?06/19/2018 1:38 PM CLINICAL HISTORY: ?73 years Female presenting with left groin and hip pain since fall 3 months ago. TECHNIQUE: ? CT HIP WO IVCON LT -- Left Dose-Length Product (DLP): 210 mGy*cm CT Dose Reduction Employed: Yes COMPARISON: Hip x-ray 06/05/2018 RESULT: There is a nondisplaced oblique fracture of the inferior pubic ramus (series 61 image 58) with surrounding callus formation and blood products in the adjacent soft tissues. An additional fracture is in the superior pubic ramus (series 602 image 31) with minimal surrounding callus formation. Supporting Subjective Information Below: Past Medical History: PAST MEDICAL HISTORY Diagnosis Date - Anxiety - Cataracts, bilateral s/p removal - Dementia - Depression - GERD (gastroesophageal reflux disease) - Hyperlipidemia - Hypotension seeing Dr. James - Incontinence urinary - Parkinson disease (HCC) - S/P deep brain stimulator placement Seeing Dr. Robison - TIA (transient ischemic attack) suspected Past Surgical History: PAST SURGICAL HISTORY Procedure Laterality Date - CATARACT SURGERY, COMPLEX Bilateral 2013 - CHOLECYSTECTOMY - HYSTERECTOMY HX - PAST SURGICAL HISTORY OF 2011 deep brain stimulator placement - ROTATOR CUFF REPAIR Bilateral Family History: FAMILY HISTORY Problem Relation Age of Onset - Cancer Mother - Breast Cancer Sister - Cancer Father skin Social History:Social History Marital status: Spouse name: Years of education: Number of children: Social History Main Topics Smoking status: Former Smoker Packs/day: 0.00 Years: 0.00 Types: Cigarettes Quit date: 11/1999 Smokeless tobacco: Never Used Alcohol use: No Drug use: No Sexual activity: No Medications: Current Outpatient Prescriptions: HYDROcodone-acetaminophen (NORCO) 5-325 mg per tablet Take 1 tablet by mouth three times daily for 30 days. sertraline (ZOLOFT) 100 mg tablet Take 1.5 tablets by mouth once daily. COMPOUNDED PRESCRIPTION Dispense one lift chair ICD: G20 memantine (NAMENDA) 5 mg tablet Take 1 tablet by mouth once daily. sodium chloride 1 gram tab TAKE 1 TABLET BY MOUTH 3 TIMES A DAY gabapentin (NEURONTIN) 300 mg capsule Take 1 capsule by mouth twice daily for 180 days. fludrocortisone (FLORINEF) 0.1 mg tablet TAKE 1 TABLET EVERY DAY Midodrine HCl (PROAMATINE) 10 mg tablet TAKE 1 TABLET BY MOUTH THREE TIMES DAILY. Cholecalciferol, Vitamin D3, (VITAMIN D-3) 2,000 unit cap Take by mouth. clopidogrel (PLAVIX) 75 mg tablet Take 1 tablet by mouth once daily. donepezil (ARICEPT) 10 mg tablet Take 1 tablet by mouth once daily. famotidine (PEPCID) 40 mg tablet Take 1 tablet by mouth once daily. atorvastatin (LIPITOR) 10 mg tablet Take 1 tablet by mouth once daily. KLOR-CON 10 10 mEq tablet Take 1 tablet by mouth twice daily. carbidopa-levodopa (SINEMET 25-100) 25-100 mg per tablet Take 1 tablet by mouth five times daily. FLAXSEED OIL ORAL Take 1,200 mg by mouth once daily. UBIDECARENONE/VITAMIN E MIXED (COQ10 SG 100 ORAL) Take 100 mg by mouth once daily. ferrous gluconate 324 mg (37.5 mg iron) tablet Take 324 mg by mouth daily with breakfast. lidocaine (LIDODERM) 5 % Apply patch for 12 hours then remove for 12 hours. Location: lumbar spine (Patient not taking: Reported on 07/01/2018 ) Current Facility-Administered Medications: onabotulinum toxin type A 100 Units injection (BOTOX) 100 Units INTRAMUSCULAR q 3 MONTHS Allergies: Penicillin ROS: General (negative for fatigue, malaise, weight loss/gain) HEENT (negative for headache, earache, recent vision changes, sinus pain, sore throat) Respiratory (no recent shortness of breath, hemoptysis) CV (negative for chest tightness, palpitations) Musculoskeletal (see HPI) Psych (no depression, anxiety) REFERRING PHYSICIAN: Ms. Sandra Laughlin was referred to me for consultation by the following physician. This consultation note will be sent to the following physician by either mail or electronic medical record. Jessenia Grider MD [id number] [facility] [facility] [id number] Jessenia Grider MD [address] [facility] [id number] This note was partially generated using Satarii voice recognition system, and there may be some incorrect words, spellings, and punctuation that were not noted in checking the note before saving. Chica Velasco PA-C Referring Provider: JESSENIA GRIDER) [[id number]] Allergies As of Date: 07/01/2018 Noted Allergy Reaction PENICILLIN 05/29/2017 7 - Swelling Date Reviewed: 07/01/2018 Reviewed by: Chica Velasco (Pa) - Fully Assessed Reason for Visit: New Patient [172] Cmt: Pubic Rami fracture - Ref. Dr. Grider Primary Visit Diagnosis:Closed bilateral fracture of pubic rami, initial encounter ([facility]) [S32.591A, S32.592A] Other Visit Diagnosis:Groin pain, chronic, left [R10.32, G89.29] Prescriptions as of 07/01/2018 Sig: HYDROCODONE 5 MG-ACETAMINOPHE* Take 1 tablet by mouth three * SERTRALINE 100 MG TABLET Take 1.5 tablets by mouth onc* COMPOUNDED PRESCRIPTION Dispense one lift chair ICD: * MEMANTINE 5 MG TABLET Take 1 tablet by mouth once d* SODIUM CHLORIDE 1 GRAM TABLET TAKE 1 TABLET BY MOUTH 3 TIME* GABAPENTIN 300 MG CAPSULE Take 1 capsule by mouth twice* FLUDROCORTISONE 0.1 MG TABLET TAKE 1 TABLET EVERY DAY MIDODRINE 10 MG TABLET TAKE 1 TABLET BY MOUTH THREE * CHOLECALCIFEROL (VITAMIN D3) * Take by mouth. CLOPIDOGREL 75 MG TABLET Take 1 tablet by mouth once d* DONEPEZIL 10 MG TABLET Take 1 tablet by mouth once d* FAMOTIDINE 40 MG TABLET Take 1 tablet by mouth once d* ATORVASTATIN 10 MG TABLET Take 1 tablet by mouth once d* KLOR-CON 10 MEQ TABLET,EXTEND* Take 1 tablet by mouth twice * CARBIDOPA 25 MG-LEVODOPA 100 * Take 1 tablet by mouth five t* FLAXSEED OIL ORAL Take 1,200 mg by mouth once d* COQ10 SG 100 ORAL Take 100 mg by mouth once vinod* FERROUS GLUCONATE 324 MG (37.* Take 324 mg by mouth daily wi* LIDOCAINE 5 % TOPICAL PATCH Apply patch for 12 hours then* Patient not taking: Reported on 07/01/2018 Problem List As Of Date 07/01/2018 Noted Resolved Dementia [F03.90] Parkinson disease (HCC) [G20] Hypotension [I95.9] 10/14/2017 Hyperlipidemia [E78.5] GERD (gastroesophageal reflux disease) [K21.9] TIA (transient ischemic attack) [G45.9] More... Falling [R29.6] INVALID FOR* Crouched gait [R26.89] INVALID FOR* Depression [F32.9] Postural hypotension [I95.1] INVALID FOR* Falls frequently [R29.6] INVALID FOR* Closed bilateral fracture of pubic rami (HCC) [*INVALID FOR* Letter Text Sandra Laughlin Date of - 1945 [facility] M.D. Department of Orthopaedic Surgery [address] [place] [id number] Office: [phone] 07/01/2018 RE: Sandra Laughlin [id number] To Whom It May Concern: I saw Sandra Laughlin in the Department of Orthopaedic Surgery at [facility] for follow-up of her left pelvic freacture. Based on physical examination and medical assessment, I feel Sandra will require a single person assistance with transfers, partial weightbearing on left leg for for transfers only for next 3 weeks. Otherwise non weightbearing, follow up in 3 weeks with repeat xray. If you have any questions or require additional information, please do not hesitate to contact my office. Sincerely, Chica Velasco PA-C Encounter Status:Closed by CHICA VELASCO PA-C on 07/01/18 PROGRESS Observed: 07/01/2018 Status: COMPLETED Source: [place] 1:29 PM [facility] REPOSITORY HNO ID: [id number] Author: Selene Child Ma Service: (none) Author Type: (none) Type: Progress Notes Filed: 07/01/2018 2:25 PM Note Text: Patient presents with: New Patient: Pubic Rami fracture - Ref. Dr. Grider AMB ROOMING INTAKE FLOWSHEET DATA Risk Screening Do you have concerns about personal safety or safety in the home?: No Pain Pain Score: 3/10 Pain Location: Pelvis Duration Amount of Time: 2 Duration Units: Weeks Frequency: Intermittent (Occurs when getting moved out of her wheelchair) Intervention: Medication Patient arrives in office in a wheelchair with her Uday. states his had injections by Dr Lorenzo for her compression fracture 2-3 weeks ago. She had gotten up out of her wheelchair and states he heard a thud from the other room he was in and found her on the floor. Referred by Dr. Hutson. X-rays done on 06/05/[address] scan on 06/19/18. Lives in a assisted community and has help with aids to transfer her. Taking [place] for the pain and is effective. PROGRESS Observed: 06/26/2018 Status: COMPLETED Source: [place] 12:02 PM [facility] REPOSITORY HNO ID: [id number] Author: Jessenia Moreno) Cheo Service: (none) Author Type: Physician Type: Progress Notes Filed: 06/26/2018 12:02 PM Note Text: Reviewed. PROGRESS Observed: 06/26/2018 Status: COMPLETED Source: [place] 10:05 AM [facility] REPOSITORY HNO ID: [id number] Author: Analy Baltazar Service: (none) Author Type: Registered Nurse Type: Progress Notes Filed: 06/26/2018 10:09 AM Note Text: PRIMARY CARE COORDINATION QUICK NOTE Provider Action/FYI: Rescheduled pt to see [facility] PUMPER GAUGER next week as [facility] doesn't take their insurance. Patient identified by name and date . Pt was scheduled to see [facility] regarding hip Fxs but they called this AM and do not take her [employer] insurance. Needed scheduled with other Ortho as soon as possible. Although Dr. Hunter will be out next week his PUMPER GAUGER, Chica Velasco will be available. Pt was scheduled with her next Fri. Mailed to pt and called to notify him as well. Very appreciative of reschedule. Analy Baltazar mainspring torque tester Security Trainer Internal Medicine [facility] CNPTOUTREACH Observed: 06/26/2018 Status: COMPLETED Source: [place] 12:00 AM [facility] REPOSITORY Patient Outreach (INTMWS) SANDRA LAUGHLIN ([id number]) 1945 F Date Time Provider Department 06/26/18 ANALY TOLBERT During your visit today, we recorded the following information about you: Analy Morales RN 06/26/2018 10:09 AM Signed PRIMARY CARE COORDINATION QUICK NOTE Provider Action/FYI: Rescheduled pt to see [facility] PUMPER GAUGER next week as [facility] doesn't take their insurance. Patient identified by name and date . Pt was scheduled to see [facility] regarding hip Fxs but they called this AM and do not take her [employer] insurance. Needed scheduled with other Ortho as soon as possible. Although Dr. Hunter will be out next week his PUMPER GAUGER, Chica Velasco will be available. Pt was scheduled with her next Fri. Mailed to pt and called to notify him as well. Very appreciative of reschedule. 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 Chronic Care [9062] Prescriptions as of 06/26/2018 Sig: HYDROCODONE 5 MG-ACETAMINOPHE* Take 1 tablet by mouth three * SERTRALINE 100 MG TABLET Take 1.5 tablets by mouth onc* COMPOUNDED PRESCRIPTION Dispense one lift chair ICD: * MEMANTINE 5 MG TABLET Take 1 tablet by mouth once d* LIDOCAINE 5 % TOPICAL PATCH Apply patch for 12 hours then* SODIUM CHLORIDE 1 GRAM TABLET TAKE 1 TABLET BY MOUTH 3 TIME* GABAPENTIN 300 MG CAPSULE Take 1 capsule by mouth twice* FLUDROCORTISONE 0.1 MG TABLET TAKE 1 TABLET EVERY DAY MIDODRINE 10 MG TABLET TAKE 1 TABLET BY MOUTH THREE * CHOLECALCIFEROL (VITAMIN D3) * Take by mouth. CLOPIDOGREL 75 MG TABLET Take 1 tablet by mouth once d* DONEPEZIL 10 MG TABLET Take 1 tablet by mouth once d* FAMOTIDINE 40 MG TABLET Take 1 tablet by mouth once d* ATORVASTATIN 10 MG TABLET Take 1 tablet by mouth once d* KLOR-CON 10 MEQ TABLET,EXTEND* Take 1 tablet by mouth twice * CARBIDOPA 25 MG-LEVODOPA 100 * Take 1 tablet by mouth five t* FLAXSEED OIL ORAL Take 1,200 mg by mouth once d* COQ10 SG 100 ORAL Take 100 mg by mouth once vinod* FERROUS GLUCONATE 324 MG (37.* Take 324 mg by mouth daily wi* Problem List As Of Date 06/26/2018 Noted Resolved Dementia [F03.90] Parkinson disease (HCC) [G20] Hypotension [I95.9] 10/14/2017 Hyperlipidemia [E78.5] GERD (gastroesophageal reflux disease) [K21.9] TIA (transient ischemic attack) [G45.9] More... Falling [R29.6] INVALID FOR* Crouched gait [R26.89] INVALID FOR* Depression [F32.9] Postural hypotension [I95.1] INVALID FOR* Falls frequently [R29.6] INVALID FOR* Encounter Status:Closed by ANALY BALTAZAR on 06/26/18 PROGRESS Observed: 06/23/2018 Status: COMPLETED Source: [place] 11:45 AM [facility] REPOSITORY HNO ID: [id number] Author: Jessenia Moreno) Cheo Service: (none) Author Type: Physician Type: Progress Notes Filed: 06/23/2018 11:45 AM Note Text: Reviewed. Thanks PROGRESS Observed: 06/23/2018 Status: COMPLETED Source: [place] 9:37 AM [facility] REPOSITORY HNO ID: [id number] Author: Kaylee BaerRn) Almaz Service: (none) Author Type: Registered Nurse Type: Progress Notes Filed: 06/23/2018 9:41 AM Note Text: PRIMARY CARE COORDINATION FOLLOW-UP NOTE Provider Action/IVONNE Hunter is out until 07/20 Appt made with [facility] per spouse's request on 06/26 Patient identified by name and date of . YES Spoke to spouse and [facility] Summary: TC to spouse, informed of appt on 06/26 at 9:15. Agreed to appt date and time. TC to [facility], made appt for pt for 06/26 at 9:15 with PANCHITO Cordova. PCC faxed face sheet, copy of insurance card and CT results copy. TC from spouse, patient is not able to get in to Dr. Hunter until 07/20. PCC agreed that is too long to wait for pt's hip fx. Offered to make appt with ortho at [place] or here in [place]. Spouse states he will not be able to get patient to [place] so would like [facility]. Agronomy Manager plan for next outreach: Will follow up one week Signature Kaylee Muse RN June 23, 2018 DAVIETOUTREACH Observed: 06/23/2018 Status: COMPLETED Source: [place] 12:00 AM [facility] REPOSITORY Patient Outreach (FAMPWS) SANDRA LAUGHLIN ([id number]) 1945 F Date Time Provider Department 06/23/18 [facility]E MUSE ([facility]) [facility] During your visit today, we recorded the following information about you: Kaylee Muse RN 06/23/2018 9:41 AM Signed PRIMARY CARE COORDINATION FOLLOW-UP NOTE Provider Action/FYI Dr Hunter is out until 07/20 Appt made with [facility] per spouse's request on 06/26 Patient identified by name and date of . YES Spoke to spouse and [facility] Summary: TC to spouse, informed of appt on 06/26 at 9:15. Agreed to appt date and time. TC to [facility], made appt for pt for 06/26 at 9:15 with PANCHITO Cordova. PCC faxed face sheet, copy of insurance card and CT results copy. TC from spouse, patient is not able to get in to Dr. Hunter until 07/20. PCC agreed that is too long to wait for pt's hip fx. Offered to make appt with ortho at [place] or here in [place]. Spouse states he will not be able to get patient to [place] so would like [facility]. Agronomy Manager plan for next outreach: Will follow up one week Signature Kaylee Muse RN June 23, 2018 Jessenia Grider MD 06/23/2018 11:45 AM Signed Reviewed. 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 Chronic Care [3615] Prescriptions as of 06/23/2018 Sig: HYDROCODONE 5 MG-ACETAMINOPHE* Take 1 tablet by mouth three * SERTRALINE 100 MG TABLET Take 1.5 tablets by mouth onc* COMPOUNDED PRESCRIPTION Dispense one lift chair ICD: * MEMANTINE 5 MG TABLET Take 1 tablet by mouth once d* LIDOCAINE 5 % TOPICAL PATCH Apply patch for 12 hours then* SODIUM CHLORIDE 1 GRAM TABLET TAKE 1 TABLET BY MOUTH 3 TIME* GABAPENTIN 300 MG CAPSULE Take 1 capsule by mouth twice* FLUDROCORTISONE 0.1 MG TABLET TAKE 1 TABLET EVERY DAY MIDODRINE 10 MG TABLET TAKE 1 TABLET BY MOUTH THREE * CHOLECALCIFEROL (VITAMIN D3) * Take by mouth. CLOPIDOGREL 75 MG TABLET Take 1 tablet by mouth once d* DONEPEZIL 10 MG TABLET Take 1 tablet by mouth once d* FAMOTIDINE 40 MG TABLET Take 1 tablet by mouth once d* ATORVASTATIN 10 MG TABLET Take 1 tablet by mouth once d* KLOR-CON 10 MEQ TABLET,EXTEND* Take 1 tablet by mouth twice * CARBIDOPA 25 MG-LEVODOPA 100 * Take 1 tablet by mouth five t* FLAXSEED OIL ORAL Take 1,200 mg by mouth once d* COQ10 SG 100 ORAL Take 100 mg by mouth once vinod* FERROUS GLUCONATE 324 MG (37.* Take 324 mg by mouth daily wi* Problem List As Of Date 06/23/2018 Noted Resolved Dementia [F03.90] Parkinson disease (HCC) [G20] Hypotension [I95.9] 10/14/2017 Hyperlipidemia [E78.5] GERD (gastroesophageal reflux disease) [K21.9] TIA (transient ischemic attack) [G45.9] More... Falling [R29.6] INVALID FOR* Crouched gait [R26.89] INVALID FOR* Depression [F32.9] Postural hypotension [I95.1] INVALID FOR* Falls frequently [R29.6] INVALID FOR* Encounter Status:Closed by KAYLEE MUSE on 06/23/18 PROGRESS Observed: 06/19/2018 Status: COMPLETED Source: [place] 2:52 PM [facility] REPOSITORY HNO ID: [id number] Author: Tina Jj Ct Service: (none) Author Type: (none) Type: Progress Notes Filed: 06/19/2018 2:52 PM Note Text: Radiology Service Progress Note PATIENT NAME: Sandra Laughlin DATE OF SERVICE: June 19, 2018 TIME: 2:52 PM PATIENT IDENTITY VERIFICATION COMPLETED USING TWO (2) METHODS: Patient confirmed name verbally and Date of . PATIENT GENDER DATA: Female. status: : No status: NO. PATIENT RELEVANT IMPLANT DATA REVIEWED: Not Applicable RADIOLOGY DEPARTMENT: CT; Exam(s) Completed: lt hip w/o PERIPHERAL IV DATA: Not applicable] SIGNED BY: Tina Pascal Jj Ct June 19, 2018 2:[address] HIP WO IVCON LT Observed: 06/19/2018 Status: F Source: [place] 1:38 PM [facility] REPOSITORY * * *Final Report* * * DATE OF EXAM: Jun 19 2018 1:38PM [facility] [id number] - CT HIP WO IVCON LT / PROCEDURE REASON: Pain in left hip * * * * Physician Interpretation * * * * EXAM: CT HIP WO IVCON LT EXAM DATE: 06/19/2018 1:38 PM CLINICAL HISTORY: 73 years Female presenting with left groin and hip pain since fall 3 months ago. TECHNIQUE: CT HIP WO IVCON LT -- Left Dose-Length Product (DLP): 210 mGy*cm CT Dose Reduction Employed: Yes COMPARISON: Hip x-ray 06/05/2018 RESULT: There is a nondisplaced oblique fracture of the inferior pubic ramus (series 61 image 58) with surrounding callus formation and blood products in the adjacent soft tissues. An additional fracture is in the superior pubic ramus (series 602 image 31) with minimal surrounding callus formation. IMPRESSION: Subacute nondisplaced healing fractures of the left inferior and superior pubic rami. Profiler: MARGI Transcribe Date/Time: Jun 19 2018 1:42P Dictated by : MOE MCKEON MD This examination was interpreted and the report reviewed and electronically signed by: ABHIJIT RIVER MD on Jun 19 2018 4:00PM EST [id number] DAVIEN Observed: 06/19/2018 Status: COMPLETED Source: [place] 12:00 AM [facility] REPOSITORY Telephone (FAMPWS) SANDRA LAUGHLIN ([id number]) 1945 F Date Time Provider Department 06/19/18 JESSENIA GRIDER) Pap[facility] LabP[facility] During your visit today, we recorded the following information about you: Jessenia Grider MD 06/19/2018 5:[address] shows subacute nondisplaced healing fractures of left hip. Recommend further evaluation with ortho and recommend non weight bearing over the weekend. If having severe pain in hip, uncontrolled with current regimen, would have her seen in the ED. Kaylee Muse RN 06/19/2018 5:59 PM Addendum PRIMARY CARE COORDINATION FOLLOW-UP NOTE Provider Action/FYI FYI Patient identified by name and date of . YES TC to [facility] nurseMargi informed of left hip fractures and need to be non-weight bearing on LLE. Asked if they can assist pt transferring with rajani lift. States she isn't sure if they have a rajani lift but they do have a stand up lift and they can assist pt to transfer without bearding wt on left leg. Informed PCC will call for ortho appt on Friday and will keep nurses informed. Spoke to spouse Summary: Read PCP's message below to spouse. Instructed pt should not be transferring by bearing weight on her LLE. Discussed having assisted living staff help pt transfer with rajani lift, spouse agrees. Instructed if patient is having severe uncontrolled pain in hip over the weekend pt should go to ER, verbalized understanding. PCC will call Ortho Friday morning to schedule appointment Agronomy Manager plan for next outreach: Will follow up next week Signature Kaylee Muse RN June 19, 2018 Jessenia Grider MD 06/19/2018 9:16 PM Signed Reviewed. Thanks! Kaylee Muse RN 06/22/2018 8:49 AM Signed TC from spouse asking if patient should go for her mammogram and bone density. Discussed with PCP and suggested pt cancel appts and reschedule after patient sees ortho. 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 Chronic Care [3612] Primary Visit Diagnosis:Closed fracture of left hip with routine healing, subsequent encounter [S72.002D] Order(s):CONSULT TO ORTHOPAEDICS [9026] Order #: [id number]: 1 Prescriptions as of 06/19/2018 Sig: HYDROCODONE 5 MG-ACETAMINOPHE* Take 1 tablet by mouth three * SERTRALINE 100 MG TABLET Take 1.5 tablets by mouth onc* COMPOUNDED PRESCRIPTION Dispense one lift chair ICD: * MEMANTINE 5 MG TABLET Take 1 tablet by mouth once d* LIDOCAINE 5 % TOPICAL PATCH Apply patch for 12 hours then* SODIUM CHLORIDE 1 GRAM TABLET TAKE 1 TABLET BY MOUTH 3 TIME* GABAPENTIN 300 MG CAPSULE Take 1 capsule by mouth twice* FLUDROCORTISONE 0.1 MG TABLET TAKE 1 TABLET EVERY DAY MIDODRINE 10 MG TABLET TAKE 1 TABLET BY MOUTH THREE * CHOLECALCIFEROL (VITAMIN D3) * Take by mouth. CLOPIDOGREL 75 MG TABLET Take 1 tablet by mouth once d* DONEPEZIL 10 MG TABLET Take 1 tablet by mouth once d* FAMOTIDINE 40 MG TABLET Take 1 tablet by mouth once d* ATORVASTATIN 10 MG TABLET Take 1 tablet by mouth once d* KLOR-CON 10 MEQ TABLET,EXTEND* Take 1 tablet by mouth twice * CARBIDOPA 25 MG-LEVODOPA 100 * Take 1 tablet by mouth five t* FLAXSEED OIL ORAL Take 1,200 mg by mouth once d* COQ10 SG 100 ORAL Take 100 mg by mouth once vinod* FERROUS GLUCONATE 324 MG (37.* Take 324 mg by mouth daily wi* Problem List As Of Date 06/19/2018 Noted Resolved Dementia [F03.90] Parkinson disease (HCC) [G20] Hypotension [I95.9] 10/14/2017 Hyperlipidemia [E78.5] GERD (gastroesophageal reflux disease) [K21.9] TIA (transient ischemic attack) [G45.9] More... Falling [R29.6] INVALID FOR* Crouched gait [R26.89] INVALID FOR* Depression [F32.9] Postural hypotension [I95.1] INVALID FOR* Falls frequently [R29.6] INVALID FOR* Encounter Status:Closed by SELENE OROZCO LPN on 06/20/18 PROGRESS Observed: 06/11/2018 Status: COMPLETED Source: [place] 12:56 PM [facility] REPOSITORY HNO ID: [id number] Author: Annie Costello (Sw) Service: (none) Author Type: Rn Behavioral Health Type: Progress Notes Filed: 06/11/2018 1:04 PM Note Text: Anju met with patient and spouse today at . Patient and spouse noted that they have been receiving extra help with ADL's at [facility]. Spouse noted that he does not care for the food at [facility] and has offered suggestions on how to improve. Spouse discussed that patient has been utilizing call button at [facility] for assistance. Spouse has been working with patient on this as soon he will possibly have back surgery and patient will need [facility] staff to assist her when he is gone. Spouse discussed he has been doing some wood carving and selling pieces to staff at [facility]. Discussed checking with [facility] to see about utilizing their wood working room for spouse to be able to stain his pieces as they do not have any space at [facility] to be able to paint and stain wood pieces. Patient hopeful that she can figure out what is causing her hip pain. Dr. Grider is having patient do CT scan to see what is causing hip pain.Frustrated as she is not able to move around that much with the pain. PROGRESS Observed: 06/11/2018 Status: COMPLETED Source: [place] 11:54 AM [facility] REPOSITORY HNO ID: [id number] Author: Kaylee García) Almaz Service: (none) Author Type: Registered Nurse Type: Progress Notes Filed: 06/11/2018 12:07 PM Note Text: PRIMARY CARE COORDINATION IN OFFICE VISIT WITH PCP Patient has been identified by name and date of . PCP Assessment/Plan: Reviewed PCP plan with patient using [employer] Discussed pt now in assisted living and asking for aids to assist with care. PCC Plan of Care: Patient concerns: Pt reports continued hip pain following fall. Discussed PCP will be getting a CT of hip to assess ongoing pain since both hip x-rays were negative. Pt wants to be able to walk, discussed it isn't safe with hip pain and hx of falls Next Office Visit: 10/13/2018 Plan For Next Call: 3 weeks Kaylee Muse RN June 11, 2018 PROGRESS Observed: 06/11/2018 Status: COMPLETED Source: [place] 9:23 AM [facility] REPOSITORY HNO ID: [id number] Author: Jessenia Moreno) Cheo Service: (none) Author Type: Physician Type: Progress Notes Filed: 06/11/2018 1:00 PM Note Text: Chief Complaint Patient presents with: F/U 3 Month HPI Sandra Laughlin is a 73 year old female who presents here today for 3 month follow up. Accompanied today by . C/o continued pain in the right groin with weight bearing since her fall. Unchanged since last OV. Has had 2 xray's of the left hip which were both negative for acute injury. Treating at home with [facility] which works well. Has not tried ice or heat to the groin. PT has been refused by patient due to pain. Patient is wheelchair bound, but has pain with transferring. Denies erythema, bruising, swelling, repeat injury. Doing well at the assisted living. Nurses have been helping with all ADLs due to 's back pain and they have also been managing her medications. Patient has appointment at the end of this month with Dr. Robison for parkinson's and re-evaluation of stimulator. Taking medications as prescribed. thinks symptoms have been stable. Moving around and speaking easily today. Dementia: taking aricept and namenda as prescribed. notes some sundowning and tries to reorient patient during those episodes. Does not think medications require adjustment today. Reviewed HM. Due for mammogram and DXA scan. Past medical history, appointments, medications, allergies reviewed. Previous Medical History PAST MEDICAL HISTORY Diagnosis Date - Anxiety - Cataracts, bilateral s/p removal - Dementia - Depression - GERD (gastroesophageal reflux disease) - Hyperlipidemia - Hypotension seeing Dr. James - Incontinence urinary - Parkinson disease (HCC) - S/P deep brain stimulator placement Seeing Dr. Robison - TIA (transient ischemic attack) suspected Previous Surgical History PAST SURGICAL HISTORY Procedure Laterality Date - CATARACT SURGERY, COMPLEX Bilateral 2013 - CHOLECYSTECTOMY - HYSTERECTOMY HX - PAST SURGICAL HISTORY OF 2011 deep brain stimulator placement - ROTATOR CUFF REPAIR Bilateral Family History FAMILY HISTORY Problem Relation Age of Onset - Cancer Mother - Breast Cancer Sister - Cancer Father skin Patient Allergies ALLERGIES Allergen Reactions - Penicillin Swelling Current Medications Current Outpatient Prescriptions on File Prior to Visit: COMPOUNDED PRESCRIPTION Dispense one lift chair ICD: G20 HYDROcodone-acetaminophen (NORCO) 5-325 mg per tablet Take 1 tablet by mouth four times daily. memantine (NAMENDA) 5 mg tablet Take 1 tablet by mouth once daily. lidocaine (LIDODERM) 5 % Apply patch for 12 hours then remove for 12 hours. Location: lumbar spine sodium chloride 1 gram tab TAKE 1 TABLET BY MOUTH 3 TIMES A DAY gabapentin (NEURONTIN) 300 mg capsule Take 1 capsule by mouth twice daily for 180 days. fludrocortisone (FLORINEF) 0.1 mg tablet TAKE 1 TABLET EVERY DAY sertraline (ZOLOFT) 100 mg tablet Take 1 tablet by mouth once daily. Midodrine HCl (PROAMATINE) 10 mg tablet TAKE 1 TABLET BY MOUTH THREE TIMES DAILY. Cholecalciferol, Vitamin D3, (VITAMIN D-3) 2,000 unit cap Take by mouth. clopidogrel (PLAVIX) 75 mg tablet Take 1 tablet by mouth once daily. donepezil (ARICEPT) 10 mg tablet Take 1 tablet by mouth once daily. famotidine (PEPCID) 40 mg tablet Take 1 tablet by mouth once daily. atorvastatin (LIPITOR) 10 mg tablet Take 1 tablet by mouth once daily. KLOR-CON 10 10 mEq tablet Take 1 tablet by mouth twice daily. carbidopa-levodopa (SINEMET 25-100) 25-100 mg per tablet Take 1 tablet by mouth five times daily. FLAXSEED OIL ORAL Take 1,200 mg by mouth once daily. UBIDECARENONE/VITAMIN E MIXED (COQ10 SG 100 ORAL) Take 100 mg by mouth once daily. ferrous gluconate 324 mg (37.5 mg iron) tablet Take 324 mg by mouth daily with breakfast. Current Facility-Administered Medications on File Prior to Visit: onabotulinum toxin type A 100 Units injection (BOTOX) Social History Social History Marital status: Spouse name: Years of education: Number of children: Social History Main Topics Smoking status: Former Smoker Packs/day: 0.00 Years: 0.00 Types: Cigarettes Quit date: 11/1999 Smokeless tobacco: Never Used Alcohol use: No Drug use: No Sexual activity: No Review of Symptoms REVIEW OF SYSTEMS GENERAL: No weight loss, malaise or fevers RESPIRATORY: Negative for cough, hemoptysis, wheezing, COPD, dyspnea or shortness of breath CARDIOVASCULAR: Negative for chest pain, leg swelling, hypertension, CHF or palpitations GI: No nausea, vomiting, or diarrhea MUSCULOSKELETAL: See HPI SKIN: Negative for lesions, rash, and itching EXAM: BP 122/88 Pulse 80 Resp 14 General Appearance: Well appearing, alert, in no acute distress, well-hydrated, well nourished. In wheelchair and is moving head and upper extremities easily today. Skin: Skin color, texture, turgor normal, no suspicious rashes or lesions. Lungs: Lungs clear to auscultation. No wheezing, rhonchi, rales. Heart: RRR without murmur, gallop, or rubs. No ectopy. Abdomen: Normal abdominal exam, Abdomen soft, non-tender. Bowel sounds normal. No masses, organomegaly. Extremities: No deformities, edema, skin discoloration, clubbing or cyanosis. Good capillary refill. HIP: Location: left Redness: No. Warmth: No. Range of motion: WNL Tenderness over trochanteric bursa: none Pain with movement: Yes, pain on inner thigh with flexion. No pain on palpation or with internal/external rotation. Health Maintenance List DTAP,TDAP,TD(1 - Tdap) due on 1965 COLORECTAL CANCER SCREENING,SEE MODIFIER due on 1996 BONE DENSITY due on 2011 PNEUMOVAX AGE 65 AND OVER WITH 5YR LOOKBACK(1) due on 2011 MAMMOGRAM due on 05/29/2018 INFLUENZA(1) due on 07/11/2018 DIABETES SCREEN due on 03/18/2021 LIPID SCREEN due on 05/27/2022 ADULT PREVNAR-13 Completed HEPATITIS C SCREENING Completed Data reviewed Component Latest Ref Rng AND Units 03/18/2018 WBC 3.70 - 11.00 k/uL 8.01 RBC 3.90 - 5.20 m/uL 4.29 Hemoglobin 11.5 - 15.5 g/dL 12.4 Hematocrit 36.0 - 46.0 % 39.5 MCV 80.0 - 100.0 fL 92.1 MCH 26.0 - 34.0 pG 28.9 MCHC 30.5 - 36.0 g/dL 31.4 RDW-CV 11.5 - 15.0 % 13.2 Platelet Count 150 - 400 k/uL 301 MPV 9.0 - 12.7 fL 11.0 Neut% % 72.0 Abs Neut (ANC) 1.45 - 7.50 k/uL 5.77 Lymph% % 17.4 Abs Lymph 1.00 - 4.00 k/uL 1.39 Peñuelas% % 9.5 Abs Pe[place]uelas <0.87 k/uL 0.76 Eosin% % 0.6 Abs Eosin <0.46 k/uL 0.05 Baso% % 0.5 Abs Baso <0.11 k/uL 0.04 Nucleated Reds 0 /100 WBC 0.0 Absolute nRBC <0.01 k/uL <0.01 Diff Type Auto Diff Protein, Total 6.3 - 8.0 g/dL 7.5 Albumin 3.9 - 4.9 g/dL 4.2 Calcium 8.5 - 10.2 mg/dL 9.7 Bilirubin, Total 0.2 - 1.3 mg/dL 0.4 Alkaline Phosphatase 32 - 117 U/L 120 (H) AST 13 - 35 U/L 13 Glucose 74 - 99 mg/dL 88 BUN 7 - 21 mg/dL 21 Creatinine 0.58 - 0.96 mg/dL 0.73 Sodium 136 - 144 mmol/L 141 Potassium 3.7 - 5.1 mmol/L 4.0 Chloride 97 - 105 mmol/L 100 CO2 22 - 30 mmol/L 25 Anion Gap 9 - 18 mmol/L 16 ALT 7 - 38 U/L 7 eGFR- >60 eGFR-All Other Races . >60 WSR 0 - 20 mm/hr 18 CRP <0.9 mg/dL 0.5 ASSESSMENT/PLAN: 1. Falling - ICD9: E888.9, ICD10: R29.6 (primary diagnosis) Recurrent falls. PT when left hip pain resolves. Remain wheelchair bound. Falling less frequently since she has been in Assisted living. 2. Parkinson disease (HCC) - ICD9: 332.0, ICD10: G20 Stable. Continue current regimen. Follow up with neurology. 3. Left groin pain - ICD9: 789.09, ICD10: R10.32 Suspect muscle strain, but with severity of pain will obtain CT to completely rule out fracture. Advised ice/heat, PT as able, and continued use of norco 4. Screening mammogram, encounter for - ICD9: V76.12, ICD10: Z12.31 - Set up for mammogram, yearly mammogram recommended - Follow up for annual exam in one year. 5. Hyperlipidemia, unspecified hyperlipidemia type - ICD9: 272.4, ICD10: E78.5 - Continue current medication. - Encouraged following a low fat, low cholesterol diet. - Discussed the benefits of regular aerobic exercise and weight loss. 6. Gastroesophageal reflux disease, esophagitis presence not specified - ICD9: 530.81, ICD10: K21.9 - Continue treatment with Pepcid 40 mg QD 7. Pain of left hip joint - ICD9: 719.45, ICD10: M25.552 Suspect muscle strain, but with severity of pain will obtain CT to completely rule out fracture. Advised ice/heat, PT as able, and continued use of norco - CT HIP WO IVCON LT 8. Asymptomatic postmenopausal status - ICD9: V49.81, ICD10: Z78.0 - DXA-AXIAL SKELETON Jessenia Grider MD CNOV Observed: 06/11/2018 Status: COMPLETED Source: [place] 9:20 AM [facility] REPOSITORY Office Visit (FAMPWS) SANDRA LAUGHLIN ([id number]) 1945 F Date Time Provider Department 06/11/18 9:20 AM JESSENIA GRIDER) CARIEWS During your visit today, we recorded the following information about you: Pulse Respiration Blood pressure 80/minute 14/minute 122/88 Jessenia Grider MD 06/11/2018 1:00 PM Signed Chief Complaint Patient presents with: F/U 3 Month HPI Sandra Laughlin is a 73 year old female who presents here today for 3 month follow up. Accompanied today by . C/o continued pain in the right groin with weight bearing since her fall. Unchanged since last OV. Has had 2 xray's of the left hip which were both negative for acute injury. Treating at home with norco which works well. Has not tried ice or heat to the groin. PT has been refused by patient due to pain. Patient is wheelchair bound, but has pain with transferring. Denies erythema, bruising, swelling, repeat injury. Doing well at the assisted living. Nurses have been helping with all ADLs due to 's back pain and they have also been managing her medications. Patient has appointment at the end of this month with Dr. Robison for parkinson's and re-evaluation of stimulator. Taking medications as prescribed. thinks symptoms have been stable. Moving around and speaking easily today. Dementia: taking aricept and namenda as prescribed. notes some sundowning and tries to reorient patient during those episodes. Does not think medications require adjustment today. Reviewed HM. Due for mammogram and DXA scan. Past medical history, appointments, medications, allergies reviewed. Previous Medical History PAST MEDICAL HISTORY Diagnosis Date - Anxiety - Cataracts, bilateral s/p removal - Dementia - Depression - GERD (gastroesophageal reflux disease) - Hyperlipidemia - Hypotension seeing Dr. James - Incontinence urinary - Parkinson disease (HCC) - S/P deep brain stimulator placement Seeing Dr. Robison - TIA (transient ischemic attack) suspected Previous Surgical History PAST SURGICAL HISTORY Procedure Laterality Date - CATARACT SURGERY, COMPLEX Bilateral 2013 - CHOLECYSTECTOMY - HYSTERECTOMY HX - PAST SURGICAL HISTORY OF 2011 deep brain stimulator placement - ROTATOR CUFF REPAIR Bilateral Family History FAMILY HISTORY Problem Relation Age of Onset - Cancer Mother - Breast Cancer Sister - Cancer Father skin Patient Allergies ALLERGIES Allergen Reactions - Penicillin Swelling Current Medications Current Outpatient Prescriptions on File Prior to Visit: COMPOUNDED PRESCRIPTION Dispense one lift chair ICD: G20 HYDROcodone-acetaminophen (NORCO) 5-325 mg per tablet Take 1 tablet by mouth four times daily. memantine (NAMENDA) 5 mg tablet Take 1 tablet by mouth once daily. lidocaine (LIDODERM) 5 % Apply patch for 12 hours then remove for 12 hours. Location: lumbar spine sodium chloride 1 gram tab TAKE 1 TABLET BY MOUTH 3 TIMES A DAY gabapentin (NEURONTIN) 300 mg capsule Take 1 capsule by mouth twice daily for 180 days. fludrocortisone (FLORINEF) 0.1 mg tablet TAKE 1 TABLET EVERY DAY sertraline (ZOLOFT) 100 mg tablet Take 1 tablet by mouth once daily. Midodrine HCl (PROAMATINE) 10 mg tablet TAKE 1 TABLET BY MOUTH THREE TIMES DAILY. Cholecalciferol, Vitamin D3, (VITAMIN D-3) 2,000 unit cap Take by mouth. clopidogrel (PLAVIX) 75 mg tablet Take 1 tablet by mouth once daily. donepezil (ARICEPT) 10 mg tablet Take 1 tablet by mouth once daily. famotidine (PEPCID) 40 mg tablet Take 1 tablet by mouth once daily. atorvastatin (LIPITOR) 10 mg tablet Take 1 tablet by mouth once daily. KLOR-CON 10 10 mEq tablet Take 1 tablet by mouth twice daily. carbidopa-levodopa (SINEMET 25-100) 25-100 mg per tablet Take 1 tablet by mouth five times daily. FLAXSEED OIL ORAL Take 1,200 mg by mouth once daily. UBIDECARENONE/VITAMIN E MIXED (COQ10 SG 100 ORAL) Take 100 mg by mouth once daily. ferrous gluconate 324 mg (37.5 mg iron) tablet Take 324 mg by mouth daily with breakfast. Current Facility-Administered Medications on File Prior to Visit: onabotulinum toxin type A 100 Units injection (BOTOX) Social History Social History Marital status: Spouse name: Years of education: Number of children: Social History Main Topics Smoking status: Former Smoker Packs/day: 0.00 Years: 0.00 Types: Cigarettes Quit date: 11/1999 Smokeless tobacco: Never Used Alcohol use: No Drug use: No Sexual activity: No Review of Symptoms REVIEW OF SYSTEMS GENERAL: No weight loss, malaise or fevers RESPIRATORY: Negative for cough, hemoptysis, wheezing, COPD, dyspnea or shortness of breath CARDIOVASCULAR: Negative for chest pain, leg swelling, hypertension, CHF or palpitations GI: No nausea, vomiting, or diarrhea MUSCULOSKELETAL: See HPI SKIN: Negative for lesions, rash, and itching EXAM: BP 122/88 Pulse 80 Resp 14 General Appearance: Well appearing, alert, in no acute distress, well-hydrated, well nourished. In wheelchair and is moving head and upper extremities easily today. Skin: Skin color, texture, turgor normal, no suspicious rashes or lesions. Lungs: Lungs clear to auscultation. No wheezing, rhonchi, rales. Heart: RRR without murmur, gallop, or rubs. No ectopy. Abdomen: Normal abdominal exam, Abdomen soft, non-tender. Bowel sounds normal. No masses, organomegaly. Extremities: No deformities, edema, skin discoloration, clubbing or cyanosis. Good capillary refill. HIP: Location: left Redness: No. Warmth: No. Range of motion: WNL Tenderness over trochanteric bursa: none Pain with movement: Yes, pain on inner thigh with flexion. No pain on palpation or with internal/external rotation. Health Maintenance List DTAP,TDAP,TD(1 - Tdap) due on 1965 COLORECTAL CANCER SCREENING,SEE MODIFIER due on 1996 BONE DENSITY due on 2011 PNEUMOVAX AGE 65 AND OVER WITH 5YR LOOKBACK(1) due on 2011 MAMMOGRAM due on 05/29/2018 INFLUENZA(1) due on 07/11/2018 DIABETES SCREEN due on 03/18/2021 LIPID SCREEN due on 05/27/2022 ADULT PREVNAR-13 Completed HEPATITIS C SCREENING Completed Data reviewed Component Latest Ref Rng AND Units 03/18/2018 WBC 3.70 - 11.00 k/uL 8.01 RBC 3.90 - 5.20 m/uL 4.29 Hemoglobin 11.5 - 15.5 g/dL 12.4 Hematocrit 36.0 - 46.0 % 39.5 MCV 80.0 - 100.0 fL 92.1 MCH 26.0 - 34.0 pG 28.9 MCHC 30.5 - 36.0 g/dL 31.4 RDW-CV 11.5 - 15.0 % 13.2 Platelet Count 150 - 400 k/uL 301 MPV 9.0 - 12.7 fL 11.0 Neut% % 72.0 Abs Neut (ANC) 1.45 - 7.50 k/uL 5.77 Lymph% % 17.4 Abs Lymph 1.00 - 4.00 k/uL 1.39 Peñuelas% % 9.5 Abs [place] <0.87 k/uL 0.76 Eosin% % 0.6 Abs Eosin <0.46 k/uL 0.05 Baso% % 0.5 Abs Baso <0.11 k/uL 0.04 Nucleated Reds 0 /100 WBC 0.0 Absolute nRBC <0.01 k/uL <0.01 Diff Type Auto Diff Protein, Total 6.3 - 8.0 g/dL 7.5 Albumin 3.9 - 4.9 g/dL 4.2 Calcium 8.5 - 10.2 mg/dL 9.7 Bilirubin, Total 0.2 - 1.3 mg/dL 0.4 Alkaline Phosphatase 32 - 117 U/L 120 (H) AST 13 - 35 U/L 13 Glucose 74 - 99 mg/dL 88 BUN 7 - 21 mg/dL 21 Creatinine 0.58 - 0.96 mg/dL 0.73 Sodium 136 - 144 mmol/L 141 Potassium 3.7 - 5.1 mmol/L 4.0 Chloride 97 - 105 mmol/L 100 CO2 22 - 30 mmol/L 25 Anion Gap 9 - 18 mmol/L 16 ALT 7 - 38 U/L 7 eGFR- >60 eGFR-All Other Races . >60 WSR 0 - 20 mm/hr 18 CRP <0.9 mg/dL 0.5 ASSESSMENT/PLAN: 1. Falling - ICD9: E888.9, ICD10: R29.6 (primary diagnosis) Recurrent falls. PT when left hip pain resolves. Remain wheelchair bound. Falling less frequently since she has been in Assisted living. 2. Parkinson disease (HCC) - ICD9: 332.0, ICD10: G20 Stable. Continue current regimen. Follow up with neurology. 3. Left groin pain - ICD9: 789.09, ICD10: R10.32 Suspect muscle strain, but with severity of pain will obtain CT to completely rule out fracture. Advised ice/heat, PT as able, and continued use of norco 4. Screening mammogram, encounter for - ICD9: V76.12, ICD10: Z12.31 - Set up for mammogram, yearly mammogram recommended - Follow up for annual exam in one year. 5. Hyperlipidemia, unspecified hyperlipidemia type - ICD9: 272.4, ICD10: E78.5 - Continue current medication. - Encouraged following a low fat, low cholesterol diet. - Discussed the benefits of regular aerobic exercise and weight loss. 6. Gastroesophageal reflux disease, esophagitis presence not specified - ICD9: 530.81, ICD10: K21.9 - Continue treatment with Pepcid 40 mg QD 7. Pain of left hip joint - ICD9: 719.45, ICD10: M25.552 Suspect muscle strain, but with severity of pain will obtain CT to completely rule out fracture. Advised ice/heat, PT as able, and continued use of norco - CT HIP WO IVCON LT 8. Asymptomatic postmenopausal status - ICD9: V49.81, ICD10: Z78.0 - DXA-AXIAL SKELETON MD Jessenia Lopez MD 06/11/2018 9:53 AM Signed BONE MINERAL DENSITY PATIENT INSTRUCTIONS Bone mineral density testing measures the amount of calcium in certain parts of your bones. This information determines how strong your bones are. The test is used to detect osteoporosis, a disease in which the bone's mineral content and density are low, increasing a person's risk of fractures. The lumbar spine (lower back) and the hip are the skeletal sites usually examined. For the test, remember that: 1. You cannot take this test if you are . 2. Eat a normal diet on the day of the test. 3. Take your medications as you normally would. 4. DO NOT take calcium supplements (such as Tums) for 24 hours before the test. 5. On the day of the test, leave valuables (jewelry or credit cards) at home. 6. The test should be performed prior to oral, rectal or IV contrast studies, or at least 7 days after any of these studies. For the test, you may be asked to wear a hospital gown. You will lie on your back, on a padded table, in a comfortable position. Generally, you can resume your usual activities immediately. Referring Provider: JESSENIA GRIDER) [[id number]] Allergies As of Date: 06/11/2018 Noted Allergy Reaction PENICILLIN 05/29/2017 7 - Swelling Date Reviewed: 06/11/2018 Reviewed by: Shahab Christina Ma - Fully Assessed Reason for Visit: F/U 3 Month [443] Primary Visit Diagnosis:Falling [R29.6] Other Visit Diagnoses:Parkinson disease (HCC) [G20] Left groin pain [R10.32] Screening mammogram, encounter for [Z12.31] Hyperlipidemia, unspecified hyperlipidemia type [E78.5] Gastroesophageal reflux disease, esophagitis presence not specified [K21.9] Pain of left hip joint [M25.552] Asymptomatic postmenopausal status [Z78.0] Order(s):OMAYRA SCREENING [[id number]] Order #: [id number] FUTURE CT HIP WO IVCON LT [[id number]] Order #: [id number] FUTURE DXA-AXIAL SKELETON [[id number]] Order #: [id number] FUTURE Prescriptions as of 06/11/2018 Sig: COMPOUNDED PRESCRIPTION Dispense one lift chair ICD: * HYDROCODONE 5 MG-ACETAMINOPHE* Take 1 tablet by mouth four t* MEMANTINE 5 MG TABLET Take 1 tablet by mouth once d* LIDOCAINE 5 % TOPICAL PATCH Apply patch for 12 hours then* SODIUM CHLORIDE 1 GRAM TABLET TAKE 1 TABLET BY MOUTH 3 TIME* GABAPENTIN 300 MG CAPSULE Take 1 capsule by mouth twice* FLUDROCORTISONE 0.1 MG TABLET TAKE 1 TABLET EVERY DAY SERTRALINE 100 MG TABLET Take 1 tablet by mouth once d* MIDODRINE 10 MG TABLET TAKE 1 TABLET BY MOUTH THREE * CHOLECALCIFEROL (VITAMIN D3) * Take by mouth. CLOPIDOGREL 75 MG TABLET Take 1 tablet by mouth once d* DONEPEZIL 10 MG TABLET Take 1 tablet by mouth once d* FAMOTIDINE 40 MG TABLET Take 1 tablet by mouth once d* ATORVASTATIN 10 MG TABLET Take 1 tablet by mouth once d* KLOR-CON 10 MEQ TABLET,EXTEND* Take 1 tablet by mouth twice * CARBIDOPA 25 MG-LEVODOPA 100 * Take 1 tablet by mouth five t* FLAXSEED OIL ORAL Take 1,200 mg by mouth once d* COQ10 SG 100 ORAL Take 100 mg by mouth once vinod* FERROUS GLUCONATE 324 MG (37.* Take 324 mg by mouth daily wi* Problem List As Of Date 06/11/2018 Noted Resolved Dementia [F03.90] Parkinson disease (HCC) [G20] Hypotension [I95.9] 10/14/2017 Hyperlipidemia [E78.5] GERD (gastroesophageal reflux disease) [K21.9] TIA (transient ischemic attack) [G45.9] More... Falling [R29.6] INVALID FOR* Crouched gait [R26.89] INVALID FOR* Depression [F32.9] Postural hypotension [I95.1] INVALID FOR* Falls frequently [R29.6] INVALID FOR* Other instructions from your clinician: BONE MINERAL DENSITY PATIENT INSTRUCTIONS Bone mineral density testing measures the amount of calcium in certain parts of your bones. This information determines how strong your bones are. The test is used to detect osteoporosis, a disease in which the bone's mineral content and density are low, increasing a person's risk of fractures. The lumbar spine (lower back) and the hip are the skeletal sites usually examined. For the test, remember that: 1. You cannot take this test if you are . 2. Eat a normal diet on the day of the test. 3. Take your medications as you normally would. 4. DO NOT take calcium supplements (such as Tums) for 24 hours before the test. 5. On the day of the test, leave valuables (jewelry or credit cards) at home. 6. The test should be performed prior to oral, rectal or IV contrast studies, or at least 7 days after any of these studies. For the test, you may be asked to wear a hospital gown. You will lie on your back, on a padded table, in a comfortable position. Generally, you can resume your usual activities immediately. Disposition: Return in about 4 months (around 10/11/2018). Follow-up and Disposition History Recorded Encounter Status:Closed by JESSENIA GRIDER MD on 06/11/18 ANA LAURA Observed: 06/11/2018 Status: COMPLETED Source: [place] 12:00 AM [facility] REPOSITORY Patient Outreach (FAMPWS) SANDRA LAUGHLIN ([id number]) 1945 F Date Time Provider Department 06/11/18 KAYLEE MUSE (RN) MORAIMA During your visit today, we recorded the following information about you: Kaylee Muse RN 06/11/2018 12:07 PM Signed PRIMARY CARE COORDINATION IN OFFICE VISIT WITH PCP Patient has been identified by name and date of . PCP Assessment/Plan: Reviewed PCP plan with patient using [facility] Discussed pt now in assisted living and asking for aids to assist with care. PCC Plan of Care: Patient concerns: Pt reports continued hip pain following fall. Discussed PCP will be getting a CT of hip to assess ongoing pain since both hip x-rays were negative. 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 CLOPIDOGREL 75 MG TABLET Take 1 tablet by mouth once d* DONEPEZIL 10 MG TABLET Take 1 tablet by mouth once d* FAMOTIDINE 40 MG TABLET Take 1 tablet by mouth once d* ATORVASTATIN 10 MG TABLET Take 1 tablet by mouth once d* KLOR-CON 10 MEQ TABLET,EXTEND* Take 1 tablet by mouth twice * CARBIDOPA 25 MG-LEVODOPA 100 * Take 1 tablet by mouth five t* FLAXSEED OIL ORAL Take 1,200 mg by mouth once d* COQ10 SG 100 ORAL Take 100 mg by mouth once vinod* FERROUS GLUCONATE 324 MG (37.* Take 324 mg by mouth daily wi* Problem List As Of Date 06/11/2018 Noted Resolved Dementia [F03.90] Parkinson disease (HCC) [G20] Hypotension [I95.9] 10/14/2017 Hyperlipidemia [E78.5] GERD (gastroesophageal reflux disease) [K21.9] TIA (transient ischemic attack) [G45.9] More... Falling [R29.6] INVALID FOR* Crouched gait [R26.89] INVALID FOR* Depression [F32.9] Postural hypotension [I95.1] INVALID FOR* Falls frequently [R29.6] INVALID FOR* Encounter Status:Closed by KAYLEE MUSE on 06/11/18 CNSW Observed: 06/11/2018 Status: COMPLETED Source: [place] 12:00 AM [facility] REPOSITORY Social Work (HECTOR) SANDRA LAUGHLIN ([id number]) 1945 F Date Time Provider Department 06/11/18 ANNIE COSTELLO (SW) During your visit today, we recorded the following information about you: ROMULO Ronquillo 06/11/2018 1:04 PM Signed Anju met with patient and spouse today at . Patient and spouse noted that they have been receiving extra help with ADL's at [facility]. Spouse noted that he does not care for the food at [facility] and has offered suggestions on how to improve. Spouse discussed that patient has been utilizing call button at [facility] for assistance. Spouse has been working with patient on this as soon he will possibly have back surgery and patient will need [facility] staff to assist her when he is gone. Spouse discussed he has been doing some wood carving and selling pieces to staff at [facility]. Discussed checking with [facility] to see about utilizing their wood working room for spouse to be able to stain his pieces as they do not have any space at [facility] to be able to paint and stain wood pieces. Patient hopeful that she can figure out what is causing her hip pain. Dr. Grider is having patient do CT scan to see what is causing hip pain.Frustrated as she is not able to move around that much with the pain. Allergies As of Date: 06/11/2018 Noted Allergy Reaction PENICILLIN 05/29/2017 7 - Swelling Date Reviewed: 06/11/2018 Reviewed by: Shahab Christina Ma - Fully Assessed Prescriptions as of 06/11/2018 Sig: COMPOUNDED PRESCRIPTION Dispense one lift chair ICD: * HYDROCODONE 5 MG-ACETAMINOPHE* Take 1 tablet by mouth four t* MEMANTINE 5 MG TABLET Take 1 tablet by mouth once d* LIDOCAINE 5 % TOPICAL PATCH Apply patch for 12 hours then* SODIUM CHLORIDE 1 GRAM TABLET TAKE 1 TABLET BY MOUTH 3 TIME* GABAPENTIN 300 MG CAPSULE Take 1 capsule by mouth twice* FLUDROCORTISONE 0.1 MG TABLET TAKE 1 TABLET EVERY DAY SERTRALINE 100 MG TABLET Take 1 tablet by mouth once d* MIDODRINE 10 MG TABLET TAKE 1 TABLET BY MOUTH THREE * CHOLECALCIFEROL (VITAMIN D3) * Take by mouth. CLOPIDOGREL 75 MG TABLET Take 1 tablet by mouth once d* DONEPEZIL 10 MG TABLET Take 1 tablet by mouth once d* FAMOTIDINE 40 MG TABLET Take 1 tablet by mouth once d* ATORVASTATIN 10 MG TABLET Take 1 tablet by mouth once d* KLOR-CON 10 MEQ TABLET,EXTEND* Take 1 tablet by mouth twice * CARBIDOPA 25 MG-LEVODOPA 100 * Take 1 tablet by mouth five t* FLAXSEED OIL ORAL Take 1,200 mg by mouth once d* COQ10 SG 100 ORAL Take 100 mg by mouth once vinod* FERROUS GLUCONATE 324 MG (37.* Take 324 mg by mouth daily wi* Problem List As Of Date 06/11/2018 Noted Resolved Dementia [F03.90] Parkinson disease (HCC) [G20] Hypotension [I95.9] 10/14/2017 Hyperlipidemia [E78.5] GERD (gastroesophageal reflux disease) [K21.9] TIA (transient ischemic attack) [G45.9] More... Falling [R29.6] INVALID FOR* Crouched gait [R26.89] INVALID FOR* Depression [F32.9] Postural hypotension [I95.1] INVALID FOR* Falls frequently [R29.6] INVALID FOR* Encounter Status:Closed by ANNIE FOURNIER on 06/11/18 XR HIP 3V PELV+ Observed: 06/05/2018 Status: F Source: [place] AP/LAT LT 2:09 PM [facility] REPOSITORY * * *Final Report* * * DATE OF EXAM: Jun 05 2018 2:09PM [id number] [id number] - XR HIP 3V PELV+ AP/LAT LT / PROCEDURE REASON: Pain in left hip * * * * Physician Interpretation * * * * EXAMINATION: XR HIP 3V PELV+ AP/LAT LT CLINICAL HISTORY: FALL 1WK AGO Pain in left hip Technique: XR HIP 3V PELV+ AP/LAT LT -- LEFT hip with 3 views on 3 images Comparison: None RESULT: Left hip joint is maintained. No fracture dislocation. Osteopenia. SI joints are maintained. Pubic symphysis intact. Degenerative changes in the lower lumbar spine. Degenerative changes in the right hip. IMPRESSION: No acute osseous findings. Profiler: PSCB Transcribe Date/Time: Jun 05 2018 3:55P Dictated by : YOGESH JACKSON MD This examination was interpreted and the report reviewed and electronically signed by: YOGESH JACKSON MD on Jun 05 2018 3:57PM EST [id number] Observed: 06/05/2018 Status: COMPLETED Source: [place] 1:15 PM [facility] REPOSITORY HNO ID: [id number] Author: THERESA Dutton (Ct) Service: (none) Author Type: Clinical Drupal Php Developer Type: Progress Notes Filed: 06/05/2018 1:15 PM Note Text: Radiology Service Progress Note PATIENT NAME: Sandra Laughlin DATE OF SERVICE: June 05, 2018 TIME: 1:15 PM PATIENT IDENTITY VERIFICATION COMPLETED USING TWO (2) METHODS: Patient confirmed name verbally and Date of . PATIENT GENDER DATA: Female. status: : No status: NO. PATIENT RELEVANT IMPLANT DATA REVIEWED: Not Applicable RADIOLOGY DEPARTMENT: General X-ray: Exam(s) Completed: Pelvis X-Ray: Pelvis with Hip Left PERIPHERAL IV DATA: Not applicable SIGNED BY: THERESA Dutton June 05, 2018 1:15 PM PROGRESS Observed: 06/02/2018 Status: COMPLETED Source: [place] 11:12 AM [facility] REPOSITORY HNO ID: [id number] Author: Bonita Renteria) Podlogar Service: (none) Author Type: Nurse Practitioner Type: Progress Notes Filed: 06/03/2018 6:28 PM Note Text: 06/02/2018 Patient presents with: ED Follow-up: was seen in [facility] for a fall. still having groin pain SUBJECTIVE: This is a 73 year old, accompanied bu , that is here today for Above Complaints. Patient seen in [facility] on 05/31/2018 for fall. Per patient reports she was trying to get out of chair to get something. was in bathroom and heard a thud and when he came out found patient partially on her left side. Per ER reportpatient was complaining of increasing pain on her left side groin area and unable to bear weight. Left hip x-ray was completed which showed: mild degenerative arthrosis of the hip. No demonstration of fracture, dislocation, or destructive osseous lesion. CBC, BMP, and UA obtained which showed positive nitrates and 0-5 whites without urinary symptoms and per ER reports did not feel this represent a urinary tract infection. She was given fentyl and and zofran and was discharged with impression of left hip contusion. Today patient presents with for follow-up . Patient is wheelchair bound due to her parkinson's. She continue to complain of left groin pain. Pain described as a constant ache in the left groin ache. Aggravated with standing. Unsure if Clayhole is helping for pain as she takes this about four times daily for chronic pain. Has not tried heat,ice, or additional OTC medications. PAST MEDICAL HISTORY Diagnosis Date - Anxiety - Cataracts, bilateral s/p removal - Dementia - Depression - GERD (gastroesophageal reflux disease) - Hyperlipidemia - Hypotension seeing Dr. James - Incontinence urinary - Parkinson disease (HCC) - S/P deep brain stimulator placement Seeing Dr. Robison - TIA (transient ischemic attack) suspected ALLERGIES Penicillin MEDICATIONS Current Outpatient Prescriptions: COMPOUNDED PRESCRIPTION Dispense one lift chair ICD: G20 HYDROcodone-acetaminophen (NORCO) 5-325 mg per tablet Take 1 tablet by mouth four times daily. memantine (NAMENDA) 5 mg tablet Take 1 tablet by mouth once daily. lidocaine (LIDODERM) 5 % Apply patch for 12 hours then remove for 12 hours. Location: lumbar spine sodium chloride 1 gram tab TAKE 1 TABLET BY MOUTH 3 TIMES A DAY gabapentin (NEURONTIN) 300 mg capsule Take 1 capsule by mouth twice daily for 180 days. fludrocortisone (FLORINEF) 0.1 mg tablet TAKE 1 TABLET EVERY DAY sertraline (ZOLOFT) 100 mg tablet Take 1 tablet by mouth once daily. Midodrine HCl (PROAMATINE) 10 mg tablet TAKE 1 TABLET BY MOUTH THREE TIMES DAILY. Cholecalciferol, Vitamin D3, (VITAMIN D-3) 2,000 unit cap Take by mouth. clopidogrel (PLAVIX) 75 mg tablet Take 1 tablet by mouth once daily. donepezil (ARICEPT) 10 mg tablet Take 1 tablet by mouth once daily. famotidine (PEPCID) 40 mg tablet Take 1 tablet by mouth once daily. atorvastatin (LIPITOR) 10 mg tablet Take 1 tablet by mouth once daily. KLOR-CON 10 10 mEq tablet Take 1 tablet by mouth twice daily. carbidopa-levodopa (SINEMET 25-100) 25-100 mg per tablet Take 1 tablet by mouth five times daily. FLAXSEED OIL ORAL Take 1,200 mg by mouth once daily. UBIDECARENONE/VITAMIN E MIXED (COQ10 SG 100 ORAL) Take 100 mg by mouth once daily. ferrous gluconate 324 mg (37.5 mg iron) tablet Take 324 mg by mouth daily with breakfast. Current Facility-Administered Medications: onabotulinum toxin type A 100 Units injection (BOTOX) 100 Units INTRAMUSCULAR q 3 MONTHS Medications and allergies reviewed by this provider. SOCIAL HISTORY Social History Marital status: Spouse name: Years of education: Number of children: Social History Main Topics Smoking status: Former Smoker Packs/day: 0.00 Years: 0.00 Types: Cigarettes Quit date: 11/1999 Smokeless tobacco: Never Used Alcohol use: No Drug use: No Sexual activity: No REVIEW OF SYSTEMS GENERAL: No weight loss, malaise or fevers RESPIRATORY: Negative for cough, hemoptysis, wheezing, COPD, dyspnea or shortness of breath CARDIOVASCULAR: Negative for chest pain, leg swelling, hypertension, CHF or palpitations : de nies dysurai, ffrequency, or uregency MUSCULOSKELETAL: See HPI SKIN: Denies ecchymosis to hip All other reviewed and negative other than HPI. OBJECTIVE: BP 96/60 (BP Site: Left Arm, BP Position: Sitting, BP Cuff Size: Regular Adult) Pulse 72 Temp 36.2 ?C (97.1 ?F) (Tympanic) Resp 16 . Vital signs reviewed by this provider. APPEARANCE Well appearing, alert, in no acute distress, well-hydrated, well nourished. HEART RRR with normal S1 and S2, no murmurs, no gallops, no JVD appreciated LUNG clear to auscultation BACK: No pain to palpation. No ecchymosis observed. LEFT HIP: Exam limited due to patient unable to get on exam table due to chronic health problems. Able to extend and flex leg fully. No shortening observed. With assist of FUR CUTTER patient able to stand and pants lowered to observe over hip joint. There is no deformity, swelling, warmth, or ecchymosis to area or buttocks or groin area. TTP over greater trochanter. No TTP over groin area. Ext: no edema in LE bilaterally, good distal pulses, no deformities, or skin discoloration SKIN Skin color, texture, turgor normal, no suspicious rashes or lesions ASSESSMENT/PLAN: 1. Left hip pain - ICD9: 719.45, ICD10: M25.552 (primary diagnosis) - consider possible occult fracture vs contusion - no red flag exam findings - red flag symptoms discussed - encouraged to use heat or ice, whichever feels better for 15 minutes at a time, instructed to not sleep on heat or ice - may use tylenol, reminded she does take Clayhole and total tylenol for day should not exceed 3000 mg - XR HIP GENERAL 3V PELV/AP/LAT LT - follow-up pending x-ray and patient's pain level 2. Fall, initial encounter - ICD9: E888.9, ICD10: W19.XXXA - live in assisted living so able to get help quickly if needed - plan as above - discussed fall precautions with patient and , verbalize understanding Bonita Barrios APRN.CHASSIS DRIVER Discussed case wit Dr. Grider after patient left. Will get left hip x-ray per his recommendations look for occult fracture. Call placed to to have x-ray completed and to hold of on her PT at assisted living until films can be reviewed Prescription instructions reviewed with patient as applicable. Patient advised if symptoms do not improve or if symptoms worsen sooner, to contact their primary care physician. Potential red flag symptoms discussed with the patient. Reviewed appropriate action plan to take if red flag symptoms occur. Patient agreeable to treatment plan. RALPH Observed: 06/02/2018 Status: COMPLETED Source: [place] 11:00 AM [facility] REPOSITORY Office Visit (FAMPWS) SANDRA LAUGHLIN ([id number]) 1945 F Date Time Provider Department 06/02/18 11:00 AM [facility] During your visit today, we recorded the following information about you: Temperature Pulse Respiration Blood pressure 97.1 degrees 72/minute 16/minute 96/60 Bonita Barrios APRN.DAVIE 06/03/2018 6:28 PM Signed 06/02/2018 Patient presents with: ED Follow-up: was seen in [facility] for a fall. still having groin pain SUBJECTIVE: This is a 73 year old, accompanied bu , that is here today for Above Complaints. Patient seen in [facility] on 05/31/2018 for fall. Per patient reports she was trying to get out of chair to get something. was in bathroom and heard a thud and when he came out found patient partially on her left side. Per ER reportpatient was complaining of increasing pain on her left side groin area and unable to bear weight. Left hip x-ray was completed which showed: mild degenerative arthrosis of the hip. No demonstration of fracture, dislocation, or destructive osseous lesion. CBC, BMP, and UA obtained which showed positive nitrates and 0-5 whites without urinary symptoms and per ER reports did not feel this represent a urinary tract infection. She was given fentyl and and zofran and was discharged with impression of left hip contusion. Today patient presents with for follow-up . Patient is wheelchair bound due to her parkinson's. She continue to complain of left groin pain. Pain described as a constant ache in the left groin ache. Aggravated with standing. Unsure if Clayhole is helping for pain as she takes this about four times daily for chronic pain. Has not tried heat,ice, or additional OTC medications. PAST MEDICAL HISTORY Diagnosis Date - Anxiety - Cataracts, bilateral s/p removal - Dementia - Depression - GERD (gastroesophageal reflux disease) - Hyperlipidemia - Hypotension seeing Dr. James - Incontinence urinary - Parkinson disease (HCC) - S/P deep brain stimulator placement Seeing Dr. Robison - TIA (transient ischemic attack) suspected ALLERGIES Penicillin MEDICATIONS Current Outpatient Prescriptions: COMPOUNDED PRESCRIPTION Dispense one lift chair ICD: G20 HYDROcodone-acetaminophen (NORCO) 5-325 mg per tablet Take 1 tablet by mouth four times daily. memantine (NAMENDA) 5 mg tablet Take 1 tablet by mouth once daily. lidocaine (LIDODERM) 5 % Apply patch for 12 hours then remove for 12 hours. Location: lumbar spine sodium chloride 1 gram tab TAKE 1 TABLET BY MOUTH 3 TIMES A DAY gabapentin (NEURONTIN) 300 mg capsule Take 1 capsule by mouth twice daily for 180 days. fludrocortisone (FLORINEF) 0.1 mg tablet TAKE 1 TABLET EVERY DAY sertraline (ZOLOFT) 100 mg tablet Take 1 tablet by mouth once daily. Midodrine HCl (PROAMATINE) 10 mg tablet TAKE 1 TABLET BY MOUTH THREE TIMES DAILY. Cholecalciferol, Vitamin D3, (VITAMIN D-3) 2,000 unit cap Take by mouth. clopidogrel (PLAVIX) 75 mg tablet Take 1 tablet by mouth once daily. donepezil (ARICEPT) 10 mg tablet Take 1 tablet by mouth once daily. famotidine (PEPCID) 40 mg tablet Take 1 tablet by mouth once daily. atorvastatin (LIPITOR) 10 mg tablet Take 1 tablet by mouth once daily. KLOR-CON 10 10 mEq tablet Take 1 tablet by mouth twice daily. carbidopa-levodopa (SINEMET 25-100) 25-100 mg per tablet Take 1 tablet by mouth five times daily. FLAXSEED OIL ORAL Take 1,200 mg by mouth once daily. UBIDECARENONE/VITAMIN E MIXED (COQ10 SG 100 ORAL) Take 100 mg by mouth once daily. ferrous gluconate 324 mg (37.5 mg iron) tablet Take 324 mg by mouth daily with breakfast. Current Facility-Administered Medications: onabotulinum toxin type A 100 Units injection (BOTOX) 100 Units INTRAMUSCULAR q 3 MONTHS Medications and allergies reviewed by this provider. SOCIAL HISTORY Social History Marital status: Spouse name: Years of education: Number of children: Social History Main Topics Smoking status: Former Smoker Packs/day: 0.00 Years: 0.00 Types: Cigarettes Quit date: 11/1999 Smokeless tobacco: Never Used Alcohol use: No Drug use: No Sexual activity: No REVIEW OF SYSTEMS GENERAL: No weight loss, malaise or fevers RESPIRATORY: Negative for cough, hemoptysis, wheezing, COPD, dyspnea or shortness of breath CARDIOVASCULAR: Negative for chest pain, leg swelling, hypertension, CHF or palpitations : de nies dysurai, ffrequency, or uregency MUSCULOSKELETAL: See HPI SKIN: Denies ecchymosis to hip All other reviewed and negative other than HPI. OBJECTIVE: BP 96/60 (BP Site: Left Arm, BP Position: Sitting, BP Cuff Size: Regular Adult) Pulse 72 Temp 36.2 ?C (97.1 ?F) (Tympanic) Resp 16 . Vital signs reviewed by this provider. APPEARANCE Well appearing, alert, in no acute distress, well- hydrated, well nourished. HEART RRR with normal S1 and S2, no murmurs, no gallops, no JVD appreciated LUNG clear to auscultation BACK: No pain to palpation. No ecchymosis observed. LEFT HIP: Exam limited due to patient unable to get on exam table due to chronic health problems. Able to extend and flex leg fully. No shortening observed. With assist of FUR CUTTER patient able to stand and pants lowered to observe over hip joint. There is no deformity, swelling, warmth, or ecchymosis to area or buttocks or groin area. TTP over greater trochanter. No TTP over groin area. Ext: no edema in LE bilaterally, good distal pulses, no deformities, or skin discoloration SKIN Skin color, texture, turgor normal, no suspicious rashes or lesions ASSESSMENT/PLAN: 1. Left hip pain - ICD9: 719.45, ICD10: M25.552 (primary diagnosis) - consider possible occult fracture vs contusion - no red flag exam findings - red flag symptoms discussed - encouraged to use heat or ice, whichever feels better for 15 minutes at a time, instructed to not sleep on heat or ice - may use tylenol, reminded she does take Clayhole and total tylenol for day should not exceed 3000 mg - XR HIP GENERAL 3V PELV/AP/LAT LT - follow-up pending x-ray and patient's pain level 2. Fall, initial encounter - ICD9: E888.9, ICD10: W19.XXXA - live in assisted living so able to get help quickly if needed - plan as above - discussed fall precautions with patient and , verbalize understanding Bonita Barrios APRN.DAVIE Discussed case wit Dr. Grider after patient left. Will get left hip x-ray per his recommendations look for occult fracture. Call placed to to have x-ray completed and to hold of on her PT at assisted living until films can be reviewed Prescription instructions reviewed with patient as applicable. Patient advised if symptoms do not improve or if symptoms worsen sooner, to contact their primary care physician. Potential red flag symptoms discussed with the patient. Reviewed appropriate action plan to take if red flag symptoms occur. Patient agreeable to treatment plan. Bonita Barrios APRN.CNP 06/02/2018 11:31 AM Signed Use heat or ice- whichever feels better for 15 minutes at a time. Do not lay or sleep on heating pad or ice. Tylenol arthritis for pain every 8 hours. If pain is worsening contact office Max acetaminophen 3000 mg a day- her Clayhole has 325 mg Pred medicate before therapy about 30 minutes prior Referring Provider: SELF [200] Allergies As of Date: 06/02/2018 Noted Allergy Reaction PENICILLIN 05/29/2017 7 - Swelling Date Reviewed: 06/02/2018 Reviewed by: Ramona Díaz LPN - Fully Assessed Reason for Visit: ED Follow-up [821] Cmt: was seen in [facility] for a fall. still having groin pain Primary Visit Diagnosis:Left hip pain [M25.552] Other Visit Diagnosis:Fall, initial encounter [W19.XXXA] Order(s):XR HIP GENERAL 3V PELV/AP/LAT LT [[id number]] Order #: [id number] FUTURE Prescriptions as of 06/02/2018 Sig: COMPOUNDED PRESCRIPTION Dispense one lift chair ICD: * HYDROCODONE 5 MG-ACETAMINOPHE* Take 1 tablet by mouth four t* MEMANTINE 5 MG TABLET Take 1 tablet by mouth once d* LIDOCAINE 5 % TOPICAL PATCH Apply patch for 12 hours then* SODIUM CHLORIDE 1 GRAM TABLET TAKE 1 TABLET BY MOUTH 3 TIME* GABAPENTIN 300 MG CAPSULE Take 1 capsule by mouth twice* FLUDROCORTISONE 0.1 MG TABLET TAKE 1 TABLET EVERY DAY SERTRALINE 100 MG TABLET Take 1 tablet by mouth once d* MIDODRINE 10 MG TABLET TAKE 1 TABLET BY MOUTH THREE * CHOLECALCIFEROL (VITAMIN D3) * Take by mouth. CLOPIDOGREL 75 MG TABLET Take 1 tablet by mouth once d* DONEPEZIL 10 MG TABLET Take 1 tablet by mouth once d* FAMOTIDINE 40 MG TABLET Take 1 tablet by mouth once d* ATORVASTATIN 10 MG TABLET Take 1 tablet by mouth once d* KLOR-CON 10 MEQ TABLET,EXTEND* Take 1 tablet by mouth twice * CARBIDOPA 25 MG-LEVODOPA 100 * Take 1 tablet by mouth five t* FLAXSEED OIL ORAL Take 1,200 mg by mouth once d* COQ10 SG 100 ORAL Take 100 mg by mouth once vinod* FERROUS GLUCONATE 324 MG (37.* Take 324 mg by mouth daily wi* Problem List As Of Date 06/02/2018 Noted Resolved Dementia [F03.90] Parkinson disease (HCC) [G20] Hypotension [I95.9] 10/14/2017 Hyperlipidemia [E78.5] GERD (gastroesophageal reflux disease) [K21.9] TIA (transient ischemic attack) [G45.9] More... Falling [R29.6] INVALID FOR* Crouched gait [R26.89] INVALID FOR* Depression [F32.9] Postural hypotension [I95.1] INVALID FOR* Falls frequently [R29.6] INVALID FOR* Other instructions from your clinician: Use heat or ice- whichever feels better for 15 minutes at a time. Do not lay or sleep on heating pad or ice. Tylenol arthritis for pain every 8 hours. If pain is worsening contact office Max acetaminophen 3000 mg a day- her Clayhole has 325 mg Pred medicate before therapy about 30 minutes prior Encounter Status:Closed by ROSALBALOGARBONITA CNP on 06/03/18 EMERGENCY DEPARTMENT Observed: 06/01/2018 Status: F Source: [place] SUMMARY 1:33 AM [facility] [place] [facility] Medical Records Department [address] [place] [address] Emergency Department Summary 05/31/18 2304 MR#: [id number] Acct: [id number] Name: SANDRA LAUGHLIN Rep #: [id number] : 1945 73 From: Mariza Shea MD PCP: Moises Whelan MD Status: REG ER - ER Visit Summary Date of Service: 05/31/18 Chief Complaint: Fall, left hip pain History of Present Illness: The patient is a 73 F with history of Parkinson's disease who is in a wheelchair presents after fall. Patient cannot remember the details of the fall. Apparently, per squad, she fell and landed on her left side. There was no report of head injury. Since then, she has had increasing pain in the left side and has been able to bear weight. Patient denies any prior fracture. She does have a recent history of lumbar compression fracture, but she states the pain is only in her left groin. She denies any fevers, chills, other systemic symptoms. She has not taken anything for the pain. Physical Examination: Vital signs reviewed General: Well-nourished, well-developed Head: Normocephalic, atraumatic Eyes: Pupils equal and reactive, extraocular muscles intact Neck, supple, no lymphadenopathy Heart: Regular rate and rhythm Respiratory: No distress, clear bilaterally Abdomen: Soft, nontender, nondistended, no peritoneal signs Back: Nontender Extremities: Mild tenderness over the left greater trochanter and pain with motion. Normal pulses. Skin intact. Skin: Normal color no rash Neuro: Alert and oriented, no focal or lateralizing deficits Test Results: [] Emergency Department Course and Treatment: The patient only had mild pain over the left greater trochanter on arrival. She was given fentanyl and Zofran. Plain films were obtained which did not show evidence of acute fracture. The patient did have nitrite positive urine, but only 0-5 whites. She has had no urinary symptoms. I do not feel this represents a urinary tract infection. With negative x-ray, the patient was able to stand and bear weight. She is basically wheelchair-bound at home. She has had no further pain. I do feel that this is likely contusion. At this time, I do for the patient is safe for discharge and agrees with plan of care. Treatment Plan: [] Disposition: Discharge Impression: 1. Left hip contusion This note was generated with Rocket Reliefation software. It may contain incorrect words, spelling, and punctuation that were not noted in review of the chart prior to signing ED Disposition - Plan for ED Patient: Chief Complaint: Fall Instructions: ED Mechanical Fall Referrals: Moises Whelan MD [Primary Care Provider] - What to do if you have Problems For any increased pain, shortness of breath, bleeding, nausea or vomiting, chest pain, or any unexpected problems, contact your Primary Care Provider. Call [facility] ([phone]) or report to the closest Emergency Room. Call 911 if necessary. 06/01/18 0133 <Electronically signed by Mariza Shea MD> Date Mariza Shea MD Cosigner Signature (If Indicated): Date CC: Moises Whelan MD CBC W/DIFF, AUTOMATED Collected: 05/31/2018 Status: F Source: [place] 11:29 PM [facility] [place] TYPE CODE TESTS RESULT OUT OF RANGE REFERENCE UNITS LAB L100.1000 4.4-11.0 K/mm3 Normal WBC 10.1 LAB L100.1200 4.2-5.4 M/mm3 Normal RBC 4.45 LAB L100.1300 12.0-15.0 g/dl Normal HGB 13.3 LAB L100.1400 37-47 % Normal HCT 40.5 LAB L100.1500 81-99 fL Normal MCV 91.0 LAB L100.1600 27.0-32.0 pg Normal MCH 29.9 LAB L100.1700 32-36 g/gl Normal MCHC 32.8 LAB L100.1810 11.6-14.6 % Normal RDW CV 14.1 LAB L100.1820 35.1-43.9 fl High RDW SD 46.6 LAB L100.1900 150-450 K/mm3 Normal PLT 257 LAB L100.2000 6.2-12.0 fl Normal MPV 10.4 LAB L100.2100 47-70 % High NEUT% 71.2 LAB L100.2200 19-41 % Low LY% 17.4 LAB L100.2300 0-10 % High MONO% 10.1 LAB L100.2400 0-5 % Normal EO% 0.8 LAB L100.2500 0-1 % Normal BASO% 0.2 LAB L100.2550 0.0-0.9 % Normal IM GRAN % 0.300 Result Comment: IG% - Immature Granulocytes (promyelocytes, myelocytes and metamyelocytes) > 1% indicates that a LEFT SHIFT is Present. LAB L100.2620 2.0-7.7 X10 3/uL Normal Absolute Neut 7.2 LAB L100.2720 0.83-4.51 X10 3/ul Normal Absolute Lymph 1.76 Performed By: #### L100.0100 #### [facility] [address] [place], [address] COMPREHENSIVE METABOLIC Collected: 05/31/2018 Status: F Source: [facility] 11:29 PM [facility] [place] TYPE CODE TESTS RESULT OUT OF RANGE REFERENCE UNITS LAB L501.0100 74-106 mg/dL Normal GLU 92 Result Comment: Please note revised GLUCOSE reference range effective 2017. LAB L501.1000 7-18 mg/dL High BUN 34 LAB L501.1100 0.55-1.02 mg/dL Normal CREAT,SERUM 0.91 Result Comment: The validity of the calculated GFR AND GFRAA in patients over 70 years has not been determined. Clinical correlation is essential. LAB L501.1110 >60 mL/min Normal EST GFR 65 Result Comment: Non- GFR Calc LAB L501.1115 >60 mL/min Normal EST GFR - AA 78 Result Comment: GFR Calc LAB L501.1255 ml/min Normal Estimated CRCL 50.28 LAB L501.1300 10-20 RATIO High BUN/CRE 37.4 LAB L501.1500 6.4-8. g/dL Normal 2 T PROT 7.3 LAB L501.1800 3.2-5. g/dL Normal 0 ALB 4.0 LAB L501.1950 2.2-4. g/dL Normal 2 GLOB 3.3 LAB L501.2000 0.9-2. RATIO Normal 4 A/G 1.2 LAB L501.2200 8.5-10 mg/dL Normal .1 CA 9.9 LAB L501.4100 15-37 U/L Low AST 11 LAB L501.4305 45-117 U/L Normal ALK P 105 LAB L501.4405 13-56 U/L Low ALT 10 LAB L501.4600 0.20-1 mg/dL Normal .00 T BILI 0.30 LAB L501.5300 136-14 mmol/L Normal 5 NA 143 LAB L501.5600 3.5-5. mmol/L Normal 1 K 4.2 LAB L501.5900 98-107 mmol/L Normal CL 105 LAB L501.6100 21.0-3 mmol/L Normal 2.0 CO2 29.0 LAB L501.6200 5-15 Normal GAP 9 Performed By: #### L500.4050 #### [facility] [address] [place], [address] URINALYSIS, COMPLETE Collected: 05/31/2018 Status: F Source: [place] 11:25 PM [facility] [place] Order Comment: How was Urine Obtained? CATHETER SPECIMEN TYPE CODE TESTS RESULT OUT OF RANGE REFERENCE UNITS LAB L400.3000 Yellow COLOR Normal Yellow LAB L400.3050 Clear Normal CLARITY Clear LAB L400.3200 Normal mg/dl Normal GLUCOSE, UR NEGATIVE LAB L400.3300 Negative mg/dL Normal BILIRUBIN URINE Negative LAB L400.3400 Negative mg/dl High 5 KETONE UR LAB L400.3465 1.002-1.030 Normal SP.GR. DIPSTX 1.020 LAB L400.3550 5.0 - 8.0 pH UR Normal 5.0 LAB L400.3600 Negative mg/dl PROT Normal DIPSTX Negative LAB L400.3700 Normal mg/dl Normal UROBILI Normal LAB L400.3750 Negative High NITRITE UR Positive LAB L400.3780 Negative /ul High 50 OCCULT BLOOD-UR LAB L400.3800 Negative /ul High LEUK ESTERASE 100 LAB L400.4050 0-5 /hpf WBC Normal 0-5 SEEN LAB L400.4100 0-5 /hpf 0 Normal RBC-UA SEEN LAB L400.4150 5-10 /hpf SQUAM 0 Normal EPI SEEN LAB L400.4300 None Seen /hpf 3+ Normal BACTERIA LAB L400.4350 <or=2+ /hpf 0 Normal MUCUS, URINE SEEN Performed By: #### L400.0001 #### [facility] [address] [place], [address] HIP 2-3 VIEWS WITH Observed: 05/31/2018 Status: F Source: [place] PELVIS 11:04 PM [facility] [place] [facility] Imaging Services [address] [place] [address] Hip 2-3 Views with Pelvis MR#: [id number] Acct: [id number] Name: SANDRA LAUGHLIN Rep #: [id number] : 1945 F 73 From: Phan Woods MD PCP: Moises Whelan MD Status: REG ER Study: Hip 2-3 Views with Pelvis Date of Exam: 05/31/18 Exam# [id number] Ordering Dr: Mariza Shea MD STUDY: X-RAY - PELVIS AND LEFT HIP REASON FOR EXAM: Female, 73 years old. Status post fall. TECHNIQUE: Radiological exam, hip, unilateral, with pelvis, 3 views. COMPARISON: None. FINDINGS: There is a non-specific bowel gas pattern. There are multiple calcified phleboliths. Normal bilateral iliac wings, sacroiliac joints and visualized sacrum. Normal bilateral superior and inferior pubic rami. Normal pubic symphysis. Normal bilateral ischial tuberosities. There are osteoarthritic changes of the femoral head with marginal osteophyte formation. There is osteoarthritic spur formation of the acetabular rim. Normal hip joint. RAD/Hip 2-3 Views with Pelvis IMPRESSION: Mild degenerative arthrosis of the hip. No demonstrated fracture, dislocation, or destructive osseous lesion. Electronically Signed: Phan Woods MD at 0:34 EDT , Service support , CC: Moises Whelan MD; Mariza Shea MD Profiler: Signed PROGRESS Observed: 04/17/2018 Status: COMPLETED Source: [place] 3:47 PM [facility] REPOSITORY HNO ID: [id number] Author: Kaylee García) Almaz Service: (none) Author Type: Registered Nurse Type: Progress Notes Filed: 04/17/2018 3:49 PM Note Text: PRIMARY CARE COORDINATION FOLLOW-UP NOTE Provider Action/FYI [facility] forms completed and faxed to Assisted Living Patient identified by name and date of . YES Spoke to spouse Summary: Patient and spouse will be moving into [facility] Agronomy Manager plan for next outreach: Will follow up 2 weeks Signature Kaylee Muse RN April 17, 2018 CNPTOUTREACH Observed: 04/17/2018 Status: COMPLETED Source: [place] 12:00 AM [facility] REPOSITORY Patient Outreach ([facility]WS) SANDRA LAUGHLIN ([id number]) 1945 F Date Time Provider Department 04/17/18 KAYLEE MUSE) FAMPWS During your visit today, we recorded the following information about you: Kaylee Muse RN 04/17/2018 3:49 PM Signed PRIMARY CARE COORDINATION FOLLOW-UP NOTE Provider Action/FYI [facility] forms completed and faxed to Assisted Living Patient identified by name and date of . 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 CLOPIDOGREL 75 MG TABLET Take 1 tablet by mouth once d* DONEPEZIL 10 MG TABLET Take 1 tablet by mouth once d* FAMOTIDINE 40 MG TABLET Take 1 tablet by mouth once d* ATORVASTATIN 10 MG TABLET Take 1 tablet by mouth once d* KLOR-CON 10 MEQ TABLET,EXTEND* Take 1 tablet by mouth twice * CARBIDOPA 25 MG-LEVODOPA 100 * Take 1 tablet by mouth five t* FLAXSEED OIL ORAL Take 1,200 mg by mouth once d* COQ10 SG 100 ORAL Take 100 mg by mouth once vinod* FERROUS GLUCONATE 324 MG (37.* Take 324 mg by mouth daily wi* Problem List As Of Date 04/17/2018 Noted Resolved Dementia [F03.90] Parkinson disease (HCC) [G20] Hypotension [I95.9] 10/14/2017 Hyperlipidemia [E78.5] GERD (gastroesophageal reflux disease) [K21.9] TIA (transient ischemic attack) [G45.9] More... Falling [R29.6] INVALID FOR* Crouched gait [R26.89] INVALID FOR* Depression [F32.9] Postural hypotension [I95.1] INVALID FOR* Falls frequently [R29.6] INVALID FOR* Encounter Status:Closed by KAYLEE MUSE on 04/17/18 PROGRESS Observed: 04/16/2018 Status: COMPLETED Source: [place] 2:32 PM [facility] REPOSITORY HNO ID: [id number] Author: Annie Costello (Sw) Service: (none) Author Type: Rn Behavioral Health Type: Progress Notes Filed: 04/17/2018 8:23 AM Note Text: Anju called patient spouse to see if he has made a decision in regards to [facility]. Sw received call from Glenna Wiley and she was asking if Dr. Grider had completed paperwork sent over. Sw noted that she would check with patient to see his decision about assisted living. Sw left spouse message to return phone call to discuss. PROGRESS Observed: 04/15/2018 Status: COMPLETED Source: [place] 4:41 PM [facility] REPOSITORY HNO ID: [id number] Author: Jessenia Moreno) Cheo Service: (none) Author Type: Physician Type: Progress Notes Filed: 04/15/2018 4:43 PM Note Text: Without proper medical training and with 's complicated medical history, I would not trust one of my family members to 3 random [employer] women to care for them. I would still recommend patient seek care at nearby assisted living or custodial for 24 hour care. PROGRESS Observed: 04/15/2018 Status: COMPLETED Source: [place] 12:18 PM [facility] REPOSITORY HNO ID: [id number] Author: Kaylee (Rn) Almaz Service: (none) Author Type: Registered Nurse Type: Progress Notes Filed: 04/15/2018 3:18 PM Note Text: PRIMARY CARE COORDINATION FOLLOW-UP NOTE Provider Action/FYI CG states he wasn't aware [facility] sent paper work to complete and he isn't sure they are going to move there. They may be getting 3 [employer] women to give 24/7 in home care. Patient identified by name and date of . YES Spoke to spouse Summary: Spoke to spouse with ANJU Cano. States he put down money on a 2 bedroom apt at [facility] so he has the first right to refusal. States both he a patient are going for a functional assessment on Friday. States he is concerned about the food at [facility], that it is not gourmet enough for what he is used to. Also states he would have to sell their house if they move to [facility]. States someone gave him the name of 3 [employer] women who take shifts to provide 24/7 care in home so he and his would not have to move. States [employer] women have gone to school and are certified, however unsure which certification they hold. Discussed concern of one woman being able to take care of the house, cooking, Sandra and spouse after he has his back surgery. States that is his expectation. Discussed comparing cost of 02/06 in home care to the cost of [facility] which includes cleaning and meals. States pt now has a financial accountant and CPA in [place] to assist with their financial questions. Discussed spouses and step daughter's discussion with PCP yesterday regarding step daughter's FMLA. States they had a come to [place] meeting however PCP still said he was going to complete paperwork his way. States he and his step daughter can't understand why PCP should be so concerned about the FMLA paperwork. It should be the company she works for that is concerned, not him. Informed many companies come back to the PCP and want documentation and facts on why the family member needs the specific recommendation of the FMLA and the MD is expected to produce the documentation. So that is why he is so concerned about what he is going to write on the FMLA, spouse verbalized understanding. States PCP also refused a prescription for pt's lift chair the first time he asked. Informed PCP is concerned about patient's falls and her lack of LE strength. He was concerned with a lift chair that pt would have more falls. Spouse states pt has been using a lift chair for 7 years. Informed we weren't aware of that. PCP wrote prescription and that will save pt 20% of cost of chair and no sales tax. Discussed concern with new lift chair that it may lift pt faster than her old chair and motor. Instructed to have someone standing in front of patient for a while when she first starts using the new lift chair to make sure it isn't going to cause pt to lose balance or push forward and fall, verbalized understanding and agreement. Agronomy Manager plan for next outreach: Will follow up 6 weeks Signature Kaylee Muse RN April 15, 2018 ANA LAURA Observed: 04/15/2018 Status: COMPLETED Source: [place] 12:00 AM [facility] REPOSITORY [facility] SANDR[facility] LAUGHLIN ([id number]) 1945 F Date Time Provider Department 04/15/18 KAYLEE MUSE (RN) MORAIMA During your visit today, we recorded the following information about you: Kaylee Muse RN 04/15/2018 3:18 PM Signed PRIMARY CARE COORDINATION FOLLOW-UP NOTE Provider Action/FYI CG states he wasn't aware [facility] sent paper work to complete and he isn't sure they are going to move there. They may be getting 3 [place] women to give 24/7 in home care. Patient identified by name and date of . YES Spoke to spouse Summary: Spoke to spouse with ANJU Cano. States he put down money on a 2 bedroom apt at [facility] so he has the first right to refusal. States both he a patient are going for a functional assessment on Friday. States he is concerned about the food at [facility], that it is not gourmet enough for what he is used to. Also states he would have to sell their house if they move to [facility]. States someone gave him the name of 3 [employer] women who take shifts to provide 24/7 care in home so he and his would not have to move. [facility] Mor[employer] women have gone to school and are certified, however unsure which certification they hold. Discussed concern of one woman being able to take care of the house, cooking, Sandra and spouse after he has his back surgery. States that is his expectation. Discussed comparing cost of 24/7 in home care to the cost of [facility] which includes cleaning and meals. [facility] pt now has a financial accountant and CPA in [place] to assist with their financial questions. Discussed spouses and step daughter's discussion with PCP yesterday regarding step daughter's FMLA. States they had a come to [place] meeting however PCP still said he was going to complete paperwork his way. States he and his step daughter can't understand why PCP should be so concerned about the FMLA paperwork. It should be the company she works for that is concerned, not him. Informed many companies come back to the PCP and want documentation and facts on why the family member needs the specific recommendation of the FMLA and the MD is expected to produce the documentation. So that is why he is so concerned about what he is going to write on the FMLA, spouse verbalized understanding. States PCP also refused a prescription for pt's lift chair the first time he asked. Informed PCP is concerned about patient's falls and her lack of LE strength. He was concerned with a lift chair that pt would have more falls. Spouse states pt has been using a lift chair for 7 years. Informed we weren't aware of that. PCP wrote prescription and that will save pt 20% of cost of chair and no sales tax. Discussed concern with new lift chair that it may lift pt faster than her old chair and motor. Instructed to have someone standing in front of patient for a while when she first starts using the new lift chair to make sure it isn't going to cause pt to lose balance or push forward and fall, verbalized understanding and agreement. Agronomy Manager plan for next outreach: Will follow up 6 weeks Signature Kaylee Muse RN April 15, 2018 Jessenia Grider MD 04/15/2018 4:43 PM Signed Without proper medical training and with 's complicated medical history, I would not trust one of my family members to [address] [place] [address] to care for them. I would still recommend patient seek care at nearby assisted living or custodial for 24 hour care. ROMULO Ronquillo 04/17/2018 8:23 AM Signed Anju called patient spouse to see if he has made a decision in regards to [facility]. Sw received call from Glenna Wiley and she was asking if Dr. Grider had completed paperwork sent over. Anju noted that she would check with patient to see his decision about assisted living. Sw left spouse message to return phone call to discuss. 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 CLOPIDOGREL 75 MG TABLET Take 1 tablet by mouth once d* DONEPEZIL 10 MG TABLET Take 1 tablet by mouth once d* FAMOTIDINE 40 MG TABLET Take 1 tablet by mouth once d* ATORVASTATIN 10 MG TABLET Take 1 tablet by mouth once d* KLOR-CON 10 MEQ TABLET,EXTEND* Take 1 tablet by mouth twice * CARBIDOPA 25 MG-LEVODOPA 100 * Take 1 tablet by mouth five t* FLAXSEED OIL ORAL Take 1,200 mg by mouth once d* COQ10 SG 100 ORAL Take 100 mg by mouth once vinod* FERROUS GLUCONATE 324 MG (37.* Take 324 mg by mouth daily wi* Problem List As Of Date 04/15/2018 Noted Resolved Dementia [F03.90] Parkinson disease (HCC) [G20] Hypotension [I95.9] 10/14/2017 Hyperlipidemia [E78.5] GERD (gastroesophageal reflux disease) [K21.9] TIA (transient ischemic attack) [G45.9] More... Falling [R29.6] INVALID FOR* Crouched gait [R26.89] INVALID FOR* Depression [F32.9] Postural hypotension [I95.1] INVALID FOR* Falls frequently [R29.6] INVALID FOR* Encounter Status:Closed by KAYLEE MUSE on 04/17/18 JAGJIT Observed: 04/14/2018 Status: COMPLETED Source: [place] 12:00 AM [facility] REPOSITORY Telephone (INTMWS) SANDRA LAUGHLIN ([id number]) 1945 F Date Time Provider Department 04/14/18 JESSENIA GRIDER) INTMWS During your visit today, we recorded the following information about you: Jessica Almaraz LPN 04/14/2018 4:25 PM Signed Received Admission forms f/[place], pending physician completion. Jessenia Grider MD 04/14/2018 5:25 PM Signed Reviewed. Allow 5-7 business days for completion. Kaylee Muse RN 04/15/2018 11:38 AM Signed Noted, PCC and SW will call pt and spouse today Kaylee Muse RN April 15, 2018 11:38 AM Allergies As of Date: 04/14/2018 Noted Allergy Reaction PENICILLIN 05/29/2017 7 - Swelling Date Reviewed: 04/07/2018 Reviewed by: [place] (Rn) YUE Heard - Fully Assessed Reason for Visit: Forms [913] Prescriptions as of 04/14/2018 Sig: COMPOUNDED PRESCRIPTION Dispense one lift chair ICD: * HYDROCODONE 5 MG-ACETAMINOPHE* Take 1 tablet by mouth four t* MEMANTINE 5 MG TABLET Take 1 tablet by mouth once d* LIDOCAINE 5 % TOPICAL PATCH Apply patch for 12 hours then* SODIUM CHLORIDE 1 GRAM TABLET TAKE 1 TABLET BY MOUTH 3 TIME* GABAPENTIN 300 MG CAPSULE Take 1 capsule by mouth twice* FLUDROCORTISONE 0.1 MG TABLET TAKE 1 TABLET EVERY DAY SERTRALINE 100 MG TABLET Take 1 tablet by mouth once d* MIDODRINE 10 MG TABLET TAKE 1 TABLET BY MOUTH THREE * CHOLECALCIFEROL (VITAMIN D3) * Take by mouth. CLOPIDOGREL 75 MG TABLET Take 1 tablet by mouth once d* DONEPEZIL 10 MG TABLET Take 1 tablet by mouth once d* FAMOTIDINE 40 MG TABLET Take 1 tablet by mouth once d* ATORVASTATIN 10 MG TABLET Take 1 tablet by mouth once d* KLOR-CON 10 MEQ TABLET,EXTEND* Take 1 tablet by mouth twice * CARBIDOPA 25 MG-LEVODOPA 100 * Take 1 tablet by mouth five t* FLAXSEED OIL ORAL Take 1,200 mg by mouth once d* COQ10 SG 100 ORAL Take 100 mg by mouth once vinod* FERROUS GLUCONATE 324 MG (37.* Take 324 mg by mouth daily wi* Problem List As Of Date 04/14/2018 Noted Resolved Dementia [F03.90] Parkinson disease (HCC) [G20] Hypotension [I95.9] 10/14/2017 Hyperlipidemia [E78.5] GERD (gastroesophageal reflux disease) [K21.9] TIA (transient ischemic attack) [G45.9] More... Falling [R29.6] INVALID FOR* Crouched gait [R26.89] INVALID FOR* Depression [F32.9] Postural hypotension [I95.1] INVALID FOR* Falls frequently [R29.6] INVALID FOR* Encounter Status:Closed by KAYLEE MUSE on 04/15/18 EMERGENCY DEPARTMENT Observed: 04/12/2018 Status: F Source: [place] SUMMARY 4:34 PM [facility] [place] Medical Records Department [address] [place] [address] Emergency Department Summary 04/12/18 1253 MR#: [id number] Acct: [id number] Name: SANDRA LAUGHLIN Rep #: [id number] : 1945 73 From: Brian Burton MD PCP: Moises Whelan MD Status: DEP ER - ER Visit Summary Date of Service: 04/12/18 Chief Complaint: Fall History of Present Illness: The patient is a [address] Grider. Patient fell approximately 1030 this morning. She is typically wheelchair bound. had left and she was in the kitchen. When he returned he found that she did try to get out of her wheelchair and falling. No loss of consciousness. She is on Plavix, but no blood thinners. She denies any neck, back, shoulder, wrist, or hip pain. She reports that she has moderate pain to her left middle finger. Physical Examination: Vitals: Stable. Afebrile. Head: Abrasions to the right side of the forehead and to the hairline on the right. Neck: No vertebral tenderness. Full ROM without difficulty. Cleared by NEXUS criteria. Back: No vertebral tenderness. General: A AND O x 3. NAD. Cardiovascular exam: Regular rate and rhythm, no murmur, rub or gallop. Respiratory exam: Chest nontender. No crepitus. Clear to auscultation bilaterally. No wheezes or stridor. Abdominal exam: Soft, nontender, nondistended, normal bowel sounds. No pain in RUQ or LUQ specifically. No peritoneal signs. Extremity: Contusion to the back of the PIP joint left middle finger. Decreased range of motion secondary to pain. Neurovascular intact distally. Test Results: CT head shows chronic changes. Left third finger x-ray shows no fracture. Emergency Department Course and Treatment: Patient was treated with Clayhole, Sinemet, and Midrin. She is resting comfortably. Treatment Plan: Patient be discharged instructions to follow- up with Dr. Grider in 1 week if not improving. Return to the emergency department for any worsening symptoms. Disposition: To home in improved and stable condition. Impression: 1. Mechanical fall. 2. Abrasions to forehead. 3. Contusion left middle finger. This note was generated with Rocket Relief[employer] software. It may contain incorrect words, spelling, and punctuation that were not noted in review of the chart prior to signing ED Disposition - Plan for ED Patient: Disposition: Home or Assisted Living Chief Complaint: Fall Instructions: ED Contusion Finger, ED Head Injury Closed Referrals: Moises Whelan MD [Primary Care Provider] - 1 Week if not improving What to do if you have Problems For any increased pain, shortness of breath, bleeding, nausea or vomiting, chest pain, or any unexpected problems, contact your Primary Care Provider. Call [facility] ([phone]) or report to the closest Emergency Room. Call 911 if necessary. 04/12/18 1634 <Electronically signed by Brian Burton MD> Date Brian Burton MD Cosigner Signature (If Indicated): Date CC: Moises Whelan MD FINGER(S) MIN 2 VIEWS Observed: 04/12/2018 Status: F Source: [place] 11:45 AM [facility] [place] Imaging Services [address] [place], [place] [address] [address] Finger(s) Min 2 Views MR#: [id number] Acct: [id number] Name: SANDRA LAUGHLIN Rep #: [id number] : 1945 F 73 From: Jose Gonsalves MD PCP: OUT OF TOWN DOCTOR Status: PRE ER Study: Finger(s) Min 2 Views Date of Exam: 04/12/18 Exam# [id number] Ordering Dr: Brian Burton MD STUDY: X-RAY - LEFT HAND, ATTENTION THIRD FINGER REASON FOR EXAM: Female, 73 years old. Fall, pain. TECHNIQUE: 3 view(s) of the finger were obtained. COMPARISON: None. FINDINGS: Normal metacarpal head. Normal metacarpophalangeal joint. Normal proximal phalanx. Normal middle phalanx. Normal distal phalanx. Normal proximal interphalangeal joint. Normal distal interphalangeal joint. Mild soft tissue swelling at the level of the head of the proximal phalanx. There is no demonstrated fracture. RAD/Finger(s) Min 2 Views IMPRESSION: No acute fracture of the left third finger. Electronically Signed: Gloria Gonsalves MD at 12:32 EDT , Service support , CC: OUT OF TOWN DOCTOR; Brian Burton MD Profiler: Signed BRAIN/HEAD WITHOUT Observed: 04/12/2018 Status: F Source: [place] CONTRAST 11:45 AM [facility] Imaging Services [address] [place] [address] Brain/Head without Contrast MR#: [id number] Acct: [id number] Name: SANDRA LAUGHLIN Rep #: [id number] : 1945 F 73 From: Jose Gonsalves MD PCP: Moises Whelan MD Status: REG ER Study: Brain/Head without Contrast Date of Exam: 04/12/18 Exam# [id number] Ordering Dr: Brian Burton MD STUDY: CT BRAIN WITHOUT CONTRAST REASON FOR EXAM: Female, 73 years old. Fall. History of Parkinson's disease. RADIATION DOSAGE (If Supplied By Facility): CTDIvol = ( 44.99 ) mGy, DLP = ( 745.49 ) mGycm TECHNIQUE: Transaxial CT imaging of the brain was performed without administration of intravenous contrast material. Individualized dose optimization techniques were used for this CT. COMPARISON: None. FINDINGS: There is hyperostosis frontalis internus. Stimulator leads pass through bifrontal jones holes and through the periventricular tissues to the bilateral thalami. Lead wires connected to the stimulator is passed through the frontoparietal to occipital scalp and down the posterior aspect of the visualized upper neck. There is mild cerebral atrophy with widening of the extra- axial spaces and ventricular dilatation. There is mildly asymmetric left temporoparietal atrophy and enlargement of the left sylvian fissure compared to the right. On the other hand, the posterior and temporal horns of the right lateral ventricle is mildly larger than the left. Normal white matter tracts of the cerebral hemispheres. Normal basal ganglia and thalami. Focal low density in the mid jelani of the left of midline on series 2 image 12, series 6 on image 51 may be artifact versus focal old lacunar infarct. Normal cerebellum. There is no intracranial hemorrhage. There are no findings of an acute ischemic infarction. The right posterior ethmoid sinus is opacified. CT/Brain/Head without Contrast IMPRESSION: 1. Stimulator leads passing through bifrontal jones holes to the bilateral thalami are noted. 2. Chronic involutional changes of the brain. No acute intracranial pathology/injury. 3. Opacified right posterior ethmoid sinus. Electronically Signed: Gloria Gonsalves MD at 12:41 EDT , Service support , CC: Moises Whelan MD; Brian Burton MD Profiler: Signed CNOV Observed: 04/07/2018 Status: COMPLETED Source: [place] 2:30 PM [facility] REPOSITORY Office Visit (CAWSTR) SANDRA LAUGHLIN ([id number]) 1945 F Date Time Provider Department 04/07/18 2:30 PM OWEN JAMES During your visit today, we recorded the following information about you: Pulse Blood pressure Weight 100/minute 162/92 57 kg Owen James MD 04/07/2018 5:33 PM Signed PERTINENT CARDIAC HISTORY TIA - on Plavix Parkinsons - DBS Hypotension - postural HL ADHERENCE TO GUIDELINES JOSE ALEJANDRO-I or ARB for HF with prior LVEF<40 (NQF 0081) - N/A ASA or Plavix for ASHD (NQF 0067) - N/A Beta david for ASHD with prior KS or prior LVEF<40 (NQF 0070) - N/A Beta david for HF with prior LVEF<40 (NQF 0083) - N/A JOSE ALEJANDRO-I or ARB for ASHD with DM or prior LVEF<40 (NQF 0066) - N/A Statin therapy for ASHD or FHL or DM - met BMI documented and plan if >25 (NQF 0421) - lifestyle recommendation form Tobacco use screening and referral (NQF 0028) - lifestyle recommendation form Recommendation for whole food, plant based diet - lifestyle recommendation form CLINICAL IMPRESSION/PLAN: Sandra Laughlin may be overmedicated now with respect to her postural hypotension. While she is in pain, her blood pressure will tend to be higher. I've asked her to have blood pressures checked supine and sitting over the next few days. Likely we will decrease her midodrine. She's been advised to wear support stockings, which she did not have on today. I've encouraged her to continue her other medication, including Florinef and Lipitor. Plavix will be maintained for her history of TIAs. I will see her in 6 months or as needed. Written and verbal health teaching given to patient, patient verbalizes understanding and agrees with treatment plan. DIAGNOSIS FOR VISIT: Postural hypotension HISTORY OF PRESENT ILLNESS Sandra Laughlin returns for follow-up of her postural hypotension. She has fallen several times and has fractured her lumbar spine. She's being evaluated with pain management. She may require surgery. She denies chest discomfort. She is unaware of her heart rhythm. If she's had no orthopnea or edema. She denies syncope, TIAs, amaurosis and claudication. Blood pressures have been generally higher since she has been in pain. ALLERGIES: ALLERGIES Allergen Reactions - Penicillin Swelling CURRENT OUTPATIENT MEDICATIONS: HYDROcodone-acetaminophen (NORCO) 5-325 mg per tablet Take 1 tablet by mouth four times daily. memantine (NAMENDA) 5 mg tablet Take 1 tablet by mouth once daily. lidocaine (LIDODERM) 5 % Apply patch for 12 hours then remove for 12 hours. Location: lumbar spine sodium chloride 1 gram tab TAKE 1 TABLET BY MOUTH 3 TIMES A DAY gabapentin (NEURONTIN) 300 mg capsule Take 1 capsule by mouth twice daily for 180 days. fludrocortisone (FLORINEF) 0.1 mg tablet TAKE 1 TABLET EVERY DAY sertraline (ZOLOFT) 100 mg tablet Take 1 tablet by mouth once daily. Midodrine HCl (PROAMATINE) 10 mg tablet TAKE 1 TABLET BY MOUTH THREE TIMES DAILY. Cholecalciferol, Vitamin D3, (VITAMIN D-3) 2,000 unit cap Take by mouth. clopidogrel (PLAVIX) 75 mg tablet Take 1 tablet by mouth once daily. donepezil (ARICEPT) 10 mg tablet Take 1 tablet by mouth once daily. famotidine (PEPCID) 40 mg tablet Take 1 tablet by mouth once daily. atorvastatin (LIPITOR) 10 mg tablet Take 1 tablet by mouth once daily. KLOR-CON 10 10 mEq tablet Take 1 tablet by mouth twice daily. carbidopa-levodopa (SINEMET 25-100) 25-100 mg per tablet Take 1 tablet by mouth five times daily. FLAXSEED OIL ORAL Take 1,200 mg by mouth once daily. UBIDECARENONE/VITAMIN E MIXED (COQ10 SG 100 ORAL) Take 100 mg by mouth once daily. ferrous gluconate 324 mg (37.5 mg iron) tablet Take 324 mg by mouth daily with breakfast. PHYSICAL EXAMINATION: VITAL SIGNS: BP 162/92 Pulse 100 Wt 125 lb 9.6 oz (57.0kg) Chest: Clear to percussion and auscultation. Trachea is midline. Air entry is equal. Cardiac: Regular rhythm. S1 and S2 are normal. PMI is nondisplaced. There is a soft systolic ejection. Carotids are brisk without bruits. JVP is less than 10 cm. Abdomen: Soft and nontender. There are no pulsatile masses or bruits. No liver enlargement. Bowel sounds are active. Extremities: No edema. Pulses are intact and symmetrical. Recent EKG shows sinus rhythm and is within limits. Laboratory studies were reviewed. Renal function is normal. TSH was normal. Electronically Signed: Owen James MD April 07, 2018 1:50 PM CC: Jessenia Grider MD Referring Provider: OWNE JAMES [[id number]] Allergies As of Date: 04/07/2018 Noted Allergy Reaction PENICILLIN 05/29/2017 7 - Swelling Date Reviewed: 04/07/2018 Reviewed by: Georgia (Rn) YUE Heard - Fully Assessed Reason for Visit: Established Patient [175] Primary Visit Diagnosis:Hypotension, postural [I95.1] Prescriptions as of 04/07/2018 Sig: HYDROCODONE 5 MG-ACETAMINOPHE* Take 1 tablet by mouth four t* MEMANTINE 5 MG TABLET Take 1 tablet by mouth once d* LIDOCAINE 5 % TOPICAL PATCH Apply patch for 12 hours then* SODIUM CHLORIDE 1 GRAM TABLET TAKE 1 TABLET BY MOUTH 3 TIME* GABAPENTIN 300 MG CAPSULE Take 1 capsule by mouth twice* FLUDROCORTISONE 0.1 MG TABLET TAKE 1 TABLET EVERY DAY SERTRALINE 100 MG TABLET Take 1 tablet by mouth once d* MIDODRINE 10 MG TABLET TAKE 1 TABLET BY MOUTH THREE * CHOLECALCIFEROL (VITAMIN D3) * Take by mouth. CLOPIDOGREL 75 MG TABLET Take 1 tablet by mouth once d* DONEPEZIL 10 MG TABLET Take 1 tablet by mouth once d* FAMOTIDINE 40 MG TABLET Take 1 tablet by mouth once d* ATORVASTATIN 10 MG TABLET Take 1 tablet by mouth once d* KLOR-CON 10 MEQ TABLET,EXTEND* Take 1 tablet by mouth twice * CARBIDOPA 25 MG-LEVODOPA 100 * Take 1 tablet by mouth five t* FLAXSEED OIL ORAL Take 1,200 mg by mouth once d* COQ10 SG 100 ORAL Take 100 mg by mouth once vinod* FERROUS GLUCONATE 324 MG (37.* Take 324 mg by mouth daily wi* Problem List As Of Date 04/07/2018 Noted Resolved Dementia [F03.90] Parkinson disease (HCC) [G20] Hypotension [I95.9] 10/14/2017 Hyperlipidemia [E78.5] GERD (gastroesophageal reflux disease) [K21.9] TIA (transient ischemic attack) [G45.9] More... Falling [R29.6] INVALID FOR* Crouched gait [R26.89] INVALID FOR* Depression [F32.9] Postural hypotension [I95.1] INVALID FOR* Falls frequently [R29.6] INVALID FOR* LOS history recorded Follow-up and Disposition History Recorded Encounter Status:Closed by OWEN JAMES MD on 04/07/18 PROGRESS Observed: 04/07/2018 Status: COMPLETED Source: [place] 1:50 PM [facility] REPOSITORY O ID: [id number] Author: Owen James Service: (none) Author Type: Physician Type: Progress Notes Filed: 04/07/2018 5:33 PM Note Text: PERTINENT CARDIAC HISTORY TIA - on Plavix Parkinsons - DBS Hypotension - postural HL ADHERENCE TO GUIDELINES JOSE ALEJANDRO-I or ARB for HF with prior LVEF<40 (NQF 0081) - N/A ASA or Plavix for ASHD (NQF 0067) - N/A Beta david for ASHD with prior KS or prior LVEF<40 (NQF 0070) - N/A Beta david for HF with prior LVEF<40 (NQF 0083) - N/A JOSE ALEJANDRO-I or ARB for ASHD with DM or prior LVEF<40 (NQF 0066) - N/A Statin therapy for ASHD or FHL or DM - met BMI documented and plan if >25 (NQF 0421) - lifestyle recommendation form Tobacco use screening and referral (NQF 0028) - lifestyle recommendation form Recommendation for whole food, plant based diet - lifestyle recommendation form CLINICAL IMPRESSION/PLAN: Sandra Laughlin may be overmedicated now with respect to her postural hypotension. While she is in pain, her blood pressure will tend to be higher. I've asked her to have blood pressures checked supine and sitting over the next few days. Likely we will decrease her midodrine. She's been advised to wear support stockings, which she did not have on today. I've encouraged her to continue her other medication, including Florinef and Lipitor. Plavix will be maintained for her history of TIAs. I will see her in 6 months or as needed. Written and verbal health teaching given to patient, patient verbalizes understanding and agrees with treatment plan. DIAGNOSIS FOR VISIT: Postural hypotension HISTORY OF PRESENT ILLNESS Sandra Laughlin returns for follow-up of her postural hypotension. She has fallen several times and has fractured her lumbar spine. She's being evaluated with pain management. She may require surgery. She denies chest discomfort. She is unaware of her heart rhythm. If she's had no orthopnea or edema. She denies syncope, TIAs, amaurosis and claudication. Blood pressures have been generally higher since she has been in pain. ALLERGIES: ALLERGIES Allergen Reactions - Penicillin Swelling CURRENT OUTPATIENT MEDICATIONS: HYDROcodone-acetaminophen (NORCO) 5-325 mg per tablet Take 1 tablet by mouth four times daily. memantine (NAMENDA) 5 mg tablet Take 1 tablet by mouth once daily. lidocaine (LIDODERM) 5 % Apply patch for 12 hours then remove for 12 hours. Location: lumbar spine sodium chloride 1 gram tab TAKE 1 TABLET BY MOUTH 3 TIMES A DAY gabapentin (NEURONTIN) 300 mg capsule Take 1 capsule by mouth twice daily for 180 days. fludrocortisone (FLORINEF) 0.1 mg tablet TAKE 1 TABLET EVERY DAY sertraline (ZOLOFT) 100 mg tablet Take 1 tablet by mouth once daily. Midodrine HCl (PROAMATINE) 10 mg tablet TAKE 1 TABLET BY MOUTH THREE TIMES DAILY. Cholecalciferol, Vitamin D3, (VITAMIN D-3) 2,000 unit cap Take by mouth. clopidogrel (PLAVIX) 75 mg tablet Take 1 tablet by mouth once daily. donepezil (ARICEPT) 10 mg tablet Take 1 tablet by mouth once daily. famotidine (PEPCID) 40 mg tablet Take 1 tablet by mouth once daily. atorvastatin (LIPITOR) 10 mg tablet Take 1 tablet by mouth once daily. KLOR-CON 10 10 mEq tablet Take 1 tablet by mouth twice daily. carbidopa-levodopa (SINEMET 25-100) 25-100 mg per tablet Take 1 tablet by mouth five times daily. FLAXSEED OIL ORAL Take 1,200 mg by mouth once daily. UBIDECARENONE/VITAMIN E MIXED (COQ10 SG 100 ORAL) Take 100 mg by mouth once daily. ferrous gluconate 324 mg (37.5 mg iron) tablet Take 324 mg by mouth daily with breakfast. PHYSICAL EXAMINATION: VITAL SIGNS: BP 162/92 Pulse 100 Wt 125 lb 9.6 oz (57.0kg) Chest: Clear to percussion and auscultation. Trachea is midline. Air entry is equal. Cardiac: Regular rhythm. S1 and S2 are normal. PMI is nondisplaced. There is a soft systolic ejection. Carotids are brisk without bruits. JVP is less than 10 cm. Abdomen: Soft and nontender. There are no pulsatile masses or bruits. No liver enlargement. Bowel sounds are active. Extremities: No edema. Pulses are intact and symmetrical. Recent EKG shows sinus rhythm and is within limits. Laboratory studies were reviewed. Renal function is normal. TSH was normal. Electronically Signed: Owen James MD April 07, 2018 1:50 PM CC: Jessenia Grider MD PROGRESS Observed: 03/27/2018 Status: COMPLETED Source: [place] 1:44 PM [facility] REPOSITORY HNO ID: [id number] Author: Shanya Robison Service: (none) Author Type: Physician Type: Progress Notes Filed: 03/30/2018 8:13 AM Note Text: Neurology Follow-up Visit ASSESSMENT: 73 year old female with PD since 1984, bilateral STN DBS placed around 2011 at [facility] here for follow-up and Botox for cervical dystonia. Falling frequently and seems in February suffered compression fracture. Also chronic lbp and sees Dr. Lorenzo for this. Prescribed TENS unit but not obtained it yet. Touched base with [employer] sales representative and TENS units are safe with DBS as long as stimulation is not over the DBS hardware. She would be using TENS at low back so should be ok. Advised if there is any concern the TENS seems to be affecting the DBS to stop using it. ? Botox today for anterocollis which was being treated with Botox prior to moving to [place]. Last injection was about 1 year ago. Did not receive records from prior injections so using clinical judgement. Advised starting low dose to avoid side effects so will need to adjust most likely. ?? Continue current Sinemet regimen. More confusion lately, sundowning. No hallucinations or paranoia. Already on Aricept. Will add Namenda 5 mg daily. ? ? ? PLAN: --->?Sinemet 25/100 1 tab 5x/day at 9a, noon, 3p, 6p, bedtime ---> add Namenda 5 mg daily. Continue Aricept. ? ---> Botox today ? ? ---> Follow-up: 3 months for Botox and will have Kaylee Poe see her for DBS same day Last Visit: 12/10/2017 Interval Hx: Fell at home. Compression fracture 02/15, hospitalized for 3 days. Bout of weekly falls on average. Has no strength. Balance is bad. Sees Dr. Lorenzo for low back pain. Had facet injections then ablation. Pain is worse now than before. He will prescribe a TENS unit. Not sure if ok with DBS. May have vertebroplasty since nothing else is working. Memory not good. . Every night. On [place] but was bad before that. Worst at night but not good during the day. Confused. gets her ready for bed, she tries to take bed clothes back off to get ready for bed herself. No hallucinations. No paranoia. doesn't leave her alone, mainly due to the falls rather than confusion. Bowel incontinence once weekly. Can tell she needs to go but sometimes happens too fast. Current PD meds: Sinemet 25/100 1 tab 5x/day at 9a, noon, 3p, 6p, bedtime PMH: PAST MEDICAL HISTORY Diagnosis Date - Anxiety - Cataracts, bilateral s/p removal - Dementia - Depression - GERD (gastroesophageal reflux disease) - Hyperlipidemia - Hypotension seeing Dr. James - Incontinence urinary - Parkinson disease (HCC) - S/P deep brain stimulator placement Seeing Dr. Robison - TIA (transient ischemic attack) suspected New Health Issues: No SOC: Social History Marital status: Spouse name: Years of education: Number of children: Social History Main Topics Smoking status: Former Smoker Packs/day: 0.00 Years: 0.00 Types: Cigarettes Quit date: 11/1999 Smokeless tobacco: Never Used Alcohol use: No Drug use: No Sexual activity: No FMH: FAMILY HISTORY Problem Relation Age of Onset - Cancer Mother - Breast Cancer Sister - Cancer Father skin MEDS: Current Outpatient Prescriptions: HYDROcodone-acetaminophen (NORCO) 5-325 mg per tablet Take 1 tablet by mouth every 6 hours as needed. lidocaine (LIDODERM) 5 % Apply patch for 12 hours then remove for 12 hours. Location: lumbar spine sodium chloride 1 gram tab TAKE 1 TABLET BY MOUTH 3 TIMES A DAY gabapentin (NEURONTIN) 300 mg capsule Take 1 capsule by mouth twice daily for 180 days. fludrocortisone (FLORINEF) 0.1 mg tablet TAKE 1 TABLET EVERY DAY sertraline (ZOLOFT) 100 mg tablet Take 1 tablet by mouth once daily. Midodrine HCl (PROAMATINE) 10 mg tablet TAKE 1 TABLET BY MOUTH THREE TIMES DAILY. Cholecalciferol, Vitamin D3, (VITAMIN D-3) 2,000 unit cap Take by mouth. clopidogrel (PLAVIX) 75 mg tablet Take 1 tablet by mouth once daily. donepezil (ARICEPT) 10 mg tablet Take 1 tablet by mouth once daily. famotidine (PEPCID) 40 mg tablet Take 1 tablet by mouth once daily. atorvastatin (LIPITOR) 10 mg tablet Take 1 tablet by mouth once daily. KLOR-CON 10 10 mEq tablet Take 1 tablet by mouth twice daily. carbidopa-levodopa (SINEMET 25-100) 25-100 mg per tablet Take 1 tablet by mouth five times daily. FLAXSEED OIL ORAL Take 1,200 mg by mouth once daily. UBIDECARENONE/VITAMIN E MIXED (COQ10 SG 100 ORAL) Take 100 mg by mouth once daily. ferrous gluconate 324 mg (37.5 mg iron) tablet Take 324 mg by mouth daily with breakfast. No current facility-administered medications for this visit. REVIEW OF SYSTEMS: Review of system : unchanged from the previous visit or as per HPI (sleep patterns, mood, energy, appetite, stress, exercising). Physical Examination: BP 109/73 (BP Site: Left Arm, BP Position: Sitting, BP Cuff Size: Regular Adult) Pulse 96 SpO2 90% GEN: Alert. NAD. Cooperative. HEENT: No rhinorrhea, lacrimation or conjunctival injection. Normal mucosa. NECK/BACK: Supple EXT: No cyanosis. No edema. No erythema. NEUROLOGICAL: MENTAL STATUS: Alert. Attentive. Majority of history from . Follows commands appropriately. Speech fluent. CN: II: Pupils equal III, IV, : EOMI. No ptosis present. VII: Face symmetric. MOTOR: Anterocollis. Mild hypertrophy of SCMs bilaterally. CEREBELLAR: No ataxia or nystagmus. [facility] Neurotoxin Visit Date: March 27, 2018 Name: Sandra Laughlin Historical/ Initial Dose Diagnosis: Cervical dystonia (G24.3) Date of Diagnosis:unknown, treated with Botox by prior neurologist Date of 1st Treatment: unknown Type of Neurotoxin: Botox: J0585 Total amount injected: ? units What other treatments have been tried and failed: Medications for PD Estimated Duration of treatment: Will reassess after 1year Frequency of treatment: 90days Last Injection Notes Date of last Injection:about 1 year ago, outside neurologist Type of Neurotoxin: Botox: J0585 Total amount injected: unknown Assessment Special features: severe anterocollis Functional limitations (current): 3(severe) Pain (current): Yes (location)low back Time Out: INFORMED CONSENT Sandra Laughlin Medical Record: [id number] Procedure: Botulinum toxin injection The risks, benefits and anticipated outcomes of the procedure, the risks and benefits of the alternatives to the procedure and the roles and tasks of the personnel to be involved were discussed with the patient and the patient consents to the procedure and agrees to proceed. I verify that I personally obtained Sandra Laughlin's consent. Shayna Robison MD March 27, 2018 8:02 AM Dept of NEUROLOGY UNIVERSAL PROTOCOL / SAFETY CHECKLIST Sign in Communication: Completed Time Out: Team Confirms the Correct Patient, Correct Procedure, Correct Site and Site Marking, Correct Position (if applicable), Prep and Dry Time (if applicable). Time: 1410 Affirmation of Time Out: YES Sign Out Discussion: Completed Shayna Robison MD Current Injection Note Type of Neurotoxin: Botox: J0585 Total Amount drawn up: 100 units Total amount injected: 50 units Total amount wasted: 50 units Dilution: NS 1:1 Administered with EMG guidance: Yes Injection Site: Cervical dystonia: CPT 57382 DBS turned off for procedure as caused buzzing sound on EMG. Turned back on after procedure completed. Right Left Sternocleidomastoid 25 25 Splenius capitus Scalene Levator Scapulae Trapezius Semispinalis (Other) Lot#: [id number] Exp Date09/2020 Future plan of care: Follow up: 3 months Neurotoxin Change: No Dose Change: No Shayna Robison M.D. [facility] [place] Department of [facility] Total time in minutes spent with patient: 25 exclusive of procedure time with more than 50% of the time spent in patient education/counselling/coordinating care with the patient and /or family. cc: SELF Jessenia Grider MD [address] [place] [address] CNOV Observed: 03/27/2018 Status: COMPLETED Source: [place] 1:20 PM [facility] REPOSITORY Office Visit (NEURMM) SANDRA LAUGHLIN ([id number]) 1945 F Date Time Provider Department 03/27/18 1:20 PM SHAYNA ROBISON During your visit today, we recorded the following information about you: Pulse Blood pressure 96/minute 109/73 Shayna Robison MD 03/30/2018 8:13 AM Signed Neurology Follow-up Visit ASSESSMENT: 73 year old female with PD since 1984, bilateral STN DBS placed around 2011 at [facility] here for follow-up and Botox for cervical dystonia. Falling frequently and seems in February suffered compression fracture. Also chronic lbp and sees Dr. Lorenzo for this. Prescribed TENS unit but not obtained it yet. Touched base with [employer] sales representative and TENS units are safe with DBS as long as stimulation is not over the DBS hardware. She would be using TENS at low back so should be ok. Advised if there is any concern the TENS seems to be affecting the DBS to stop using it. ? Botox today for anterocollis which was being treated with Botox prior to moving to [place]. Last injection was about 1 year ago. Did not receive records from prior injections so using clinical judgement. Advised starting low dose to avoid side effects so will need to adjust most likely. ?? Continue current Sinemet regimen. More confusion lately, . No hallucinations or paranoia. Already on Aricept. Will add Namenda 5 mg daily. ? ? ? PLAN: --->?Sinemet 25/100 1 tab 5x/day at 9a, noon, 3p, 6p, bedtime ---> add Namenda 5 mg daily. Continue Aricept. ? ---> Botox today ? ? ---> Follow-up: 3 months for Botox and will have Kaylee Poe see her for DBS same day Last Visit: 12/10/2017 Interval Hx: Fell at home. Compression fracture 02/15, hospitalized for 3 days. Bout of weekly falls on average. Has no strength. Balance is bad. Sees Dr. Lorenzo for low back pain. Had facet injections then ablation. Pain is worse now than before. He will prescribe a TENS unit. Not sure if ok with DBS. May have vertebroplasty since nothing else is working. Memory not good. . Every night. On [place] but was bad before that. Worst at night but not good during the day. Confused. gets her ready for bed, she tries to take bed clothes back off to get ready for bed herself. No hallucinations. No paranoia. doesn't leave her alone, mainly due to the falls rather than confusion. Bowel incontinence once weekly. Can tell she needs to go but sometimes happens too fast. Current PD meds: Sinemet 25/100 1 tab 5x/day at 9a, noon, 3p, 6p, bedtime PMH: PAST MEDICAL HISTORY Diagnosis Date - Anxiety - Cataracts, bilateral s/p removal - Dementia - Depression - GERD (gastroesophageal reflux disease) - Hyperlipidemia - Hypotension seeing Dr. James - Incontinence urinary - Parkinson disease (HCC) - S/P deep brain stimulator placement Seeing Dr. Robison - TIA (transient ischemic attack) suspected New Health Issues: No SOC: Social History Marital status: Spouse name: Years of education: Number of children: Social History Main Topics Smoking status: Former Smoker Packs/day: 0.00 Years: 0.00 Types: Cigarettes Quit date: 11/1999 Smokeless tobacco: Never Used Alcohol use: No Drug use: No Sexual activity: No FMH: FAMILY HISTORY Problem Relation Age of Onset - Cancer Mother - Breast Cancer Sister - Cancer Father skin MEDS: Current Outpatient Prescriptions: HYDROcodone-acetaminophen (NORCO) 5-325 mg per tablet Take 1 tablet by mouth every 6 hours as needed. lidocaine (LIDODERM) 5 % Apply patch for 12 hours then remove for 12 hours. Location: lumbar spine sodium chloride 1 gram tab TAKE 1 TABLET BY MOUTH 3 TIMES A DAY gabapentin (NEURONTIN) 300 mg capsule Take 1 capsule by mouth twice daily for 180 days. fludrocortisone (FLORINEF) 0.1 mg tablet TAKE 1 TABLET EVERY DAY sertraline (ZOLOFT) 100 mg tablet Take 1 tablet by mouth once daily. Midodrine HCl (PROAMATINE) 10 mg tablet TAKE 1 TABLET BY MOUTH THREE TIMES DAILY. Cholecalciferol, Vitamin D3, (VITAMIN D-3) 2,000 unit cap Take by mouth. clopidogrel (PLAVIX) 75 mg tablet Take 1 tablet by mouth once daily. donepezil (ARICEPT) 10 mg tablet Take 1 tablet by mouth once daily. famotidine (PEPCID) 40 mg tablet Take 1 tablet by mouth once daily. atorvastatin (LIPITOR) 10 mg tablet Take 1 tablet by mouth once daily. KLOR-CON 10 10 mEq tablet Take 1 tablet by mouth twice daily. carbidopa-levodopa (SINEMET 25-100) 25-100 mg per tablet Take 1 tablet by mouth five times daily. FLAXSEED OIL ORAL Take 1,200 mg by mouth once daily. UBIDECARENONE/VITAMIN E MIXED (COQ10 SG 100 ORAL) Take 100 mg by mouth once daily. ferrous gluconate 324 mg (37.5 mg iron) tablet Take 324 mg by mouth daily with breakfast. No current facility-administered medications for this visit. REVIEW OF SYSTEMS: Review of system : unchanged from the previous visit or as per HPI (sleep patterns, mood, energy, appetite, stress, exercising). Physical Examination: BP 109/73 (BP Site: Left Arm, BP Position: Sitting, BP Cuff Size: Regular Adult) Pulse 96 SpO2 90% GEN: Alert. NAD. Cooperative. HEENT: No rhinorrhea, lacrimation or conjunctival injection. Normal mucosa. NECK/BACK: Supple EXT: No cyanosis. No edema. No erythema. NEUROLOGICAL: MENTAL STATUS: Alert. Attentive. Majority of history from . Follows commands appropriately. Speech fluent. CN: II: Pupils equal III, IV, : EOMI. No ptosis present. VII: Face symmetric. MOTOR: Anterocollis. Mild hypertrophy of SCMs bilaterally. CEREBELLAR: No ataxia or nystagmus. [facility] Neurotoxin Visit Date: March 27, 2018 Name: Sandra Laughlin Historical/ Initial Dose Diagnosis: Cervical dystonia (G24.3) Date of Diagnosis:unknown, treated with Botox by prior neurologist Date of 1st Treatment: unknown Type of Neurotoxin: Botox: J0585 Total amount injected: ? units What other treatments have been tried and failed: Medications for PD Estimated Duration of treatment: Will reassess after 1year Frequency of treatment: 90days Last Injection Notes Date of last Injection:about 1 year ago, outside neurologist Type of Neurotoxin: Botox: J0585 Total amount injected: unknown Assessment Special features: severe anterocollis Functional limitations (current): 3(severe) Pain (current): Yes (location)low back Time Out: INFORMED CONSENT Sandra Laughlin Medical Record: [id number] Procedure: Botulinum toxin injection The risks, benefits and anticipated outcomes of the procedure, the risks and benefits of the alternatives to the procedure and the roles and tasks of the personnel to be involved were discussed with the patient and the patient consents to the procedure and agrees to proceed. I verify that I personally obtained Sandra Laughlin's consent. Shayna Robison MD March 27, 2018 8:02 AM Dept of NEUROLOGY UNIVERSAL PROTOCOL / SAFETY CHECKLIST Sign in Communication: Completed Time Out: Team Confirms the Correct Patient, Correct Procedure, Correct Site and Site Marking, Correct Position (if applicable), Prep and Dry Time (if applicable). Time: 1410 Affirmation of Time Out: YES Sign Out Discussion: Completed Shayna Robison MD Current Injection Note Type of Neurotoxin: Botox: J0585 Total Amount drawn up: 100 units Total amount injected: 50 units Total amount wasted: 50 units Dilution: NS 1:1 Administered with EMG guidance: Yes Injection Site: Cervical dystonia: CPT 56852 DBS turned off for procedure as caused buzzing sound on EMG. Turned back on after procedure completed. Right Left Sternocleidomastoid 25 25 Splenius capitus Scalene Levator Scapulae Trapezius Semispinalis (Other) Lot#: [id number] Exp Date09/2020 Future plan of care: Follow up: 3 months Neurotoxin Change: No Dose Change: No Shayna Robison M.D. [facility] [place] Department of [facility] Total time in minutes spent with patient: 25 exclusive of procedure time with more than 50% of the time spent in patient education/counselling/coordinating care with the patient and /or family. 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, F02.80] Order(s):memantine (NAMENDA) 5 mg tabletTake 1 tablet by mouth once daily.Disp: 30 tabletRfl: 11 onabotulinum toxin type A 100 Units injection (BOTOX)Disp: Rfl: Prescriptions as of 03/27/2018 Sig: HYDROCODONE 5 MG-ACETAMINOPHE* Take 1 tablet by mouth every * LIDOCAINE 5 % TOPICAL PATCH Apply patch for 12 hours then* SODIUM CHLORIDE 1 GRAM TABLET TAKE 1 TABLET BY MOUTH 3 TIME* GABAPENTIN 300 MG CAPSULE Take 1 capsule by mouth twice* FLUDROCORTISONE 0.1 MG TABLET TAKE 1 TABLET EVERY DAY SERTRALINE 100 MG TABLET Take 1 tablet by mouth once d* MIDODRINE 10 MG TABLET TAKE 1 TABLET BY MOUTH THREE * CHOLECALCIFEROL (VITAMIN D3) * Take by mouth. CLOPIDOGREL 75 MG TABLET Take 1 tablet by mouth once d* DONEPEZIL 10 MG TABLET Take 1 tablet by mouth once d* FAMOTIDINE 40 MG TABLET Take 1 tablet by mouth once d* ATORVASTATIN 10 MG TABLET Take 1 tablet by mouth once d* KLOR-CON 10 MEQ TABLET,EXTEND* Take 1 tablet by mouth twice * CARBIDOPA 25 MG-LEVODOPA 100 * Take 1 tablet by mouth five t* FLAXSEED OIL ORAL Take 1,200 mg by mouth once d* COQ10 SG 100 ORAL Take 100 mg by mouth once vinod* FERROUS GLUCONATE 324 MG (37.* Take 324 mg by mouth daily wi* MEMANTINE 5 MG TABLET Take 1 tablet by mouth once d* Problem List As Of Date 03/27/2018 Noted Resolved Dementia [F03.90] Parkinson disease (HCC) [G20] Hypotension [I95.9] 10/14/2017 Hyperlipidemia [E78.5] GERD (gastroesophageal reflux disease) [K21.9] TIA (transient ischemic attack) [G45.9] More... Falling [R29.6] INVALID FOR* Crouched gait [R26.89] INVALID FOR* Depression [F32.9] Postural hypotension [I95.1] INVALID FOR* Falls frequently [R29.6] INVALID FOR* Prescriptions ordered this encounter Disp Refills Start End MEMANTINE 5 MG TABLET 30 t* 11 03/27/2018 Route: ORAL Sig: Take 1 tablet by mouth once daily. ONABOTULINUMTOXINA 100 UNIT SOLUTION* 03/27/2018 Route: INTRAMUSCULA Disposition: Return in about 3 months (around 06/27/2018) for botox. Follow-up and Disposition History Recorded Encounter Status:Closed by SHAYNA ROBISON MD on 03/30/18 CBC AND DIFFERENTIAL Collected: 03/18/2018 Status: F Source: [facility] 3:06 PM [facility] REPOSITORY TYPE CODE TESTS RESULT OUT OF REFERENCE UNITS RANGE LAB WBC 3.70-11.00 k/uL WBC 8.01 LAB RBC 3.90-5.20 m/uL RBC 4.29 LAB HGB 11.5-15.5 g/dL Hemoglobin 12.4 LAB HCT 36.0-46.0 % Hematocrit 39.5 LAB MCV 80.0-100.0 fL MCV 92.1 LAB MCH 26.0-34.0 pG MCH 28.9 LAB MCHC 30.5-36.0 g/dL MCHC 31.4 LAB RDWCV 11.5-15.0 % RDW-CV 13.2 LAB PLTCT 150-400 k/uL Platelet Count 301 LAB MPV 9.0-12.7 fL MPV 11.0 LAB ANEUT % Neut% 72.0 LAB AANEUT 1.45-7.50 k/uL Abs Neut 5.77 LAB ALYMP % Lymph% 17.4 LAB AALYMP 1.00-4.00 k/uL Abs Lymph 1.39 LAB AMONO % Peñuelas% 9.5 LAB AAMONO <0.87 k/uL Abs Peñuelas 0.76 LAB AEOS % Eosin% 0.6 LAB AAEOS <0.46 k/uL Abs Eosin 0.05 LAB ABASO % Baso% 0.5 LAB AABASO <0.11 k/uL Abs Baso 0.04 LAB AUNRBC 0 /100 WBC NRBCs 0.0 LAB ABNRBC <0.01 k/uL Absolute nRBC <0.01 LAB DTYP DTYPE Auto Diff Performed By: #### CBCDIF, CRP, CMP, WSR #### [facility] [employer] [address] [place], [place] [address] C-REACTIVE PROTEIN Collected: 03/18/2018 Status: F Source: [place] 3:06 PM [facility] REPOSITORY TYPE CODE TESTS RESULT OUT OF REFERENCE UNITS RANGE LAB CRP <0.9 mg/dL C-Reactive 0.5 Protein Performed By: #### CBCDIF, CRP, CMP, WSR #### [facility] [employer] [address] [place], [place] [address] COMP METABOLIC PANEL Collected: 03/18/2018 Status: F Source: [facility] 3:06 PM [facility] REPOSITORY TYPE CODE TESTS RESULT OUT OF REFERENCE UNITS RANGE LAB TP 6.3-8.0 g/dL Protein, Total 7.5 LAB ALB 3.9-4.9 g/dL Albumin 4.2 LAB CA 8.5-10.2 mg/dL Calcium, Total 9.7 LAB TBIL 0.2-1.3 mg/dL Bilirubin, Total 0.4 LAB ALKP 32-117 U/L Alkaline High Phosphatase 120 LAB AST 13-35 U/L AST 13 LAB GLU 74-99 mg/dL Glucose 88 Result Comment: The [place] [employer] (ADA) provides guidance for cutoff values for fasting glucose and random glucose. The ADA defines fasting as no caloric intake for at least 8 hours. Fas ting plasma glucose results between 100 to 125 mg/dL indicate increased risk for diabetes (prediabetes). Fasting plasma glucose results greater than or equal to 126 mg/dL meet the criteria for diagnosis of diabetes. In the absence of unequivocal hyperglycemia, results should be confirmed by repeat testing. In a patient with classic symptoms of hyperglycemia or hyperglycemic crisis, random plasma glucose results greater than or equal to 200 mg/dL meet the criteria for diagnosis of diabetes. Reference: Standards of Medical Care in Diabetes 2016, [place] Diabetes Association. Diabetes Care. 2016.39(Suppl 1). LAB BUN 7-21 mg/dL BUN 21 LAB CRET 0.58-0.96 mg/dL Creatinine 0.73 LAB NA 136-144 mmol/L Sodium 141 LAB K 3.7-5.1 mmol/L Potassium 4.0 LAB CL 97-105 mmol/L Chloride 100 LAB CO2 22-30 mmol/L CO2 25 LAB AGAP 9-18 mmol/L Anion Gap 16 LAB ALT 7-38 U/L ALT 7 LAB GFRAA eGFR- Amer. >60 LAB GFRNAA . eGFR-All Other Races >60 Result Comment: eGFR (Estimated GFR) Units of measure: mL/min/1.73 meters squared eGFR is derived from the reexpressed MDRD Study equation using the following parameters: serum creatinine, age, gender and race. The creatinine assay has been calibrated to be traceable to IDMS. An eGFR <60 mL/min/1.73m2 for >3 months is consistent with chronic kidney disease. Refer to KDOQI guidelines for clinical interpretation. In patients with unstable renal function, e.g. those with acute kidney injury, the eGFR may not accurately reflect actual GFR. Performed By: #### CBCDIF, CRP, CMP, WSR #### [facility] [address] [place], [place] [address] SED RATE WESTERGREN Collected: 03/18/2018 Status: F Source: [facility] 3:06 PM [facility] REPOSITORY TYPE CODE TESTS RESULT OUT OF REFERENCE UNITS RANGE LAB WSR 0-20 mm/hr Sed Rate Westergren 18 Performed By: #### CBCDIF, CRP, CMP, WSR #### [facility] [address] [place], [place] [address] PROGRESS Observed: 03/18/2018 Status: COMPLETED Source: [facility] 3:00 PM [facility] REPOSITORY HNO ID: [id number] Author: Annie Costello) Service: (none) Author Type: Rn Behavioral Health Type: Progress Notes Filed: 03/18/2018 3:13 PM Note Text: Sw met with patient, spouse, professional healthcare representative-Kaylee, and Dr. Grider to discuss home care and half-way facility options. Spouse reports that they have now been approved for Care Coordination through [facility]. An aide comes to the home 3x a week for 3 hours. Spouse discussed concern with having back surgery and not being able to take care of patient. Sw looked up home care options and only one agency could provide 24 hour self pay at $20 an hour. Agronomy Manager looked at half-way with possible rehab options for patient and spouse. Spouse has [facility], [facility], [place], [place], and [place] daily rates. [place] looks to be the most reasonable for cost. Sw encouraged spouse to tour facilities and see which one he prefers. Spouse concerned about leaving patient alone to tour facilities. Sw encouraged spouse to see if aide from [facility] agency on aging program could stay with patient while he toured facilities. Spouse will check into that. Spouse also brought in advance directives to be scanned to both patient and spouse charts. PROGRESS Observed: 03/18/2018 Status: COMPLETED Source: [place] 1:30 PM [facility] REPOSITORY HNO ID: [id number] Author: Jessenia Grider) Service: (none) Author Type: Physician Type: Progress Notes Filed: 03/18/2018 2:33 PM Note Text: Chief Complaint Patient presents with: 2 month follow up: routine HPI Sandra Laughlin is a 72 year old female who presents here today for 2 month follow up. Accompanied today by Pepe who gave majority of history today. Kaylee Muse and Annie Costello, professional healthcare representative and social services specialist, also in attendance. Since last OV in February for fall, states that patient had another fall. He was in the back of the house getting ready to shower and he he heard a thud, she had tried to get from the lift chair to the wheelchair and fell. Did not have any pain after the fall, and was not taken to the ED as patient did not hit head or have LOC. Was seen 1-[address] Lorenzo for chronic back pain and had ablation for lower back pain on 03/12 which has not helped with pain. Still using Lidoderm patches PRN which is not doing much for her pain. Has most difficulty when transferring. PT, OT, and Aide coming in 2 times weekly for 4 weeks through [facility]. Also notes that he qualified for Caregiver support program through [facility]. Told that they could help with sending someone in 3 hours 3 times per week for respite, also helping with 5 meals for each of them per week. Unsure about personal care. Discussed respite care for patient while is out of commission for 6 months with back surgery. Date not scheduled yet. Reviewed concerns with home health vs SNF and feel that she would be better off at SNF. Discussed different prices and locations with . Also discussed FMLA for daughter who lives in [place]. Needs paperwork filled out such that it reflects she may need to intermittently come up to help take care of her parents if they had serious illness or change in status. Paperwork available today, but is already partially filled out and reflects that she would be helping patient with ADLs up to 4 times per month every month, which is not accurate. Discussed this with and he will have daughter bring in new form when she comes to visit next month. Past medical history, appointments, medications, allergies reviewed. Previous Medical History PAST MEDICAL HISTORY Diagnosis Date - Anxiety - Cataracts, bilateral s/p removal - Dementia - Depression - GERD (gastroesophageal reflux disease) - Hyperlipidemia - Hypotension seeing Dr. James - Incontinence urinary - Parkinson disease (HCC) - S/P deep brain stimulator placement Seeing Dr. Robison - TIA (transient ischemic attack) suspected Previous Surgical History PAST SURGICAL HISTORY Procedure Laterality Date - CATARACT SURGERY, COMPLEX Bilateral 2013 - CHOLECYSTECTOMY - HYSTERECTOMY HX - PAST SURGICAL HISTORY OF 2011 deep brain stimulator placement - ROTATOR CUFF REPAIR Bilateral Family History FAMILY HISTORY Problem Relation Age of Onset - Cancer Mother - Breast Cancer Sister - Cancer Father skin Patient Allergies ALLERGIES Allergen Reactions - Penicillin Swelling Current Medications Current Outpatient Prescriptions on File Prior to Visit: lidocaine (LIDODERM) 5 % Apply patch for 12 hours then remove for 12 hours. Location: lumbar spine sodium chloride 1 gram tab TAKE 1 TABLET BY MOUTH 3 TIMES A DAY gabapentin (NEURONTIN) 300 mg capsule Take 1 capsule by mouth twice daily for 180 days. fludrocortisone (FLORINEF) 0.1 mg tablet TAKE 1 TABLET EVERY DAY sertraline (ZOLOFT) 100 mg tablet Take 1 tablet by mouth once daily. Midodrine HCl (PROAMATINE) 10 mg tablet TAKE 1 TABLET BY MOUTH THREE TIMES DAILY. Cholecalciferol, Vitamin D3, (VITAMIN D-3) 2,000 unit cap Take by mouth. clopidogrel (PLAVIX) 75 mg tablet Take 1 tablet by mouth once daily. donepezil (ARICEPT) 10 mg tablet Take 1 tablet by mouth once daily. famotidine (PEPCID) 40 mg tablet Take 1 tablet by mouth once daily. atorvastatin (LIPITOR) 10 mg tablet Take 1 tablet by mouth once daily. KLOR-CON 10 10 mEq tablet Take 1 tablet by mouth twice daily. carbidopa-levodopa (SINEMET 25-100) 25-100 mg per tablet Take 1 tablet by mouth five times daily. FLAXSEED OIL ORAL Take 1,200 mg by mouth once daily. UBIDECARENONE/VITAMIN E MIXED (COQ10 SG 100 ORAL) Take 100 mg by mouth once daily. ferrous gluconate 324 mg (37.5 mg iron) tablet Take 324 mg by mouth daily with breakfast. No current facility-administered medications on file prior to visit. Social History Social History Marital status: Spouse name: Years of education: Number of children: Social History Main Topics Smoking status: Former Smoker Packs/day: 0.00 Years: 0.00 Types: Cigarettes Quit date: 11/1999 Smokeless tobacco: Never Used Alcohol use: No Drug use: No Sexual activity: No Review of Symptoms REVIEW OF SYSTEMS GENERAL: No weight loss, malaise or fevers RESPIRATORY: Negative for cough, hemoptysis, wheezing, COPD, dyspnea or shortness of breath CARDIOVASCULAR: Negative for chest pain, leg swelling, hypertension, CHF or palpitations GI: No nausea, vomiting, or diarrhea : No history of dysuria, frequency or incontinence SKIN: Negative for lesions, rash, and itching EXAM: BP 118/76 Pulse 96 Resp 12 General Appearance: Well appearing, alert, in no acute distress, well-hydrated, well nourished.. Skin: Skin color, texture, turgor normal, no suspicious rashes or lesions. Lungs: Lungs clear to auscultation. No wheezing, rhonchi, rales. Heart: RRR without murmur, gallop, or rubs. No ectopy. Abdomen: Abdomen soft. Bowel sounds normal. No masses, organomegaly, Positive findings: tenderness mild RLQ, LLQ and suprapubic. Extremities: No deformities, edema, skin discoloration, clubbing or cyanosis. Good capillary refill. . Health Maintenance List DTAP,TDAP,TD(1 - Tdap) due on 1965 COLORECTAL CANCER SCREENING,SEE MODIFIER due on 1996 BONE DENSITY due on 2011 PNEUMOVAX AGE 65 AND OVER WITH 5YR LOOKBACK(1) due on 2011 MAMMOGRAM due on 05/29/2018 DIABETES SCREEN due on 02/09/2021 LIPID SCREEN due on 05/27/2022 ADULT PREVNAR-13 Completed INFLUENZA Completed HEPATITIS C SCREENING Completed ASSESSMENT/PLAN: 1. Falls frequently - ICD9: V15.88, ICD10: R29.6 (primary diagnosis) No signs of trauma today and patient denies new pain aside from back pain 2/2 previous fracture. Discussed continued use of walker and patient is now showering at night after patient is in bed. Has PT/OT out to house to help with strength and balance. Will recheck at OV in 3 months. 2. Lower abdominal pain - ICD9: 789.09, ICD10: R10.30 Mild pain with limited symptoms today. Will check blood and urine studies and call with results. - URINALYSIS WITH MICROSCOPIC - URINE CULTURE - CBC + DIFF - COMP METABOLIC PANEL - SED RATE WESTERGREN - C-REACTIVE PROTEIN (CRP) 3. Parkinson disease (HCC) - ICD9: 332.0, ICD10: G20 Continue current regimen, has appointment with neurology next week for botox. Recommendations per Dr. Robison. 4. 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 5. Closed compression fracture of L1 lumbar vertebra with routine healing, subsequent encounter - ICD9: V54.17, ICD10: S32.010D Has appointment tomorrow with Dr. Lorenzo to discuss next step since ablation did not work. Continue lidoderm patches at this time. 6. Acute midline low back pain without sciatica - ICD9: 724.2, ICD10: M54.5 See above. I spent 50 minutes in the visit, with more than 50% of the total [id number] time of the visit in counseling / coordination of care. Jessenia Grider MD CNOV Observed: 03/18/2018 Status: COMPLETED Source: [facility] 1:20 PM [facility] REPOSITORY Office Visit (FAMPWS) SANDRA LAUGHLIN ([id number]) 1945 F Date Time Provider Department 03/18/18 1:20 PM JESSENIA GRIDER) FAMPWS During your visit today, we recorded the following information about you: Pulse Respiration Blood pressure 96/minute 12/minute 118/76 Jessenia Grider) 03/18/2018 2:33 PM Signed Chief Complaint Patient presents with: 2 month follow up: routine HPI Sandra Laughlin is a 72 year old female who presents here today for 2 month follow up. Accompanied today by Pepe who gave majority of history today. Kaylee Muse and Annie Costello, professional healthcare representative and social services specialist, also in attendance. Since last OV in February for fall, states that patient had another fall. He was in the back of the house getting ready to shower and he he heard a thud, she had tried to get from the lift chair to the wheelchair and fell. Did not have any pain after the fall, and was not taken to the ED as patient did not hit head or have LOC. Was seen 1-[address] Lorenzo for chronic back pain and had ablation for lower back pain on 03/12 which has not helped with pain. Still using Lidoderm patches PRN which is not doing much for her pain. Has most difficulty when transferring. PT, OT, and Aide coming in 2 times weekly for 4 weeks through [facility]. Also notes that he qualified for Caregiver support program through [facility]. Told that they could help with sending someone in 3 hours 3 times per week for respite, also helping with 5 meals for each of them per week. Unsure about personal care. Discussed respite care for patient while is out of commission for 6 months with back surgery. Date not scheduled yet. Reviewed concerns with home health vs SNF and feel that she would be better off at SNF. Discussed different prices and locations with . Also discussed FMLA for daughter who lives in [place]. Needs paperwork filled out such that it reflects she may need to intermittently come up to help take care of her parents if they had serious illness or change in status. Paperwork available today, but is already partially filled out and reflects that she would be helping patient with ADLs up to 4 times per month every month, which is not accurate. Discussed this with and he will have daughter bring in new form when she comes to visit next month. Past medical history, appointments, medications, allergies reviewed. Previous Medical History PAST MEDICAL HISTORY Diagnosis Date - Anxiety - Cataracts, bilateral s/p removal - Dementia - Depression - GERD (gastroesophageal reflux disease) - Hyperlipidemia - Hypotension seeing Dr. James - Incontinence urinary - Parkinson disease (HCC) - S/P deep brain stimulator placement Seeing Dr. Robison - TIA (transient ischemic attack) suspected Previous Surgical History PAST SURGICAL HISTORY Procedure Laterality Date - CATARACT SURGERY, COMPLEX Bilateral 2013 - CHOLECYSTECTOMY - HYSTERECTOMY HX - PAST SURGICAL HISTORY OF 2011 deep brain stimulator placement - ROTATOR CUFF REPAIR Bilateral Family History FAMILY HISTORY Problem Relation Age of Onset - Cancer Mother - Breast Cancer Sister - Cancer Father skin Patient Allergies ALLERGIES Allergen Reactions - Penicillin Swelling Current Medications Current Outpatient Prescriptions on File Prior to Visit: lidocaine (LIDODERM) 5 % Apply patch for 12 hours then remove for 12 hours. Location: lumbar spine sodium chloride 1 gram tab TAKE 1 TABLET BY MOUTH 3 TIMES A DAY gabapentin (NEURONTIN) 300 mg capsule Take 1 capsule by mouth twice daily for 180 days. fludrocortisone (FLORINEF) 0.1 mg tablet TAKE 1 TABLET EVERY DAY sertraline (ZOLOFT) 100 mg tablet Take 1 tablet by mouth once daily. Midodrine HCl (PROAMATINE) 10 mg tablet TAKE 1 TABLET BY MOUTH THREE TIMES DAILY. Cholecalciferol, Vitamin D3, (VITAMIN D-3) 2,000 unit cap Take by mouth. clopidogrel (PLAVIX) 75 mg tablet Take 1 tablet by mouth once daily. donepezil (ARICEPT) 10 mg tablet Take 1 tablet by mouth once daily. famotidine (PEPCID) 40 mg tablet Take 1 tablet by mouth once daily. atorvastatin (LIPITOR) 10 mg tablet Take 1 tablet by mouth once daily. KLOR-CON 10 10 mEq tablet Take 1 tablet by mouth twice daily. carbidopa-levodopa (SINEMET 25-100) 25-100 mg per tablet Take 1 tablet by mouth five times daily. FLAXSEED OIL ORAL Take 1,200 mg by mouth once daily. UBIDECARENONE/VITAMIN E MIXED (COQ10 SG 100 ORAL) Take 100 mg by mouth once daily. ferrous gluconate 324 mg (37.5 mg iron) tablet Take 324 mg by mouth daily with breakfast. No current facility-administered medications on file prior to visit. Social History Social History Marital status: Spouse name: Years of education: Number of children: Social History Main Topics Smoking status: Former Smoker Packs/day: 0.00 Years: 0.00 Types: Cigarettes Quit date: 11/1999 Smokeless tobacco: Never Used Alcohol use: No Drug use: No Sexual activity: No Review of Symptoms REVIEW OF SYSTEMS GENERAL: No weight loss, malaise or fevers RESPIRATORY: Negative for cough, hemoptysis, wheezing, COPD, dyspnea or shortness of breath CARDIOVASCULAR: Negative for chest pain, leg swelling, hypertension, CHF or palpitations GI: No nausea, vomiting, or diarrhea : No history of dysuria, frequency or incontinence SKIN: Negative for lesions, rash, and itching EXAM: BP 118/76 Pulse 96 Resp 12 General Appearance: Well appearing, alert, in no acute distress, well-hydrated, well nourished.. Skin: Skin color, texture, turgor normal, no suspicious rashes or lesions. Lungs: Lungs clear to auscultation. No wheezing, rhonchi, rales. Heart: RRR without murmur, gallop, or rubs. No ectopy. Abdomen: Abdomen soft. Bowel sounds normal. No masses, organomegaly, Positive findings: tenderness mild RLQ, LLQ and suprapubic. Extremities: No deformities, edema, skin discoloration, clubbing or cyanosis. Good capillary refill. . Health Maintenance List DTAP,TDAP,TD(1 - Tdap) due on 1965 COLORECTAL CANCER SCREENING,SEE MODIFIER due on 1996 BONE DENSITY due on 2011 PNEUMOVAX AGE 65 AND OVER WITH 5YR LOOKBACK(1) due on 2011 MAMMOGRAM due on 05/29/2018 DIABETES SCREEN due on 02/09/2021 LIPID SCREEN due on 05/27/2022 ADULT PREVNAR-13 Completed INFLUENZA Completed HEPATITIS C SCREENING Completed ASSESSMENT/PLAN: 1. Falls frequently - ICD9: V15.88, ICD10: R29.6 (primary diagnosis) No signs of trauma today and patient denies new pain aside from back pain 2/2 previous fracture. Discussed continued use of walker and patient is now showering at night after patient is in bed. Has PT/OT out to house to help with strength and balance. Will recheck at OV in 3 months. 2. Lower abdominal pain - ICD9: 789.09, ICD10: R10.30 Mild pain with limited symptoms today. Will check blood and urine studies and call with results. - URINALYSIS WITH MICROSCOPIC - URINE CULTURE - CBC + DIFF - COMP METABOLIC PANEL - SED RATE WESTERGREN - C-REACTIVE PROTEIN (CRP) 3. Parkinson disease (HCC) - ICD9: 332.0, ICD10: G20 Continue current regimen, has appointment with neurology next week for botox. Recommendations per Dr. Robison. 4. 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 5. Closed compression fracture of L1 lumbar vertebra with routine healing, subsequent encounter - ICD9: V54.17, ICD10: S32.010D Has appointment tomorrow with Dr. Lorenzo to discuss next step since ablation did not work. Continue lidoderm patches at this time. 6. Acute midline low back pain without sciatica - ICD9: 724.2, ICD10: M54.5 See above. I spent 50 minutes in the visit, with more than 50% of the total gvdz-[id number] time of the visit in counseling / coordination of care. 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) [G20, F02.80] Closed compression fracture of L1 lumbar vertebra with routine healing, subsequent encounter [S32.010D] Acute midline low back pain without sciatica [M54.5] Order(s):URINALYSIS WITH MICROSCOPIC [SQUAWMIC] Order #: [id number] URINE CULTURE [SQURCUL] Order #: [id number] FUTURE CBC + DIFF [SQCBCDIF] Order #: [id number] FUTURE COMP METABOLIC PANEL [SQCMP] Order #: [id number] FUTURE SED RATE WESTERGREN [SQWSR] Order #: [id number] FUTURE C-REACTIVE PROTEIN (CRP) [SQCRP] Order #: [id number] FUTURE Prescriptions as of 03/18/2018 Sig: LIDOCAINE 5 % TOPICAL PATCH Apply patch for 12 hours then* SODIUM CHLORIDE 1 GRAM TABLET TAKE 1 TABLET BY MOUTH 3 TIME* GABAPENTIN 300 MG CAPSULE Take 1 capsule by mouth twice* FLUDROCORTISONE 0.1 MG TABLET TAKE 1 TABLET EVERY DAY SERTRALINE 100 MG TABLET Take 1 tablet by mouth once d* MIDODRINE 10 MG TABLET TAKE 1 TABLET BY MOUTH THREE * CHOLECALCIFEROL (VITAMIN D3) * Take by mouth. CLOPIDOGREL 75 MG TABLET Take 1 tablet by mouth once d* DONEPEZIL 10 MG TABLET Take 1 tablet by mouth once d* FAMOTIDINE 40 MG TABLET Take 1 tablet by mouth once d* ATORVASTATIN 10 MG TABLET Take 1 tablet by mouth once d* KLOR-CON 10 MEQ TABLET,EXTEND* Take 1 tablet by mouth twice * CARBIDOPA 25 MG-LEVODOPA 100 * Take 1 tablet by mouth five t* FLAXSEED OIL ORAL Take 1,200 mg by mouth once d* COQ10 SG 100 ORAL Take 100 mg by mouth once vinod* FERROUS GLUCONATE 324 MG (37.* Take 324 mg by mouth daily wi* Problem List As Of Date 03/18/2018 Noted Resolved Dementia [F03.90] Parkinson disease (HCC) [G20] Hypotension [I95.9] 10/14/2017 Hyperlipidemia [E78.5] GERD (gastroesophageal reflux disease) [K21.9] TIA (transient ischemic attack) [G45.9] More... Falling [R29.6] INVALID FOR* Crouched gait [R26.89] INVALID FOR* Depression [F32.9] Postural hypotension [I95.1] INVALID FOR* Falls frequently [R29.6] INVALID FOR* Disposition: Return in about 3 months (around 06/18/2018). Follow-up and Disposition History Recorded Encounter Status:Closed by JESSENIA GRIDER MD on 03/18/18 PROGRESS Observed: 03/18/2018 Status: COMPLETED Source: [place] 1:17 PM [facility] REPOSITORY HNO ID: [id number] Author: Jessenia Grider) Service: (none) Author Type: Physician Type: Progress Notes Filed: 03/18/2018 1:17 PM Note Text: Reviewed. 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 Called , we will have prices for both for spouse at appt time so he can make decision on her care when spouse has spinal surgery. Patient identified by name and date of . YES Spoke to spouse Summary: Patient fell again before she went in for ablation on her back with Dr. Lorenzo. Pt feels she broke her tailbone, had X-ray on 03/16 Spouse states pt is in more pain now, since her ablation. Her pain is severe Spouse is concerned about pt's care when he has back surgery and is out of commission x 6 months. 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 Spouse response was what will that do to my pocketbook? Discussed pt needs the care so they will have to make a decision. Spouse will speak to PCP when pt comes in for appt today. 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 Called SW, we will have prices for both for spouse at appt time so he can make decision on her care when spouse has spinal surgery. Patient identified by name and date of . YES Spoke to spouse Summary: Patient fell again before she went in for ablation on her back with Dr. Lorenzo. Pt feels she broke her tailbone, had X-ray on 03/16 Spouse states pt is in more pain now, since her ablation. Her pain is severe Spouse is concerned about pt's care when he has back surgery and is out of commission x 6 months. Discussed daughter helping, states that isn't possible Pt's sister will help while is in hospital but not intermediate DISCUSSED IN HOME 24 HOUR CARE VS DETENTION CARE. Spouse response was what will that do to my pocketbook? Discussed pt needs the care so they will have to make a decision. Spouse will speak to PCP when pt comes in for appt today. Agronomy Manager plan for next outreach: Will follow up one month Signature Kaylee Muse RN March 18, 2018 Jessenia Grider) 03/18/2018 1:17 PM Signed Reviewed. 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 CLOPIDOGREL 75 MG TABLET Take 1 tablet by mouth once d* DONEPEZIL 10 MG TABLET Take 1 tablet by mouth once d* FAMOTIDINE 40 MG TABLET Take 1 tablet by mouth once d* ATORVASTATIN 10 MG TABLET Take 1 tablet by mouth once d* KLOR-CON 10 MEQ TABLET,EXTEND* Take 1 tablet by mouth twice * CARBIDOPA 25 MG-LEVODOPA 100 * Take 1 tablet by mouth five t* FLAXSEED OIL ORAL Take 1,200 mg by mouth once d* COQ10 SG 100 ORAL Take 100 mg by mouth once vinod* FERROUS GLUCONATE 324 MG (37.* Take 324 mg by mouth daily wi* Problem List As Of Date 03/18/2018 Noted Resolved Dementia [F03.90] Parkinson disease (HCC) [G20] Hypotension [I95.9] 10/14/2017 Hyperlipidemia [E78.5] GERD (gastroesophageal reflux disease) [K21.9] TIA (transient ischemic attack) [G45.9] More... Falling [R29.6] INVALID FOR* Crouched gait [R26.89] INVALID FOR* Depression [F32.9] Postural hypotension [I95.1] INVALID FOR* Falls frequently [R29.6] INVALID FOR* Encounter Status:Closed by KAYLEE MUSE on 03/18/18 CNSW Observed: 03/18/2018 Status: COMPLETED Source: [place] 12:00 AM [facility] REPOSITORY Social Work (HECTOR) SANDRA LAUGHLIN ([id number]) 1945 F Date Time Provider Department 03/18/18 ANNIE COSTELLO) HECTOR During your visit today, we recorded the following information about you: Annie Costello (Anju) 03/18/2018 3:13 PM Signed Anju met with patient, spouse, professional healthcare representative-Kaylee, and Dr. Grider to discuss home care and half-way facility options. Spouse reports that they have now been approved for Care Coordination through [facility]. An aide comes to the home 3x a week for 3 hours. Spouse discussed concern with having back surgery and not being able to take care of patient. Anju looked up home care options and only one agency could provide 24 hour self pay at $20 an hour. Agronomy Manager looked at half-way with possible rehab options for patient and spouse. Spouse has [facility], [facility], [place], [place], and [place] daily rates. [place] looks to be the most reasonable for cost. Anju encouraged spouse to tour facilities and see which one he prefers. Spouse concerned about leaving patient alone to tour facilities. Sw encouraged spouse to see if aide from [facility] on aging program could stay with patient while he toured facilities. Spouse will check into that. Spouse also brought in advance directives to be scanned to both patient and spouse charts. Allergies As of Date: 03/18/2018 Noted Allergy Reaction PENICILLIN 05/29/2017 7 - Swelling Date Reviewed: 03/18/2018 Reviewed by: Shahab Christina Ma - Fully Assessed Prescriptions as of 03/18/2018 Sig: LIDOCAINE 5 % TOPICAL PATCH Apply patch for 12 hours then* SODIUM CHLORIDE 1 GRAM TABLET TAKE 1 TABLET BY MOUTH 3 TIME* GABAPENTIN 300 MG CAPSULE Take 1 capsule by mouth twice* FLUDROCORTISONE 0.1 MG TABLET TAKE 1 TABLET EVERY DAY SERTRALINE 100 MG TABLET Take 1 tablet by mouth once d* MIDODRINE 10 MG TABLET TAKE 1 TABLET BY MOUTH THREE * CHOLECALCIFEROL (VITAMIN D3) * Take by mouth. CLOPIDOGREL 75 MG TABLET Take 1 tablet by mouth once d* DONEPEZIL 10 MG TABLET Take 1 tablet by mouth once d* FAMOTIDINE 40 MG TABLET Take 1 tablet by mouth once d* ATORVASTATIN 10 MG TABLET Take 1 tablet by mouth once d* KLOR-CON 10 MEQ TABLET,EXTEND* Take 1 tablet by mouth twice * CARBIDOPA 25 MG-LEVODOPA 100 * Take 1 tablet by mouth five t* FLAXSEED OIL ORAL Take 1,200 mg by mouth once d* COQ10 SG 100 ORAL Take 100 mg by mouth once vinod* FERROUS GLUCONATE 324 MG (37.* Take 324 mg by mouth daily wi* Problem List As Of Date 03/18/2018 Noted Resolved Dementia [F03.90] Parkinson disease (HCC) [G20] Hypotension [I95.9] 10/14/2017 Hyperlipidemia [E78.5] GERD (gastroesophageal reflux disease) [K21.9] TIA (transient ischemic attack) [G45.9] More... Falling [R29.6] INVALID FOR* Crouched gait [R26.89] INVALID FOR* Depression [F32.9] Postural hypotension [I95.1] INVALID FOR* Falls frequently [R29.6] INVALID FOR* Encounter Status:Closed by ANNIE FOURNIER on 03/18/18 XR LUMBAR 2V AP/LAT Observed: 03/16/2018 Status: F Source: [place] 1:13 PM [facility] REPOSITORY * * *Final Report* * * DATE OF EXAM: Mar 16 2018 1:13PM [id number] [id number] - XR LUMBAR 2V AP/LAT / PROCEDURE REASON: fall * * * * Physician Interpretation * * * * 2 studies discussed below: Lumbar spine / sacrum and coccyx HISTORY: 72 years old Clinical information: fall pt states fell a week or two ago has pain throughout the entire lumbar and sacrum/coccyx area. pt not able to lay flat TECHNIQUE: Images: XR SACRUM/COCCYX 3V AP/LAT, XR LUMBAR 2V AP/LAT Comparison: CT chest 02/23/2018. RESULT: Findings: Moderate bony demineralization. Lumbar spine: Mild S-shaped scoliosis. No fractures or dislocations are seen. Marked degenerative changes in the facet joints L3-S1. Compression fracture of the superior endplate of the L1 vertebral body which was seen on previous CT 02/23/2018 Sacrum and coccyx: Some degenerative changes in the coccyx noted. No fractures or dislocations are seen. IMPRESSION: Degenerative changes as discussed. Profiler: MARGI Transcribe Date/Time: Mar 17 2018 8:33A Dictated by : ELIER JONES DO This examination was interpreted and the report reviewed and electronically signed by: ELIER JONES DO on Mar 17 2018 8:35AM EST [id number] XR SACRUM/COCCYX 3V Observed: 03/16/2018 Status: F Source: [place] AP/LAT 1:13 PM [facility] REPOSITORY * * *Final Report* * * DATE OF EXAM: Mar 16 2018 1:13PM WRX [id number] - XR SACRUM/COCCYX 3V AP/LAT / PROCEDURE REASON: fall * * * * Physician Interpretation * * * * 2 studies discussed below: Lumbar spine / sacrum and coccyx HISTORY: 72 years old Clinical information: fall pt states fell a week or two ago has pain throughout the entire lumbar and sacrum/coccyx area. pt not able to lay flat TECHNIQUE: Images: XR SACRUM/COCCYX 3V AP/LAT, XR LUMBAR 2V AP/LAT Comparison: CT chest 02/23/2018. RESULT: Findings: Moderate bony demineralization. Lumbar spine: Mild S-shaped scoliosis. No fractures or dislocations are seen. Marked degenerative changes in the facet joints L3-S1. Compression fracture of the superior endplate of the L1 vertebral body which was seen on previous CT 02/23/2018 Sacrum and coccyx: Some degenerative changes in the coccyx noted. No fractures or dislocations are seen. IMPRESSION: Degenerative changes as discussed. Profiler: MARGI Transcribe Date/Time: Mar 17 2018 8:33A Dictated by : ELIER JONES DO This examination was interpreted and the report reviewed and electronically signed by: ELIER JONES DO on Mar 17 2018 8:35AM EST [id number] PROGRESS Observed: 03/16/2018 Status: COMPLETED Source: [place] 12:54 PM [facility] REPOSITORY HNO ID: [id number] Author: Noris Hylton (Rt), Tech Service: (none) Author Type: Drupal Php Developer Type: Progress Notes Filed: 03/16/2018 1:13 PM Note Text: Radiology Service Progress Note PATIENT NAME: Sandra Laughlin DATE OF SERVICE: March 16, 2018 TIME: 12:54 PM PATIENT IDENTITY VERIFICATION COMPLETED USING TWO (2) METHODS: Patient confirmed name verbally and Date of . PATIENT GENDER DATA: Female. status: : No status: NO. PATIENT RELEVANT IMPLANT DATA REVIEWED: Not Applicable RADIOLOGY DEPARTMENT: General X-ray: Exam(s) Completed: Spine X-Ray(s): Lumbar AP / LAT / L5-S1 and Sacrum/Coccyx PERIPHERAL IV DATA: Not applicable SIGNED BY: RT Nani March 16, 2018 12:54 PM PROGRESS Observed: 03/06/2018 Status: COMPLETED Source: [place] 1:16 PM [facility] REPOSITORY HNO ID: [id number] Author: Jesseina Moreno) Cheo Service: (none) Author Type: Physician Type: Progress Notes Filed: 03/06/2018 1:16 PM Note Text: Reviewed. Thanks PROGRESS Observed: 03/06/2018 Status: COMPLETED Source: [place] 12:32 PM [facility] REPOSITORY HNO ID: [id number] Author: Kaylee BaerRn) Almaz Service: (none) Author Type: Registered Nurse Type: Progress Notes Filed: 03/06/2018 12:37 PM Note Text: PRIMARY CARE COORDINATION FOLLOW-UP NOTE Provider Action/FYI FYI Patient identified by name and date of . YES Spoke to ANJU King at [facility] dept. Summary: Lengthy discussion regarding patient and spouses home situation, pt's physical needs and discussions PCP, SW and PCC has had with pt and spouse. Discussed spouse hiring private aid and referral to VNA for PLATINUM AND PALLADIUM KETTLE TENDER and PT. [facility] states PCP office has done everything she would normally do so will call back spouse but will let PCP, PCC and SW continue with care unless there are needs from her. Pt also has telephonic nurse: Jennifer bajwa [phone] ext [phone] Agronomy Manager plan for next outreach: Will follow up one month Signature Kaylee Muse RN March 06, 2018 PROGRESS Observed: 03/06/2018 Status: COMPLETED Source: [place] 10:51 AM [facility] REPOSITORY HNO ID: [id number] Author: Jessenia Moreno) Cheo Service: (none) Author Type: Physician Type: Progress Notes Filed: 03/06/2018 10:51 AM Note Text: Reviewed. ANA LAURA Observed: 03/06/2018 Status: COMPLETED Source: [place] 12:00 AM [facility] REPOSITORY Patient Outreach (FAMPWS) SANDRA LAUGHLIN ([id number]) 1945 F Date Time Provider Department 03/06/18 KAYLEE MUSE (RN) FAMPWS During your visit today, we recorded the following information about you: Kaylee Muse RN 03/06/2018 12:37 PM Signed PRIMARY CARE COORDINATION FOLLOW-UP NOTE Provider Action/FYI FYI Patient identified by name and date of . YES [facility] Summary: Lengthy discussion regarding patient and spouses home situation, pt's physical needs and discussions PCP, SW and PCC has had with pt and spouse. Discussed spouse hiring private aid and referral to [facility] for PLATINUM AND PALLADIUM KETTLE TENDER and PT. [facility] states PCP office has done everything she would normally do so will call back spouse but will let PCP, PCC and SW continue with care unless there are needs from her. Pt also has telephonic nurse: Jennifer bajwa [phone] ext [phone] Agronomy Manager plan for next outreach: Will follow up one month Signature Kaylee Muse RN March 06, 2018 Jessenia Grider MD 03/06/2018 1:16 PM Signed Reviewed. 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 CLOPIDOGREL 75 MG TABLET Take 1 tablet by mouth once d* DONEPEZIL 10 MG TABLET Take 1 tablet by mouth once d* FAMOTIDINE 40 MG TABLET Take 1 tablet by mouth once d* ATORVASTATIN 10 MG TABLET Take 1 tablet by mouth once d* KLOR-CON 10 MEQ TABLET,EXTEND* Take 1 tablet by mouth twice * CARBIDOPA 25 MG-LEVODOPA 100 * Take 1 tablet by mouth five t* FLAXSEED OIL ORAL Take 1,200 mg by mouth once d* COQ10 SG 100 ORAL Take 100 mg by mouth once vinod* FERROUS GLUCONATE 324 MG (37.* Take 324 mg by mouth daily wi* Problem List As Of Date 03/06/2018 Noted Resolved Dementia [F03.90] Parkinson disease (HCC) [G20] Hypotension [I95.9] 10/14/2017 Hyperlipidemia [E78.5] GERD (gastroesophageal reflux disease) [K21.9] TIA (transient ischemic attack) [G45.9] More... Falling [R29.6] INVALID FOR* Crouched gait [R26.89] INVALID FOR* Depression [F32.9] Postural hypotension [I95.1] INVALID FOR* Falls frequently [R29.6] INVALID FOR* Encounter Status:Closed by KAYLEE MUSE on 03/06/18 PROGRESS Observed: 03/04/2018 Status: COMPLETED Source: [place] 1:32 PM [facility] HNO ID: [id number] Author: Annie Costello (Sw) Service: (none) Author Type: Rn Behavioral Health Type: Progress Notes Filed: 03/06/2018 12:19 PM Note Text: Anju faxed [facility] referral for HH. PROGRESS Observed: 03/04/2018 Status: COMPLETED Source: [place] 11:42 AM [facility] REPOSITORY HNO ID: [id number] Author: Kaylee García) Almaz Service: (none) Author Type: Registered Nurse Type: Progress Notes Filed: 03/06/2018 10:44 AM Note Text: PRIMARY CARE COORDINATION FOLLOW-UP NOTE Provider Action/FYI FYI Patient identified by name and date of . YES Spoke to spouse and Christine from [employer] Summary: TC to spouse with ANJU Cano, discussed pt's homebound status. States pt made decision to remain homebound in order to receive home care for PT/OT and PLATINUM AND PALLADIUM KETTLE TENDER. Discussed PLATINUM AND PALLADIUM KETTLE TENDER will stay active as long as PT/OT is active with patient. Discussed private pay PLATINUM AND PALLADIUM KETTLE TENDER, spouse states they have two women who they like and are able to assist with patient. Discussed [employer]'s visit and recommendations regarding pt/spouses trust and spending down assets. Kaylee Muse RN March 04, 2018 12:08 PM 03/04 TC to [employer], left message to please call PCC and ANJU Cano back re: pt and spouse. 03/02 TC from [employer] [facility], left message for PCC to call her back regarding coordinating care. Agronomy Manager plan for next outreach: Will follow up one month Signature Kaylee Muse RN March 04, 2018 CNPTOUTREACH Observed: 03/04/2018 Status: COMPLETED Source: [place] 12:00 AM [facility] REPOSITORY Patient Outreach (FAMPWS) SANDRA LAUGHLIN ([id number]) 1945 F Date Time Provider Department 03/04/18 KAYLEE MUSE (RN) FAMPWS During your visit today, we recorded the following information about you: Kaylee Muse RN 03/06/2018 10:44 AM Signed PRIMARY CARE COORDINATION FOLLOW-UP NOTE Provider Action/FYI FYI Patient identified by name and date of . YES Spoke to spouse and Christine from [employer] Summary: TC to spouse with ANJU Cano, discussed pt's homebound status. States pt made decision to remain homebound in order to receive home care for PT/OT and PLATINUM AND PALLADIUM KETTLE TENDER. Discussed PLATINUM AND PALLADIUM KETTLE TENDER will stay active as long as PT/OT is active with patient. Discussed private pay PLATINUM AND PALLADIUM KETTLE TENDER, spouse states they have two women who they like and are able to assist with patient. Discussed [employer]'s visit and recommendations regarding pt/spouses trust and spending down assets. Kaylee Muse RN March 04, 2018 12:08 PM 03/04 TC to [employer], left message to please call PCC and ANJU Cano back re: pt and spouse. 03/02 TC from [employer] [facility], left message for PCC to call her back regarding coordinating care. Agronomy Manager plan for next outreach: Will follow up one month Signature Kaylee Muse RN March 04, 2018 ROMULO Ronquillo 03/06/2018 12:19 PM Signed Sw faxed [facility] referral for HH. Jessenia Grider MD 03/06/2018 10:51 AM Signed Reviewed. 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 CLOPIDOGREL 75 MG TABLET Take 1 tablet by mouth once d* DONEPEZIL 10 MG TABLET Take 1 tablet by mouth once d* FAMOTIDINE 40 MG TABLET Take 1 tablet by mouth once d* ATORVASTATIN 10 MG TABLET Take 1 tablet by mouth once d* KLOR-CON 10 MEQ TABLET,EXTEND* Take 1 tablet by mouth twice * CARBIDOPA 25 MG-LEVODOPA 100 * Take 1 tablet by mouth five t* FLAXSEED OIL ORAL Take 1,200 mg by mouth once d* COQ10 SG 100 ORAL Take 100 mg by mouth once vinod* FERROUS GLUCONATE 324 MG (37.* Take 324 mg by mouth daily wi* Problem List As Of Date 03/04/2018 Noted Resolved Dementia [F03.90] Parkinson disease (HCC) [G20] Hypotension [I95.9] 10/14/2017 Hyperlipidemia [E78.5] GERD (gastroesophageal reflux disease) [K21.9] TIA (transient ischemic attack) [G45.9] More... Falling [R29.6] INVALID FOR* Crouched gait [R26.89] INVALID FOR* Depression [F32.9] Postural hypotension [I95.1] INVALID FOR* Falls frequently [R29.6] INVALID FOR* Encounter Status:Closed by KAYLEE MUSE on 03/06/18 PROGRESS Observed: 03/03/2018 Status: COMPLETED Source: [place] 8:48 PM [facility] REPOSITORY HNO ID: [id number] Author: Jessenia Griedr Service: (none) Author Type: Physician Type: Progress Notes Filed: 03/03/2018 8:48 PM Note Text: Reviewed. PROGRESS Observed: 03/02/2018 Status: COMPLETED Source: [place] 6:43 PM [facility] REPOSITORY HNO ID: [id number] Author: Shira (Pt) Denise Service: (none) Author Type: Physical Therapist Type: Progress Notes Filed: 03/02/2018 7:00 PM Note Text: Episode Visit Count: 1 Therapist That Will Oversee The Plan Of Care: Shira Walker PT Start of Care Date: 02/27/18 Onset Date: 02/15/18 Plan of Care Certification Date: 02/27/18 Patient Identified by Name and Date of : Yes (last name pronounded (Soshay)) REHABILITATION AND SPORTS THERAPY PHYSICAL THERAPY EVALUATION PLAN OF CARE: Assessment: Sandra Laughlin presents with the diagnosis of falls. Patient fell when she was reaching for something on a table which has lead to a compression fracture of her lumbar spine. Patient has Parkinson's + Dementia. Patient at an extremely High Risk for falls based on TUG and 5x sit to stand. She presents with impairments with high score on TUG, 5x STS, assistance needed with using 2WW when walking and turning, poor posture, and poor past tolerance to outpatient PT as required repeated instructions with little carryover. She may benefit from skilled therapy services to further prevent falls and maintain her current strength at a SNF/Dementia Unit vs. home PT. When sharing the concept of a SNF/Dementia Care Unit, patient's did not seem to be open to this idea. He wanted patient to have outpatient PT; however, this does not seem like a safe a reasonable idea given the patient's current high fall risk. Prognosis: Poor Poor due to: clinical presentation;chronic nature of impairments;coping skills;limited tolerance to activity;memory deficits;poor historian;poor past response to therapy intervention;poor understanding of deficits Goals for Episode of Care: created on 02/27/18 through 03/30/18 Patient will report no falls. Improve score on Timed Up and Go Test to 30 seconds to reflect decreased fall risk. Improve score on 30 Second Chair Stand to 10 repetitions to reflect decreased fall risk. Patient will be able to sit to stand without cues for hand placement. G CODE REPORTING Based on clinical assessment and the score on the AM-PAC Scale Score Assessment Tool, the G code and corresponding severity modifiers are documented below. Evaluation: 02/27/2018 Current Status: Mobility: Walking and Moving Around: G8978 CL 60-79% impaired Goal Status: Mobility: Walking and Moving Around: G8979 CK 40-59% impaired Planned Interventions, Frequency, and Duration: Current Frequency: (Recommending pt have home PT or go to a SNF/Dementia care) Patient to be see for PLAN FOR NEXT VISIT: Think patient would benefit from SNF/Dementia care vs Home PT. Patient demonstrates poor understanding of plan of care and treatment. The above goals and plan of care were discussed and agreed upon by patient/family. SUBJECTIVE: Sandra Laughlin is a 72 year old female seen today for fall. Information provided today by [facility] (pronounced Moriss) Patient is being sent to PT form [facility]. Order was dropped off per . Had a compression fracture from fall per her . Was using a walker and reached for something on a table and lost balance and fell on L side. Patient uses a manual w/c in the home now since fall, and has taken FWW away from patient. Grab bars in every bathroom. Dressing and bathing helps with. does laundry and cooking. confirmed she has dementia. She can get into bed like [employer], PT showed her, said her . Patient had back pain before fall. Lift chair at home, which she has used for 2-3 years. Sleeps in a regular bed and doesn't have difficulty sleeping. Will be having an ablation of her back on Friday by Dr. Lorenzo. She has had injections by Dr. Lorenzo that have not worked. Functional Limitations: standing;walking;walking in the house Prior Level of Function: Required assistance (required since moving into the condo 1 year ago.) Intake Information: Prescription present (see Dr. Grider's [facility]) Previous Treatment: Physical Therapy? Falls Interview: Fall with injury in the last year OBJECTIVE MEASURES WITH LEVEL OF FUNCTION: Cognition Cognition: Safety Judgment;Memory Deficits;Communication Deficits Posture / Alignment Posture: Increased thoracic kyphosis;Forward head;Rounded shoulders (seated crouched in chair) LE Strength R LE Strength: Grossly 4-/5 L LE Strength: Grossly 4-/5 5 Times Sit to Stand Test : 98 sec Timed Up and Go (sec): 135 sec Patient requiring verbal cuing and tactile cuing for placement of hands when standing from and sitting down in chair. Gait: Cuing required to move 2WW and CGA to help move 2WW. Education: Education Learning Preferences: Demonstration Barriers: Cognitive Limitations;Communication Deficit (Safety to leave home) Learning/educational needs: Plan of Care;Safety Education Provided: Yes, see treatment interventions for education provided Education Provided To: Caregiver;Patient Education Mode/Type: Explanation/Discussion Response to Education/Teach Back: No Evidence Of Learning;Requires Review/Additional Education TREATMENT: Evaluation Billing: [facility]: Evaluation - High Complexity (83166) Total time: 45 minutes Shira Wlaker PT PROGRESS Observed: 03/02/2018 Status: COMPLETED Source: [place] 10:59 AM [facility] RE[facility] HNO ID: [id number] Author: Kaylee (Yue) Almaz Service: (none) Author Type: Registered Nurse Type: Progress Notes Filed: 03/02/2018 11:00 AM Note Text: Discussed with SW, she will send home health referral to [facility] for PT and PLATINUM AND PALLADIUM KETTLE TENDER. 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) [G20, F02.80] Parkinson disease (HCC) [G20] Allergies As of Date: 02/27/2018 Noted Allergy Reaction PENICILLIN 05/29/2017 7 - Swelling Date Reviewed: 02/24/2018 Reviewed by: Tina Peter - Fully Assessed Prescriptions as of 02/27/2018 Sig: LIDOCAINE 5 % TOPICAL PATCH Apply patch for 12 hours then* SODIUM CHLORIDE 1 GRAM TABLET TAKE 1 TABLET BY MOUTH 3 TIME* GABAPENTIN 300 MG CAPSULE Take 1 capsule by mouth twice* FLUDROCORTISONE 0.1 MG TABLET TAKE 1 TABLET EVERY DAY SERTRALINE 100 MG TABLET Take 1 tablet by mouth once d* MIDODRINE 10 MG TABLET TAKE 1 TABLET BY MOUTH THREE * CHOLECALCIFEROL (VITAMIN D3) * Take by mouth. CLOPIDOGREL 75 MG TABLET Take 1 tablet by mouth once d* DONEPEZIL 10 MG TABLET Take 1 tablet by mouth once d* FAMOTIDINE 40 MG TABLET Take 1 tablet by mouth once d* ATORVASTATIN 10 MG TABLET Take 1 tablet by mouth once d* KLOR-CON 10 MEQ TABLET,EXTEND* Take 1 tablet by mouth twice * CARBIDOPA 25 MG-LEVODOPA 100 * Take 1 tablet by mouth five t* FLAXSEED OIL ORAL Take 1,200 mg by mouth once d* COQ10 SG 100 ORAL Take 100 mg by mouth once vinod* FERROUS GLUCONATE 324 MG (37.* Take 324 mg by mouth daily wi* Progress Notes: Shira Walker PT 03/02/2018 7:00 PM Signed Episode Visit Count: 1 Therapist That Will Oversee The Plan Of Care: Shira Walker PT Start of Care Date: 02/27/18 Onset Date: 02/15/18 Plan of Care Certification Date: 02/27/18 Patient Identified by Name and Date of : Yes (last name pronounded (Jorge)) REHABILITATION AND SPORTS THERAPY PHYSICAL THERAPY EVALUATION PLAN OF CARE: Assessment: Sandra Laughlin presents with the diagnosis of falls. Patient fell when she was reaching for something on a table which has lead to a compression fracture of her lumbar spine. Patient has Parkinson's + Dementia. Patient at an extremely High Risk for falls based on TUG and 5x sit to stand. She presents with impairments with high score on TUG, 5x STS, assistance needed with using 2WW when walking and turning, poor posture, and poor past tolerance to outpatient PT as required repeated instructions with little carryover. She may benefit from skilled therapy services to further prevent falls and maintain her current strength at a SNF/Dementia Unit vs. home PT. When sharing the concept of a SNF/Dementia Care Unit, patient's did not seem to be open to this idea. He wanted patient to have outpatient PT; however, this does not seem like a safe a reasonable idea given the patient's current high fall risk. Prognosis: Poor Poor due to: clinical presentation;chronic nature of impairments;coping skills;limited tolerance to activity;memory deficits;poor historian;poor past response to therapy intervention;poor understanding of deficits Goals for Episode of Care: created on 02/27/18 through 03/30/18 Patient will report no falls. Improve score on Timed Up and Go Test to 30 seconds to reflect decreased fall risk. Improve score on 30 Second Chair Stand to 10 repetitions to reflect decreased fall risk. Patient will be able to sit to stand without cues for hand placement. G CODE REPORTING Based on clinical assessment and the score on the AM-PAC Scale Score Assessment Tool, the G code and corresponding severity modifiers are documented below. Evaluation: 02/27/2018 Current Status: Mobility: Walking and Moving Around: G8978 CL 60-79% impaired Goal Status: Mobility: Walking and Moving Around: G8979 CK 40-59% impaired Planned Interventions, Frequency, and Duration: Current Frequency: (Recommending pt have home PT or go to a SNF/Dementia care) Patient to be see for PLAN FOR NEXT VISIT: Think patient would benefit from SNF/Dementia care vs Home PT. Patient demonstrates poor understanding of plan of care and treatment. The above goals and plan of care were discussed and agreed upon by patient/family. SUBJECTIVE: Sandra Laughlin is a 72 year old female seen today for fall. Information provided today by [facility] (hitesh Banks) Patient is being sent to PT form [facility]. Order was dropped off per . Had a compression fracture from fall per her . Was using a walker and reached for something on a table and lost balance and fell on L side. Patient uses a manual w/c in the home now since fall, and has taken FWW away from patient. Grab bars in every bathroom. Dressing and bathing helps with. does laundry and cooking. confirmed she has dementia. She can get into bed like Andrey Golias, PT showed her, said her . Patient had back pain before fall. Lift chair at home, which she has used for 2-3 years. Sleeps in a regular bed and doesn't have difficulty sleeping. Will be having an ablation of her back on Friday by Dr. Lorenzo. She has had injections by Dr. Lorenzo that have not worked. Functional Limitations: standing;walking;walking in the house Prior Level of Function: Required assistance (required since moving into the condo 1 year ago.) Intake Information: Prescription present (see Dr. Grider's note 02/24/18 [facility]) Previous Treatment: Physical Therapy? Falls Interview: Fall with injury in the last year OBJECTIVE MEASURES WITH LEVEL OF FUNCTION: Cognition Cognition: Safety Judgment;Memory Deficits;Communication Deficits Posture / Alignment Posture: Increased thoracic kyphosis;Forward head;Rounded shoulders (seated crouched in chair) LE Strength R LE Strength: Grossly 4-/5 L LE Strength: Grossly 4-/5 5 Times Sit to Stand Test : 98 sec Timed Up and Go (sec): 135 sec Patient requiring verbal cuing and tactile cuing for placement of hands when standing from and sitting down in chair. Gait: Cuing required to move 2WW and CGA to help move 2WW. Education: Education Learning Preferences: Demonstration Barriers: Cognitive Limitations;Communication Deficit (Safety to leave home) Learning/educational needs: Plan of Care;Safety Education Provided: Yes, see treatment interventions for education provided Education Provided To: Caregiver;Patient Education Mode/Type: Explanation/Discussion Response to Education/Teach Back: No Evidence Of Learning;Requires Review/Additional Education TREATMENT: Evaluation Billing: [facility]: Evaluation - High Complexity (42596) Total time: 45 minutes Shira Walker PT PROGRESS Observed: 02/27/2018 Status: COMPLETED Source: [place] 9:42 AM [facility] REPOSITORY O ID: [id number] Author: Kaylee García) Almaz Service: (none) Author Type: Registered Nurse Type: Progress Notes Filed: 02/27/2018 11:15 AM Note Text: TC to [facility], asked if patient riding in car with while he does errands is considered not homebound. Pt rides in car because she can't safely stay at home alone. Asked if it is considerable trouble to get pt in and out of car, informed yes. States that would still be considered home bound. Kaylee Muse, YUE PCC and SW called spouse, discussed Lidoderm patches will cost them $78.96 for 30 day supply. Spouse states they can afford that cost so he will go pick it up this afternoon. States pt has most pain when she is getting out of bed in the morning. Instructed to place patch on patient 30 minutes before she is ready to get out of bed, which will give it time to start working to help her pain, verbalized understanding. Informed [employer] follows Medicare guidelines for home health status so patient cannot go out for lunch daily if they want home health services. Spouse states he will discuss homebound status and no lunches out with patient and her sister and will call PCC back regarding if they will abide by home status in order to get PLATINUM AND PALLADIUM KETTLE TENDER and PT. Pt has contacted an [employer] to help with assets and financial issues with pt and spouse. He will visit the pt's home on Friday since pt cannot get into the office which is in an old house and has steps at both entrances. Kaylee Muse RN Discussed below with ANJU Ronquillo. TC to [facility], verbally gave pharmacist manager the coupon information for GoodRx for Lidoderm patches. Tech ran coupon and states it would cost the pt $78.96. Kaylee Muse RN TC to [employer], states patient's insurance is a Medicare Replacement HMO, so they follow Medicare guidelines 100%. Kaylee Muse RN PROGRESS Observed: 02/26/2018 Status: COMPLETED Source: [place] 5:08 PM [facility] REPOSITORY HNO ID: [id number] Author: Jessenia Grider Service: (none) Author Type: Physician Type: Progress Notes Filed: 03/04/2018 11:33 AM Note Text: rx filed. PROGRESS Observed: 02/26/2018 Status: COMPLETED Source: [place] 4:59 PM [facility] REPOSITORY HNO ID: [id number] Author: Kaylee Muse Service: (none) Author Type: Registered Nurse Type: Progress Notes Filed: 02/26/2018 5:05 PM Note Text: DR. GRIDER, PLEASE D/C PREVIOUS LIDODERM RX AND FILE NEW PRESCRIPTION. THANKS Kaylee Muse RN The following prescriptions have been called to [facility] 02/26/2018 at 5:03 PM by Kaylee Muse RN. I spoke with Bonita in the pharmacy. Pending Prescriptions Disp Refills LIDOCAINE 5 % TOPICAL PATCH 30 Patch 1 Sig: Apply patch for 12 hours then remove for 12 hours. Location: lumbar spine LINH: No Kaylee Muse RN February 26, 2018 5:03 PM Clarified directions with PCP because Bonita, pharmacist at [facility] states directions are usually 12 hours on and 12 hours off for pain patches. Kalyee Muse RN Lengthy discussion with ANJU and PCP regarding pt's homebound status and if home health will be able to admit for care due to patient does go out to lunch during the week and rides in car while spouse does errands because he can't safely leave her at home alone and doesn't have anyone to stay with pt. ANJU will contact [facility] and have them assess pt for care and homebound status. ANJU states she called [facility] because spouse states there was an issue with patient's pain patches and [facility] has no record of pt or prescription. Kaylee Muse RN TC from spouse, states [employer] nurse came yesterday and said they could have home health with no charge to them. Kaylee Muse RN PROGRESS Observed: 02/26/2018 Status: COMPLETED Source: [place] 4:43 PM [facility] REPOSITORY HNO ID: [id number] Author: Kaylee García) Almaz Service: (none) Author Type: Registered Nurse Type: Progress Notes Filed: 03/04/2018 11:33 AM Note Text: PRIMARY CARE COORDINATION IN OFFICE VISIT WITH PCP Patient has been identified by name and date of . 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 Asked spouse to call PCC back with name and phone number to help coordinate care and possible home assistance. PCC Plan of Care: Patient concerns: Pt reporting lumbar back pain PCC Interventions: PCC found Good RX coupon to help with cost of pain patches Next Office Visit: 02/24/2018 Plan For Next Call: 2 weeks Kaylee Muse RN February 26, 2018 PROGRESS Observed: 02/25/2018 Status: COMPLETED Source: [place] 1:25 PM [facility] REPOSITORY HNO ID: [id number] Author: Annie Costello (Sw) Service: (none) Author Type: Rn Behavioral Health Type: Progress Notes Filed: 02/27/2018 2:08 PM Note Text: Late Entry Anju met with patient yesterday at office visit with Dr. Grider and YUE Page Agronomy Manager. Patient spouse noted during visit that he was not able to parts picker pain patch due to high cost. YUE Page printed off coupon for patch to be used at [facility] to possibly make prescription $76 instead of $226. Sw explained that she would call patient spouse back to follow up and see if he was able to parts picker prescription or needed further prescription assistance help. Sw will also see about obtaining [employer] nurse name from spouse in order for [facility] to better assist with patient's continuity of care. PROGRESS Observed: 02/24/2018 Status: COMPLETED Source: [place] 4:46 PM [facility] REPOSITORY HNO ID: [id number] Author: Jessenia Moreno) Cheo Service: (none) Author Type: Physician Type: Progress Notes Filed: 02/24/2018 4:46 PM Note Text: Reviewed. PROGRESS Observed: 02/24/2018 Status: COMPLETED Source: [place] 3:48 PM [facility] REPOSITORY HNO ID: [id number] Author: Jessenia Moreno) Cheo Service: (none) Author Type: Physician Type: Progress Notes Filed: 02/25/2018 1:24 PM Note Text: Chief Complaint Patient presents with: Hospital Follow Up: falls - TCM 14 HPI Sandra Laughlin is a 72 year old female who presents here today for Hospital Discharge Follow up. Patient was admitted from 02/15 to 02/17 after fall at home while using walker. Agronomy Manager Kaylee Muse's TCM note as follows and summarizes visit. TRANSITION CARE MANAGEMENT (TCM) INITIAL CONTACT ? ? Provider Action/FYI: ? Pt seeing Dr. Lorenzo today for back pain Spouse hasn't scheduled outpatient PT yet ? ? Initial contact with patient post discharge, spoke to spouse. Patient identified by name and . ? SUMMARY: -Pt discharged from [facility] on 02/17. -Follow up appointment on 02/24. -Medication review done no. -Admitted for: Mechanical Fall Compression Fracture (Acute) Left Hip Contusion ? CONCERNS: Patient is currently at Dr. Lorenzo's office for back pain ? Spouse states hospital didn't give him the script for outpatient PT. States pt wants to come to [facility] for PT. Informed PCP can write a prescription for the PT. Spouse declined and stated he will pick the script up from [facility] then schedule pt. States he wants to make sure [facility] takes his insurance. PCC checked with [facility], informed she is pretty sure they take [employer], however they usually put in a referral to make sure insurance with pay. Spouse verbalized understanding ? NEW MEDICATIONS: Lidoderm Patch 2 patch Topical Daily #30 ? MEDS HELD/DISCONTINUED: None ? BRIEF HOSPITAL COURSE: Copied from [facility] [employer]: ? Patient is a 72-year-old lady with past medical history sent on for advanced Parkinson's disease complicated by dementia with autonomic dysfunction who presented following a fall. CT obtained demonstrated L1 compression fracture also suspicion of probable left hip fracture however imaging studies did not demonstrate any hip fracture. Patient admitted to regular regular floor for further management ? 1. Mechanical fall with L1 compression fracture patient has been admitted to regular nursing floor for symptomatic management consult was placed to PT OT recommendation is for patient to be discharged to a half-way facility. Case subsequently discussed with case management recommendation was for patient to have been discharged to half-way facility however insisted on home with home health versus outpatient therapy so seen in consultation by Dr. Lorenzo pain management recommended initiation of Lidoderm patch plan is for patient to undergo kyphoplasty as outpatient on 02/18/18 ? 2. Left hip contusion CT was negative for hip fracture ? 3. Advanced Parkinson's disease with cognitive impairment and autonomic dysfunction ? Please follow up with your Primary Care Physician in: in 5- 7 days Disposition: Home with Home Health ? Kaylee Muse RN Since discharge, patient has not had any further falls and has had patient using manual wheelchair as her last fall occurred while using walker. Discussed that she has had seated falls in the past and that this might not completely keep her safe. Still complaining of pain in her lower back from the L1 compression fracture and has not been able to afford her lidoderm patches as they were going to cost almost $200. Not taking anything OTC for pain . Patient has not had anyone out for home health thus far. Has scheduled PT on 02/27. Kaveh nurse to come out tomorrow at 2 pm to assess patient in the home. Patient is not home bound and goes out to lunch with on a daily basis, so would not qualify for home health. Patient followed up with facet injection on 02/[address] Lorenzo and was supposed to have an appointment today for radioablation, but patient and thought appointment was 03/03, so no showed. Has not had further hip pain since her fall. Tolerating PO diet without issues. No signs of infection from recent hospitalization. Taking medications as prescribed without side effects. Past medical history, appointments, medications, allergies reviewed. Previous Medical History PAST MEDICAL HISTORY Diagnosis Date - Anxiety - Cataracts, bilateral s/p removal - Dementia - Depression - GERD (gastroesophageal reflux disease) - Hyperlipidemia - Hypotension seeing Dr. James - Incontinence urinary - Parkinson disease (HCC) - S/P deep brain stimulator placement Seeing Dr. Robison - TIA (transient ischemic attack) suspected Previous Surgical History PAST SURGICAL HISTORY Procedure Laterality Date - CATARACT SURGERY, COMPLEX Bilateral 2013 - CHOLECYSTECTOMY - HYSTERECTOMY HX - PAST SURGICAL HISTORY OF 2011 deep brain stimulator placement - ROTATOR CUFF REPAIR Bilateral Family History FAMILY HISTORY Problem Relation Age of Onset - Cancer Mother - Breast Cancer Sister - Cancer Father skin Patient Allergies ALLERGIES Allergen Reactions - Penicillin Swelling Current Medications Current Outpatient Prescriptions on File Prior to Visit: sodium chloride 1 gram tab TAKE 1 TABLET BY MOUTH 3 TIMES A DAY gabapentin (NEURONTIN) 300 mg capsule Take 1 capsule by mouth twice daily for 180 days. fludrocortisone (FLORINEF) 0.1 mg tablet TAKE 1 TABLET EVERY DAY sertraline (ZOLOFT) 100 mg tablet Take 1 tablet by mouth once daily. Midodrine HCl (PROAMATINE) 10 mg tablet TAKE 1 TABLET BY MOUTH THREE TIMES DAILY. Cholecalciferol, Vitamin D3, (VITAMIN D-3) 2,000 unit cap Take by mouth. clopidogrel (PLAVIX) 75 mg tablet Take 1 tablet by mouth once daily. donepezil (ARICEPT) 10 mg tablet Take 1 tablet by mouth once daily. famotidine (PEPCID) 40 mg tablet Take 1 tablet by mouth once daily. atorvastatin (LIPITOR) 10 mg tablet Take 1 tablet by mouth once daily. KLOR-CON 10 10 mEq tablet Take 1 tablet by mouth twice daily. carbidopa-levodopa (SINEMET 25-100) 25-100 mg per tablet Take 1 tablet by mouth five times daily. FLAXSEED OIL ORAL Take 1,200 mg by mouth once daily. UBIDECARENONE/VITAMIN E MIXED (COQ10 SG 100 ORAL) Take 100 mg by mouth once daily. ferrous gluconate 324 mg (37.5 mg iron) tablet Take 324 mg by mouth daily with breakfast. No current facility-administered medications on file prior to visit. Social History Social History Marital status: Spouse name: Years of education: Number of children: Social History Main Topics Smoking status: Former Smoker Packs/day: 0.00 Years: 0.00 Types: Cigarettes Quit date: 11/1999 Smokeless status: Never Used Alcohol use: No Drug use: No Sexual activity: No Review of Symptoms REVIEW OF SYSTEMS GENERAL: No weight loss, malaise or fevers RESPIRATORY: Negative for cough, hemoptysis, wheezing, COPD, dyspnea or shortness of breath CARDIOVASCULAR: Negative for chest pain, leg swelling, hypertension, CHF or palpitations GI: No nausea, vomiting, or diarrhea : No history of dysuria, frequency or incontinence SKIN: Negative for lesions, rash, and itching EXAM: BP 132/72 Pulse 84 Resp 26 Wt 59 kg (130 lb) BMI 21.63 kg/m2 General Appearance: Well appearing, alert, in no acute distress, well-hydrated, well nourished.. Skin: Skin color, texture, turgor normal, no suspicious rashes or lesions. Back: Kyphotic, TTP over upper lumbar spine without ulcers or lesions, erythema, or swelling. Lungs: Lungs clear to auscultation. No wheezing, rhonchi, rales. Heart: RRR without murmur, gallop, or rubs. No ectopy. Abdomen: Normal abdominal exam, Abdomen soft, non-tender. Bowel sounds normal. No masses, organomegaly. HIP: Location: Left Tenderness over trochanteric bursa: no Pain with movement: No. Health Maintenance List TETANUS due on 1957 COLORECTAL CANCER SCREENING,SEE MODIFIER due on 1996 BONE DENSITY due on 2011 PNEUMOVAX AGE 65 AND OVER WITH 5YR LOOKBACK(1) due on 2011 MAMMOGRAM due on 05/29/2018 DIABETES SCREEN due on 02/09/2021 LIPID SCREEN due on 05/27/2022 ADULT PREVNAR-13 Completed INFLUENZA Completed HEPATITIS C SCREENING Completed ASSESSMENT/PLAN: 1. Fall in home, subsequent encounter - ICD9: V58.89, E888.9, ICD10: W19.XXXD, Y92.009 (primary diagnosis) Patient to follow up with PT and continue use of wheelchair. Discussed safety in the home and concerns with caring for patient with his history of MS. 2. Closed compression fracture of L1 lumbar vertebra with routine healing, subsequent encounter - ICD9: V54.17, ICD10: S32.010D Will give new rx for lidoderm patch. Given coupon to help with cost. Follow up with pain management on 03/03. 3. Crouched gait - ICD9: 781.2, ICD10: R26.89 Continue wheelchair use. 4. Parkinson disease (HCC) - ICD9: 332.0, ICD10: G20 Continue current regimen and follow up with neurology. 5. 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 6. Hospital discharge follow-up - ICD9: V67.59, ICD10: Z09 Will work to control pain and have patient follow up for PT and radioablation through Dr. Lorenzo's office. Jessenia Grider MD CNOV Observed: 02/24/2018 Status: COMPLETED Source: [place] 3:40 PM [facility] REPOSITORY Office Visit (FAMPWS) SANDRA LAUGHLIN ([id number]) 1945 F Date Time Provider Department 02/24/18 3:40 PM JESSENIA GRIDER) FAMPWS During your visit today, we recorded the following information about you: Pulse Respiration Blood pressure Weight 84/minute 26/minute 132/72 59 kg Jessenia Grider MD 02/25/2018 1:24 PM Signed Chief Complaint Patient presents with: Hospital Follow Up: falls - TCM 14 HPI Sandra Laughlin is a 72 year old female who presents here today for Hospital Discharge Follow up. Patient was admitted from 02/15 to 02/17 after fall at home while using walker. Agronomy Manager Kaylee Muse's TCM note as follows and summarizes visit. TRANSITION CARE MANAGEMENT (TCM) INITIAL CONTACT ? ? Provider Action/FYI: ? Pt seeing Dr. Lorenzo today for back pain Spouse hasn't scheduled outpatient PT yet ? ? Initial contact with patient post discharge, spoke to spouse. Patient identified by name and . ? SUMMARY: -Pt discharged from [facility] on 02/17. -Follow up appointment on 02/24. -Medication review done no. -Admitted for: Mechanical Fall Compression Fracture (Acute) Left Hip Contusion ? CONCERNS: Patient is currently at Dr. Lorenzo's office for back pain ? Spouse states hospital didn't give him the script for outpatient PT. States pt wants to come to [facility] for PT. Informed PCP can write a prescription for the PT. Spouse declined and stated he will pick the script up from [facility] then schedule pt. States he wants to make sure [facility] takes his insurance. PCC checked with [facility], informed she is pretty sure they take [employer], however they usually put in a referral to make sure insurance with pay. Spouse verbalized understanding ? NEW MEDICATIONS: Lidoderm Patch 2 patch Topical Daily #30 ? MEDS HELD/DISCONTINUED: None ? BRIEF HOSPITAL COURSE: Copied from [facility] [employer]ish: ? Patient is a 72-year-old lady with past medical history sent on for advanced Parkinson's disease complicated by dementia with autonomic dysfunction who presented following a fall. CT obtained demonstrated L1 compression fracture also suspicion of probable left hip fracture however imaging studies did not demonstrate any hip fracture. Patient admitted to regular regular floor for further management ? 1. Mechanical fall with L1 compression fracture patient has been admitted to regular nursing floor for symptomatic management consult was placed to PT OT recommendation is for patient to be discharged to a half-way facility. Case subsequently discussed with case management recommendation was for patient to have been discharged to half-way facility however insisted on home with home health versus outpatient therapy so seen in consultation by Dr. Lorenzo pain management recommended initiation of Lidoderm patch plan is for patient to undergo kyphoplasty as outpatient on 02/18/18 ? 2. Left hip contusion CT was negative for hip fracture ? 3. Advanced Parkinson's disease with cognitive impairment and autonomic dysfunction ? Please follow up with your Primary Care Physician in: in 5- 7 days Disposition: Home with Home Health ? Kaylee Muse, YUE Since discharge, patient has not had any further falls and has had patient using manual wheelchair as her last fall occurred while using walker. Discussed that she has had seated falls in the past and that this might not completely keep her safe. Still complaining of pain in her lower back from the L1 compression fracture and has not been able to afford her lidoderm patches as they were going to cost almost $200. Not taking anything OTC for pain . Patient has not had anyone out for home health thus far. Has scheduled PT on 02/27. Kaveh nurse to come out tomorrow at 2 pm to assess patient in the home. Patient is not home bound and goes out to lunch with on a daily basis, so would not qualify for home health. Patient followed up with facet injection on 02/[address] Lorenzo and was supposed to have an appointment today for radioablation, but patient and thought appointment was 03/03, so no showed. Has not had further hip pain since her fall. Tolerating PO diet without issues. No signs of infection from recent hospitalization. Taking medications as prescribed without side effects. Past medical history, appointments, medications, allergies reviewed. Previous Medical History PAST MEDICAL HISTORY Diagnosis Date - Anxiety - Cataracts, bilateral s/p removal - Dementia - Depression - GERD (gastroesophageal reflux disease) - Hyperlipidemia - Hypotension seeing Dr. James - Incontinence urinary - Parkinson disease (HCC) - S/P deep brain stimulator placement Seeing Dr. Robison - TIA (transient ischemic attack) suspected Previous Surgical History PAST SURGICAL HISTORY Procedure Laterality Date - CATARACT SURGERY, COMPLEX Bilateral 2013 - CHOLECYSTECTOMY - HYSTERECTOMY HX - PAST SURGICAL HISTORY OF 2011 deep brain stimulator placement - ROTATOR CUFF REPAIR Bilateral Family History FAMILY HISTORY Problem Relation Age of Onset - Cancer Mother - Breast Cancer Sister - Cancer Father skin Patient Allergies ALLERGIES Allergen Reactions - Penicillin Swelling Current Medications Current Outpatient Prescriptions on File Prior to Visit: sodium chloride 1 gram tab TAKE 1 TABLET BY MOUTH 3 TIMES A DAY gabapentin (NEURONTIN) 300 mg capsule Take 1 capsule by mouth twice daily for 180 days. fludrocortisone (FLORINEF) 0.1 mg tablet TAKE 1 TABLET EVERY DAY sertraline (ZOLOFT) 100 mg tablet Take 1 tablet by mouth once daily. Midodrine HCl (PROAMATINE) 10 mg tablet TAKE 1 TABLET BY MOUTH THREE TIMES DAILY. Cholecalciferol, Vitamin D3, (VITAMIN D-3) 2,000 unit cap Take by mouth. clopidogrel (PLAVIX) 75 mg tablet Take 1 tablet by mouth once daily. donepezil (ARICEPT) 10 mg tablet Take 1 tablet by mouth once daily. famotidine (PEPCID) 40 mg tablet Take 1 tablet by mouth once daily. atorvastatin (LIPITOR) 10 mg tablet Take 1 tablet by mouth once daily. KLOR-CON 10 10 mEq tablet Take 1 tablet by mouth twice daily. carbidopa-levodopa (SINEMET 25-100) 25-100 mg per tablet Take 1 tablet by mouth five times daily. FLAXSEED OIL ORAL Take 1,200 mg by mouth once daily. UBIDECARENONE/VITAMIN E MIXED (COQ10 SG 100 ORAL) Take 100 mg by mouth once daily. ferrous gluconate 324 mg (37.5 mg iron) tablet Take 324 mg by mouth daily with breakfast. No current facility-administered medications on file prior to visit. Social History Social History Marital status: Spouse name: Years of education: Number of children: Social History Main Topics Smoking status: Former Smoker Packs/day: 0.00 Years: 0.00 Types: Cigarettes Quit date: 11/1999 Smokeless status: Never Used Alcohol use: No Drug use: No Sexual activity: No Review of Symptoms REVIEW OF SYSTEMS GENERAL: No weight loss, malaise or fevers RESPIRATORY: Negative for cough, hemoptysis, wheezing, COPD, dyspnea or shortness of breath CARDIOVASCULAR: Negative for chest pain, leg swelling, hypertension, CHF or palpitations GI: No nausea, vomiting, or diarrhea : No history of dysuria, frequency or incontinence SKIN: Negative for lesions, rash, and itching EXAM: BP 132/72 Pulse 84 Resp 26 Wt 59 kg (130 lb) BMI 21.63 kg/m2 General Appearance: Well appearing, alert, in no acute distress, well-hydrated, well nourished.. Skin: Skin color, texture, turgor normal, no suspicious rashes or lesions. Back: Kyphotic, TTP over upper lumbar spine without ulcers or lesions, erythema, or swelling. Lungs: Lungs clear to auscultation. No wheezing, rhonchi, rales. Heart: RRR without murmur, gallop, or rubs. No ectopy. Abdomen: Normal abdominal exam, Abdomen soft, non-tender. Bowel sounds normal. No masses, organomegaly. HIP: Location: Left Tenderness over trochanteric bursa: no Pain with movement: No. Health Maintenance List TETANUS due on 1957 COLORECTAL CANCER SCREENING,SEE MODIFIER due on 1996 BONE DENSITY due on 2011 PNEUMOVAX AGE 65 AND OVER WITH 5YR LOOKBACK(1) due on 2011 MAMMOGRAM due on 05/29/2018 DIABETES SCREEN due on 02/09/2021 LIPID SCREEN due on 05/27/2022 ADULT PREVNAR-13 Completed INFLUENZA Completed HEPATITIS C SCREENING Completed ASSESSMENT/PLAN: 1. Fall in home, subsequent encounter - ICD9: V58.89, E888.9, ICD10: W19.XXXD, Y92.009 (primary diagnosis) Patient to follow up with PT and continue use of wheelchair. Discussed safety in the home and concerns with caring for patient with his history of MS. 2. Closed compression fracture of L1 lumbar vertebra with routine healing, subsequent encounter - ICD9: V54.17, ICD10: S32.010D Will give new rx for lidoderm patch. Given coupon to help with cost. Follow up with pain management on 03/03. 3. Crouched gait - ICD9: 781.2, ICD10: R26.89 Continue wheelchair use. 4. Parkinson disease (HCC) - ICD9: 332.0, ICD10: G20 Continue current regimen and follow up with neurology. 5. 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 6. Hospital discharge follow-up - ICD9: V67.59, ICD10: Z09 Will work to control pain and have patient follow up for PT and radioablation through Dr. Lorenzo's office. MD Jessenia Lopez MD 02/24/2018 4:05 PM Signed PLEASE CALL TOMORROW WHEN [employer] NURSE COMES TO HOUSE SO THAT YOU CAN RELAY THE INFORMATION TO KAYLEE MUSE OR ANNIE COSTELLO Referring Provider: JESSENIA GRIDER) [[id number]] Allergies As of Date: 02/24/2018 Noted Allergy Reaction PENICILLIN 05/29/2017 7 - Swelling Date Reviewed: 02/24/2018 Reviewed by: Tina Jj Ct - Fully Assessed Reason for Visit: Hospital Follow Up [177] Cmt: falls - TCM 14 Primary Visit Diagnosis:Fall in home, subsequent encounter [W19.XXXD, Y92.009] Other Visit Diagnoses:Closed compression fracture of L1 lumbar vertebra with routine healing, subsequent encounter [S32.010D] Crouched gait [R26.89] Parkinson disease ([facility]) [G20] 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 Remove old patch prior to placing new patch. Location: lumbar spineDisp: 30 PatchRfl: 1 Prescriptions as of 02/24/2018 Sig: LIDOCAINE 5 % TOPICAL PATCH Apply 1 Patch as directed tiffanie* SODIUM CHLORIDE 1 GRAM TABLET TAKE 1 TABLET BY MOUTH 3 TIME* GABAPENTIN 300 MG CAPSULE Take 1 capsule by mouth twice* FLUDROCORTISONE 0.1 MG TABLET TAKE 1 TABLET EVERY DAY SERTRALINE 100 MG TABLET Take 1 tablet by mouth once d* MIDODRINE 10 MG TABLET TAKE 1 TABLET BY MOUTH THREE * CHOLECALCIFEROL (VITAMIN D3) * Take by mouth. CLOPIDOGREL 75 MG TABLET Take 1 tablet by mouth once d* DONEPEZIL 10 MG TABLET Take 1 tablet by mouth once d* FAMOTIDINE 40 MG TABLET Take 1 tablet by mouth once d* ATORVASTATIN 10 MG TABLET Take 1 tablet by mouth once d* KLOR-CON 10 MEQ TABLET,EXTEND* Take 1 tablet by mouth twice * CARBIDOPA 25 MG-LEVODOPA 100 * Take 1 tablet by mouth five t* FLAXSEED OIL ORAL Take 1,200 mg by mouth once d* COQ10 SG 100 ORAL Take 100 mg by mouth once vinod* FERROUS GLUCONATE 324 MG (37.* Take 324 mg by mouth daily wi* Problem List As Of Date 02/24/2018 Noted Resolved Dementia [F03.90] Parkinson disease ([facility]) [G20] Hypotension [I95.9] 10/14/2017 Hyperlipidemia [E78.5] GERD (gastroesophageal reflux disease) [K21.9] TIA (transient ischemic attack) [G45.9] More... Falling [R29.6] INVALID FOR* Crouched gait [R26.89] INVALID FOR* Depression [F32.9] Postural hypotension [I95.1] INVALID FOR* Other instructions from your clinician: PLEASE CALL TOMORROW WHEN [employer] NURSE COMES TO HOUSE SO THAT YOU CAN RELAY THE INFORMATION TO KAYLEE MUSE OR ANNIE COSTELLO Prescriptions ordered this encounter Disp Refills Start End LIDOCAINE 5 % TOPICAL PATCH 30 P* 1 02/24/2018 Route: TRANSDERM. Sig: Apply 1 Patch as directed every 12 hours. Remove old patch prior to placing new patch. Location: lumbar spine Encounter Status:Closed by JESSENIA GRIDER MD on 02/25/18 PROGRESS Observed: 02/24/2018 Status: COMPLETED Source: [place] 3:24 PM [facility] REPOSITORY HNO ID: [id number] Author: Kaylee García) Almaz Service: (none) Author Type: Registered Nurse Type: Progress Notes Filed: 02/24/2018 3:26 PM Note Text: TC to Dr. Lorenzo's office, asked if pt had a kyphoplasty after she was discharged from hospital. States no, she had a left lumbar facet on 02/20 and she had an appt earlier today for a RFA (Radiofrequency Ablation) which pt didn't show. Kaylee Muse RN February 24, 2018 3:26 PM CNSW Observed: 02/24/2018 Status: COMPLETED Source: [place] 12:00 AM [facility] REPOSITORY Social Work (YASSINEWST) SANDRA LAUGHLIN ([id number]) 1945 F Date Time Provider Department 02/24/18 ANNIE COSTELLO (SW) During your visit today, we recorded the following information about you: ROMULO Ronquillo 02/27/2018 2:08 PM Signed Late Entry Anju met with patient yesterday at office visit with Dr. Grider and YUE Page Agronomy Manager. Patient spouse noted during visit that he was not able to parts picker pain patch due to high cost. YUE Page printed off coupon for patch to be used at [facility] to possibly make prescription $76 instead of $226. Anju explained that she would call patient spouse back to follow up and see if he was able to parts picker prescription or needed further prescription assistance help. Anju will also see about obtaining [employer] nurse name from spouse in order for [facility] to better assist with patient's continuity of care. Allergies As of Date: 02/24/2018 Noted Allergy Reaction PENICILLIN 05/29/2017 7 - Swelling Date Reviewed: 02/24/2018 Reviewed by: Tina Jj Ct - Fully Assessed Prescriptions as of 02/24/2018 Sig: X LIDOCAINE 5 % TOPICAL PATCH Apply 1 Patch as directed tiffanie* SODIUM CHLORIDE 1 GRAM TABLET TAKE 1 TABLET BY MOUTH 3 TIME* GABAPENTIN 300 MG CAPSULE Take 1 capsule by mouth twice* FLUDROCORTISONE 0.1 MG TABLET TAKE 1 TABLET EVERY DAY SERTRALINE 100 MG TABLET Take 1 tablet by mouth once d* MIDODRINE 10 MG TABLET TAKE 1 TABLET BY MOUTH THREE * CHOLECALCIFEROL (VITAMIN D3) * Take by mouth. CLOPIDOGREL 75 MG TABLET Take 1 tablet by mouth once d* DONEPEZIL 10 MG TABLET Take 1 tablet by mouth once d* FAMOTIDINE 40 MG TABLET Take 1 tablet by mouth once d* ATORVASTATIN 10 MG TABLET Take 1 tablet by mouth once d* KLOR-CON 10 MEQ TABLET,EXTEND* Take 1 tablet by mouth twice * CARBIDOPA 25 MG-LEVODOPA 100 * Take 1 tablet by mouth five t* FLAXSEED OIL ORAL Take 1,200 mg by mouth once d* COQ10 SG 100 ORAL Take 100 mg by mouth once vinod* FERROUS GLUCONATE 324 MG (37.* Take 324 mg by mouth daily wi* Problem List As Of Date 02/24/2018 Noted Resolved Dementia [F03.90] Parkinson disease (HCC) [G20] Hypotension [I95.9] 10/14/2017 Hyperlipidemia [E78.5] GERD (gastroesophageal reflux disease) [K21.9] TIA (transient ischemic attack) [G45.9] More... Falling [R29.6] INVALID FOR* Crouched gait [R26.89] INVALID FOR* Depression [F32.9] Postural hypotension [I95.1] INVALID FOR* Encounter Status:Closed by ANNIE FOURNIER on 02/27/18 CNPTOUTREACH Observed: 02/24/2018 Status: COMPLETED Source: [place] 12:00 AM [facility] REPOSITORY Patient Outreach (FAMPWS) SANDRA LAUGHLIN ([id number]) 1945 F Date Time Provider Department 02/24/18 KAYLEE MUSE) CARIEWS During your visit today, we recorded the following information about you: Kaylee Muse RN 02/24/2018 3:26 PM Signed TC to Dr. Lorenzo's office, asked if pt had a kyphoplasty after she was discharged from hospital. States no, she had a left lumbar facet on 02/20 and she had an appt earlier today for a RFA (Radiofrequency Ablation) which pt didn't show. Kaylee Muse RN February 24, 2018 3:26 PM Jessenia Grider MD 02/24/2018 4:46 PM Signed Reviewed. Kaylee Muse RN 03/04/2018 11:33 AM Signed PRIMARY CARE COORDINATION IN OFFICE VISIT WITH PCP Patient has been identified by name and date of . 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 Asked spouse to call PCC back with name and phone number to help coordinate care and possible home assistance. PCC Plan of Care: Patient concerns: Pt reporting lumbar back pain PCC Interventions: PCC found Good RX coupon to help with cost of pain patches Next Office Visit: 02/24/2018 Plan For Next Call: 2 weeks Kaylee Muse RN February 26, 2018 Kaylee Muse RN 02/26/2018 5:[address] GRIDER, PLEASE D/C PREVIOUS LIDODERM RX AND FILE NEW PRESCRIPTION. THANKS Kaylee Muse RN The following prescriptions have been called to [facility] pharmacy 02/26/2018 at 5:03 PM by Kaylee Muse RN. I spoke with Bonita in the pharmacy. Pending Prescriptions Disp Refills LIDOCAINE 5 % TOPICAL PATCH 30 Patch 1 Sig: Apply patch for 12 hours then remove for 12 hours. Location: lumbar spine LINH: No Kaylee Muse RN February 26, 2018 5:03 PM Clarified directions with PCP because Bonita, pharmacist at [facility] states directions are usually 12 hours on and 12 hours off for pain patches. Kaylee Muse RN Lengthy discussion with SW and PCP regarding pt's homebound status and if home health will be able to admit for care due to patient does go out to lunch during the week and rides in car while spouse does errands because he can't safely leave her at home alone and doesn't have anyone to stay with pt. SW will contact [facility] and have them assess pt for care and homebound status. SW states she called [facility] pharmacy because spouse states there was an issue with patient's pain patches and [facility] has no record of pt or prescription. Kaylee Muse RN TC from spouse, states [employer] nurse came yesterday and said they could have home health with no charge to them. YUE Shook MD 03/04/2018 11:33 AM Signed rx filed. Kaylee Muse RN 02/27/2018 11:15 AM Signed TC to VNS, asked if patient riding in car with while he does errands is considered not homebound. Pt rides in car because she can't safely stay at home alone. Asked if it is considerable trouble to get pt in and out of car, informed yes. States that would still be considered home bound. Kaylee Muse RN PCC and SW called spouse, discussed Lidoderm patches will cost them $78.96 for 30 day supply. Spouse states they can afford that cost so he will go pick it up this afternoon. States pt has most pain when she is getting out of bed in the morning. Instructed to place patch on patient 30 minutes before she is ready to get out of bed, which will give it time to start working to help her pain, verbalized understanding. Informed [employer] follows Medicare guidelines for home health status so patient cannot go out for lunch daily if they want home health services. Spouse states he will discuss homebound status and no lunches out with patient and her sister and will call PCC back regarding if they will abide by home status in order to get PLATINUM AND PALLADIUM KETTLE TENDER and PT. Pt has contacted an [employer] to help with assets and financial issues with pt and spouse. He will visit the pt's home on Friday since pt cannot get into the office which is in an old house and has steps at both entrances. Kaylee Muse RN Discussed below with ANJU Ronquillo. TC to [facility], verbally gave pharmacist manager the coupon information for GoodRx for Lidoderm patches. Tech ran coupon and states it would cost the pt $78.96. Kaylee Muse RN TC to [employer], states patient's insurance is a Medicare Replacement HMO, so they follow Medicare guidelines 100%. YUE Shook RN 03/02/2018 11:00 AM Signed Discussed with ANJU, she will send home health referral to [facility] for PT and PLATINUM [employer] PALLADIUM KETTLE TENDER. YUE Shook MD 03/03/2018 8:48 PM Signed Reviewed. Allergies As of Date: 02/24/2018 Noted Allergy Reaction PENICILLIN 05/29/2017 7 - Swelling Date Reviewed: 02/24/2018 Reviewed by: Tina Jj Ct - Fully Assessed Reason for Visit: Security Trainer-In Office Visit [4194] Visit Diagnosis:Closed compression fracture of L1 lumbar vertebra with routine healing, subsequent encounter [S32.010D] Order(s):lidocaine (LIDODERM) 5 %Apply patch for 12 hours then remove for 12 hours. Location: lumbar spineDisp: 30 PatchRfl: 1 Prescriptions as of 02/24/2018 Sig: LIDOCAINE 5 % TOPICAL PATCH Apply patch for 12 hours then* SODIUM CHLORIDE 1 GRAM TABLET TAKE 1 TABLET BY MOUTH 3 TIME* GABAPENTIN 300 MG CAPSULE Take 1 capsule by mouth twice* FLUDROCORTISONE 0.1 MG TABLET TAKE 1 TABLET EVERY DAY SERTRALINE 100 MG TABLET Take 1 tablet by mouth once d* MIDODRINE 10 MG TABLET TAKE 1 TABLET BY MOUTH THREE * CHOLECALCIFEROL (VITAMIN D3) * Take by mouth. CLOPIDOGREL 75 MG TABLET Take 1 tablet by mouth once d* DONEPEZIL 10 MG TABLET Take 1 tablet by mouth once d* FAMOTIDINE 40 MG TABLET Take 1 tablet by mouth once d* ATORVASTATIN 10 MG TABLET Take 1 tablet by mouth once d* KLOR-CON 10 MEQ TABLET,EXTEND* Take 1 tablet by mouth twice * CARBIDOPA 25 MG-LEVODOPA 100 * Take 1 tablet by mouth five t* FLAXSEED OIL ORAL Take 1,200 mg by mouth once d* COQ10 SG 100 ORAL Take 100 mg by mouth once vinod* FERROUS GLUCONATE 324 MG (37.* Take 324 mg by mouth daily wi* Problem List As Of Date 02/24/2018 Noted Resolved Dementia [F03.90] Parkinson disease (HCC) [G20] Hypotension [I95.9] 10/14/2017 Hyperlipidemia [E78.5] GERD (gastroesophageal reflux disease) [K21.9] TIA (transient ischemic attack) [G45.9] More... Falling [R29.6] INVALID FOR* Crouched gait [R26.89] INVALID FOR* Depression [F32.9] Postural hypotension [I95.1] INVALID FOR* Prescriptions ordered this encounter Disp Refills Start End LIDOCAINE 5 % TOPICAL PATCH 30 P* 1 02/26/2018 Class: Call Rx Sig: Apply patch for 12 hours then remove for 12 hours. Location: lumbar spine Medications Discontinued During This Encounter lidocaine (LIDODERM) 5 % 30 P* 1 02/24/2018 02/26/2018 Route: TRANSDERMAL Sig: Apply 1 Patch as directed every 12 hours. Remove old patch prior to placing new patch. Location: lumbar spine Disc: Reason for discontinue is not on file. Encounter Status:Closed by KAYLEE MUSE on 03/04/18 PROGRESS Observed: 02/23/2018 Status: COMPLETED Source: [place] 1:55 PM [facility] [place] REPOSITORY HNO ID: [id number] Author: Tina Jj Ct Service: (none) Author Type: (none) Type: Progress Notes Filed: 02/23/2018 1:55 PM Note Text: Radiology Service Progress Note PATIENT NAME: Sandra Laughlin DATE OF SERVICE: February 23, 2018 TIME: 1:55 PM PATIENT IDENTITY VERIFICATION COMPLETED USING TWO (2) METHODS: Patient confirmed name verbally and Date of . PATIENT GENDER DATA: Female. status: : No status: NO. PATIENT RELEVANT IMPLANT DATA REVIEWED: Not Applicable RADIOLOGY DEPARTMENT: CT; Exam(s) Completed: Chest PERIPHERAL IV DATA: Not applicable SIGNED BY: Tina Jj Ct February 23, 2018 1:[address] CHEST WO IVCON Observed: 02/23/2018 Status: F Source: [place] 12:38 PM [facility] REPOSITORY * * *Final Report* * * DATE OF EXAM: Feb 23 2018 12:38PM [facility] 0541 - CT CHEST WO IVCON / PROCEDURE REASON: Other diseases of mediastinum, not elsewhere classified * * * * Physician Interpretation * * * * EXAMINATION: CHEST CT WITHOUT CONTRAST Indication: Other diseases of mediastinum, not elsewhere classified Technique: Spiral CT acquisition of the chest from the thoracic inlet to the upper abdomen without contrast. MQ: CTCWOR_4 CT Dose-Length Product: 236 mGy*cm CT Dose Reduction Employed: Automated exposure control (AEC) Comparison: None RESULT: Limitations: None. Lines, tubes, and devices: There is a generator pack seen within the subcutaneous tissues of the left upper chest, causing streak artifact. Lung parenchyma and pleura: There are subcentimeter, indeterminate pulmonary nodules. For example, there is an indeterminate 3 mm nodule seen within the right apex (series 2, image #30). There is an indeterminate 3 mm groundglass attenuation nodule seen within the right upper lobe (series 2, image #47). Other subcentimeter indeterminate pulmonary nodules are also seen. For example, there is an indeterminate 2-3 mm nodule seen within the left upper lobe (series 2, image #34). There is minimal dependent atelectasis. There is no CT evidence for pneumonia. There is no pleural effusion, endobronchial lesion, or pneumothorax. There is mild dependent atelectasis. A bulla is incidentally seen within the right middle lobe. Thoracic inlet, heart, and mediastinum: Markedly enlarged, heterogeneous thyroid gland, with associated substernal extension of the right lobe of the thyroid gland and hypodense nodules seen within each lobe of thyroid gland, also seen on prior thyroid ultrasound dated 01/19/2018. There are no pathologically enlarged axillary, mediastinal, or hilar lymph nodes. Atherosclerotic calcifications are present within the thoracic aorta and coronary arteries. The heart is normal in size. There is a trace pericardial effusion. Prominent right cardiophrenic angle lymph node is likely reactive. Bones and soft tissues: There is kyphoscoliosis, osteopenia, and multilevel degenerative change with thoracic spine. There is a mild wedge compression deformity seen involving the L1 vertebral body. Upper abdomen: There is an approximately 3 cm cyst seen within the interpolar segment of the left kidney (series 3, image #179). Subcentimeter low-attenuation lesion within the left kidney is too small to characterize. IMPRESSION: No acute pulmonary process is identified. Marked enlarged, heterogeneous thyroid gland, with associated substernal extension of the left lobe of the thyroid gland and hypodense nodules seen within each lobe of thyroid gland, also seen on prior thyroid ultrasound dated 01/19/2018. No lymphadenopathy is seen within the chest. Subcentimeter indeterminate bilateral pulmonary nodules, measuring up to 4 mm. Continued interval surveillance is recommended. Profiler: PSCB Transcribe Date/Time: Feb 23 2018 1:47P Dictated by : KEON WESLEY MD This examination was interpreted and the report reviewed and electronically signed by: KEON WESLEY MD on Feb 23 2018 1:55PM EST [id number] PROGRESS Observed: 02/18/2018 Status: COMPLETED Source: [place] 9:44 PM [facility] [place] RE[facility]IT[facility] HNO ID: [id number] Author: Jessenia Moreno) [facility] Service: (none) Author Type: Physician Type: Progress Notes Filed: 02/18/2018 9:44 PM Note Text: Reviewed. PROGRESS Observed: 02/18/2018 Status: COMPLETED Source: [place] 4:47 PM [facility] REPOSITORY HNO ID: [id number] Author: Kaylee BaerRn) [facility] Service: (none) Author Type: Registered Nurse Type: Progress Notes Filed: 02/18/2018 5:18 PM Note Text: TRANSITION CARE MANAGEMENT (TCM) INITIAL CONTACT Provider Action/FYI: Pt seeing Dr. Lorenzo today for back pain Spouse hasn't scheduled outpatient PT yet Initial contact with patient post discharge, spoke to spouse. Patient identified by name and . SUMMARY: -Pt discharged from [facility] on 02/17. -Follow up appointment on 02/24. -Medication review done no. -Admitted for: Mechanical Fall Compression Fracture (Acute) Left Hip Contusion CONCERNS: Patient is currently at Dr. Lorenzo's office for back pain Spouse states hospital didn't give him the script for outpatient PT. States pt wants to come to [facility] for PT. Informed PCP can write a prescription for the PT. Spouse declined and stated he will pick the script up from [facility] then schedule pt. States he wants to make sure [facility] takes his insurance. PCC checked with [facility], informed she is pretty sure they take [employer], however they usually put in a referral to make sure insurance with pay. Spouse verbalized understanding NEW MEDICATIONS: Lidoderm Patch 2 patch Topical Daily #30 MEDS HELD/DISCONTINUED: None BRIEF HOSPITAL COURSE: Copied from [facility] [employer]: Patient is a 72-year-old lady with past medical history sent on for advanced Parkinson's disease complicated by dementia with autonomic dysfunction who presented following a fall. CT obtained demonstrated L1 compression fracture also suspicion of probable left hip fracture however imaging studies did not demonstrate any hip fracture. Patient admitted to regular regular floor for further management 1. Mechanical fall with L1 compression fracture patient has been admitted to regular nursing floor for symptomatic management consult was placed to PT OT recommendation is for patient to be discharged to a half-way facility. Case subsequently discussed with case management recommendation was for patient to have been discharged to half-way facility however insisted on home with home health versus outpatient therapy so seen in consultation by Dr. Lorenzo pain management recommended initiation of Lidoderm patch plan is for patient to undergo kyphoplasty as outpatient on 02/18/18 2. Left hip contusion CT was negative for hip fracture 3. Advanced Parkinson's disease with cognitive impairment and autonomic dysfunction Please follow up with your Primary Care Physician in: in 5- 7 days Disposition: Home with Home Health Kaylee Muse RN CNPTOUTREACH Observed: 02/18/2018 Status: COMPLETED Source: [place] 12:00 AM [facility] REPOSITORY Patient Outreach (FAMPWS) SANDRA LAUGHLIN ([id number]) 1945 F Date Time Provider Department 02/18/18 KAYLEE MUSE) MORAIMA During your visit today, we recorded the following information about you: Kaylee Muse RN 02/18/2018 5:18 PM Addendum TRANSITION CARE MANAGEMENT (TCM) INITIAL CONTACT Provider Action/FYI: Pt seeing Dr. Lorenzo today for back pain Spouse hasn't scheduled outpatient PT yet Initial contact with patient post discharge, spoke to spouse. Patient identified by name and . SUMMARY: -Pt discharged from [facility] on 02/17. -Follow up appointment on 02/24. -Medication review done no. -Admitted for: Mechanical Fall Compression Fracture (Acute) Left Hip Contusion CONCERNS: Patient is currently at Dr. Lorenzo's office for back pain Spouse states hospital didn't give him the script for outpatient PT. States pt wants to come to [facility] for PT. Informed PCP can write a prescription for the PT. Spouse declined and stated he will pick the script up from [facility] then schedule pt. States he wants to make sure [facility] takes his insurance. PCC checked with [facility], informed she is pretty sure they take [employer], however they usually put in a referral to make sure insurance with pay. Spouse verbalized understanding NEW MEDICATIONS: Lidoderm Patch 2 patch Topical Daily #30 MEDS HELD/DISCONTINUED: None BRIEF HOSPITAL COURSE: Copied from [facility] [employer]: Patient is a 72-year-old lady with past medical history sent on for advanced Parkinson's disease complicated by dementia with autonomic dysfunction who presented following a fall. CT obtained demonstrated L1 compression fracture also suspicion of probable left hip fracture however imaging studies did not demonstrate any hip fracture. Patient admitted to regular regular floor for further management 1. Mechanical fall with L1 compression fracture patient has been admitted to regular nursing floor for symptomatic management consult was placed to PT OT recommendation is for patient to be discharged to a half-way facility. Case subsequently discussed with case management recommendation was for patient to have been discharged to half-way facility however insisted on home with home health versus outpatient therapy so seen in consultation by Dr. Lorenzo pain management recommended initiation of Lidoderm patch plan is for patient to undergo kyphoplasty as outpatient on 02/18/18 2. Left hip contusion CT was negative for hip fracture 3. Advanced Parkinson's disease with cognitive impairment and autonomic dysfunction Please follow up with your Primary Care Physician in: in 5- 7 days Disposition: Home with Home Health Kaylee Muse, YUE Grider MD 02/18/2018 9:44 PM Signed Reviewed. 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 CLOPIDOGREL 75 MG TABLET Take 1 tablet by mouth once d* DONEPEZIL 10 MG TABLET Take 1 tablet by mouth once d* FAMOTIDINE 40 MG TABLET Take 1 tablet by mouth once d* ATORVASTATIN 10 MG TABLET Take 1 tablet by mouth once d* KLOR-CON 10 MEQ TABLET,EXTEND* Take 1 tablet by mouth twice * CARBIDOPA 25 MG-LEVODOPA 100 * Take 1 tablet by mouth five t* FLAXSEED OIL ORAL Take 1,200 mg by mouth once d* COQ10 SG 100 ORAL Take 100 mg by mouth once vinod* FERROUS GLUCONATE 324 MG (37.* Take 324 mg by mouth daily wi* Problem List As Of Date 02/18/2018 Noted Resolved Dementia [F03.90] Parkinson disease (HCC) [G20] Hypotension [I95.9] 10/14/2017 Hyperlipidemia [E78.5] GERD (gastroesophageal reflux disease) [K21.9] TIA (transient ischemic attack) [G45.9] More... Falling [R29.6] INVALID FOR* Crouched gait [R26.89] INVALID FOR* Depression [F32.9] Postural hypotension [I95.1] INVALID FOR* Encounter Status:Closed by KAYELE MUSE on 02/19/18 DISCHARGE SUMMARY Observed: 02/17/2018 Status: F Source: [place] 1:22 PM [facility] [place] Medical Records Department [address] [place] [address] Discharge Summary 02/17/18904 MR#: [id number] Acct: [id number] Name: SANDRA LAUGHLIN Rep #: [id number] : 1945 72 From: Riddhi Jacinto MD PCP: OUT OF TOWN DOCTOR Status: ADM IN Y Location: [place]3 [id number] Discharge Date and Diagnosis - Problem List Patient Problems: Active and Suspected Problems Compression fracture (Acute) Date of Admission: 02/15/18 Date of Discharge: 02/17/18 - Primary Discharge Diagnosis Active and Suspected Problems Compression fracture (Acute) - Secondary Discharge Diagnosis Chronic Problems Debility (Chronic) Parkinson disease (Chronic) Orthostatic hypotension due to Parkinson's disease (Chronic) Hospital Course and Treatment Imaging Results: Clinical Impression(s) from Imaging Studies Lower Extremity CT 02/15/18 16:06 IMPRESSION: No acute fracture is demonstrated. Electronically Signed: Lili Rosenthal MD at 16:50 EDT , Service support , Summary of Care Provided: Patient is a 72-year-old lady with past medical history sent on for advanced Parkinson's disease complicated by dementia with autonomic dysfunction who presented following a fall. CT obtained demonstrated L1 compression fracture also suspicion of probable left hip fracture however imaging studies did not demonstrate any hip fracture. Patient admitted to regular regular floor for further management 1. Mechanical fall with L1 compression fracture patient has been admitted to regular nursing floor for symptomatic management consult was placed to PT OT recommendation is for patient to be discharged to a half-way facility. Case subsequently discussed with case management recommendation was for patient to have been discharged to half-way facility however insisted on home with home health versus outpatient therapy so seen in consultation by Dr. Lorenzo pain management recommended initiation of Lidoderm patch plan is for patient to undergo kyphoplasty as outpatient on 02/18/18 2. Left hip contusion CT was negative for hip fracture 3. Advanced Parkinson's disease with cognitive impairment and autonomic dysfunction 4. Anemia secondary to anemia of chronic disorder 5. DVT prophylaxis; Lovenox Discharge Diet: No Restrictions Discharge Activity: Return to Normal Activity Home Medications: Medications to take at Discharge Atorvastatin Calcium [Lipitor] 10 mg PO QHS 02/15/18 Carbidopa/Levodopa 25/100 [Sinemet 25/100] 1 tablet PO 5X/DAY 02/15/18 Cholecalciferol (Vitamin D3) [Vitamin D3] 2,000 unit PO DAILY 02/15/18 Clopidogrel Bisulfate [Plavix] 75 mg PO QHS 02/15/18 Donepezil HCl [Aricept] 10 mg PO QHS 02/15/18 Famotidine [Pepcid] 40 mg PO QHS 02/15/18 Ferrous Gluconate 325 mg PO DAILY@1500 02/15/18 Flaxseed Oil [[place]-3 Flaxseed Oil] 1,000 mg PO DAILY 02/15/18 Fludrocortisone Acetate [Florinef] 0.1 mg GT DAILY@0900 02/15/18 Gabapentin [Neurontin] 600 mg PO QHS 02/15/18 Midodrine HCl 10 mg PO TID 02/15/18 Potassium Chloride [Klor-Con 10] 10 meq PO BID 02/15/18 Sertraline HCl [Zoloft] 50 mg PO QHS 02/15/18 Ubidecarenone [Co Q-10] 100 mg PO DAILY 02/15/18 Sodium Chloride 1 gm PO TID 02/16/18 Acetaminophen [Tylenol] 1,000 mg PO Q8 #0 tablet 02/17/18 Lidocaine [Lidoderm Patch] 2 patch TOPICAL DAILY #30 patch 02/17/18 Following Prescrptions Were Given to Patient: Lidocaine [Lidoderm Patch] 2 patch TOPICAL DAILY #30 patch Primary Care Physician: [facility] Doctor,Out of [Primary Care Provider] - Please follow up with your Primary Care Physician in: in 5- 7 days Disposition: Home with Home Health Minutes spent on discharge:: 35 Patient Condition:: Stable Medical Necessity - Tobacco Use Smoking Status: Former smoker Tobacco Use: Non-smoker Meaningful Use Info Meaningful Use Diagnoses (Choose all that apply): None applicable Code Visit Inpatient E AND M: 76782 Disch Hosp 02/17/18 1322 <Electronically signed by Riddhi Jacinto MD> Date Riddhi Jacinto MD Cosigner Signature (if applicable): Date CC: Riddhi Jacinto MD; OUT OF [facility] DOCTOR Signed DISCHARGE INSTRUCTION Observed: 02/17/2018 Status: F Source: [place] 9:04 AM [facility] [place] [facility] Medical Records Department [address] [place] [address] Instructions for Home/Discharge Instructions 02/17/18901 MR#: [id number] Acct: [id number] Name: SANDRA LAUGHLIN Rep #: [id number] : 1945 72 From: Riddhi Jacinto MD PCP: OUT OF [facility] DOCTOR Status: ADM IN - Discharge Diagnoses Current Active Problems: Current Active and Chronic Problems Debility (Chronic) Parkinson disease (Chronic) Compression fracture (Acute) Hip fracture (Acute) Orthostatic hypotension due to Parkinson's disease (Chronic) You will use the following diet at home:: No restrictions Allergies/Adverse Reactions: Allergies Penicillins Allergy (Verified 02/15/18 13:13) Swelling Medications to take at Discharge Atorvastatin Calcium [Lipitor] 10 mg PO QHS 02/15/18 Carbidopa/Levodopa 25/100 [Sinemet 25/100] 1 tablet PO 5X/DAY 02/15/18 Cholecalciferol (Vitamin D3) [Vitamin D3] 2,000 unit PO DAILY 02/15/18 Clopidogrel Bisulfate [Plavix] 75 mg PO QHS 02/15/18 Donepezil HCl [Aricept] 10 mg PO QHS 02/15/18 Famotidine [Pepcid] 40 mg PO QHS 02/15/18 Ferrous Gluconate 325 mg PO DAILY@1500 02/15/18 Flaxseed Oil [[place]-3 Flaxseed Oil] 1,000 mg PO DAILY 02/15/18 Fludrocortisone Acetate [Florinef] 0.1 mg GT DAILY@0900 02/15/18 Gabapentin [Neurontin] 600 mg PO QHS 02/15/18 Midodrine HCl 10 mg PO TID 02/15/18 Potassium Chloride [Klor-Con 10] 10 meq PO BID 02/15/18 Sertraline HCl [Zoloft] 50 mg PO QHS 02/15/18 Ubidecarenone [Co Q-10] 100 mg PO DAILY 02/15/18 Sodium Chloride 1 gm PO TID 02/16/18 Acetaminophen [Tylenol] 1,000 mg PO Q8 #0 tablet 02/17/18 Primary Care Physician: [facility] Doctor,Out of [Primary Care Provider] - Please follow up with your Primary Care Physician in: in 5- 7 days Proposed Discharge Date: 02/17/18 02/17/18 0904 <Electronically signed by Riddhi Jacinto MD> Date Riddhi Jacinto MD CC: Toi Lorenzo MD; OUT OF TOWN DOCTOR BASIC METABOLIC Collected: 02/16/2018 Status: F Source: [place] PROFILE (BMP) 5:34 AM [facility] [place] TYPE CODE TESTS RESULT OUT OF RANGE REFERENCE UNITS LAB L501.0100 74-106 mg/dL Normal GLU 80 Result Comment: Please note revised GLUCOSE reference range effective 2017. LAB L501.1000 7-18 mg/dL High BUN 22 LAB L501.1100 0.55-1.02 mg/dL Normal CREAT,SERUM 0.82 Result Comment: The validity of the calculated GFR AND GFRAA in patients over 70 years has not been determined. Clinical correlation is essential. LAB L501.1110 >60 mL/min Normal EST GFR 73 Result Comment: Non- GFR Calc LAB L501.1115 >60 mL/min Normal EST GFR - AA 88 Result Comment: GFR Calc LAB L501.1255 ml/min Normal Estimated CRCL 54.34 LAB L501.1300 10-20 RATIO High BUN/CRE 26.8 LAB L501.2200 8.5-10 mg/dL Low .1 CA 8.2 LAB L501.5300 136-14 mmol/L Normal 5 NA 143 LAB L501.5600 3.5-5. mmol/L Normal 1 K 4.1 LAB L501.5900 98-107 mmol/L High CL 108 LAB L501.6100 21.0-3 mmol/L Normal 2.0 CO2 29.0 LAB L501.6200 5-15 Normal GAP 6 Performed By: #### L500.2500 #### [facility] [address] [place], [place], [address] CBC W/DIFF, AUTOMATED Collected: 02/16/2018 Status: F Source: [place] 5:34 AM [facility] [place] TYPE CODE TESTS RESULT OUT OF RANGE REFERENCE UNITS LAB L100.1000 4.4-11.0 K/mm3 Normal WBC 5.4 LAB L100.1200 4.2-5.4 M/mm3 Low RBC 4.11 LAB L100.1300 12.0-15.0 g/dl Normal HGB 12.0 LAB L100.1400 37-47 % Normal HCT 37.9 LAB L100.1500 81-99 fL Normal MCV 92.2 LAB L100.1600 27.0-32.0 pg Normal MCH 29.2 LAB L100.1700 32-36 g/gl Low MCHC 31.7 LAB L100.1810 11.6-14.6 % Normal RDW CV 13.4 LAB L100.1820 35.1-43.9 fl High RDW SD 45.3 LAB L100.1900 150-450 K/mm3 Normal PLT 217 LAB L100.2000 6.2-12.0 fl Normal MPV 10.5 LAB L100.2100 47-70 % Normal NEUT% 68.9 LAB L100.2200 19-41 % Normal LY% 20.7 LAB L100.2300 0-10 % Normal MONO% 8.0 LAB L100.2400 0-5 % Normal EO% 2.0 LAB L100.2500 0-1 % Normal BASO% 0.2 LAB L100.2550 0.0-0.9 % Normal IM GRAN % 0.200 Result Comment: IG% - Immature Granulocytes (promyelocytes, myelocytes and metamyelocytes) > 1% indicates that a LEFT SHIFT is Present. LAB L100.2620 2.0-7.7 X10 3/uL Normal Absolute Neut 3.7 LAB L100.2720 0.83-4.51 X10 3/ul Normal Absolute Lymph 1.11 Performed By: #### L100.0100 #### [facility] [address] [place], [address] HISTORY AND PHYSICAL Observed: 02/15/2018 Status: F Source: [place]AN[place] EXAM 5:18 PM [facility] [place] Medical Records Department [address] [place] [address] History and Physical 02/15/18 1636 MR#: [id number] Acct: [id number] Name: SANDRA LAUGHLIN Rep #: [id number] : 1945 72 From: Km FLANAGAN PCP: OUT OF TOWN DOCTOR Status: ADM IN Y Location: MS3 [id number] <Km Dang - Last Filed: 02/15/18 16:36> Problem List (1) Hip fracture Status: Acute (2) Compression fracture Status: Acute (3) Debility Status: Chronic (4) Parkinson disease Status: Chronic (5) Orthostatic hypotension due to Parkinson's disease Status: Chronic History of Present Illness Date of Admission: 02/15/18 Chief Complaint: fall, back pain The patient is a 72 year old F who presented to the ER by squad for severe back pain. She has a hx of advanced parkinson s/p DPS placement, orthostatic hypotension, and debility. She fell today when she attempted to reach out for something on the table. She normally uses a walker and was noted not to be using it at the time. She loss balance falling forward, striking the table, then striking the refrigerator and falling to the floor. This was not witnessed. Prior to the fall she denies any LH, or dizziness, or CP. She lay on the ground in excruciating pain. Her called 911 as he could not get her up. She was brought to the ER and CT showed possible left hip fracture and L1 compression fracture. She appears to be in significant pain with grimace throughout the interview. She also had a fall at home last week. She denies GROVES. She is very slow to respond. and sister are present. Advance directives are at home, plans to retrieve, in the mean time he expressly desires her to be full code at this time until the advance directives are found. 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 Lives: Alone Smoking Status: Former smoker Tobacco Use: Non-smoker Alcohol: None Drugs: None - *Family History Maternal History Items: Dementia Paternal History Items: Dementia Sibling History Items: Heart Disease Review of Systems Constitutional: Denies: Chills, Fever, Weight Change HEENT: Denies: Head Aches, Sinus Congestion, Sinus Drainage Cardiovascular: Denies: Chest Pain, Palpitations Respiratory: Denies: Cough, Shortness of breath at rest, Sputum production Gastrointestinal: Denies: Abdominal Pain, Nausea, Vomiting Genitourinary: Denies: Dysuria Musculoskeletal: Reports: Joint Pain, Muscle pain. Denies: Joint Tenderness Skin: Denies: Rash, Wounds Neurological: Denies: Focal weakness, Numbness, Tingling Psychiatric: Denies: Anxiety, Depression, Homicidal Ideations, Suicidal Ideations Hematologic/ Lymphatic: Denies: Easy Bruising, Easy Bleeding VTE Information - Inpt Only VTE Present on Admission: No VTE Mechan Device Prophylaxis: SCD's VTE Pharm Prophylaxis ordered?: No Patient Problems: Active and Suspected Problems Compression fracture (Acute) Hip fracture (Acute) - Physical Exam General: Alert, Oriented x3, Cooperative HEENT: Atraumatic, PERRLA, EOMI, Normocephalic Neck: Supple, No JVD, Negative Carotid Bruits Lungs: Clear to auscultation, Normal air movement Cardiovascular: Regular rate, No murmurs Abdomen: Bowel Sounds Present, Soft, Non Tender Extremities: No edema, Capillary Refill Less than 3 Seconds, Tenderness - left hip Skin: No rashes, No breakdown, - - small bruise left hip Musculoskeletal: No Tenderness to Palpation of Joints or Extremities Neurological: Cranial nerves II-XII grossly intact, - - masked facies Psych/Mental Status: Normal Affect, Appropriate, Alert and oriented to time, place, person, mood and affect Vital Signs Temp Pulse Resp BP Pulse Ox 97.8 F 79 20 H 137/89 H 96 02/15/18 13:09 02/15/18 15:35 02/15/18 15:35 02/15/18 15:35 02/15/18 15:35 Assessment/Plan Active and Suspected Problems Compression fracture (Acute) Hip fracture (Acute) 1. Acute left hip fracture s/p mechanical fall - follow up imaging is pending. Consult to Dr. Easley. CBC and BMP unremarkable at this time. Continue Vit D. Will get preop EKG, gentle IV hydration. Shoudler XR negative. CT brain with chronic changes. Get PTOT evals. She has minimal activity at home normally. Her is her primary caregiver. 2. Acute L1 compression fracture - consult to Dr. Lorenzo for possible kyphoplasty 3. Hx advanced parkinson disease and with related orthostatic hypotension - continue home meds. has deep brain stimulator, Pt likely cannot have MRI with this. Follows Dr. Mcclelland in [place] for neurology. . Code status: FULL code at this time DVT ppx: SCDs DC planning: PTOT, likely needs placed. <[place] - Last Filed: 02/15/18 17:17> History of Present Illness The patient is a 72 year old F [] Past Medical History Allergies Penicillins Allergy (Verified 02/15/18 13:13) Swelling - Physical Exam Vital Signs Temp Pulse Resp BP Pulse Ox 97.8 F 80 14 142/87 H 96 02/15/18 13:09 02/15/18 16:46 02/15/18 16:46 02/15/18 16:46 02/15/18 16:46 Assessment/Plan Patient was seen and examined with physician engineering assistant Km Dang. She is a 72-year-old female with past medical history of advanced Parkinson's disease complicated by dementia and autonomic dysfunction, on Florinef, Aricept, ambulates with a walker who was asymptomatic this morning and was said to be reaching across a table when she overreached and fell on her left side and back and hit her head. The EMS was called. Her vitals were stable in the ED, labs were stable, she is not on any blood thinners. Imaging of the head was negative for any bleed. Abdominal pelvis CT showed L1 compression fracture, probable left hip fracture. Patient lives alone with the who also ambulates with a cane. Skin exam shows patient was alert oriented with mask facies, not pale no jaundice, in mild discomfort from pain. Heart sounds 1 and 2 are present, no murmurs, loud S1, lung exam was vesicular breath sounds no added sounds. Abdominal exam was unremarkable with no palpable organs or hepatosplenomegaly. There is tenderness over the left hip and the low back with some old bruises over her left hip. a/p: 1. Mechanical fall in a patient with advanced Parkinson's disease 2. Acute L1 compression fracture, will consult Dr. Lorenzo 3. Acute left hip fracture, Dr. Thompson consult, pain control, PT and OT to evaluate and treat 4. Parkinson's disease, advanced with cognitive impairment and autonomic dysfunction 5. Deficiency anemia, on p.o. iron 6. 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, will bring paperwork for DNR later Code Visit Inpatient E AND M: [id number] Init Hosp L3 02/15/18 1659 <Electronically signed by Km FLANAGAN> Date Km FLANAGAN 02/15/18 1718<Electronically signed by Dana Sheffield MD> Cosigner Signature: Date (if applicable) Dana Sheffield MD CC: PANCHITO Dang; Dana Sheffield MD; OUT OF TOWN DOCTOR Signed EMERGENCY DEPARTMENT Observed: 02/15/2018 Status: F Source: OLANCHA SUMMARY 4:13 PM [facility] [place] [facility] Medical Records Department [address] [place] [address] Emergency Department Summary 02/15/18 1609 MR#: [id number] Acct: [id number] Name: SANDRA LAUGHLIN Rep #: [id number] : 1945 72 From: Damien Rojo DO PCP: OUT OF TOWN DOCTOR Status: REG ER - ER Visit Summary Date of Service: 02/15/18 Chief Complaint: [Fall] History of Present Illness: The patient is a 72 F [presents to the emergency department via EMS status post fall at home today. Patient states that she reached for something on the kitchen table and lost her balance falling to the floor. Patient complaining of pain in her left hip, back, and left shoulder. Patient denies loss of consciousness. Patient does not believe she hit her head. She denies any neck pain. She denies any abdominal pain. She denies any dyspnea.] Physical Examination: [HEENT-PERRLA, EOMI. Cranial nerves II through XII grossly intact. TMs clear. Mucous membranes moist. No adenopathy. Head is atraumatic. Patient has no C-spine tenderness on palpation and normal active range of motion is painless. Cardiovascular-regular rate and rhythm without murmur or ectopy Lungs-clear to auscultation, chest wall stable without crepitus or subcu emphysema Abdomen-normoactive bowel sounds, soft, nontender, no rebound or rigidity, no peritoneal signs. Back exam-patient has diffuse tenderness to the upper lumbar spine on palpation. Patient has tenderness diffusely to the lumbar paraspinal musculature. Extremities-intact 4, normal range of motion, normal pulses, atraumatic]. Left hip-no shortening or rotational deformity noted. Minimal tenderness with logrolling and straight leg raise. Neurovascularly intact distally. Test Results: CBC with differential obtained was normal. Chemistries were normal. Chest x-ray showed nothing acute. Left shoulder x-rays showed no fractures. CT brain showed nothing acute. CT abdomen and pelvis showed L1 compression fracture that appears to be acute of about 20%. Patient also noted to have a subtle femoral neck fracture on the left and recommended dedicated CT of the hip versus MRI to definitively diagnose. [] Emergency Department Course and Treatment: [Patient was medicated with morphine and Zofran] Treatment Plan: [Patient will be admitted and a CT scan of the left hip was ordered.] Disposition: [Admit] Impression: [Mechanical fall L1 compression fracture Left femoral neck fracture] This note was generated with Satarii dictation software. It may contain incorrect words, spelling, and punctuation that were not noted in review of the chart prior to signing ED Disposition - Plan for ED Patient: Chief Complaint: Fall Referrals: [facility] Doctor,Out of [Primary Care Provider] - What to do if you have Problems For any increased pain, shortness of breath, bleeding, nausea or vomiting, chest pain, or any unexpected problems, contact your Primary Care Provider. Call [facility] ([phone]) or report to the closest Emergency Room. Call 911 if necessary. 02/15/18 7567 <Electronically signed by Damien Rojo DO> Date Damien Rojo DO Cosigner Signature (If Indicated): Date CC: OUT OF TOWN DOCTOR EXTREMITY LOWER Observed: 02/15/2018 Status: F Source: MANUELA WITHOUT CONTRA 4:07 PM [facility] REPOSITORY [facility] Imaging Services [address] [place] [address] Extremity Lower without Contra MR#: [id number] Acct: [id number] Name: SANDRA LAUGHLIN Rep #: [id number] : 1945 F 72 From: Lili Rosenthal MD PCP: OUT OF TOWN DOCTOR Status: ADM IN Study: Extremity Lower without Contra Date of Exam: 02/15/18 Exam# [id number] Ordering Dr: Damien Rojo DO STUDY: CT LEFT hip WITHOUT CONTRAST REASON FOR EXAM: Female, 72 years old. Fall left hip pain RADIATION DOSAGE (If Supplied By Facility): CTDIvol = ( 19.30 ) mGy, DLP = ( 443.09 ) mGycm TECHNIQUE: Thin section transaxial imaging was obtained, with sagittal and coronal reconstructed images. Individualized dose optimization techniques were used for this CT. COMPARISON: None. FINDINGS: No acute fracture is demonstrated. There is no dislocation. There is mild hip joint space narrowing. There is colonic diverticulosis. CT/Extremity Lower without Contra IMPRESSION: No acute fracture is demonstrated. Electronically Signed: Lili Rosenthal MD at 16:50 EDT , Service support , CC: OUT OF TOWN DOCTOR; Damien Rojo DO Profiler: Signed CBC W/DIFF, AUTOMATED Collected: 02/15/2018 Status: F Source: MANUELA 2:10 PM [facility] REPOSITORY TYPE CODE TESTS RESULT OUT OF RANGE REFERENCE UNITS LAB L100.1000 4.4-11.0 K/mm3 Normal WBC 6.1 LAB L100.1200 4.2-5.4 M/mm3 Low RBC 4.19 LAB L100.1300 12.0-15.0 g/dl Normal HGB 12.4 LAB L100.1400 37-47 % Normal HCT 38.5 LAB L100.1500 81-99 fL Normal MCV 91.9 LAB L100.1600 27.0-32.0 pg Normal MCH 29.6 LAB L100.1700 32-36 g/gl Normal MCHC 32.2 LAB L100.1810 11.6-14.6 % Normal RDW CV 13.5 LAB L100.1820 35.1-43.9 fl High RDW SD 44.8 LAB L100.1900 150-450 K/mm3 Normal PLT 191 LAB L100.2000 6.2-12.0 fl Normal MPV 10.2 LAB L100.2100 47-70 % High NEUT% 73.1 LAB L100.2200 19-41 % Low LY% 16.2 LAB L100.2300 0-10 % Normal MONO% 9.3 LAB L100.2400 0-5 % Normal EO% 0.5 LAB L100.2500 0-1 % Normal BASO% 0.2 LAB L100.2550 0.0-0.9 % Normal IM GRAN % 0.700 Result Comment: IG% - Immature Granulocytes (promyelocytes, myelocytes and metamyelocytes) > 1% indicates that a LEFT SHIFT is Present. LAB L100.2620 2.0-7.7 X10 3/uL Normal Absolute Neut 4.4 LAB L100.2720 0.83-4.51 X10 3/ul Normal Absolute Lymph 0.98 Performed By: #### L100.0100 #### [facility] [address] [place], [place], [address] BASIC METABOLIC Collected: 02/15/2018 Status: F Source: [place]UELA PROFILE ([facility]) 2:10 PM [facility] [place] TYPE CODE TESTS RESULT OUT OF RANGE REFERENCE UNITS LAB L501.0100 74-106 mg/dL Normal GLU 87 Result Comment: Please note revised GLUCOSE reference range effective 2017. LAB L501.1000 7-18 mg/dL High BUN 24 LAB L501.1100 0.55-1.02 mg/dL Normal CREAT,SERUM 0.76 Result Comment: The validity of the calculated GFR AND GFRAA in patients over 70 years has not been determined. Clinical correlation is essential. LAB L501.1110 >60 mL/min Normal EST GFR 79 Result Comment: Non- GFR Calc LAB L501.1115 >60 mL/min Normal EST GFR - AA 96 Result Comment: GFR Calc LAB L501.1255 ml/min Normal Estimated CRCL 46.43 LAB L501.1300 10-20 RATIO High BUN/CRE 31.4 LAB L501.2200 8.5-10 mg/dL Normal .1 CA 8.5 LAB L501.5300 136-14 mmol/L Normal 5 NA 142 LAB L501.5600 3.5-5. mmol/L Normal 1 K 4.2 LAB L501.5900 98-107 mmol/L Normal CL 105 LAB L501.6100 21.0-3 mmol/L Normal 2.0 CO2 30.0 LAB L501.6200 5-15 Normal GAP 7 Performed By: #### L500.2500 #### [facility] [address] [place], [address] BRAIN/HEAD WITHOUT Observed: 02/15/2018 Status: F Source: OLANCHA CONTRAST 1:57 PM [facility] [place] [facility] Imaging Services [address] [place] [address] Brain/Head without Contrast MR#: [id number] Acct: [id number] Name: SANDRA LAUGHLIN Rep #: [id number] : 1945 F 72 From: Jeff Griffin MD PCP: OUT OF TOWN DOCTOR Status: REG ER Study: Brain/Head without Contrast Date of Exam: 02/15/18 Exam# [id number] Ordering Dr: Damien Rojo DO STUDY: CT BRAIN WITHOUT CONTRAST REASON FOR EXAM: Female, 72 years old. Fall RADIATION DOSAGE (If Supplied By Facility): CTDIvol = ( 44.99 ) mGy, DLP = ( 796.11 ) mGycm TECHNIQUE: Transaxial CT imaging of the brain was performed without administration of intravenous contrast material. Individualized dose optimization techniques were used for this CT. COMPARISON: None. FINDINGS: No evidence for shift of midline structures, mass effect or compression of ventricles noted. No acute intra-axial or extra-axial hemorrhage is seen. Bilateral frontal approach deep brain stimulator leads noted with its tip likely in the thalami. Intracranial atherosclerotic vascular calcifications seen. The calvarium appears intact. Mucosal thickening of the ethmoid air cells with partial opacification likely relate with sinusitis. IMPRESSION: No evidence for acute intracranial hemorrhage, mass effect or acute large territory infarcts. Mild chronic small vessel disease with age-related involutional changes. Bifrontal approach deep brain stimulator leads with their tips likely in the thalami. Electronically Signed: Jeff Griffin, at 14:53 EDT Tel , Service support , CT/Brain/Head without Contrast CC: OUT OF TOWN DOCTOR; Damien Rojo DO Profiler: Signed CHEST 1 VIEW Observed: 02/15/2018 Status: F Source: OLANCHA (PORTABLE) 1:57 PM [facility] Imaging Services [address] [place] [address] Chest 1 View (Portable) MR#: [id number] Acct: [id number] Name: SNADRA LAUGHLIN Rep #: [id number] : 1945 F 72 From: Jeff Griffin MD PCP: OUT OF TOWN DOCTOR Status: REG ER Study: Chest 1 View (Portable) Date of Exam: 02/15/18 Exam# [id number] Ordering Dr: Damien Rojo DO STUDY: X-RAY CHEST REASON FOR EXAM: Female, 72 years old. Status post fall and pain TECHNIQUE: COMPARISON: None. FINDINGS: No lung consolidation or pneumothorax. Cardiac size is enlarged. Prominent superior mediastinum noted possibly relate with a enlarged substernal thyroid. Slight leftward deviation of the trachea. Vagal stimulator seen. Small nodule in the right lower lobe. Slight eventration of the right hemidiaphragm. Vascular calcifications of the aortic knob. IMPRESSION: No evidence for focal airspace consolidation or pneumothorax Electronically Signed: Jeff Griffin, at 15:42 EDT Tel , Service support , RAD/Chest 1 View (Portable) CC: OUT OF TOWN DOCTOR; Damien Rojo DO Profiler: Signed SHOULDER MIN 2 VIEWS Observed: 02/15/2018 Status: F Source: MANUELA 1:57 PM [facility] REPOSITORY [facility] Imaging Services [address] [place] [address] Shoulder min 2 Views MR#: [id number] Acct: [id number] Name: SANDRA LAUGHLIN Rep #: [id number] : 1945 F 72 From: Jeff Griffin MD PCP: OUT OF TOWN DOCTOR Status: REG ER Study: Shoulder min 2 Views Date of Exam: 02/15/18 Exam# [id number] Ordering Dr: Damien Rojo DO STUDY: X-RAY - LEFT SHOULDER REASON FOR EXAM: Female, 72 years old. Status post fall TECHNIQUE: 2 view(s) of the shoulder. COMPARISON: None. FINDINGS: Degenerative changes in the glenohumeral joints as well as acromioclavicular joints noted. No definite evidence for acute fractures. Visualized ribs appear intact. IMPRESSION: No definite evidence for acute humeral fractures or dislocation Electronically Signed: Jeff Griffin, at 15:43 EDT Tel , Service support , RAD/Shoulder min 2 Views CC: OUT OF TOWN DOCTOR; Damien Rojo DO Profiler: Signed ABDOMEN/PELVIS W IV CONT Observed: 02/15/2018 Status: F Source: MANUELA ONLY 1:57 PM [facility] REPOSITORY [facility] Imaging Services [address] [place] [address] Abdomen/Pelvis W IV Cont ONLY MR#: [id number] Acct: [id number] Name: SANDRA LAUGHLIN Rep #: [id number] : 1945 F 72 From: Jeff Griffin MD PCP: OUT OF TOWN DOCTOR Status: REG ER Study: Abdomen/Pelvis W IV Cont ONLY Date of Exam: 02/15/18 Exam# [id number] Ordering Dr: Damien Rojo DO STUDY: CT ABDOMEN AND PELVIS WITH CONTRAST REASON FOR EXAM: Female, 72 years old. Fall and left hip pain RADIATION DOSAGE (If Supplied By Facility): CTDIvol = ( 12.97 ) mGy, DLP = ( 630.17 ) mGycm TECHNIQUE: Transaxial images were obtained from the dome of the diaphragm to the symphysis pubis without oral contrast. 100 ml of Isovue 300 contrast was administered. Sagittal and coronal images were reconstructed. Individualized dose optimization techniques were used for this CT. COMPARISON: None. FINDINGS: Lung bases demonstrate no evidence for consolidative process. Small cyst in the right middle lobe. Some no pericardial effusion. Small hiatal hernia Hepatic steatosis. Mild dilatation of the intra and extrahepatic bile ducts. Gallbladder is not visualized. Adrenal glands appear unremarkable. Spleen appears unremarkable. The pancreas are grossly within normal limits. Kidneys demonstrate no evidence for hydronephrosis. Uncomplicated colonic diverticulosis seen. Low-attenuation lesion in the left kidney likely renal cysts. Degenerative changes in the sacroiliac joints. Diffuse osteopenia. Degenerative changes in the lumbar spine L1 vertebral body compression fracture with approximately 20% loss of vertebral body height and minimal retropulsion. IMPRESSION: Acute L1 vertebral body compression fracture with 20% loss of vertebral body height and mild retropulsion. Mild dilatation of the intra and extrahepatic bile ducts postcholecystectomy. Subtle left-sided femoral neck fracture suspected however not confirmed. Please consider dedicated CT examination of the left hip for further assessment. Electronically Signed: Jeff Griffin, at 15:48 EDT Tel , Service support , CT/Abdomen/Pelvis W IV Cont ONLY CC: OUT OF TOWN DOCTOR; Damien Rojo DO Profiler: Signed MANUELA WASHINGTONVASYL BMP Collected: 02/09/2018 Status: F Source: [place] 4:11 PM [facility] REPOSITORY TYPE CODE TESTS RESULT OUT OF REFERENCE UNITS RANGE LAB NAWB 132-148 mmol/L Incorrect test Sodium, ordered. Whole Bld Correct order placed. Results to follow. Result Comment: [employer] [id number] Account Credited LAB K1WB 3.5-5.0 mmol/L Potassium,Whole Bld Incorrect test ordered. Correct order placed. Results to follow. Result Comment: [employer] [id number] Account Credited LAB CLWB 98-110 mmol/L Chloride, Whole Incorrect test Bld ordered. Correct order placed. Results to follow. Result Comment: [employer] [id number] Account Credited LAB ICAWB 1.08-1.30 mmol/L Ionized Incorrect test Calcium, WB ordered. Correct order placed. Results to follow. Result Comment: [employer] [id number] Account Credited LAB CO2WB 23-32 mmol/L TCO2, Whole Incorrect test Blood ordered. Correct order placed. Results to follow. Result Comment: [employer] [id number] Account Credited LAB GLUWB 65-100 mg/dL Glucose, Whole Incorrect test Bld ordered. Correct order placed. Results to follow. Result Comment: [employer] [id number] Account Credited LAB BUNWB 8-25 mg/dL Incorrect BUN, Whole test ordered. Blood Correct order placed. Results to follow. Result Comment: [employer] [id number] Account Credited LAB BCRET 0.70-1.40 mg/dL Creatinine,Whole Bld Incorrect test ordered. Correct order placed. Results to follow. Result Comment: [employer] [id number] Account Credited LAB AGAPWB 0-15 mmol/L Anion Gap, Incorrect test Whole Bld ordered. Correct order placed. Results to follow. Result Comment: [employer] [id number] Account Credited LAB GFRAA eGFR- Amer. Incorrect test ordered. Correct order placed. Results to follow. Result Comment: [employer] [id number] Account Credited LAB GFRNAA . eGFR-All Incorrect Other Races test ordered. Correct order placed. Results to follow. Result Comment: [employer] [id number] Account Credited LAB GFRPED eGFR-Ped. Incorrect Factor test ordered. Correct order placed. Results to follow. Result Comment: [employer] [id number] Account Credited Performed By: #### WSTBMP #### [facility] [employer] [address] [place], [place] [address] BASIC METABOLIC PANL Collected: 02/09/2018 Status: F Source: [place] 4:11 PM [facility] REPOSITORY TYPE CODE TESTS RESULT OUT OF REFERENCE UNITS RANGE LAB GLU 74-99 mg/dL High Glucose 106 Result Comment: The [place] [employer] (ADA) provides guidance for cutoff values for fasting glucose and random glucose. The ADA defines fasting as no caloric intake for at least 8 hours. Fas ting plasma glucose results between 100 to 125 mg/dL indicate increased risk for diabetes (prediabetes). Fasting plasma glucose results greater than or equal to 126 mg/dL meet the criteria for diagnosis of diabetes. In the absence of unequivocal hyperglycemia, results should be confirmed by repeat testing. In a patient with classic symptoms of hyperglycemia or hyperglycemic crisis, random plasma glucose results greater than or equal to 200 mg/dL meet the criteria for diagnosis of diabetes. Reference: Standards of Medical Care in Diabetes 2016, [employer]. Diabetes Care. 2016.39(Suppl 1). LAB BUN 7-21 mg/dL BUN High 24 LAB CRET 0.58-0.96 mg/dL Creatinine 0.79 LAB NA 136-144 mmol/L Sodium 142 LAB K 3.7-5.1 mmol/L Potassium 4.3 LAB CL 97-105 mmol/L Chloride 104 LAB CO2 22-30 mmol/L CO2 24 LAB AGAP 9-18 mmol/L Anion Gap 14 LAB CA 8.5-10.2 mg/dL Calcium, Total 9.3 LAB GFRAA eGFR- Amer. >60 LAB GFRNAA . eGFR-All Other Races >60 Result Comment: eGFR (Estimated GFR) Units of measure: mL/min/1.73 meters squared eGFR is derived from the reexpressed MDRD Study equation using the following parameters: serum creatinine, age, gender and race. The creatinine assay has been calibrated to be traceable to IDMS. An eGFR <60 mL/min/1.73m2 for >3 months is consistent with chronic kidney disease. Refer to KDOQI guidelines for clinical interpretation. In patients with unstable renal function, e.g. those with acute kidney injury, the eGFR may not accurately reflect actual GFR. Performed By: #### BMP #### [facility] [address] [phone] FREE T4 Collected: 02/09/2018 Status: F Source: [place] 4:11 PM [facility] REPOSITORY TYPE CODE TESTS RESULT OUT OF RANGE REFERENCE UNITS LAB FT4 0.9-1.7 ng/dL Free T4 1.2 Performed By: #### FT4, T3, MICRO #### [place] [phone] T3 Collected: 02/09/2018 Status: F Source: [facility] 4:11 PM [facility] REPOSITORY TYPE CODE TESTS RESULT OUT OF RANGE REFERENCE UNITS LAB T3 79-165 ng/dL Low T3 78 Performed By: #### FT4, T3, MICRO #### [place] [phone] TPO ANTIBODY Collected: 02/09/2018 Status: F Source: [place] 4:11 PM [facility] REPOSITORY TYPE CODE TESTS RESULT OUT OF REFERENCE UNITS RANGE LAB MICRO <5.6 IU/mL TPO Antibody <1.0 Performed By: #### FT4, T3, MICRO #### [place] [id number] PROGRESS Observed: 02/04/2018 Status: COMPLETED Source: [place] 3:09 PM [facility] REPOSITORY HNO ID: [id number] Author: Annie Costello (Sw) Service: (none) Author Type: Rn Behavioral Health Type: Progress Notes Filed: 02/04/2018 3:10 PM Note Text: [facility] information has been mailed to patient in regards to Adult Day services. Anju also let spouse know that respite amounts vary from $175-$220 a day. NURSING PROG Observed: 02/02/2018 Status: COMPLETED Source: [place] 4:52 PM [facility] REPOSITORY HNO ID: [id number] Author: Ana Canales) PEGGY Oh Service: (none) Author Type: LICENSED NURSE Type: Nursing Progress Note Filed: 02/03/2018 9:31 AM Note Text: Contacted patient in follow up to biopsy on 02/02/2018. Aware to call [phone] with questions and/or concerns. 1. Did you receive adequate written instructions upon discharge? Yes 2. Do you have your follow-up appointment scheduled? No 3. Are there any concerns about your incision / puncture site? NO 4. Is there one thing we could have done better? No BRIEF OP NOT Observed: 02/02/2018 Status: COMPLETED Source: [place] 2:20 PM [facility] REPOSITORY HNO ID: [id number] Author: Sagarrio Otero APRN.CNP Service: Radiology Author Type: Nurse Practitioner Type: Brief Op Note Filed: 02/02/2018 2:22 PM Note Text: BRIEF OPERATIVE / PROCEDURE NOTE LOG ID: [id number] Surgery/Procedure Date: 02/02/2018 Incision/Procedure Start Time: 1:41 PM Incision Close/Procedure End Time: 2:13 PM Surgeon(s)/Proceduralist(s) and Music Instructor(s): Surgeon(s) and Role: * Renee Mosqueda - Primary Sagrario Otero CNP- Music Instructor Procedure(s): Ultrasound guided left thyroid nodule biopsy Anesthesia: Procedural Sedation Findings: nodule consistent with prior imaging Estimated Blood Loss: minimal Specimens: three FNA passes with a 25 gauge needle and one FNA pass with a 22 gauge needle Complications: None Pre-Op/Pre-Procedure Diagnosis: thyroid mass Post-Op/Post-Procedure Diagnosis: thyroid mass SIGNATURE: Sagrario Otero APRN.CNP PATIENT NAME: Sandra Laughlin DATE: February 02, 2018 TIME: 2:20 PM PAGER/CONTACT #: [phone] US BIOPSY THYROID Observed: 02/02/2018 Status: F Source: [place] 2:17 PM [facility] REPOSITORY * * *Final Report* * * DATE OF EXAM: Feb 02 2018 2:17PM [facility] [facility] [place] BIOPSY THYROID / PROCEDURE REASON: E07.9-Disorder of thyroid, unspecified * * * * Physician Interpretation * * * * PROCEDURE PERFORMED: ULTRASOUND GUIDED FINE NEEDLE ASPIRATION BIOPSY OF LEFT THYROID NODULE ON 02/02/2018 PRE-PROCEDURE DIAGNOSIS: left thyroid mixed solid and cystic nodule POST-PROCEDURE DIAGNOSIS: left thyroid same INDICATION FOR PROCEDURE: The patient is a 72 years old Female who presents with left thyroid mixed solid and cystic nodule. STAFF RADIOLOGIST: Dr. Mosqueda ARMATURE REPAIRER(S): Sagrario Otero CNP CONSENT: The risks, benefits, treatment options, potential complications and personnel involved were discussed with the patient and her family. All questions were answered and consent was obtained. The patient indicated she was willing to proceed. The staff physician personally verified consent. provided consent. TIME OUT: A time out was performed immediately prior to procedure start with the nursing, anesthesia and interventional team, correctly identifying the patient name, date of , procedure, anatomy (including marking of site and side), patient position, procedure consent form, relevant diagnostic and radiology test results, antibiotic administration, safety precautions, and procedure-specific equipment needs. RESULT: PROCEDURE: After performing the time out, the left thyroid nodule was localized with ultrasound. The left neck was prepped and draped in the usual sterile fashion. Under ultrasound guidance, fine needle aspiration biopsy of the left thyroid mass was performed using a 25 gauge spinal needle. A total of 3 passes were made. Then a fine needle aspiration biopsy of the left thyroid mass was performed using a 22 gauge spinal needle. A total of 1 pass was made. The procedure was performed by the: attending radiologist, with an engineering assistant. The attending radiologist performed the following procedural activities: entire procedure ANESTHESIA/SEDATION: Conscious sedation was achieved using 1.5 mg of versed and 75 mcg of fentanyl intravenously. Local anesthesia was achieved utilizing 4 cc 2% percent lidocaine. Vital signs were monitored by the nurse. START TIME/TIMEOUT TIME: 13:41 END TIME: 14:13 INTRA-SERVICE (SEDATION) TIME: 42 minutes PATIENT MONITORING: The staff physician personally supervised and directed an independent trained observer who assisted in monitoring the patient?s level of consciousness and physiological status throughout the procedure. COMPLICATIONS: None SIGN-OUT DISCUSSION: Completed ESTIMATED BLOOD LOSS: Minimal CONTRAST: None SPECIMENS: 4 FNA specimen(s) was/were placed on slides and in Cytolyt solution, evaluated by members of the cytology department and determined to be adequate. BIOPSY DEVICE: 22 gauge spinal needle and 25 gauge spinal needle IMPRESSION: ULTRASOUND GUIDED FINE NEEDLE ASPIRATION BIOPSY OF LEFT THYROID NODULE. Profiler: MARGI Transcribe Date/Time: Feb 02 2018 2:22P Dictated by : RENEE MOSQUEDA MD This examination was interpreted and the report reviewed and electronically signed by: RENEE MOSQUEDA MD on Feb 02 2018 3:21PM EST [id number] CYTOLOGY Observed: 02/02/2018 Status: F Source: [place] 1:00 PM [facility] REPOSITORY Specimen originated from [facility] Specimen #: [id number] Submitting Physician: SAGRARIO OTERO SPECIMEN SUBMITTED A: THYROID NODULE, LEFT LOBE, FINE NEEDLE ASPIRATE(THINPREP, SMEARS AND CELL BLOCK) FINAL DIAGNOSIS A. THYROID NODULE, LEFT LOBE, FINE NEEDLE ASPIRATE(THINPREP, SMEARS AND CELL BLOCK) Benign. Cyst contents and follicular cells. Eduard Monae M.D. (Electronic Signature) CLINICAL DATA Left thyroid nodule ADEQUACY INTERPRETATION *DIFF QUIK RAPID READ* A: #1-3: Non-diagnostic, macrophages #4: Follicular cells Dr. Kathleen Monae/Dr. Brandon Bautista GROSS DESCRIPTION 30cc clear colorless Cytolyt with 8 smears (4 Diff Quik, 4 pap) STAINS A: THYROID NODULE, LEFT LOBE, FINE NEEDLE ASPIRATE(THINPREP, SMEARS AND CELL BLOCK) SMEARS RECEIVED x 8, THIN PREP Non-Clamshell Engineer, CELL BLOCK, H&E, Initial Date of Report: 02/08/2018 Date of Procedure: 02/02/2018 Date of Receipt: 02/02/2018 Submitted by: SAGRARIO OTERO Additional Physician(s): SEBASTIEN ANNE ([id number]) JESSENIA GRIDER MD Location: [facility] Diagnostic interpretation performed at [facility], [address] [place] [id number]. PT ED Observed: 02/02/2018 Status: COMPLETED Source: [place] 12:54 PM [facility] REPOSITORY HNO ID: [id number] Author: Meg (Rn) YUE Smith Service: Nursing Author Type: Registered Nurse Type: Patient Education Filed: 02/02/2018 12:56 PM Note Text: AMBULATORY PATIENT EDUCATION NOTE TOPIC: PROCEDURE: Ultrasound guided thyroid nodule fine needle aspiration biopsy READINESS TO LEARN COGNITIVE ABILITY: Alert and oriented MOTIVATION TO LEARN: Eager FAMILY SUPPORT: High - Very involved in pt care INSTRUCTION PROVIDED TO: Patient PATIENT LEARNS BEST BY: Individual Instruction FACTORS AFFECTING LEARNING: None PHYSICAL LIMITATIONS AFFECTING LEARNING: None LEARNING RESPONSE DIAGNOSIS: Ultrasound guided thyroid nodule fine needle aspiration biopsy METHOD OF INSTRUCTION: Individual instruction PATIENT / FAMILY RESPONSE: Verbalizes understanding of: PRE-PROCEDURE INSTRUCTIONS-Correct action to take to follow pre-procedure instructions FOLLOW-UP PLAN: Patient instructed to call with any further issues SUPPLEMENTAL MATERIAL: None REFERRAL (RECOMMENDATION): None Electronically Signed By: Meg Smith RN In Department: [facility] BIOPSY NURSING PROG Observed: 02/02/2018 Status: COMPLETED Source: [place] 12:51 PM [facility] REPOSITORY HNO ID: [id number] Author: Tina BaerRn) YUE Rodriguez Service: Radiology Author Type: Registered Nurse Type: Nursing Progress Note Filed: 02/02/2018 12:51 PM Note Text: Dr. Mosqueda aware of patients bloodpressure. HISTORY PHYSICAL Observed: 02/02/2018 Status: COMPLETED Source: [place] 12:44 PM [facility] REPOSITORY HNO ID: [id number] Author: Renee Mosqueda Service: Radiology Author Type: Physician Type: HANDP Filed: 02/02/2018 12:44 PM Note Text: PROCEDURAL SEDATION HISTORY AND PHYSICAL EXAM SERVICE DATE: 02/02/2018 SERVICE TIME: 12:44 PM Subjective HPI: This is a 72 year old female who presents with left thyroid nodule PAST ANESTHESIA HISTORY: No history of adverse event PAST MEDICAL HISTORY Diagnosis Date - Anxiety - Cataracts, bilateral s/p removal - Dementia - Depression - GERD (gastroesophageal reflux disease) - Hyperlipidemia - Hypotension seeing Dr. James - Incontinence urinary - Parkinson disease (HCC) - S/P deep brain stimulator placement Seeing Dr. Robison - TIA (transient ischemic attack) suspected PAST SURGICAL HISTORY Procedure Laterality Date - CATARACT SURGERY, COMPLEX Bilateral 2013 - CHOLECYSTECTOMY - HYSTERECTOMY HX - PAST SURGICAL HISTORY OF 2011 deep brain stimulator placement - ROTATOR CUFF REPAIR Bilateral Prior to Admission medications as of 02/02/18 1224 Medication Sig Last Dose Taking gabapentin (NEURONTIN) 300 mg capsule Take 1 capsule by mouth twice daily for 180 days. Yes fludrocortisone (FLORINEF) 0.1 mg tablet TAKE 1 TABLET EVERY DAY Yes sertraline (ZOLOFT) 100 mg tablet Take 1 tablet by mouth once daily. Yes Midodrine HCl (PROAMATINE) 10 mg tablet TAKE 1 TABLET BY MOUTH THREE TIMES DAILY. Yes Cholecalciferol, Vitamin D3, (VITAMIN D-3) 2,000 unit cap Take by mouth. Yes clopidogrel (PLAVIX) 75 mg tablet Take 1 tablet by mouth once daily. 01/26/2018 Yes donepezil (ARICEPT) 10 mg tablet Take 1 tablet by mouth once daily. Yes famotidine (PEPCID) 40 mg tablet Take 1 tablet by mouth once daily. Yes atorvastatin (LIPITOR) 10 mg tablet Take 1 tablet by mouth once daily. Yes KLOR-CON 10 10 mEq tablet Take 1 tablet by mouth twice daily. Yes carbidopa-levodopa (SINEMET 25-100) 25-100 mg per tablet Take 1 tablet by mouth five times daily. Yes FLAXSEED OIL ORAL Take 1,200 mg by mouth once daily. Yes UBIDECARENONE/VITAMIN E MIXED (COQ10 SG 100 ORAL) Take 100 mg by mouth once daily. Yes ferrous gluconate 324 mg (37.5 mg iron) tablet Take 324 mg by mouth daily with breakfast. Yes ALLERGIES Allergen Reactions - Penicillin Swelling Objective PHYSICAL EXAM: The remainder of the physical exam is noncontributory. AIRWAY: Airway Visualization of Uvula: Yes Mouth opening greater than 2 fingerbreadths: Yes Neck Full Range of Motion: No (See Comment) LUNGS: Lungs clear to auscultation, Good diaphragmatic excursion CARDIAC: Normal S1 and S2; no rubs, murmurs, or gallops Assessment/Plan ASA Class: ASA Class:: Patient with severe systemic disease Active Problems: * No active hospital problems. * Resolved Problems: * No resolved hospital problems. * Provisional Diagnosis/Treatment Plan: Ultrasound guided thyroid nodule fine needle aspiration biopsy SEDATION GOAL: Moderate SIGNATURE: Renee Mosqueda MD PATIENT NAME: Sandra Laughlin DATE: February 02, 2018 TIME: 12:44 PM PAGER: [phone] HOSP Observed: 01/26/2018 Status: COMPLETED Source: [place] 12:00 AM [facility] REPOSITORY Patient:Sandra Laughlin MRN: <[id number]> Height:5' 5(1.651 m) Weight:134 lb (60.782 kg) Outpatient Medications as of 02/02/18: gabapentin (NEURONTIN) 300 mg capsule fludrocortisone (FLORINEF) 0.1 mg tablet sertraline (ZOLOFT) 100 mg tablet Midodrine HCl (PROAMATINE) 10 mg tablet Cholecalciferol, Vitamin D3, (VITAMIN D-3) 2,000 unit cap clopidogrel (PLAVIX) 75 mg tablet donepezil (ARICEPT) 10 mg tablet famotidine (PEPCID) 40 mg tablet atorvastatin (LIPITOR) 10 mg tablet KLOR-CON 10 10 mEq tablet carbidopa-levodopa (SINEMET 25-100) 25-100 mg per tablet FLAXSEED OIL ORAL UBIDECARENONE/VITAMIN E MIXED (COQ10 SG 100 ORAL) ferrous gluconate 324 mg (37.5 mg iron) tablet Admission/Clinic Administered Medications as of 02/02/18: Patient has no admission medications. Problem List: Dementia [F03.90] Parkinson disease (HCC) [G20] Hyperlipidemia [E78.5] GERD (gastroesophageal reflux disease) [K21.9] TIA (transient ischemic attack) [G45.9] Falling [R29.6] Crouched gait [R26.89] Depression [F32.9] Postural hypotension [I95.1] Allergies: Penicillin Date Verified: 01/16/18 Lab Values Lab Value Units Date High Low POTA* 3.8 mmol/L 01/16/2018 5.1 3.7 KELLY* 43.3 % 01/16/2018 46.0 36.0 Progress Notes ([facility]IO BIOPSY MAIN QB1): Rachelle Wiseman Psr 01/23/2018 10:39 AM Signed RADIOLOGY CALL CENTER INTAKE SOFTWARE QUALITY ASSURANCE SPECIALIST: RACHELLE EXT: [id number] DATE: January 23, 2018 TIME: 10:28 AM TRACKING #. [id number] REQUESTING PERSON: KAYLEE PHONE/PAGER: [phone] REQUESTING STAFF: JESSENIA GRIDER PHONE/PAGER: [phone] ORDERING DESK LOCATION: [place] If inpatient, patient location: N/A (Note: requests for inpatient's procedures should be given to the O.D. nurse at pager #[phone]) If outpatient, best way to reach patient: PATIENT'S PEPE LAUGHLIN [phone] Best time to call: AFTERNOON SCHEDULING: [place] (Specific requests must be greater than 10 days from the date of request) RADIOLOGY SERVICE GROUP: THYROID SPECIFICS OF THE REQUEST: BIOPSY of MASS - THYROID, Nodule: left / Biopsy Type: Unsure SPECIAL REQUESTS: TISSUE SAMPLE TO PATHOLOGY FOR: Routine Evaluation MEDICAL DIAGNOSIS: Thyroid mass [E07.9] (i.e. Does the patient have a known cancer? Ask for the site of any known primary cancer, or is it unknown primary or new diagnosis. If no information, ask for a suspected diagnosis as a reason for the biopsy) TYPE AND DATE OF THE EXAM THAT IS THE BASIS OF THE REQUEST: US Date: 01/19/18, XRAY 01/16/18 (Note: Requests for random organ biopsies, specifically liver and kidney random biopsies do not need imaging.) IMAGING: [facility] (If the imaging was obtained outside the [facility] system, then it needs to be submitted for review prior to approval.) Note to all persons requesting biopsies: All biopsy requests will be scheduled as quickly as possible, based on the clinical urgency, availability of appointment times, the need to hold anti-thrombolytic therapy (aspirin, blood thinners) and the patient?s schedule, including the need for an available local company flatbed truck driver. If a percutaneous biopsy or drainage is not felt to be safe or an alternative method for establishing a diagnosis is possible, this will be discussed directly with the requesting physician.Magui Oh LPN, FUR CUTTER 01/23/2018 12:26 PM Signed . BX. COORDINATOR INFORMATION LAB RESULTS: No results found for: INR No results found for: APTT Platelet Count (k/uL) Date Value 01/16/2018 333 Current Outpatient Prescriptions: gabapentin (NEURONTIN) 300 mg capsule Take 1 capsule by mouth twice daily for 180 days. fludrocortisone (FLORINEF) 0.1 mg tablet TAKE 1 TABLET EVERY DAY sertraline (ZOLOFT) 100 mg tablet Take 1 tablet by mouth once daily. Midodrine HCl (PROAMATINE) 10 mg tablet TAKE 1 TABLET BY MOUTH THREE TIMES DAILY. Cholecalciferol, Vitamin D3, (VITAMIN D-3) 2,000 unit cap Take by mouth. clopidogrel (PLAVIX) 75 mg tablet Take 1 tablet by mouth once daily. donepezil (ARICEPT) 10 mg tablet Take 1 tablet by mouth once daily. famotidine (PEPCID) 40 mg tablet Take 1 tablet by mouth once daily. atorvastatin (LIPITOR) 10 mg tablet Take 1 tablet by mouth once daily. KLOR-CON 10 10 mEq tablet Take 1 tablet by mouth twice daily. carbidopa-levodopa (SINEMET 25-100) 25-100 mg per tablet Take 1 tablet by mouth five times daily. FLAXSEED OIL ORAL Take 1,200 mg by mouth once daily. UBIDECARENONE/VITAMIN E MIXED (COQ10 SG 100 ORAL) Take 100 mg by mouth once daily. ferrous gluconate 324 mg (37.5 mg iron) tablet Take 324 mg by mouth daily with breakfast. No current facility-administered medications for this visit. ALLERGIES Allergen Reactions - Penicillin Swelling FILMS SENT TO WORKSTATION: GUIDELINES FOR HOLDING ANTI-PLATELET AND ANTI- COAGULATION THERAPY: Plavix dc 5 days NURSE SIGNATURE: Ana Oh LPN DATE: January 23, 2018 TIME: 12:26 PM Eduard Arrington MD 01/23/2018 4:52 PM Addendum RADIOLOGIST REQUEST / APPROVAL FORM STAFF RADIOLOGIST: PROCEDURE TO BE DONE UNDER: US PROCEDURE REQUESTED: FNA Requested PROCEDURE: Approved TIME SLOT NEEDED: 1 hour NOTES: request bx left adrenal nodule SPECIAL LABS/ PROCESSING: STAFF SIGNATURE: Eduard Arrington MD DATE: January 23, 2018 TIME: 4:43 PM Typographical error in Approval note request biopsy of left THYROID NODULE (not adrenal) Previous Version Brittany Shannon 01/26/2018 12:26 PM Signed Spoke to patient and scheduled biopsy for 02/02/18. Progress Notes ([facility]): Jessenia Grider MD 01/23/2018 9:54 AM Signed Patient unable to get in to see endo for 6-8 weeks for thyroid biopsy. Will send to IR instead. Kaylee Muse RN 01/23/2018 10:55 AM Signed TC to spouse, informed pt will have to go to [facility] [place] to have thyroid biopsy, states he will try to get transportation. Asked again about an aid coming in several days a week for personal care and he wants insurance to pay for it. Informed insurance will not pay for an aid unless there is a skilled need for a nurse of therapy to be visiting at the same time. States he needs someone to care for while he is convalescing from back surgery. Informed that is what SW was checking. She was going to check in Respite Care for pt while spouse was in rehab. Informed P[facility] will have SW call spouse next week, verbalized agreement. Kaylee Muse RN January 23, 2018 10:55 AM TC to IR Intake # [phone], gave intake information and they will call spouse to schedule appt. Kaylee Muse RN US THYROID/PARATHYROID Observed: 01/19/2018 Status: F Source: [place] 2:49 PM [facility] REPOSITORY * * *Final Report* * * DATE OF EXAM: Jan 19 2018 2:49PM [facility] 1048 - US THYROID/PARATHYROID / PROCEDURE REASON: Other specified diseases of upper respiratory tract * * * * Physician Interpretation * * * * THYROID ULTRASOUND CLINICAL HISTORY: Mediastinal mass with tracheal deviation on chest x-ray 01/16/2018 COMPARISON: None. TECHNIQUE: Sonography and Doppler imaging of the thyroid was performed. Images were obtained and stored in a permanent archive. RESULT: Technically difficult exam due to very kyphotic posture and involuntary movements due to Parkinson disease RIGHT LOBE: Size: 7.2x 4.4x 4.3 cm Echotexture: Diffuse heterogeneity Nodules: No definite focal lesion LEFT LOBE: Size: 5.8x 2.6x 2.3 cm Echotexture: Homogeneous Nodules: 3.7 x 2.3 x 2.0 cm solid mixed echogenicity mass in the lower pole with peripheral vascularity ISTHMUS: AP diameter: 8 mm Nodules: None. IMPRESSION: ENLARGED THYROID, RIGHT GREATER THAN LEFT DIFFUSE HETEROGENEITY OF THE RIGHT LOBE WITHOUT DEFINITE FOCAL MASS 3.7 CM SOLID MIXED ECHOGENICITY LEFT LOWER POLE MASS Profiler: MARGI Transcribe Date/Time: Jan 19 2018 3:39P Dictated by : RIDDHI ONEAL MD This examination was interpreted and the report reviewed and electronically signed by: RIDDHI ONEAL MD on Jan 19 2018 3:41PM EST [id number] PROGRESS Observed: 01/19/2018 Status: COMPLETED Source: [place] 1:42 PM [facility] REPOSITORY HNO ID: [id number] Author: Shyanne Kang Rdms Service: (none) Author Type: (none) Type: Progress Notes Filed: 01/19/2018 2:50 PM Note Text: Radiology Service Progress Note PATIENT NAME: Sandra Laughlin DATE OF SERVICE: January 19, 2018 TIME: 1:42 PM PATIENT IDENTITY VERIFICATION COMPLETED USING TWO (2) METHODS: Patient confirmed name verbally and Date of . PATIENT GENDER DATA: Female. status: : No status: NO. PATIENT RELEVANT IMPLANT DATA REVIEWED: Not Applicable RADIOLOGY DEPARTMENT: Ultrasound PERIPHERAL IV DATA: Not applicable SIGNED BY: Shyanne Kang Rdms January 19, 2018 1:42 PM PROGRESS Observed: 01/19/2018 Status: COMPLETED Source: [place] 8:52 AM [facility] REPOSITORY HNO ID: [id number] Author: Annie (Anju) Trang Service: (none) Author Type: Rn Behavioral Health Type: Progress Notes Filed: 02/04/2018 3:10 PM Note Text: Anju discussed with patient and spouse visit from [facility]. Spouse notes that they do not qualify for Passport services. Spouse and patient sound like they may be eligible for caregiver support program. This would not take affect for another year and half. Patient and spouse report they could use assistance with in home care.Spouse concerned about upcoming surgery on back and his ability to take care of patient. Anju discussed respite care in SNF possible option if and when spouse should have back surgery. Anju will see about different SNF and cost. [facility] was also discussed for day time respite. Nurse on staff at [facility] that can assist with medications and bathing. Anju will follow up with spouse in regards to respite options. XR CHEST 2V FRONTAL/LAT Observed: 01/16/2018 Status: F Source: [place] 5:50 PM [facility] REPOSITORY * * *Final Report* * * DATE OF EXAM: Jan 16 2018 5:50PM [facility] [id number] - XR CHEST 2V FRONTAL/LAT / PROCEDURE REASON: Chest pain, unspecified * * * * Physician Interpretation * * * * XR CHEST 2V FRONTAL/LAT 01/16/2018 5:50 PM INDICATION: Chest pain, unspecified 72 years / Female Result: The heart size is normal. There is mediastinal prominence on the right. There is tracheal deviation to the left. This could be related to goiter. Follow-up thyroid ultrasound for further evaluation. If this is not definitive then correlate with CT. Electronic device overlies the left lower chest. The lung otero are clear of infiltrate. The costophrenic angles are clear. There is flattening of hemidiaphragms. Degenerative spine changes and kyphosis IMPRESSION: Flattening of the diaphragms No acute infiltrate or effusion Electronic device obscures the left lower chest Mediastinal mass with tracheal deviation/correlate with initial thyroid ultrasound Profiler: MARGI Transcribe Date/Time: Jan 16 2018 7:00P Dictated by : MARIZA MCGHEE MD This examination was interpreted and the report reviewed and electronically signed by: MARIZA MCGHEE MD on Jan 16 2018 7:03PM EST [id number] PROGRESS Observed: 01/16/2018 Status: COMPLETED Source: [place] 5:36 PM [facility] REPOSITORY HNO ID: [id number] Author: Kelly Swan (Rt) Jovi Veras Service: (none) Author Type: Drupal Php Developer Type: Progress Notes Filed: 01/16/2018 5:44 PM Note Text: Radiology Service Progress Note PATIENT NAME: Sandra Laughlin DATE OF SERVICE: January 16, 2018 TIME: 5:36 PM PATIENT IDENTITY VERIFICATION COMPLETED USING TWO (2) METHODS: Patient confirmed name verbally and Date of . PATIENT GENDER DATA: Female. status: : No status: NO. PATIENT RELEVANT IMPLANT DATA REVIEWED: Not Applicable RADIOLOGY DEPARTMENT: General X-ray: Exam(s) Completed: Chest X-Ray PERIPHERAL IV DATA: Not applicable SIGNED BY: RT Giovani January 16, 2018 5:36 PM MAGNESIUM Collected: 01/16/2018 Status: F Source: [place] 5:10 PM [facility] REPOSITORY TYPE CODE TESTS RESULT OUT OF REFERENCE UNITS RANGE LAB MG 1.7-2.3 mg/dL High Magnesium 2.4 Performed By: #### MG1, CMP, TSH, B12, VITD, CBCDIF #### [facility] [address] [place], [place] [address] COMP METABOLIC PANEL Collected: 01/16/2018 Status: F Source: [place] 5:10 PM [facility] REPOSITORY TYPE CODE TESTS RESULT OUT OF REFERENCE UNITS RANGE LAB TP 6.3-8.0 g/dL Protein, Total 7.6 LAB ALB 3.9-4.9 g/dL Albumin 4.4 LAB CA 8.5-10.2 mg/dL Calcium, Total 9.8 LAB TBIL 0.2-1.3 mg/dL Bilirubin, Total 0.2 LAB ALKP 32-117 U/L Alkaline Phosphatase 82 LAB AST 13-35 U/L AST 18 LAB GLU 74-99 mg/dL Glucose 90 Result Comment: The [place] [employer] (ADA) provides guidance for cutoff values for fasting glucose and random glucose. The ADA defines fasting as no caloric intake for at least 8 hours. Fas ting plasma glucose results between 100 to 125 mg/dL indicate increased risk for diabetes (prediabetes). Fasting plasma glucose results greater than or equal to 126 mg/dL meet the criteria for diagnosis of diabetes. In the absence of unequivocal hyperglycemia, results should be confirmed by repeat testing. In a patient with classic symptoms of hyperglycemia or hyperglycemic crisis, random plasma glucose results greater than or equal to 200 mg/dL meet the criteria for diagnosis of diabetes. Reference: Standards of Medical Care in Diabetes 2016, [place] Diabetes Association. Diabetes Care. 2016.39(Suppl 1). LAB BUN 7-21 mg/dL BUN High 22 LAB CRET 0.58-0.96 mg/dL Creatinine High 1.03 LAB NA 136-144 mmol/L Sodium High 145 LAB K 3.7-5.1 mmol/L Potassium 3.8 LAB CL 97-105 mmol/L Chloride 102 LAB CO2 22-30 mmol/L CO2 High 31 LAB AGAP 9-18 mmol/L Anion Gap 12 LAB ALT 7-38 U/L Low ALT <5 Result Comment: Result rechecked. LAB GFRAA eGFR- Amer. >60 LAB GFRNAA . eGFR-All Other Races 53 Result Comment: eGFR (Estimated GFR) Units of measure: mL/min/1.73 meters squared eGFR is derived from the reexpressed MDRD Study equation using the following parameters: serum creatinine, age, gender and race. The creatinine assay has been calibrated to be traceable to IDMS. An eGFR <60 mL/min/1.73m2 for >3 months is consistent with chronic kidney disease. Refer to KDOQI guidelines for clinical interpretation. In patients with unstable renal function, e.g. those with acute kidney injury, the eGFR may not accurately reflect actual GFR. Performed By: #### MG1, CMP, TSH, B12, VITD, CBCDIF #### [facility] [address] [place] [address] TSH Collected: 01/16/2018 Status: F Source: [place] 5:10 [facility] REPOSITORY TYPE CODE TESTS RESULT OUT OF RANGE REFERENCE UNITS LAB TSH 0.400-5.500 uU/mL TSH 1.740 Performed By: #### MG1, CMP, TSH, B12, VITD, CBCDIF #### [place] [address] VITAMIN B12 Collected: 01/16/2018 Status: F Source: [place] 5:10 [facility] REPOSITORY TYPE CODE TESTS RESULT OUT OF REFERENCE UNITS RANGE LAB B12 232-1245 pg/mL Vitamin B12 555 Performed By: #### MG1, CMP, TSH, B12, VITD, CBCDIF #### [place] [address] VITAMIN D 25 HYDROXY Collected: 01/16/2018 Status: F Source: [place] 5:10 [facility] REPOSITORY TYPE CODE TESTS RESULT OUT OF REFERENCE UNITS RANGE LAB VITD 31.0-80.0 ng/mL Vitamin D 25 52.4 Hydroxy Result Comment: Classification of 25 [place] Vitamin D status: Insufficiency/Moderate Deficiency: < or = 30 ng/mL Sufficiency/Optimal Levels: 31 to 80 ng/mL Toxicity: > 100 ng/mL Test performed by chemiluminescent immunoassay. Performed By: #### MG1, CMP, TSH, B12, VITD, CBCDIF #### [place] [address] CBC AND DIFFERENTIAL Collected: 01/16/2018 Status: F Source: [place] 5:10 [facility] REPOSITORY TYPE CODE TESTS RESULT OUT OF REFERENCE UNITS RANGE LAB WBC 3.70-11.00 k/uL WBC 6.80 LAB RBC 3.90-5.20 m/uL RBC 4.55 LAB HGB 11.5-15.5 g/dL Hemoglobin 13.6 LAB HCT 36.0-46.0 % Hematocrit 43.3 LAB MCV 80.0-100.0 fL MCV 95.2 LAB MCH 26.0-34.0 pG MCH 29.9 LAB MCHC 30.5-36.0 g/dL MCHC 31.4 LAB RDWCV 11.5-15.0 % RDW-CV 13.3 LAB PLTCT 150-400 k/uL Platelet Count 333 LAB MPV 9.0-12.7 fL MPV 10.8 LAB ANEUT % Neut% 66.0 LAB AANEUT 1.45-7.50 k/uL Abs Neut 4.49 LAB ALYMP % Lymph% 20.1 LAB AALYMP 1.00-4.00 k/uL Abs Lymph 1.37 LAB AMONO % Peñuelas% 12.4 LAB AAMONO <0.87 k/uL Abs Peñuelas 0.84 LAB AEOS % Eosin% 0.6 LAB AAEOS <0.46 k/uL Abs Eosin 0.04 LAB ABASO % Baso% 0.9 LAB AABASO <0.11 k/uL Abs Baso 0.06 LAB AUNRBC 0 /100 WBC NRBCs 0.0 LAB ABNRBC <0.01 k/uL Absolute nRBC <0.01 LAB DTYP DTYPE Auto Diff Performed By: #### MG1, CMP, TSH, B12, VITD, CBCDIF #### [facility] [address] [place] [address] PROGRESS Observed: 01/16/2018 Status: COMPLETED Source: [place] 4:34 PM [facility] REPOSITORY HNO ID: [id number] Author: Kaylee García) Almaz Service: (none) Author Type: Registered Nurse Type: Progress Notes Filed: 01/16/2018 4:38 PM Note Text: PRIMARY CARE COORDINATION IN OFFICE VISIT WITH PCP Patient has been identified by name and date of . PCP Assessment/Plan: Reviewed PCP plan with patient using Teach Back Had lengthy discussion with pt, spouse, PCP and SW discussing patient's care needs and spouse's ability to care for pt, especially if he has spine surgery in the near future Spouse will work with SW to explore some options PCC Plan of Care: Patient concerns: Pt reporting pain in left chest Patient goals: Pt wants to remain at home as long as possible. Discussed concerns of care needs, especially if spouse is ill or unable to care post spinal surgery Next Office Visit: Visit date not found Plan For Next Call: One month Kaylee Muse RN January 16, 2018 PROGRESS Observed: 01/16/2018 Status: COMPLETED Source: [place] 3:54 PM [facility] REPOSITORY HNO ID: [id number] Author: Jessenia Moreno) Cheo Service: (none) Author Type: Physician Type: Progress Notes Filed: 01/18/2018 2:46 PM Note Text: Chief Complaint Patient presents with: F/U 3 Month: back pain HPI Sandra Laughlin is a 72 year old female who presents here today for 3 month follow up. Patient was to be seen earlier this week, but had accident in the bathroom at the office and ended up covered in own feces so had to reschedule. Complaining of left sided chest pain, under breast which has been present for the last 6 weeks and is worsening. States feels like cramping or jono horse and it improves with palpation/pressure. Lasts for few seconds at at time.Radiates to deep brain stimulator implant in chest. Denies exacerbation with exertion. Not taking anything for pain. Admits to occasional nausea, fatigue, and sweating with symptoms. Since last OV, patient has been seen by neurology and they recommended: ASSESSMENT: 72 year old female with PD since 1984, bilateral STN DBS placed around 2011 at [facility] here to establish care. Rigidity and bradykinesia are reasonably well-controlled. No changes to DBS programming since seems to be working well. By history she is sensitive to DBS and medication changes. ?? Main complaint today is anterocollis which was being treated with Botox prior to moving to [place]. Will obtain prior authorization so we can continue it. Try to obtain prior records of injection regimen. She is reporting eye closure that no one else has noticed. Monitor, perhaps is blepharospasm. Depression is worse. Increase Zoloft to 75 mg until 50 mg supply is gone then increase to 100 mg. Continue current Sinemet regimen. Still sialorrhea. Does not want treatment with toxin. Since she has already been treated for cervical dystonia with Botox will continue it rather than using Myobloc. Can treat sialorrhea with Botox if needed. PLAN: --->?Sinemet 25/100 1 tab 5x/day at 9a, noon, 3p, 6p, bedtime ---> increase Zoloft to 100 mg daily ---> prior authorization for Botox for cervical dystonia ---> Follow-up: for BOTOX Discussed at length with patient and concerns about her wellbeing at home, especially after her episode in the restroom at the office earlier in the week.States that she has been more fatigued as of late. states that when he is well he feels he can help care for her, but if he becomes sick he worries what will happen. Would like to find someone who could live in his basement 02/06 to help care for her. Discussed this is unrealistic goal. Family in the area does not help with her care. Discussed respite care, assisted living, and custodial. Has had area agency on aging out to the house already. Past medical history, appointments, medications, allergies reviewed. Previous Medical History PAST MEDICAL HISTORY Diagnosis Date - Anxiety - Cataracts, bilateral s/p removal - Dementia - Depression - GERD (gastroesophageal reflux disease) - Hyperlipidemia - Hypotension seeing Dr. James - Incontinence urinary - Parkinson disease (HCC) - S/P deep brain stimulator placement Seeing Dr. Robison - TIA (transient ischemic attack) suspected Previous Surgical History PAST SURGICAL HISTORY Procedure Laterality Date - CATARACT SURGERY, COMPLEX Bilateral 2013 - CHOLECYSTECTOMY - HYSTERECTOMY HX - PAST SURGICAL HISTORY OF 2011 deep brain stimulator placement - ROTATOR CUFF REPAIR Bilateral Family History FAMILY HISTORY Problem Relation Age of Onset - Cancer Mother - Breast Cancer Sister - Cancer Father skin Patient Allergies ALLERGIES Allergen Reactions - Penicillin Swelling Current Medications Current Outpatient Prescriptions on File Prior to Visit: fludrocortisone (FLORINEF) 0.1 mg tablet TAKE 1 TABLET EVERY DAY sertraline (ZOLOFT) 100 mg tablet Take 1 tablet by mouth once daily. Midodrine HCl (PROAMATINE) 10 mg tablet TAKE 1 TABLET BY MOUTH THREE TIMES DAILY. Cholecalciferol, Vitamin D3, (VITAMIN D-3) 2,000 unit cap Take by mouth. clopidogrel (PLAVIX) 75 mg tablet Take 1 tablet by mouth once daily. donepezil (ARICEPT) 10 mg tablet Take 1 tablet by mouth once daily. famotidine (PEPCID) 40 mg tablet Take 1 tablet by mouth once daily. gabapentin (NEURONTIN) 300 mg capsule Take 1 capsule by mouth twice daily. atorvastatin (LIPITOR) 10 mg tablet Take 1 tablet by mouth once daily. KLOR-CON 10 10 mEq tablet Take 1 tablet by mouth twice daily. carbidopa-levodopa (SINEMET 25-100) 25-100 mg per tablet Take 1 tablet by mouth five times daily. FLAXSEED OIL ORAL Take 1,200 mg by mouth once daily. UBIDECARENONE/VITAMIN E MIXED (COQ10 SG 100 ORAL) Take 100 mg by mouth once daily. ferrous gluconate 324 mg (37.5 mg iron) tablet Take 324 mg by mouth daily with breakfast. No current facility-administered medications on file prior to visit. Social History Social History Marital status: Spouse name: Years of education: Number of children: Social History Main Topics Smoking status: Former Smoker Packs/day: 0.00 Years: 0.00 Types: Cigarettes Quit date: 11/1999 Smokeless status: Never Used Alcohol use: No Drug use: No Sexual activity: No Review of Symptoms REVIEW OF SYSTEMS GENERAL: No weight loss, malaise or fevers RESPIRATORY: Negative for cough, hemoptysis, wheezing, COPD, dyspnea or shortness of breath CARDIOVASCULAR: See HPI GI: No nausea, vomiting, or diarrhea SKIN: Negative for lesions, rash, and itching EXAM: BP 140/92 Pulse 88 Temp 36.2 ?C (97.1 ?F) (Temporal Artery) Resp 16 Wt 60.8 kg (134 lb) SpO2 98% BMI 22.3 kg/m2 General Appearance: Well appearing, alert, in no acute distress, well-hydrated, well nourished.. Skin: Skin color, texture, turgor normal, no suspicious rashes or lesions. Lungs: Lungs clear to auscultation. No wheezing, rhonchi, rales. Heart: RRR without murmur, gallop, or rubs. No ectopy. Abdomen: Normal abdominal exam, Abdomen soft, non-tender. Bowel sounds normal. No masses, organomegaly. Extremities: No deformities, edema, skin discoloration, clubbing or cyanosis. Good capillary refill. . Health Maintenance List TETANUS due on 1957 COLORECTAL CANCER SCREENING,SEE MODIFIER due on 1996 BONE DENSITY due on 2011 PNEUMOVAX AGE 65 AND OVER WITH 5YR LOOKBACK(1) due on 2011 MAMMOGRAM due on 05/29/2018 DIABETES SCREEN due on 08/05/2020 LIPID SCREEN due on 05/27/2022 ADULT PREVNAR-13 Completed INFLUENZA Completed HEPATITIS C SCREENING Completed Data reviewed EKG: NSR at 81 bpm. Possible LVH. ASSESSMENT/PLAN: 1. Chest pain, unspecified type - ICD9: 786.50, ICD10: R07.9 (primary diagnosis) Negative EKG. Will obtain CXR, look for signs of infection and will call with results. Suspect muscle spasm, so will also check electrolytes. - ECG COMPLETE W INTERPRETATION - XR CHEST 2V FRONTAL/LAT - COMP METABOLIC PANEL - CBC + DIFF 2. Cramp and spasm - ICD9: 781.0, ICD10: R25.2 See above. - MAGNESIUM BLD 3. Parkinson disease (HCC) - ICD9: 332.0, ICD10: G20 Continue regimen per neurology. Follow up with botox. 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 4. 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 5. Gastroesophageal reflux disease, esophagitis presence not specified - ICD9: 530.81, ICD10: K21.9 - Continue treatment with pepcid 6. Fatigue, unspecified type - ICD9: 780.79, ICD10: R53.83 Likely 2/2 parkinson/dementia. Obtain labs to rule out other causes. Continue current regimen while awaiting results. - TSH BLD - VITAMIN D 25 HYDROXY - VITAMIN B12 BLOOD I spent 45 minutes in the visit, with more than 50% of the total [id number] time of the visit in counseling / coordination of care. Jessenia Grider MD CNOV Observed: 01/16/2018 Status: COMPLETED Source: [place] 3:40 PM [facility] REPOSITORY Office Visit (FAMPWS) SANDRA LAUGHLIN ([id number]) 1945 F Date Time Provider Department 01/16/18 3:40 PM JESSENIA GRIDER) FAMPWS During your visit today, we recorded the following information about you: Temperature Pulse Respiration Blood pressure 97.1 degrees 88/minute 16/minute 140/92 Weight 60.8 kg Jessenia Grider MD 01/18/2018 2:46 PM Signed Chief Complaint Patient presents with: F/U 3 Month: back pain HPI Sandra Laughlin is a 72 year old female who presents here today for 3 month follow up. Patient was to be seen earlier this week, but had accident in the bathroom at the office and ended up covered in own feces so had to reschedule. Complaining of left sided chest pain, under breast which has been present for the last 6 weeks and is worsening. States feels like cramping or jono horse and it improves with palpation/pressure. Lasts for few seconds at at time.Radiates to deep brain stimulator implant in chest. Denies exacerbation with exertion. Not taking anything for pain. Admits to occasional nausea, fatigue, and sweating with symptoms. Since last OV, patient has been seen by neurology and they recommended: ASSESSMENT: 72 year old female with PD since 1984, bilateral STN DBS placed around 2011 at [facility] here to establish care. Rigidity and bradykinesia are reasonably well-controlled. No changes to DBS programming since seems to be working well. By history she is sensitive to DBS and medication changes. ?? Main complaint today is anterocollis which was being treated with Botox prior to moving to [place]. Will obtain prior authorization so we can continue it. Try to obtain prior records of injection regimen. She is reporting eye closure that no one else has noticed. Monitor, perhaps is blepharospasm. Depression is worse. Increase Zoloft to 75 mg until 50 mg supply is gone then increase to 100 mg. Continue current Sinemet regimen. Still sialorrhea. Does not want treatment with toxin. Since she has already been treated for cervical dystonia with Botox will continue it rather than using Myobloc. Can treat sialorrhea with Botox if needed. PLAN: ---ANDgt;?Sinemet 25/100 1 tab 5x/day at 9a, noon, 3p, 6p, bedtime ---ANDgt; increase Zoloft to 100 mg daily ---ANDgt; prior authorization for Botox for cervical dystonia ---ANDgt; Follow-up: for BOTOX Discussed at length with patient and concerns about her wellbeing at home, especially after her episode in the restroom at the office earlier in the week.States that she has been more fatigued as of late. states that when he is well he feels he can help care for her, but if he becomes sick he worries what will happen. Would like to find someone who could live in his basement 02/06 to help care for her. Discussed this is unrealistic goal. Family in the area does not help with her care. Discussed respite care, assisted living, and custodial. Has had area agency on aging out to the house already. Past medical history, appointments, medications, allergies reviewed. Previous Medical History PAST MEDICAL HISTORY Diagnosis Date - Anxiety - Cataracts, bilateral s/p removal - Dementia - Depression - GERD (gastroesophageal reflux disease) - Hyperlipidemia - Hypotension seeing Dr. James - Incontinence urinary - Parkinson disease (HCC) - S/P deep brain stimulator placement Seeing Dr. Robison - TIA (transient ischemic attack) suspected Previous Surgical History PAST SURGICAL HISTORY Procedure Laterality Date - CATARACT SURGERY, COMPLEX Bilateral 2013 - CHOLECYSTECTOMY - HYSTERECTOMY HX - PAST SURGICAL HISTORY OF 2011 deep brain stimulator placement - ROTATOR CUFF REPAIR Bilateral Family History FAMILY HISTORY Problem Relation Age of Onset - Cancer Mother - Breast Cancer Sister - Cancer Father skin Patient Allergies ALLERGIES Allergen Reactions - Penicillin Swelling Current Medications Current Outpatient Prescriptions on File Prior to Visit: fludrocortisone (FLORINEF) 0.1 mg tablet TAKE 1 TABLET EVERY DAY sertraline (ZOLOFT) 100 mg tablet Take 1 tablet by mouth once daily. Midodrine HCl (PROAMATINE) 10 mg tablet TAKE 1 TABLET BY MOUTH THREE TIMES DAILY. Cholecalciferol, Vitamin D3, (VITAMIN D-3) 2,000 unit cap Take by mouth. clopidogrel (PLAVIX) 75 mg tablet Take 1 tablet by mouth once daily. donepezil (ARICEPT) 10 mg tablet Take 1 tablet by mouth once daily. famotidine (PEPCID) 40 mg tablet Take 1 tablet by mouth once daily. gabapentin (NEURONTIN) 300 mg capsule Take 1 capsule by mouth twice daily. atorvastatin (LIPITOR) 10 mg tablet Take 1 tablet by mouth once daily. KLOR-CON 10 10 mEq tablet Take 1 tablet by mouth twice daily. carbidopa-levodopa (SINEMET 25-100) 25-100 mg per tablet Take 1 tablet by mouth five times daily. FLAXSEED OIL ORAL Take 1,200 mg by mouth once daily. UBIDECARENONE/VITAMIN E MIXED (COQ10 SG 100 ORAL) Take 100 mg by mouth once daily. ferrous gluconate 324 mg (37.5 mg iron) tablet Take 324 mg by mouth daily with breakfast. No current facility-administered medications on file prior to visit. Social History Social History Marital status: Spouse name: Years of education: Number of children: Social History Main Topics Smoking status: Former Smoker Packs/day: 0.00 Years: 0.00 Types: Cigarettes Quit date: 11/1999 Smokeless status: Never Used Alcohol use: No Drug use: No Sexual activity: No Review of Symptoms REVIEW OF SYSTEMS GENERAL: No weight loss, malaise or fevers RESPIRATORY: Negative for cough, hemoptysis, wheezing, COPD, dyspnea or shortness of breath CARDIOVASCULAR: See HPI GI: No nausea, vomiting, or diarrhea SKIN: Negative for lesions, rash, and itching EXAM: BP 140/92 Pulse 88 Temp 36.2 ?C (97.1 ?F) (Temporal Artery) Resp 16 Wt 60.8 kg (134 lb) SpO2 98% BMI 22.3 kg/m2 General Appearance: Well appearing, alert, in no acute distress, well-hydrated, well nourished.. Skin: Skin color, texture, turgor normal, no suspicious rashes or lesions. Lungs: Lungs clear to auscultation. No wheezing, rhonchi, rales. Heart: RRR without murmur, gallop, or rubs. No ectopy. Abdomen: Normal abdominal exam, Abdomen soft, non-tender. Bowel sounds normal. No masses, organomegaly. Extremities: No deformities, edema, skin discoloration, clubbing or cyanosis. Good capillary refill. . Health Maintenance List TETANUS due on 1957 COLORECTAL CANCER SCREENING,SEE MODIFIER due on 1996 BONE DENSITY due on 2011 PNEUMOVAX AGE 65 AND OVER WITH 5YR LOOKBACK(1) due on 2011 MAMMOGRAM due on 05/29/2018 DIABETES SCREEN due on 08/05/2020 LIPID SCREEN due on 05/27/2022 ADULT PREVNAR-13 Completed INFLUENZA Completed HEPATITIS C SCREENING Completed Data reviewed EKG: NSR at 81 bpm. Possible LVH. ASSESSMENT/PLAN: 1. Chest pain, unspecified type - ICD9: 786.50, ICD10: R07.9 (primary diagnosis) Negative EKG. Will obtain CXR, look for signs of infection and will call with results. Suspect muscle spasm, so will also check electrolytes. - ECG COMPLETE W INTERPRETATION - XR CHEST 2V FRONTAL/LAT - COMP METABOLIC PANEL - CBC + DIFF 2. Cramp and spasm - ICD9: 781.0, ICD10: R25.2 See above. - MAGNESIUM BLD 3. Parkinson disease (HCC) - ICD9: 332.0, ICD10: G20 Continue regimen per neurology. Follow up with botox. 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 4. 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 5. Gastroesophageal reflux disease, esophagitis presence not specified - ICD9: 530.81, ICD10: K21.9 - Continue treatment with pepcid 6. Fatigue, unspecified type - ICD9: 780.79, ICD10: R53.83 Likely 2/2 parkinson/dementia. Obtain labs to rule out other causes. Continue current regimen while awaiting results. - TSH BLD - VITAMIN D 25 HYDROXY - VITAMIN B12 BLOOD I spent 45 minutes in the visit, with more than 50% of the total [id number]-[id number]-jruj time of the visit in counseling / coordination of care. 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 (HCC) [G20, F02.80] Gastroesophageal reflux disease, esophagitis presence not specified [K21.9] Fatigue, unspecified type [R53.83] Order(s):ECG COMPLETE W INTERPRETATION [ECG01] Order #: [id number] FUTURE XR CHEST 2V FRONTAL/LAT [9760602] Order #: [id number] FUTURE COMP METABOLIC PANEL [SQCMP] Order #: [id number] FUTURE CBC + DIFF [SQCBCDIF] Order #: [id number] FUTURE MAGNESIUM BLD [SQMG1] Order #: [id number] FUTURE TSH BLD [SQTSH] Order #: [id number] FUTURE VITAMIN D 25 HYDROXY [SQVITD] Order #: [id number] FUTURE VITAMIN B12 BLOOD [SQB12] Order #: [id number] FUTURE Prescriptions as of 01/16/2018 Sig: FLUDROCORTISONE 0.1 MG TABLET TAKE 1 TABLET EVERY DAY SERTRALINE 100 MG TABLET Take 1 tablet by mouth once d* MIDODRINE 10 MG TABLET TAKE 1 TABLET BY MOUTH THREE * CHOLECALCIFEROL (VITAMIN D3) * Take by mouth. CLOPIDOGREL 75 MG TABLET Take 1 tablet by mouth once d* DONEPEZIL 10 MG TABLET Take 1 tablet by mouth once d* FAMOTIDINE 40 MG TABLET Take 1 tablet by mouth once d* GABAPENTIN 300 MG CAPSULE Take 1 capsule by mouth twice* ATORVASTATIN 10 MG TABLET Take 1 tablet by mouth once d* KLOR-CON 10 MEQ TABLET,EXTEND* Take 1 tablet by mouth twice * CARBIDOPA 25 MG-LEVODOPA 100 * Take 1 tablet by mouth five t* FLAXSEED OIL ORAL Take 1,200 mg by mouth once d* COQ10 SG 100 ORAL Take 100 mg by mouth once vinod* FERROUS GLUCONATE 324 MG (37.* Take 324 mg by mouth daily wi* Problem List As Of Date 01/16/2018 Noted Resolved Dementia [F03.90] Parkinson disease (HCC) [G20] Hypotension [I95.9] 10/14/2017 Hyperlipidemia [E78.5] GERD (gastroesophageal reflux disease) [K21.9] TIA (transient ischemic attack) [G45.9] More... Falling [R29.6] INVALID FOR* Crouched gait [R26.89] INVALID FOR* Depression [F32.9] Postural hypotension [I95.1] INVALID FOR* Disposition: Return in about 2 months (around 03/18/2018). Follow-up and Disposition History Recorded Encounter Status:Closed by JESSENIA GRIDER MD on 01/18/18 ANA LAURA Observed: 01/16/2018 Status: COMPLETED Source: [place] 12:00 AM [facility] REPOSITORY Patient Outreach (FAMPWS) SANDRA LAUGHLIN ([id number]) 1945 F Date Time Provider Department 01/16/18 KAYLEE MUSE (RN) [facility] During your visit today, we recorded the following information about you: Kaylee Muse RN 01/16/2018 4:38 PM Signed PRIMARY CARE COORDINATION IN OFFICE VISIT WITH PCP Patient has been identified by name and date of . PCP Assessment/Plan: Reviewed PCP plan with patient using Teach Back Had lengthy discussion with pt, spouse, PCP and SW discussing patient's care needs and spouse's ability to care for pt, especially if he has spine surgery in the near future Spouse will work with SW to explore some options PCC Plan of Care: Patient concerns: Pt reporting pain in left chest Patient goals: Pt wants to remain at home as long as possible. 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 CLOPIDOGREL 75 MG TABLET Take 1 tablet by mouth once d* DONEPEZIL 10 MG TABLET Take 1 tablet by mouth once d* FAMOTIDINE 40 MG TABLET Take 1 tablet by mouth once d* GABAPENTIN 300 MG CAPSULE Take 1 capsule by mouth twice* ATORVASTATIN 10 MG TABLET Take 1 tablet by mouth once d* KLOR-CON 10 MEQ TABLET,EXTEND* Take 1 tablet by mouth twice * CARBIDOPA 25 MG-LEVODOPA 100 * Take 1 tablet by mouth five t* FLAXSEED OIL ORAL Take 1,200 mg by mouth once d* COQ10 SG 100 ORAL Take 100 mg by mouth once vinod* FERROUS GLUCONATE 324 MG (37.* Take 324 mg by mouth daily wi* Problem List As Of Date 01/16/2018 Noted Resolved Dementia [F03.90] Parkinson disease (HCC) [G20] Hypotension [I95.9] 10/14/2017 Hyperlipidemia [E78.5] GERD (gastroesophageal reflux disease) [K21.9] TIA (transient ischemic attack) [G45.9] More... Falling [R29.6] INVALID FOR* Crouched gait [R26.89] INVALID FOR* Depression [F32.9] Postural hypotension [I95.1] INVALID FOR* Encounter Status:Closed by KAYLEE MUSE on 01/16/18 CNSW Observed: 01/16/2018 Status: COMPLETED Source: [place] 12:00 AM [facility] REPOSITORY Social Work (JULIO CESART) SANDRA LAUGHLIN ([id number]) 1945 F Date Time Provider Department 01/16/18 ANNIE OCSTELLO (SW) During your visit today, we recorded the following information about you: ROMULO Ronquillo 02/04/2018 3:10 PM Signed Anju discussed with patient and spouse visit from [facility]. Spouse notes that they do not qualify for Passport services. Spouse and patient sound like they may be eligible for caregiver support program. This would not take affect for another year and half. Patient and spouse report they could use assistance with in home care.Spouse concerned about upcoming surgery on back and his ability to take care of patient. Anju discussed respite care in SNF possible option if and when spouse should have back surgery. Sw will see about different SNF and cost. [facility] was also discussed for day time respite. Nurse on staff at [facility] that can assist with medications and bathing. Sw will follow up with spouse in regards to respite options. ROMULO Ronquillo 02/04/2018 3:10 PM Signed [facility] information has been mailed to patient in regards to Adult Day services. Sw also let spouse know that respite amounts vary from $175-$220 a day. Allergies As of Date: 01/16/2018 Noted Allergy Reaction PENICILLIN 05/29/2017 7 - Swelling Date Reviewed: 01/16/2018 Reviewed by: Shahab Christina Ma - Fully Assessed Prescriptions as of 01/16/2018 Sig: FLUDROCORTISONE 0.1 MG TABLET TAKE 1 TABLET EVERY DAY SERTRALINE 100 MG TABLET Take 1 tablet by mouth once d* MIDODRINE 10 MG TABLET TAKE 1 TABLET BY MOUTH THREE * CHOLECALCIFEROL (VITAMIN D3) * Take by mouth. CLOPIDOGREL 75 MG TABLET Take 1 tablet by mouth once d* DONEPEZIL 10 MG TABLET Take 1 tablet by mouth once d* FAMOTIDINE 40 MG TABLET Take 1 tablet by mouth once d* X GABAPENTIN 300 MG CAPSULE Take 1 capsule by mouth twice* ATORVASTATIN 10 MG TABLET Take 1 tablet by mouth once d* KLOR-CON 10 MEQ TABLET,EXTEND* Take 1 tablet by mouth twice * CARBIDOPA 25 MG-LEVODOPA 100 * Take 1 tablet by mouth five t* FLAXSEED OIL ORAL Take 1,200 mg by mouth once d* COQ10 SG 100 ORAL Take 100 mg by mouth once vinod* FERROUS GLUCONATE 324 MG (37.* Take 324 mg by mouth daily wi* Problem List As Of Date 01/16/2018 Noted Resolved Dementia [F03.90] Parkinson disease (HCC) [G20] Hypotension [I95.9] 10/14/2017 Hyperlipidemia [E78.5] GERD (gastroesophageal reflux disease) [K21.9] TIA (transient ischemic attack) [G45.9] More... Falling [R29.6] INVALID FOR* Crouched gait [R26.89] INVALID FOR* Depression [F32.9] Postural hypotension [I95.1] INVALID FOR* Encounter Status:Closed by ANNIE FOURNIER on 02/04/18 PROGRESS Observed: 01/12/2018 Status: COMPLETED Source: [place] 12:01 PM [facility] REPOSITORY HNO ID: [id number] Author: Jessenia Moreno) Cheo Service: (none) Author Type: Physician Type: Progress Notes Filed: 01/12/2018 1:07 PM Note Text: Patient unable to be seen today due to having accident in the restroom in which became covered in her own feces. Will reschedule for later this week. CNOV Observed: 01/12/2018 Status: COMPLETED Source: [place] 11:20 AM [facility] REPOSITORY [facility] SANDRA LAUGHLIN ([id number]) 1945 F Date Time Provider Department 01/12/18 11:20 AM JESSENIA GRIDER) [facility] During your visit today, we recorded the following information about you: Jessenia Grider MD 01/12/2018 1:07 PM Signed Patient unable to be seen today due to having accident in the restroom in which became covered in her own feces. Will reschedule for later this week. 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 CLOPIDOGREL 75 MG TABLET Take 1 tablet by mouth once d* DONEPEZIL 10 MG TABLET Take 1 tablet by mouth once d* FAMOTIDINE 40 MG TABLET Take 1 tablet by mouth once d* GABAPENTIN 300 MG CAPSULE Take 1 capsule by mouth twice* ATORVASTATIN 10 MG TABLET Take 1 tablet by mouth once d* KLOR-CON 10 MEQ TABLET,EXTEND* Take 1 tablet by mouth twice * CARBIDOPA 25 MG-LEVODOPA 100 * Take 1 tablet by mouth five t* FLAXSEED OIL ORAL Take 1,200 mg by mouth once d* COQ10 SG 100 ORAL Take 100 mg by mouth once vinod* FERROUS GLUCONATE 324 MG (37.* Take 324 mg by mouth daily wi* Problem List As Of Date 01/12/2018 Noted Resolved Dementia [F03.90] Parkinson disease (HCC) [G20] Hypotension [I95.9] 10/14/2017 Hyperlipidemia [E78.5] GERD (gastroesophageal reflux disease) [K21.9] TIA (transient ischemic attack) [G45.9] More... Falling [R29.6] INVALID FOR* Crouched gait [R26.89] INVALID FOR* Depression [F32.9] Postural hypotension [I95.1] INVALID FOR* Encounter Status:Closed by JESSENIA GRIDER MD on 01/12/18 PROGRESS Observed: 12/19/2017 Status: COMPLETED Source: [place] 4:05 PM [facility] REPOSITORY HNO ID: [id number] Author: Jessenia Moreno) Cheo Service: (none) Author Type: Physician Type: Progress Notes Filed: 12/19/2017 4:05 PM Note Text: Reviewed. PROGRESS Observed: 12/19/2017 Status: COMPLETED Source: [place] 3:29 PM [facility] REPOSITORY HNO ID: [id number] Author: Kaylee (Rn) Almaz Service: (none) Author Type: Registered Nurse Type: Progress Notes Filed: 12/19/2017 3:51 PM Note Text: PRIMARY CARE COORDINATION FOLLOW-UP NOTE Provider Action/FYI Zoloft increased due to worsening depression Dr. Robison prior authorizing Botox injections for pt's cervical dystonia Patient identified by name and date of . YES Spoke to spouse Summary: Spouse states patient is at baseline for Parkinson's Disease and Dementia Pt has had no falls recently Saw Dr. Robison 12/10 Zoloft increased due to worsening depression Obtaining Prior Authorization for Botox injections in neck. 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 Robison prior authorizing Botox injections for pt's cervical dystonia Patient identified by name and date of . YES Spoke to spouse Summary: Spouse states patient is at baseline for Parkinson's Disease and Dementia Pt has had no falls recently Saw Dr. Robison 12/10 Zoloft increased due to worsening depression Obtaining Prior Authorization for Botox injections in neck. 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 CLOPIDOGREL 75 MG TABLET Take 1 tablet by mouth once d* DONEPEZIL 10 MG TABLET Take 1 tablet by mouth once d* FAMOTIDINE 40 MG TABLET Take 1 tablet by mouth once d* GABAPENTIN 300 MG CAPSULE Take 1 capsule by mouth twice* ATORVASTATIN 10 MG TABLET Take 1 tablet by mouth once d* KLOR-CON 10 MEQ TABLET,EXTEND* Take 1 tablet by mouth twice * CARBIDOPA 25 MG-LEVODOPA 100 * Take 1 tablet by mouth five t* FLAXSEED OIL ORAL Take 1,200 mg by mouth once d* COQ10 SG 100 ORAL Take 100 mg by mouth once vinod* FERROUS GLUCONATE 324 MG (37.* Take 324 mg by mouth daily wi* Problem List As Of Date 12/19/2017 Noted Resolved Dementia [F03.90] Parkinson disease (HCC) [G20] Hypotension [I95.9] 10/14/2017 Hyperlipidemia [E78.5] GERD (gastroesophageal reflux disease) [K21.9] TIA (transient ischemic attack) [G45.9] More... Falling [R29.6] INVALID FOR* Crouched gait [R26.89] INVALID FOR* Depression [F32.9] Postural hypotension [I95.1] INVALID FOR* Encounter Status:Closed by KAYLEE MUSE on 12/19/17 PROGRESS Observed: 12/10/2017 Status: COMPLETED Source: [place] 1:52 PM [facility] REPOSITORY O ID: [id number] Author: Shayna Robison Service: (none) Author Type: Physician Type: Progress Notes Filed: 12/15/2017 9:02 AM Note Text: Neurology Follow-up Visit ASSESSMENT: 72 year old female with PD since 1984, bilateral STN DBS placed around 2011 at [facility] here to establish care. Rigidity and bradykinesia are reasonably well-controlled. No changes to DBS programming since seems to be working well. By history she is sensitive to DBS and medication changes. ? Main complaint today is anterocollis which was being treated with Botox prior to moving to [place]. Will obtain prior authorization so we can continue it. Try to obtain prior records of injection regimen. She is reporting eye closure that no one else has noticed. Monitor, perhaps is blepharospasm. Depression is worse. Increase Zoloft to 75 mg until 50 mg supply is gone then increase to 100 mg. Continue current Sinemet regimen. Still sialorrhea. Does not want treatment with toxin. Since she has already been treated for cervical dystonia with Botox will continue it rather than using Myobloc. Can treat sialorrhea with Botox if needed. ? PLAN: ---> Sinemet 25/100 1 tab 5x/day at 9a, noon, 3p, 6p, bedtime ---> increase Zoloft to 100 mg daily ---> prior authorization for Botox for cervical dystonia ---> Follow-up: for BOTOX Diagnosis: Cervical dystonia (G24.3) Current Examination: anterocollis, hypertrophied SCMs Special Features: Posturing Functional Limitations: 2(moderate) Pain: No Date of Diagnosis:unknown, treated with Botox by prior neurologist Estimated Duration of treatment: Will reassess after 1year Frequency of treatment: 90days What other treatments have been tried and failed: Physical Therapy and PD Medications Next Appointment Notes: Send Staff Message to RN to start process for neurotoxin prior authorization. Procedure Note: Botulinum toxin injection Neurotoxin: Yes Botox: [id number] Dose: 200 units Administered with EMG guidance: Yes Last Visit: 06/09/2017 New Labs/Imaging: Component Latest Ref Rng AND Units 08/05/2017 WBC 3.70 - 11.00 k/uL 6.79 RBC 3.90 - 5.20 m/uL 4.09 Hemoglobin 11.5 - 15.5 g/dL 12.3 Hematocrit 36.0 - 46.0 % 39.1 MCV 80.0 - 100.0 fL 95.6 MCH 26.0 - 34.0 pG 30.1 MCHC 30.5 - 36.0 g/dL 31.5 RDW-CV 11.5 - 15.0 % 13.8 Platelet Count 150 - 400 k/uL 297 MPV 9.0 - 12.7 fL 11.2 Neut% % 65.4 Abs Neut (ANC) 1.45 - 7.50 k/uL 4.44 Lymph% % 21.8 Abs Lymph 1.00 - 4.00 k/uL 1.48 Peñuelas% % 11.5 Abs Peñuelas 0.00 - 0.86 k/uL 0.78 Eosin% % 0.7 Abs Eosin 0.00 - 0.45 k/uL 0.05 Baso% % 0.6 Abs Baso 0.00 - 0.10 k/uL 0.04 Nucleated Reds 0 /100 WBC 0.0 Absolute nRBC 0.00 k/uL 0.00 Diff Type Auto Diff Protein, Total 6.3 - 8.0 g/dL 7.0 Albumin 3.9 - 4.9 g/dL 4.3 Calcium 8.5 - 10.2 mg/dL 9.4 Bilirubin, Total 0.2 - 1.3 mg/dL <0.2 (L) Alkaline Phosphatase 32 - 117 U/L 83 AST 13 - 35 U/L 11 (L) Glucose 74 - 99 mg/dL 89 BUN 7 - 21 mg/dL 34 (H) Creatinine 0.58 - 0.96 mg/dL 0.89 Sodium 136 - 144 mmol/L 147 (H) Potassium 3.7 - 5.1 mmol/L 4.7 Chloride 97 - 105 mmol/L 107 (H) CO2 22 - 30 mmol/L 25 Anion Gap 9 - 18 mmol/L 15 ALT 7 - 38 U/L <5 (L) eGFR- >60 eGFR-All Other Races . >60 Interval Hx: Imbalance. Little more confusion as the day goes on. Sleeping ok. Chronic fatigue. Left eye closes involuntarily. Family does not recall ever seeing that. Started 6-8 months ago. Daily. Head is down much of the time. Was getting Botox from prior neurologist. Last injections prior to April. Seems was getting 200 units per description. Did PT and did well initially for first 12 sessions. Then leveled out and seemed to worsen so would not approve more. Current PD meds: Sinemet 25/100 1 tab 5x/day at 9a, noon, 3p, 6p, bedtime New bedtime dose helped. Wearing off: no Dyskinesia: little Other side effects: Nausea,vomiting: no Hallucination: no Falls/Imbalance: above Orthostasis: no Sialorrhea: yes. Comes and goes. Never dry mouth. Swallowing difficulty: ok Depress mood/Anxiety: depression, worse. Seems she is taking Zoloft 50 mg rather than 100 mg Rehab/exercise: recent PMH: PAST MEDICAL HISTORY Diagnosis Date - Anxiety - Cataracts, bilateral s/p removal - Dementia - Depression - GERD (gastroesophageal reflux disease) - Hyperlipidemia - Hypotension seeing Dr. James - Incontinence urinary - Parkinson disease (HCC) - S/P deep brain stimulator placement Seeing Dr. Robison - TIA (transient ischemic attack) suspected New Health Issues: No SOC: Social History Marital status: Spouse name: Years of education: Number of children: Social History Main Topics Smoking status: Former Smoker Packs/day: 0.00 Years: 0.00 Types: Cigarettes Quit date: 11/1999 Smokeless status: Never Used Alcohol use: No Drug use: No Sexual activity: No FMH: FAMILY HISTORY Problem Relation Age of Onset - Cancer Mother - Breast Cancer Sister - Cancer Father skin MEDS: Current Outpatient Prescriptions: sertraline (ZOLOFT) 50 mg tablet TAKE 1 TABLET BY MOUTH ONCE DAILY. Midodrine HCl (PROAMATINE) 10 mg tablet TAKE 1 TABLET BY MOUTH THREE TIMES DAILY. fludrocortisone (FLORINEF) 0.1 mg tablet TAKE 1 TABLET EVERY DAY Cholecalciferol, Vitamin D3, (VITAMIN D-3) 2,000 unit cap Take by mouth. sertraline (ZOLOFT) 100 mg tablet Take 1 tablet by mouth once daily. clopidogrel (PLAVIX) 75 mg tablet Take 1 tablet by mouth once daily. donepezil (ARICEPT) 10 mg tablet Take 1 tablet by mouth once daily. famotidine (PEPCID) 40 mg tablet Take 1 tablet by mouth once daily. gabapentin (NEURONTIN) 300 mg capsule Take 1 capsule by mouth twice daily. atorvastatin (LIPITOR) 10 mg tablet Take 1 tablet by mouth once daily. KLOR-CON 10 10 mEq tablet Take 1 tablet by mouth twice daily. carbidopa-levodopa (SINEMET 25-100) 25-100 mg per tablet Take 1 tablet by mouth five times daily. FLAXSEED OIL ORAL Take 1,200 mg by mouth once daily. UBIDECARENONE/VITAMIN E MIXED (COQ10 SG 100 ORAL) Take 100 mg by mouth once daily. ferrous gluconate 324 mg (37.5 mg iron) tablet Take 324 mg by mouth daily with breakfast. No current facility-administered medications for this visit. REVIEW OF SYSTEMS: Review of system : unchanged from the previous visit or as per HPI (sleep patterns, mood, energy, appetite, stress, exercising). Physical Examination: BP 123/76 (BP Site: Right Arm, BP Position: Sitting, BP Cuff Size: Regular Adult) Pulse 87 Wt 59 kg (130 lb) SpO2 (!) 87% BMI 21.63 kg/m2 GEN: Alert. NAD. Normal affect. Cooperative. HEENT: No rhinorrhea, lacrimation or conjunctival injection. Normal mucosa. NECK/BACK: Supple EXT: No cyanosis. No edema. No erythema. NEUROLOGICAL: MENTAL STATUS: A+O x 3. Attentive. Thought process and content unremarkable. Follows commands appropriately. Speech fluent. CN: II: PERRLA. III, IV, : EOMI. No ptosis present. VII: Face symmetric. VIII:No nystagmus. XI: Symmetric shoulder shrug. MOTOR: Motor UPDRS SPEECH ON 2 FACIAL EXPRESSION ON 2 REST TREMOR - CRANIAL ON 0 REST TREMOR - HANDS RT ON 0 REST TREMOR - HANDS LT ON 0 REST TREMOR - FEET RT ON 0 REST TREMOR - FEET LT ON 0 ACTION TREMOR - RT ON 0 ACTION TREMOR - LT ON 0 RIGIDITY - NECK ON 2 RIGIDITY - UE - RT ON 0 RIGIDITY - UE - LT ON 0 RIGIDITY - LE - RT ON 0 RIGIDITY - LE - LT ON 0 FINGER TAPS - RT ON 1 FINGER TAPS - LT ON 2 HAND CLASSIFIED ADVERTISING CLERK - RT ON 0 HAND CLASSIFIED ADVERTISING CLERK - LT ON 2 PRONATE/SUPINATE - RT ON 1 PRONATE/SUPINATE - LT ON 3 LEG AGILITY - RT ON 1 LEG AGILITY - LT ON 1 ARISE FROM CHAIR ON 2 POSTURE ON 3 GAIT ON 1 BODY BRADYKINESIA ON 2 Anterocollis. Mild hypertrophy of SCMs bilaterally. CEREBELLAR: No ataxia or nystagmus. GAIT: Stable primary gait. DBS check: Initial and final settings: Site Amp(V) PW (ms) Rate (Hz) Cathode (-) Anode (+) L STN 3.0 60 130 2 1 R STN 3.7 60 130 8 9 Therapy Impedance and Battery check at final settings: Rt brain Lt brain Therapeutic Impedance Battery (V) 2.94 Battery longevity estimate by shipbeat EOS = EOS = Shayna Robison M.D. [facility] [place] Department [facility] cc: Jessenia Grider MD [address] [place] [id number] Jessenia Grider MD [address] [place] [id number] OBSOLETE Observed: 12/05/2017 Status: COMPLETED Source: [place] 12:00 AM [facility] REPOSITORY [facility] SANDRA LAUGHLIN ([id number]) 1945 F Date Time Provider Department 12/05/17 JESSENIA GRIDER) [facility] During your visit today, we recorded the following information about you: Fatou Beny Ndiaye [facility] 12/05/2017 11:11 AM Signed Patient has been identified by name and date of : Yes Pending Prescriptions Disp Refills GABAPENTIN 300 MG CAPSULE 60 capsule 1 Sig: TAKE 1 CAPSULE BY MOUTH TWICE DAILY. LINH: Yes RX INSTRUCTIONS: Patient aware RX will be sent to pharmacy. No need to notify patient. Last visit 10/14/17 Future visit 01/12/18 Last filled 07/18/17 180 with 0 Fatou Grider MD 12/05/2017 11:51 AM Signed [place] website checked and validated. All prescriptions have been APPROPRIATELY filled. No suspicious activity was identified.- 12/05/2017 by MD Georgia Lopez Ma 12/05/2017 12:25 PM Signed The following approved medication requests have been transmitted electronically. Signed Prescriptions Disp Refills gabapentin (NEURONTIN) 300 mg capsule 60 capsule 5 Sig: TAKE 1 CAPSULE BY MOUTH TWICE DAILY. LINH: No Authorizing Provider: JESSENIA GRIDER) Geogria Medina Ma Allergies As of Date: 12/05/2017 Noted Allergy Reaction PENICILLIN 05/29/2017 7 - Swelling Date Reviewed: 10/14/2017 Reviewed by: Shahab Christina Ma - Fully Assessed Reason for Visit: Refill Request [94] Order(s):gabapentin (NEURONTIN) 300 mg capsuleTAKE 1 CAPSULE BY MOUTH TWICE DAILY.Disp: 60 capsuleRfl: 5 Prescriptions as of 12/05/2017 Sig: GABAPENTIN 300 MG CAPSULE TAKE 1 CAPSULE BY MOUTH TWICE* SERTRALINE 50 MG TABLET TAKE 1 TABLET BY MOUTH ONCE D* MIDODRINE 10 MG TABLET TAKE 1 TABLET BY MOUTH THREE * FLUDROCORTISONE 0.1 MG TABLET TAKE 1 TABLET EVERY DAY FAMOTIDINE 40 MG TABLET TAKE 1 TABLET BY MOUTH ONCE D* CHOLECALCIFEROL (VITAMIN D3) * Take by mouth. SERTRALINE 100 MG TABLET Take 1 tablet by mouth once d* CLOPIDOGREL 75 MG TABLET Take 1 tablet by mouth once d* DONEPEZIL 10 MG TABLET Take 1 tablet by mouth once d* FAMOTIDINE 40 MG TABLET Take 1 tablet by mouth once d* GABAPENTIN 300 MG CAPSULE Take 1 capsule by mouth twice* ATORVASTATIN 10 MG TABLET Take 1 tablet by mouth once d* KLOR-CON 10 MEQ TABLET,EXTEND* Take 1 tablet by mouth twice * CARBIDOPA 25 MG-LEVODOPA 100 * Take 1 tablet by mouth five t* FLAXSEED OIL ORAL Take 1,200 mg by mouth once d* COQ10 SG 100 ORAL Take 100 mg by mouth once vinod* FERROUS GLUCONATE 324 MG (37.* Take 324 mg by mouth daily wi* Problem List As Of Date 12/05/2017 Noted Resolved Dementia [F03.90] Parkinson disease (HCC) [G20] Hypotension [I95.9] 10/14/2017 Hyperlipidemia [E78.5] GERD (gastroesophageal reflux disease) [K21.9] TIA (transient ischemic attack) [G45.9] More... Falling [R29.6] INVALID FOR* Crouched gait [R26.89] INVALID FOR* Depression [F32.9] Postural hypotension [I95.1] INVALID FOR* Prescriptions ordered this encounter Disp Refills Start End GABAPENTIN 300 MG CAPSULE 60 c* 5 12/05/2017 01/04/2018 Sig: TAKE 1 CAPSULE BY MOUTH TWICE DAILY. Encounter Status:Closed by [place] MEDINA MA on 12/05/17 PROGRESS Observed: 11/28/2017 Status: COMPLETED Source: [place] 5:02 PM [facility] REPOSITORY HNO ID: [id number] Author: Andrey (Pt) Liliana Service: (none) Author Type: Physical Therapist Type: Progress Notes Filed: 11/28/2017 5:09 PM Note Text: Episode Visit Count: 14 Therapist That Will Oversee The Plan Of Care: Andrey Ford PT Start of Care Date: 09/29/17 Onset Date: 09/29/09 Plan of Care Certification Date: 10/27/17 Patient Identified by Name and Date of : Yes REHABILITATION AND SPORTS THERAPY PHYSICAL THERAPY DISCONTINUANCE OF CARE PLAN OF CARE UPDATE: Assessment: Sandra Laughlin is discontinued from Physical Therapy services due to maximal benefit.. Patient was seen for 14 visits from Start of Care Date: 09/29/17 to 11/28/2017 and treatment included: Therapeutic exercise, Neuromuscular re-education, Therapeutic activities, Self-chcf management, Gait training, Patient/Family/Caregiver Education, Body mechanics training, Functional training and General conditioning. Pt has made significant improvements since evaluation but she is the same or slightly worse over the past month since last updated plan of care. Because progress has leveled off, a continuation of supervised PT can not be justified. Pt understood. Pt has likely received maximum benefit from supervised PT at this time. Many instructions that were given in the begin continue to need repeated with very little carryover. Posture is improved but still very poor and requires max verbal cues. Goals for Episode of Care created on Start of Care Date: 09/29/17 through 11/28/2017 Updated 10/27/2017 and 11/28/2017 Goals for Episode of Care: created on 09/29/17 through 11/25/17 Patient will report no falls. - met Improve score on Timed Up and Go Test to 12 seconds to reflect decreased fall risk. - partially met but slight decline from last update Improve score on 30 Second Chair Stand to 10 repetitions to reflect decreased fall risk. - partially met but still only 5 reps Improve performance on 4 Stage Balance Test to 10 second tandem stance to reflect decreased fall risk. - unmet, decline from last update and currently 5 seconds [place] in home exercise program including cardiovascular exercise. - partially met Patient will be able to corect postrual deviations with minimal assist verbal cues in order to improve postural alignment of trunk during transfers, ambulation, sitting, standing and functional activities. - partially met, posture remains very poor with the same need for cues. Patient will improve his/her AM-PAC T-scale score by 4 points to indicate a Minimal Clincial Important Difference. - partially met, with slight decline from last update. Increase strength of LE, posture and core muscles to WFL in order to enhance safety with functional mobility. - partially met G CODE REPORTING Based on clinical assessment and the score on the AM-PAC Scale Score Assessment Tool, the G code and corresponding severity modifiers are documented below. Evaluation: 09/30/2017 Current Status: Mobility: Walking and Moving Around: G8978 CK 40-59% impaired Goal Status: Mobility: Walking and Moving Around: G8979 CJ 20-39% impaired Progress Report: 10/27/2017 Current Status: Mobility: Walking and Moving Around: G8978 CK 40-59% impaired Goal Status: Mobility: Walking and Moving Around: G8979 CK 40-59% impaired G CODE REPORTING: Discharge: 11/28/2017 Goal Status: Mobility: Walking and Moving Around: G8979 CK 40-59% impaired Discharge: Mobility: Walking and Moving Around: G8980 CK 40-59% impaired SUBJECTIVE: . Pt denies any falls since last visit. Pt and her sister reports that pt is not consistently using the walker for ambulation and also not actively participating in transfers as much as she is capable. Pain Score: 0/10 Description: (none reported today) Frequency: Intermittent Post Treatment Pain Score: No Change OBJECTIVE MEASURES WITH LEVEL OF FUNCTION: Cognition Follows Commands: Cueing Needed (Many instructions about transfers still need repeated.) Cueing to Follow Commands: Maximum Safety Judgment: Impulsive;Limited insight to deficits;Needs cuing;Decreased awareness of need for assistance;Decreased awarenss of need for safety (Pt's sister reports that pt is not using walker consistently) Posture / Alignment Posture: Forward head;Rounded shoulders;Thoracic kyphosis (very very kyphotic and slumped in sitting and standing ) Posture comment: Posture is still very poor but she does attempt to follow verbal cues but little to no carry over from visit to visit. Balance Tandem Stance: 5 seconds Functional Strength Functional Strength: Pt ability with transfers, bed mobility and all functional mobility tasks is dramatically improved and this can at least partially be attributed to increased functional strength. Unfortunately there has not been a measurable change since last updated plan of care. Chair Stand Test: 5 reps Timed Up and Go (sec): 29.3 sec TREATMENT: Therapeutic Activity: 1: Proper method for all transfers were repeatedly reviewed throughout. Sit to stand, stand to sit, supine to sit and sit to supine specifially. She was strongly urged to continue doing as much for herself as she can so that she can sustain the progress she has made since starting therapy. Pt and her sister verbalized understanding. Skilled Intervention: Insured patient safety with use of gait belt and walker. Educated on proper/safe technique for activities performed today. Maximum verbal cues for maintaining neutral spine alignment. Neuromuscular Re-Education: 1: Balance assessment completed and all results and interpretation discussed with pt and her sister in great detail with rationale for recommendations. 2: Continued use of walker urged secondary to high fall risk. Skilled Intervention: Skilled judgment used to assess appropriate program for balance and coordination activity. Education and demonstration for posture and positioning for tone management. Insured patient safety with use of gait belt. Billing: [facility]: Therapeutic Activity ([id number]): 1:1 time: 25 minutes (2 units: 23-37 mins) Neuromuscular Re-education ([id number]): 1:1 time:20 minutes (1 unit: 8-22 mins) Total time: 45 minutes Andrey Ford PT CNTHERAPY Observed: 11/28/2017 Status: COMPLETED Source: [place] 1:15 PM [facility] REPOSITORY OT/PT/Speech Visit (PTWS) TRUMANSANDRA HYLTON ([id number]) 1945 F Date Time Provider Department 11/28/17 1:15 PM ANDREY FORD (PT) PTWS Date Time Provider Department Center 11/28/2017 1:15 PM [id number], BRENT (PT) PTWS [facility] [place] Reason for Visit: PT Discharge [752] Primary Visit Diagnosis:Falling [R29.6] Other Visit Diagnoses:Crouched gait [R26.89] Parkinson disease (HCC) [G20] Allergies As of Date: 11/28/2017 Noted Allergy Reaction PENICILLIN 05/29/2017 7 - Swelling Date Reviewed: 10/14/2017 Reviewed by: Shahab Christina Ma - Fully Assessed Prescriptions as of 11/28/2017 Sig: FLUDROCORTISONE 0.1 MG TABLET TAKE 1 TABLET EVERY DAY FAMOTIDINE 40 MG TABLET TAKE 1 TABLET BY MOUTH ONCE D* MIDODRINE 10 MG TABLET TAKE 1 TABLET BY MOUTH THREE * CHOLECALCIFEROL (VITAMIN D3) * Take by mouth. SERTRALINE 100 MG TABLET Take 1 tablet by mouth once d* CLOPIDOGREL 75 MG TABLET Take 1 tablet by mouth once d* DONEPEZIL 10 MG TABLET Take 1 tablet by mouth once d* FAMOTIDINE 40 MG TABLET Take 1 tablet by mouth once d* GABAPENTIN 300 MG CAPSULE Take 1 capsule by mouth twice* ATORVASTATIN 10 MG TABLET Take 1 tablet by mouth once d* KLOR-CON 10 MEQ TABLET,EXTEND* Take 1 tablet by mouth twice * CARBIDOPA 25 MG-LEVODOPA 100 * Take 1 tablet by mouth five t* FLAXSEED OIL ORAL Take 1,200 mg by mouth once d* COQ10 SG 100 ORAL Take 100 mg by mouth once vinod* FERROUS GLUCONATE 324 MG (37.* Take 324 mg by mouth daily wi* Progress Notes: Andrey Ford PT 11/28/2017 5:09 PM Signed Episode Visit Count: 14 Therapist That Will Oversee The Plan Of Care: Andrey Ford PT Start of Care Date: 09/29/17 Onset Date: 09/29/09 Plan of Care Certification Date: 10/27/17 Patient Identified by Name and Date of : Yes REHABILITATION AND SPORTS THERAPY PHYSICAL THERAPY DISCONTINUANCE OF CARE PLAN OF CARE UPDATE: Assessment: Sandra Laughlin is discontinued from Physical Therapy services due to maximal benefit.. Patient was seen for 14 visits from Start of Care Date: 09/29/17 to 11/28/2017 and treatment included: Therapeutic exercise, Neuromuscular re-education, Therapeutic activities, Self-chcf management, Gait training, Patient/Family/Caregiver Education, Body mechanics training, Functional training and General conditioning. Pt has made significant improvements since evaluation but she is the same or slightly worse over the past month since last updated plan of care. Because progress has leveled off, a continuation of supervised PT can not be justified. Pt understood. Pt has likely received maximum benefit from supervised PT at this time. Many instructions that were given in the begin continue to need repeated with very little carryover. Posture is improved but still very poor and requires max verbal cues. Goals for Episode of Care created on Start of Care Date: 09/29/17 through 11/28/2017 Updated 10/27/2017 and 11/28/2017 Goals for Episode of Care: created on 09/29/17 through 11/25/17 Patient will report no falls. - met Improve score on Timed Up and Go Test to 12 seconds to reflect decreased fall risk. - partially met but slight decline from last update Improve score on 30 Second Chair Stand to 10 repetitions to reflect decreased fall risk. - partially met but still only 5 reps Improve performance on 4 Stage Balance Test to 10 second tandem stance to reflect decreased fall risk. - unmet, decline from last update and currently 5 seconds [place] in home exercise program including cardiovascular exercise. - partially met Patient will be able to corect postrual deviations with minimal assist verbal cues in order to improve postural alignment of trunk during transfers, ambulation, sitting, standing and functional activities. - partially met, posture remains very poor with the same need for cues. Patient will improve his/her AM-PAC T-scale score by 4 points to indicate a Minimal Clincial Important Difference. - partially met, with slight decline from last update. Increase strength of LE, posture and core muscles to WFL in order to enhance safety with functional mobility. - partially met G CODE REPORTING Based on clinical assessment and the score on the AM-PAC Scale Score Assessment Tool, the G code and corresponding severity modifiers are documented below. Evaluation: 09/30/2017 Current Status: Mobility: Walking and Moving Around: G8978 CK 40-59% impaired Goal Status: Mobility: Walking and Moving Around: G8979 CJ 20-39% impaired Progress Report: 10/27/2017 Current Status: Mobility: Walking and Moving Around: G8978 CK 40-59% impaired Goal Status: Mobility: Walking and Moving Around: G8979 CK 40-59% impaired G CODE REPORTING: Discharge: 11/28/2017 Goal Status: Mobility: Walking and Moving Around: G8979 CK 40-59% impaired Discharge: Mobility: Walking and Moving Around: G8980 CK 40-59% impaired SUBJECTIVE: . Pt denies any falls since last visit. Pt and her sister reports that pt is not consistently using the walker for ambulation and also not actively participating in transfers as much as she is capable. Pain Score: 0/10 Description: (none reported today) Frequency: Intermittent Post Treatment Pain Score: No Change OBJECTIVE MEASURES WITH LEVEL OF FUNCTION: Cognition Follows Commands: Cueing Needed (Many instructions about transfers still need repeated.) Cueing to Follow Commands: Maximum Safety Judgment: Impulsive;Limited insight to deficits;Needs cuing;Decreased awareness of need for assistance;Decreased awarenss of need for safety (Pt's sister reports that pt is not using walker consistently) Posture / Alignment Posture: Forward head;Rounded shoulders;Thoracic kyphosis (very very kyphotic and slumped in sitting and standing ) Posture comment: Posture is still very poor but she does attempt to follow verbal cues but little to no carry over from visit to visit. Balance Tandem Stance: 5 seconds Functional Strength Functional Strength: Pt ability with transfers, bed mobility and all functional mobility tasks is dramatically improved and this can at least partially be attributed to increased functional strength. Unfortunately there has not been a measurable change since last updated plan of care. Chair Stand Test: 5 reps Timed Up and Go (sec): 29.3 sec TREATMENT: Therapeutic Activity: 1: Proper method for all transfers were repeatedly reviewed throughout. Sit to stand, stand to sit, supine to sit and sit to supine specifially. She was strongly urged to continue doing as much for herself as she can so that she can sustain the progress she has made since starting therapy. Pt and her sister verbalized understanding. Skilled Intervention: Insured patient safety with use of gait belt and walker. Educated on proper/safe technique for activities performed today. Maximum verbal cues for maintaining neutral spine alignment. Neuromuscular Re-Education: 1: Balance assessment completed and all results and interpretation discussed with pt and her sister in great detail with rationale for recommendations. 2: Continued use of walker urged secondary to high fall risk. Skilled Intervention: Skilled judgment used to assess appropriate program for balance and coordination activity. Education and demonstration for posture and positioning for tone management. Insured patient safety with use of gait belt. Billing: [facility]: Therapeutic Activity ([id number]): 1:1 time: 25 minutes (2 units: 23-37 mins) Neuromuscular Re-education ([id number]): 1:1 time:20 minutes (1 unit: 8-22 mins) Total time: 45 minutes Andrey Ford PT PROGRESS Observed: 11/24/2017 Status: COMPLETED Source: [place] 1:20 PM [facility] REPOSITORY HNO ID: [id number] Author: Andrey Ford Service: (none) Author Type: Physical Therapist Type: Progress Notes Filed: 11/24/2017 4:51 PM Note Text: Episode Visit Count: 13 Therapist That Will Oversee The Plan Of Care: Andrey Ford PT Start of Care Date: 09/29/17 Onset Date: 09/29/09 Plan of Care Certification Date: 10/27/17 REHABILITATION AND SPORTS THERAPY PHYSICAL THERAPY TREATMENT NOTE ASSESSMENT: Sandra Laughlin demonstrated difficulty with transfers coming from side lying position to sit. She is able to transfer independently from supine to sit position but has back pain with this method. The patient will continue to benefit from continued skilled physical therapy for transfers from side lying position to avoid increase back pain. She needs minimal assist with this currently. PLAN FOR NEXT VISIT: continue to work on transfers in log rolling position so that patient does not increase back pain with transfer from supine to sit. Continue with posture and balance ex. SUBJECTIVE: Patient reports she gets up 1x/night to go to the bathroom and needs only hand assist from her for this transfer. She reports having intermittent low back pain. Pain Score: 3/10 Pain Location: Back Description: Sharp Frequency: Intermittent Post Treatment Pain Score: No Change OBJECTIVE MEASURES WITH LEVEL OF FUNCTION: Posture / Alignment Posture: Forward head;Increased thoracic kyphosis;Rounded shoulders Posture comment: Patient able to improve upright seated and standing posture with constant cueing. TREATMENT: Therapeutic Exercise: 1: SciFit StepOne seat #13 resistance level 1 x6 minutes 2: bridging 3x15 3: repeated sit to stand from low mat table 19 inches high 2x10 4: B forward step ups on 6 inch blue step in parallel bars 2x12 each 5: seated scapular retraction with emphasis on looking up while on mat table 2x10. 6: Supine gluteal sets 2x 10. 7: Standing forward step taps 2x5 B with CGA. Skilled Intervention: Patient was educated in proper exercise technique and purpose for exercises. Skilled judgment was provided in selection of appropriate interventions. Correct performance of therapeutic exercises was facilitated with verbal, visual and tactile cuing. Billing: [facility]: Therapeutic Exercise ([id number]): 1:1 time: 41 minutes (3 units: 38-52 mins) Total time: 41 minutes JEFFY Narayanan PT CNTHERAPY Observed: 11/24/2017 Status: COMPLETED Source: [place] 1:15 PM [facility] REPOSITORY OT/PT/Speech Visit (PTWS) SANDRA LAUGHLIN ([id number]) 1945 F Date Time Provider Department 11/24/17 1:15 PM [place]) PTWS Date Time Provider Department Center 11/24/2017 1:15 PM [id number]) PTNEHA [facility] [place] Reason for Visit: Physical Therapy [503] Primary Visit Diagnosis:Falling [R29.6] Other Visit Diagnoses:Crouched gait [R26.89] Parkinson disease (HCC) [G20] Allergies As of Date: 11/24/2017 Noted Allergy Reaction PENICILLIN 05/29/2017 7 - Swelling Date Reviewed: 10/14/2017 Reviewed by: Shahab Christina Ma - Fully Assessed Prescriptions as of 11/24/2017 Sig: FLUDROCORTISONE 0.1 MG TABLET TAKE 1 TABLET EVERY DAY FAMOTIDINE 40 MG TABLET TAKE 1 TABLET BY MOUTH ONCE D* MIDODRINE 10 MG TABLET TAKE 1 TABLET BY MOUTH THREE * CHOLECALCIFEROL (VITAMIN D3) * Take by mouth. SERTRALINE 100 MG TABLET Take 1 tablet by mouth once d* CLOPIDOGREL 75 MG TABLET Take 1 tablet by mouth once d* DONEPEZIL 10 MG TABLET Take 1 tablet by mouth once d* FAMOTIDINE 40 MG TABLET Take 1 tablet by mouth once d* GABAPENTIN 300 MG CAPSULE Take 1 capsule by mouth twice* ATORVASTATIN 10 MG TABLET Take 1 tablet by mouth once d* KLOR-CON 10 MEQ TABLET,EXTEND* Take 1 tablet by mouth twice * CARBIDOPA 25 MG-LEVODOPA 100 * Take 1 tablet by mouth five t* FLAXSEED OIL ORAL Take 1,200 mg by mouth once d* COQ10 SG 100 ORAL Take 100 mg by mouth once vinod* FERROUS GLUCONATE 324 MG (37.* Take 324 mg by mouth daily wi* Progress Notes: Andrey Ford PT 11/24/2017 4:51 PM Signed Episode Visit Count: 13 Therapist That Will Oversee The Plan Of Care: Andrey Ford PT Start of Care Date: 09/29/17 Onset Date: 09/29/09 Plan of Care Certification Date: 10/27/17 REHABILITATION AND SPORTS THERAPY PHYSICAL THERAPY TREATMENT NOTE ASSESSMENT: Sandra Laughlin demonstrated difficulty with transfers coming from side lying position to sit. She is able to transfer independently from supine to sit position but has back pain with this method. The patient will continue to benefit from continued skilled physical therapy for transfers from side lying position to avoid increase back pain. She needs minimal assist with this currently. PLAN FOR NEXT VISIT: continue to work on transfers in log rolling position so that patient does not increase back pain with transfer from supine to sit. Continue with posture and balance ex. SUBJECTIVE: Patient reports she gets up 1x/night to go to the bathroom and needs only hand assist from her for this transfer. She reports having intermittent low back pain. Pain Score: 3/10 Pain Location: Back Description: Sharp Frequency: Intermittent Post Treatment Pain Score: No Change OBJECTIVE MEASURES WITH LEVEL OF FUNCTION: Posture / Alignment Posture: Forward head;Increased thoracic kyphosis;Rounded shoulders Posture comment: Patient able to improve upright seated and standing posture with constant cueing. TREATMENT: Therapeutic Exercise: 1: SciFit StepOne seat #13 resistance level 1 x6 minutes 2: bridging 3x15 3: repeated sit to stand from low mat table 19 inches high 2x10 4: B forward step ups on 6 inch blue step in parallel bars 2x12 each 5: seated scapular retraction with emphasis on looking up while on mat table 2x10. 6: Supine gluteal sets 2x 10. 7: Standing forward step taps 2x5 B with CGA. Skilled Intervention: Patient was educated in proper exercise technique and purpose for exercises. Skilled judgment was provided in selection of appropriate interventions. Correct performance of therapeutic exercises was facilitated with verbal, visual and tactile cuing. Billing: [facility]: Therapeutic Exercise ([id number]): 1:1 time: 41 minutes (3 units: 38-52 mins) Total time: 41 minutes [place] PTAlbert Ford PT Previous Version Follow-up and Disposition History Recorded CNTHERAPY Observed: 11/17/2017 Status: COMPLETED Source: [place] 1:15 PM [facility] REPOSITORY OT/PT/Speech Visit (PTWS) SANDRA LAUGHLIN ([id number]) 1945 F Date Time Provider Department 11/17/17 1:15 PM [place] (TREASURER) PTWS Date Time Provider Department Center 11/17/2017 1:15 PM [id number], NANCY (TREASURER) PTWS [facility] [place] Reason for Visit: Physical Therapy [503] Primary Visit Diagnosis:Falling [R29.6] Other Visit Diagnoses:Crouched gait [R26.89] Parkinson disease (HCC) [G20] Allergies As of Date: 11/17/2017 Noted Allergy Reaction PENICILLIN 05/29/2017 7 - Swelling Date Reviewed: 10/14/2017 Reviewed by: Shahab Christina Ma - Fully Assessed Prescriptions as of 11/17/2017 Sig: FLUDROCORTISONE 0.1 MG TABLET TAKE 1 TABLET EVERY DAY FAMOTIDINE 40 MG TABLET TAKE 1 TABLET BY MOUTH ONCE D* MIDODRINE 10 MG TABLET TAKE 1 TABLET BY MOUTH THREE * CHOLECALCIFEROL (VITAMIN D3) * Take by mouth. SERTRALINE 100 MG TABLET Take 1 tablet by mouth once d* CLOPIDOGREL 75 MG TABLET Take 1 tablet by mouth once d* DONEPEZIL 10 MG TABLET Take 1 tablet by mouth once d* FAMOTIDINE 40 MG TABLET Take 1 tablet by mouth once d* GABAPENTIN 300 MG CAPSULE Take 1 capsule by mouth twice* ATORVASTATIN 10 MG TABLET Take 1 tablet by mouth once d* KLOR-CON 10 MEQ TABLET,EXTEND* Take 1 tablet by mouth twice * CARBIDOPA 25 MG-LEVODOPA 100 * Take 1 tablet by mouth five t* FLAXSEED OIL ORAL Take 1,200 mg by mouth once d* COQ10 SG 100 ORAL Take 100 mg by mouth once vinod* FERROUS GLUCONATE 324 MG (37.* Take 324 mg by mouth daily wi* Progress Notes: Andrey Ford PT 11/17/2017 4:00 PM Signed Episode Visit Count: 12 Therapist That Will Oversee The Plan Of Care: Andrey Ford PT Start of Care Date: 09/29/17 Onset Date: 09/29/09 Plan of Care Certification Date: 10/27/17 REHABILITATION AND SPORTS THERAPY PHYSICAL THERAPY TREATMENT NOTE ASSESSMENT: Sandra Laughlin demonstrated improvements in ability to transfer on and off of mat table to supine position independently. She has slight difficulty getting out of bed at home as bed is softer and still needs slight hand assist from her . The patient will continue to benefit from continued skilled physical therapy for strengthening, transfers and balance exercise. PLAN FOR NEXT VISIT: continue with transfer training, core stabilization , posture and balance exercises. SUBJECTIVE: Patient denies falls or pain. She reports needing a little assist with transfers out of bed. Patient's reports holding out his hand and she is able to do most of the work herself to get out of bed. Pain Score: 0/10 Frequency: Intermittent Post Treatment Pain Score: No Change OBJECTIVE MEASURES WITH LEVEL OF FUNCTION: Posture / Alignment Posture: Forward head;Increased thoracic kyphosis;Rounded shoulders Posture comment: Patient able to improve upright seated and standing posture with constant cueing. TREATMENT: Therapeutic Exercise: 1: SciFit StepOne seat #13 resistance level 1 x6 minutes 2: bridging 3x12 3: repeated sit to stand from low mat table 19 inches high 2x10 4: B forward step ups on 6 inch blue step in parallel bars 2x12 each 5: seated scapular retraction with emphasis on looking up while on mat table 2x10. 6: Supine gluteal sets x 10. Skilled Intervention: Patient was educated in proper exercise technique and purpose for exercises. Reviewed and educated patient on additions/changes for home exercise program and patient instructed to continue with the same exercise. Skilled judgment was provided in selection of appropriate interventions. Correct performance of therapeutic exercises was facilitated with verbal and visual cuing. Neuromuscular Re-Education: 1: NBOS x30 seconds 3: tandem stance x30 B with intermittent UE support 5: balance board side to side x12 6: marching in place x15 Skilled Intervention: Insured patient safety with use of gait belt. Billing: [facility]: Therapeutic Exercise ([id number]): 1:1 time: 35 minutes (2 units: 23-37 mins) Neuromuscular re-education (([id number]): time: 15 minutes ( 1 unit: 8-22 minutes) Total time: 50 minutes Randall Rock, PTAlbert Ford PT Previous Version Follow-up and Disposition History Recorded PROGRESS Observed: 11/17/2017 Status: COMPLETED Source: [place] 1:13 PM [facility] REPOSITORY HNO ID: [id number] Author: Andrey (Pt) Liliana Service: (none) Author Type: Physical Therapist Type: Progress Notes Filed: 11/17/2017 4:00 PM Note Text: Episode Visit Count: 12 Therapist That Will Oversee The Plan Of Care: Andrey Ford PT Start of Care Date: 09/29/17 Onset Date: 09/29/09 Plan of Care Certification Date: 10/27/17 REHABILITATION AND SPORTS THERAPY PHYSICAL THERAPY TREATMENT NOTE ASSESSMENT: Sandra Laughlin demonstrated improvements in ability to transfer on and off of mat table to supine position independently. She has slight difficulty getting out of bed at home as bed is softer and still needs slight hand assist from her . The patient will continue to benefit from continued skilled physical therapy for strengthening, transfers and balance exercise. PLAN FOR NEXT VISIT: continue with transfer training, core stabilization , posture and balance exercises. SUBJECTIVE: Patient denies falls or pain. She reports needing a little assist with transfers out of bed. Patient's reports holding out his hand and she is able to do most of the work herself to get out of bed. Pain Score: 0/10 Frequency: Intermittent Post Treatment Pain Score: No Change OBJECTIVE MEASURES WITH LEVEL OF FUNCTION: Posture / Alignment Posture: Forward head;Increased thoracic kyphosis;Rounded shoulders Posture comment: Patient able to improve upright seated and standing posture with constant cueing. TREATMENT: Therapeutic Exercise: 1: SciFit StepOne seat #13 resistance level 1 x6 minutes 2: bridging 3x12 3: repeated sit to stand from low mat table 19 inches high 2x10 4: B forward step ups on 6 inch blue step in parallel bars 2x12 each 5: seated scapular retraction with emphasis on looking up while on mat table 2x10. 6: Supine gluteal sets x 10. Skilled Intervention: Patient was educated in proper exercise technique and purpose for exercises. Reviewed and educated patient on additions/changes for home exercise program and patient instructed to continue with the same exercise. Skilled judgment was provided in selection of appropriate interventions. Correct performance of therapeutic exercises was facilitated with verbal and visual cuing. Neuromuscular Re-Education: 1: NBOS x30 seconds 3: tandem stance x30 B with intermittent UE support 5: balance board side to side x12 6: marching in place x15 Skilled Intervention: Insured patient safety with use of gait belt. Billing: [facility]: Therapeutic Exercise ([id number]): 1:1 time: 35 minutes (2 units: 23-37 mins) Neuromuscular re-education (([id number]): time: 15 minutes ( 1 unit: 8-22 minutes) Total time: 50 minutes Randall Rock PT-Quintin Ford PT PROGRESS Observed: 11/14/2017 Status: COMPLETED Source: [place] 1:23 PM [facility] REPOSITORY HNO ID: [id number] Author: Andrey (Pt) Liliana Service: (none) Author Type: Physical Therapist Type: Progress Notes Filed: 11/14/2017 2:20 PM Note Text: Episode Visit Count: 11 Therapist That Will Oversee The Plan Of Care: Andrey Ford PT Start of Care Date: 09/29/17 Onset Date: 09/29/09 Plan of Care Certification Date: 10/27/17 Patient Identified by Name and Date of : Yes REHABILITATION AND SPORTS THERAPY PHYSICAL THERAPY TREATMENT NOTE ASSESSMENT: Sandra Laughlin demonstrated difficulty with posture, transfers, balance and gait. The patient will continue to benefit from continued skilled physical therapy for bed mobility, transfers, gait, balance, strength training, endurance and improve overall safety with functional mobility. PLAN FOR NEXT VISIT: Continue with transfer training, continue functional strengthening, continue gait training prn and do balance training with overall focus of increasing safety with all functional mobility. SUBJECTIVE: Pt acknowledges that she is having a harder time today without explanation. She acknowledges some increase in confusion, difficulty following instructions and very poor posture. She acknowledges that many of the verbal cues that need repeated many times today have been given several times in the past. She denies any pain currently and denies any problems following last session. Pain Score: 0/10 Description: (no pain currently) Frequency: Intermittent Post Treatment Pain Score: No Change OBJECTIVE MEASURES WITH LEVEL OF FUNCTION: Cognition Cognition: Follows Commands;Safety Judgment Follows Commands: Cueing Needed;Other: See Comment (Pt acknowledged that she was having a difficult time today) Cueing to Follow Commands: Moderate Safety Judgment: Impulsive;Limited insight to deficits;Decreased awarenss of need for safety Posture / Alignment Posture: Forward head;Increased thoracic kyphosis;Rounded shoulders Posture comment: Pt posture is much worse today than last visit. She observed in a very slumped posture in lobby and also while on exercise equipment. Observations Sitting Compensations: Right lateral shift (and very slumped) TREATMENT: Therapeutic Exercise: 1: SciFit StepOne seat #13 resistance level 1 x6 minutes 2: bridging 3x12 3: repeated sit to stand from low mat table 19 inches high 2x10 4: B forward step ups on 6 inch blue step in parallel bars 2x12 each 5: seated scapular retraction in chair to provide back support with orange t-band 2x10. lots of verbal cues for postural correction. Skilled Intervention: Patient was educated in proper exercise technique and purpose for exercises. Skilled judgment was provided in selection of appropriate interventions. Correct performance of therapeutic exercises was facilitated with verbal, visual and tactile cuing. Neuromuscular Re-Education: 1: NBOS x30 seconds 2: NBOS with eyes closed x30 seconds 3: tandem stance x30 B with intermittent UE support 4: balance board front to back x12 5: balance board side to side x12 6: marching in place x15 Skilled Intervention: Skilled judgment used to assess appropriate program for balance and coordination activity. Education and demonstration for posture and positioning for tone management. Insured patient safety with use of gait belt and intermittent assist prn. Billing: [facility]: Therapeutic Exercise ([id number]): 1:1 time: 30 minutes (2 units: 23-37 mins) Neuromuscular Re-education ([id number]): 1:1 time:15 minutes (1 unit: 8-22 mins) Total time: 45 minutes Andrey Ford PT CNTHERAPY Observed: 11/14/2017 Status: COMPLETED Source: [place] 1:15 PM [facility] REPOSITORY OT/PT/Speech Visit (PTWS) SANDRA LAUGHLIN ([id number]) 1945 F Date Time Provider Department 11/14/17 1:15 PM ANDREY FORDPT) PTWS Date Time Provider Department Center 11/14/2017 1:15 PM [id number] FORDPT) PTWS [facility] Reason for Visit: Physical Therapy [503] Primary Visit Diagnosis:Falling [R29.6] Other Visit Diagnoses:Crouched gait [R26.89] Parkinson disease (HCC) [G20] Allergies As of Date: 11/14/2017 Noted Allergy Reaction PENICILLIN 05/29/2017 7 - Swelling Date Reviewed: 10/14/2017 Reviewed by: Shahab Christina Ma - Fully Assessed Prescriptions as of 11/14/2017 Sig: FLUDROCORTISONE 0.1 MG TABLET TAKE 1 TABLET EVERY DAY FAMOTIDINE 40 MG TABLET TAKE 1 TABLET BY MOUTH ONCE D* MIDODRINE 10 MG TABLET TAKE 1 TABLET BY MOUTH THREE * CHOLECALCIFEROL (VITAMIN D3) * Take by mouth. SERTRALINE 100 MG TABLET Take 1 tablet by mouth once d* CLOPIDOGREL 75 MG TABLET Take 1 tablet by mouth once d* DONEPEZIL 10 MG TABLET Take 1 tablet by mouth once d* FAMOTIDINE 40 MG TABLET Take 1 tablet by mouth once d* GABAPENTIN 300 MG CAPSULE Take 1 capsule by mouth twice* ATORVASTATIN 10 MG TABLET Take 1 tablet by mouth once d* KLOR-CON 10 MEQ TABLET,EXTEND* Take 1 tablet by mouth twice * CARBIDOPA 25 MG-LEVODOPA 100 * Take 1 tablet by mouth five t* FLAXSEED OIL ORAL Take 1,200 mg by mouth once d* COQ10 SG 100 ORAL Take 100 mg by mouth once vinod* FERROUS GLUCONATE 324 MG (37.* Take 324 mg by mouth daily wi* Progress Notes: Andrey Ford PT 11/14/2017 2:20 PM Signed Episode Visit Count: 11 Therapist That Will Oversee The Plan Of Care: Andrey Ford PT Start of Care Date: 09/29/17 Onset Date: 09/29/09 Plan of Care Certification Date: 10/27/17 Patient Identified by Name and Date of : Yes REHABILITATION AND SPORTS THERAPY PHYSICAL THERAPY TREATMENT NOTE ASSESSMENT: Sandra Beny Laughlin demonstrated difficulty with posture, transfers, balance and gait. The patient will continue to benefit from continued skilled physical therapy for bed mobility, transfers, gait, balance, strength training, endurance and improve overall safety with functional mobility. PLAN FOR NEXT VISIT: Continue with transfer training, continue functional strengthening, continue gait training prn and do balance training with overall focus of increasing safety with all functional mobility. SUBJECTIVE: Pt acknowledges that she is having a harder time today without explanation. She acknowledges some increase in confusion, difficulty following instructions and very poor posture. She acknowledges that many of the verbal cues that need repeated many times today have been given several times in the past. She denies any pain currently and denies any problems following last session. Pain Score: 0/10 Description: (no pain currently) Frequency: Intermittent Post Treatment Pain Score: No Change OBJECTIVE MEASURES WITH LEVEL OF FUNCTION: Cognition Cognition: Follows Commands;Safety Judgment Follows Commands: Cueing Needed;Other: See Comment (Pt acknowledged that she was having a difficult time today) Cueing to Follow Commands: Moderate Safety Judgment: Impulsive;Limited insight to deficits;Decreased awarenss of need for safety Posture / Alignment Posture: Forward head;Increased thoracic kyphosis;Rounded shoulders Posture comment: Pt posture is much worse today than last visit. She observed in a very slumped posture in lobby and also while on exercise equipment. Observations Sitting Compensations: Right lateral shift (and very slumped) TREATMENT: Therapeutic Exercise: 1: SciFit StepOne seat #13 resistance level 1 x6 minutes 2: bridging 3x12 3: repeated sit to stand from low mat table 19 inches high 2x10 4: B forward step ups on 6 inch blue step in parallel bars 2x12 each 5: seated scapular retraction in chair to provide back support with orange t-band 2x10. lots of verbal cues for postural correction. Skilled Intervention: Patient was educated in proper exercise technique and purpose for exercises. Skilled judgment was provided in selection of appropriate interventions. Correct performance of therapeutic exercises was facilitated with verbal, visual and tactile cuing. Neuromuscular Re-Education: 1: NBOS x30 seconds 2: NBOS with eyes closed x30 seconds 3: tandem stance x30 B with intermittent UE support 4: balance board front to back x12 5: balance board side to side x12 6: marching in place x15 Skilled Intervention: Skilled judgment used to assess appropriate program for balance and coordination activity. Education and demonstration for posture and positioning for tone management. Insured patient safety with use of gait belt and intermittent assist prn. Billing: [facility]: Therapeutic Exercise ([id number]): 1:1 time: 30 minutes (2 units: 23-37 mins) Neuromuscular Re-education ([id number]): 1:1 time:15 minutes (1 unit: 8-22 mins) Total time: 45 minutes Andrey Ford PT PROGRESS Observed: 11/12/2017 Status: COMPLETED Source: [place] 2:04 PM [facility] REPOSITORY HNO ID: [id number] Author: Andrey (Pt) Liliana Service: (none) Author Type: Physical Therapist Type: Progress Notes Filed: 11/12/2017 2:07 PM Note Text: Episode Visit Count: 10 Therapist That Will Oversee The Plan Of Care: Andrey Ford PT Start of Care Date: 09/29/17 Onset Date: 09/29/09 Plan of Care Certification Date: 10/27/17 Patient Identified by Name and Date of : Yes REHABILITATION AND SPORTS THERAPY PHYSICAL THERAPY TREATMENT NOTE ASSESSMENT: Sandra Laughlin demonstrated difficulty with transfers, strength, endurance, posture and walker use and improvements in all the same things listed as difficult because she has definitely made progress. The patient will continue to benefit from continued skilled physical therapy for transfers, gait, balance, posture, strength and endurance. PLAN FOR NEXT VISIT: Continue with transfer training, continue functional strengthening, continue gait training prn and do balance training with overall focus of increasing safety with all functional mobility. SUBJECTIVE: Pt denies any falls since last session. She reports regular and consistent use of FWW. Pain Score: 0/10 Description: (none currently) Frequency: Intermittent Post Treatment Pain Score: No Change OBJECTIVE MEASURES WITH LEVEL OF FUNCTION: Posture / Alignment Posture: Forward head;Rounded shoulders;Thoracic kyphosis Posture comment: posture is still very poor but more upright today than in the past. She is more upright in standing and more upright sitting on exercise equipment Functional Strength Functional Strength: Pt ability with transfers, bed mobility and all functional mobility tasks is dramatically improved and this can at least partially be attributed to increased functional strength. Transfers only require verbal cues now and no physical assist. TREATMENT: Therapeutic Exercise: 1: SciFit StepOne seat #13 resistance level 1 x6 minutes 2: bridging 1x10 and 2x15 3: repeated sit to stand from low mat table 19 inches high 2x10 4: B forward step ups on 6 inch blue step in parallel bars 2x10 each 5: seated scapular retraction in chair to provide back support with orange t-band 2x10. lots of verbal cues for postural correction. 6: posture perfect standing with back to wall 3x30 seconds Skilled Intervention: Patient was educated in proper exercise technique and purpose for exercises. Skilled judgment was provided in selection of appropriate interventions. Correct performance of therapeutic exercises was facilitated with verbal, visual and tactile cuing. Therapeutic Activity: 1: Instruction and practice with sit to supine, sit to stand, stand to sit and supine to sit transfers and bed mobility. 3: Many repetitions of sit to stand with verbal instruction and demonstration to scoot to front of seat, bend knees to get feet under, lean forward and rise before grabbing walker. Reaching back to sit also repeated several times. Skilled Intervention: Insured patient safety with use of gait belt. Educated on proper/safe technique for activities performed today. Billing: [facility]: Therapeutic Exercise ([id number]): 1:1 time: 35 minutes (2 units: 23-37 mins) Therapeutic Activity ([id number]): 1:1 time: 10 minutes (1 unit: 8-22 mins) Total time: 45 minutes Andrey Ford PT CNTHERAPY Observed: 11/12/2017 Status: COMPLETED Source: [place] 1:15 PM [facility] REPOSITORY OT/PT/Speech Visit (PTWS) SANDRA LAUGHLIN ([id number]) 1945 F Date Time Provider Department 11/12/17 1:15 PM ANDREY FORD (PT) PTWS Date Time Provider Department Center 11/12/2017 1:15 PM [id number] FORDPT) PTWS [facility] Reason for Visit: Physical Therapy [503] Primary Visit Diagnosis:Falling [R29.6] Other Visit Diagnoses:Crouched gait [R26.89] Parkinson disease (HCC) [G20] Allergies As of Date: 11/12/2017 Noted Allergy Reaction PENICILLIN 05/29/2017 7 - Swelling Date Reviewed: 10/14/2017 Reviewed by: Shahab Christina Ma - Fully Assessed Prescriptions as of 11/12/2017 Sig: FLUDROCORTISONE 0.1 MG TABLET TAKE 1 TABLET EVERY DAY FAMOTIDINE 40 MG TABLET TAKE 1 TABLET BY MOUTH ONCE D* MIDODRINE 10 MG TABLET TAKE 1 TABLET BY MOUTH THREE * CHOLECALCIFEROL (VITAMIN D3) * Take by mouth. SERTRALINE 100 MG TABLET Take 1 tablet by mouth once d* CLOPIDOGREL 75 MG TABLET Take 1 tablet by mouth once d* DONEPEZIL 10 MG TABLET Take 1 tablet by mouth once d* FAMOTIDINE 40 MG TABLET Take 1 tablet by mouth once d* GABAPENTIN 300 MG CAPSULE Take 1 capsule by mouth twice* ATORVASTATIN 10 MG TABLET Take 1 tablet by mouth once d* KLOR-CON 10 MEQ TABLET,EXTEND* Take 1 tablet by mouth twice * CARBIDOPA 25 MG-LEVODOPA 100 * Take 1 tablet by mouth five t* FLAXSEED OIL ORAL Take 1,200 mg by mouth once d* COQ10 SG 100 ORAL Take 100 mg by mouth once vinod* FERROUS GLUCONATE 324 MG (37.* Take 324 mg by mouth daily wi* Progress Notes: Andrey Ford PT 11/12/2017 2:07 PM Signed Episode Visit Count: 10 Therapist That Will Oversee The Plan Of Care: Andrey Ford PT Start of Care Date: 09/29/17 Onset Date: 09/29/09 Plan of Care Certification Date: 10/27/17 Patient Identified by Name and Date of : Yes REHABILITATION AND SPORTS THERAPY PHYSICAL THERAPY TREATMENT NOTE ASSESSMENT: Sandra Laughlin demonstrated difficulty with transfers, strength, endurance, posture and walker use and improvements in all the same things listed as difficult because she has definitely made progress. The patient will continue to benefit from continued skilled physical therapy for transfers, gait, balance, posture, strength and endurance. PLAN FOR NEXT VISIT: Continue with transfer training, continue functional strengthening, continue gait training prn and do balance training with overall focus of increasing safety with all functional mobility. SUBJECTIVE: Pt denies any falls since last session. She reports regular and consistent use of FWW. Pain Score: 0/10 Description: (none currently) Frequency: Intermittent Post Treatment Pain Score: No Change OBJECTIVE MEASURES WITH LEVEL OF FUNCTION: Posture / Alignment Posture: Forward head;Rounded shoulders;Thoracic kyphosis Posture comment: posture is still very poor but more upright today than in the past. She is more upright in standing and more upright sitting on exercise equipment Functional Strength Functional Strength: Pt ability with transfers, bed mobility and all functional mobility tasks is dramatically improved and this can at least partially be attributed to increased functional strength. Transfers only require verbal cues now and no physical assist. TREATMENT: Therapeutic Exercise: 1: SciFit StepOne seat #13 resistance level 1 x6 minutes 2: bridging 1x10 and 2x15 3: repeated sit to stand from low mat table 19 inches high 2x10 4: B forward step ups on 6 inch blue step in parallel bars 2x10 each 5: seated scapular retraction in chair to provide back support with orange t-band 2x10. lots of verbal cues for postural correction. 6: posture perfect standing with back to wall 3x30 seconds Skilled Intervention: Patient was educated in proper exercise technique and purpose for exercises. Skilled judgment was provided in selection of appropriate interventions. Correct performance of therapeutic exercises was facilitated with verbal, visual and tactile cuing. Therapeutic Activity: 1: Instruction and practice with sit to supine, sit to stand, stand to sit and supine to sit transfers and bed mobility. 3: Many repetitions of sit to stand with verbal instruction and demonstration to scoot to front of seat, bend knees to get feet under, lean forward and rise before grabbing walker. Reaching back to sit also repeated several times. Skilled Intervention: Insured patient safety with use of gait belt. Educated on proper/safe technique for activities performed today. Billing: [facility]: Therapeutic Exercise ([id number]): 1:1 time: 35 minutes (2 units: 23-37 mins) Therapeutic Activity ([id number]): 1:1 time: 10 minutes (1 unit: 8-22 mins) Total time: 45 minutes Andrey Ford PT PROGRESS Observed: 10/30/2017 Status: COMPLETED Source: [place] 3:51 PM [facility] REPOSITORY HNO ID: [id number] Author: Andrey (Pt) Liliana Service: (none) Author Type: Physical Therapist Type: Progress Notes Filed: 10/30/2017 3:57 PM Note Text: Episode Visit Count: 9 Therapist That Will Oversee The Plan Of Care: Andrey Ford PT Start of Care Date: 09/29/17 Onset Date: 09/29/09 Plan of Care Certification Date: 10/27/17 Patient Identified by Name and Date of : Yes REHABILITATION AND SPORTS THERAPY PHYSICAL THERAPY TREATMENT NOTE ASSESSMENT: Sandra Laughlin demonstrated improvements in transfers, bed mobility, strength, balance and intermittently with posture. The patient will continue to benefit from continued skilled physical therapy for functional strength, postural correction, transfer training, balance and gait. PLAN FOR NEXT VISIT: Continue with transfer training, continue functional strengthening, continue gait training prn and do balance training with overall focus of increasing safety with all functional mobility. SUBJECTIVE: Pt reports feeling the same as last visit. She reports that transfers and bed mobility are not going as well as home as they go here. She attributes this to fear at home. She reports back pain today. Pain Score: 4/10 Pain Location: Low Back/Lumbar Spine - Right;Low Back/Lumbar Spine - Left Frequency: Intermittent OBJECTIVE MEASURES WITH LEVEL OF FUNCTION: Posture / Alignment Posture: Forward head;Rounded shoulders;Thoracic kyphosis (still a very slumped posture in all positions) Posture comment: posture is very poor but better when standing and using walker., Gait Assessment Gait Observation: Pt posture with use of FWW during gait is much better today and more upright. Significant thoracic kyphosis, rounded shoulders and very forward head position persist and require verbal cues to correct but she is definitely better when using the walker. Functional Strength Functional Strength: Pt ability with transfers, bed mobility and all functional mobility tasks is dramatically improved and this can at least partially be attributed to increased functional strength. TREATMENT: Therapeutic Exercise: 1: SciFit StepOne seat #13 resistance level 1 x6 minutes 2: bridging 2x10 3: repeated sit to stand from low mat table 19 inches high 2x10 4: B forward step ups on 6 inch blue step in parallel bars 2x10 each 5: seated scapular retraction in chair to provide back support with yellow t-band 2x10. lots of verbal cues for postural correction. Skilled Intervention: Patient was educated in proper exercise technique and purpose for exercises. Skilled judgment was provided in selection of appropriate interventions. Correct performance of therapeutic exercises was facilitated with verbal, visual and tactile cuing. Therapeutic Activity: 1: Instruction and practice with sit to supine, sit to stand, stand to sit and supine to sit transfers and bed mobility. 3: Many repetitions of sit to stand with verbal instruction and demonstration to scoot to front of seat, bend knees to get feet under, lean forward and rise before grabbing walker. Reaching back to sit also repeated several times. Skilled Intervention: Insured patient safety with use of gait belt. Maximum verbal cues for maintaining neutral spine alignment. Frequent reminders regarding postural correction with demonstration by therapist. Neuromuscular Re-Education: 1: NBOS x30 seconds 2: NBOS with eyes closed x30 seconds 3: tandem stance x30 B with intermittent UE support 4: balance board front to back x10 5: balance board side to side x10 6: marching in place x10 Skilled Intervention: Skilled judgment used to assess appropriate program for balance and coordination activity. Insured patient safety with use of gait belt Gait Trainin: walker height assessed secondary to 's questions and recommendations made. Skilled Intervention: Gait belt utilized during session for safety. Skilled judgment used to assess proper sizing of assistive device. Billing: [facility]: Therapeutic Exercise ([id number]): 1:1 time: 20 minutes (1 unit: 8-22 mins) Therapeutic Activity ([id number]): 1:1 time: 10 minutes (1 unit: 8-22 mins) Neuromuscular Re-education ([id number]): 1:1 time:15 minutes (1 unit: 8-22 mins) Total time: 45 minutes Andrey Ford PT CNTHERAPY Observed: 10/30/2017 Status: COMPLETED Source: [place] 2:00 PM [facility] REPOSITORY OT/PT/Speech Visit (PTWS) SANDRA LAUGHLIN ([id number]) 1945 F Date Time Provider Department 10/30/17 2:00 PM ANDREY FORD (PT) PTWS Date Time Provider Department Center 10/30/2017 2:00 PM [id number], BRENT (PT) PTWS FOR[facility] MANUELA Reason for Visit: Physical Therapy [503] Primary Visit Diagnosis:Falling [R29.6] Other Visit Diagnoses:Crouched gait [R26.89] Parkinson disease (HCC) [G20] Allergies As of Date: 10/30/2017 Noted Allergy Reaction PENICILLIN 05/29/2017 7 - Swelling Date Reviewed: 10/14/2017 Reviewed by: Shahab Christina Ma - Fully Assessed Prescriptions as of 10/30/2017 Sig: FLUDROCORTISONE 0.1 MG TABLET TAKE 1 TABLET EVERY DAY FAMOTIDINE 40 MG TABLET TAKE 1 TABLET BY MOUTH ONCE D* MIDODRINE 10 MG TABLET TAKE 1 TABLET BY MOUTH THREE * CHOLECALCIFEROL (VITAMIN D3) * Take by mouth. SERTRALINE 100 MG TABLET Take 1 tablet by mouth once d* CLOPIDOGREL 75 MG TABLET Take 1 tablet by mouth once d* DONEPEZIL 10 MG TABLET Take 1 tablet by mouth once d* FAMOTIDINE 40 MG TABLET Take 1 tablet by mouth once d* GABAPENTIN 300 MG CAPSULE Take 1 capsule by mouth twice* ATORVASTATIN 10 MG TABLET Take 1 tablet by mouth once d* KLOR-CON 10 MEQ TABLET,EXTEND* Take 1 tablet by mouth twice * CARBIDOPA 25 MG-LEVODOPA 100 * Take 1 tablet by mouth five t* FLAXSEED OIL ORAL Take 1,200 mg by mouth once d* COQ10 SG 100 ORAL Take 100 mg by mouth once vinod* FERROUS GLUCONATE 324 MG (37.* Take 324 mg by mouth daily wi* Progress Notes: Andrey Ford PT 10/30/2017 3:57 PM Signed Episode Visit Count: 9 Therapist That Will Oversee The Plan Of Care: Andrey Ford PT Start of Care Date: 09/29/17 Onset Date: 09/29/09 Plan of Care Certification Date: 10/27/17 Patient Identified by Name and Date of : Yes REHABILITATION AND SPORTS THERAPY PHYSICAL THERAPY TREATMENT NOTE ASSESSMENT: Sandra Laughlin demonstrated improvements in transfers, bed mobility, strength, balance and intermittently with posture. The patient will continue to benefit from continued skilled physical therapy for functional strength, postural correction, transfer training, balance and gait. PLAN FOR NEXT VISIT: Continue with transfer training, continue functional strengthening, continue gait training prn and do balance training with overall focus of increasing safety with all functional mobility. SUBJECTIVE: Pt reports feeling the same as last visit. She reports that transfers and bed mobility are not going as well as home as they go here. She attributes this to fear at home. She reports back pain today. Pain Score: 4/10 Pain Location: Low Back/Lumbar Spine - Right;Low Back/Lumbar Spine - Left Frequency: Intermittent OBJECTIVE MEASURES WITH LEVEL OF FUNCTION: Posture / Alignment Posture: Forward head;Rounded shoulders;Thoracic kyphosis (still a very slumped posture in all positions) Posture comment: posture is very poor but better when standing and using walker., Gait Assessment Gait Observation: Pt posture with use of FWW during gait is much better today and more upright. Significant thoracic kyphosis, rounded shoulders and very forward head position persist and require verbal cues to correct but she is definitely better when using the walker. Functional Strength Functional Strength: Pt ability with transfers, bed mobility and all functional mobility tasks is dramatically improved and this can at least partially be attributed to increased functional strength. TREATMENT: Therapeutic Exercise: 1: SciFit StepOne seat #13 resistance level 1 x6 minutes 2: bridging 2x10 3: repeated sit to stand from low mat table 19 inches high 2x10 4: B forward step ups on 6 inch blue step in parallel bars 2x10 each 5: seated scapular retraction in chair to provide back support with yellow t-band 2x10. lots of verbal cues for postural correction. Skilled Intervention: Patient was educated in proper exercise technique and purpose for exercises. Skilled judgment was provided in selection of appropriate interventions. Correct performance of therapeutic exercises was facilitated with verbal, visual and tactile cuing. Therapeutic Activity: 1: Instruction and practice with sit to supine, sit to stand, stand to sit and supine to sit transfers and bed mobility. 3: Many repetitions of sit to stand with verbal instruction and demonstration to scoot to front of seat, bend knees to get feet under, lean forward and rise before grabbing walker. Reaching back to sit also repeated several times. Skilled Intervention: Insured patient safety with use of gait belt. Maximum verbal cues for maintaining neutral spine alignment. Frequent reminders regarding postural correction with demonstration by therapist. Neuromuscular Re-Education: 1: NBOS x30 seconds 2: NBOS with eyes closed x30 seconds 3: tandem stance x30 B with intermittent UE support 4: balance board front to back x10 5: balance board side to side x10 6: marching in place x10 Skilled Intervention: Skilled judgment used to assess appropriate program for balance and coordination activity. Insured patient safety with use of gait belt Gait Trainin: walker height assessed secondary to 's questions and recommendations made. Skilled Intervention: Gait belt utilized during session for safety. Skilled judgment used to assess proper sizing of assistive device. Billing: [facility]: Therapeutic Exercise (53091): 1:1 time: 20 minutes (1 unit: 8-22 mins) Therapeutic Activity (86587): 1:1 time: 10 minutes (1 unit: 8-22 mins) Neuromuscular Re-education (92230): 1:1 time:15 minutes (1 unit: 8-22 mins) Total time: 45 minutes Andrey Ford PT ALLERGIES ALLERGIES DATE TYPE / CODE NAME / CODE REACTION SEVERITY SOURCE 09/29/2018 Drug Penicillins/F0010 Swelling Unknown Manuela Allergy/416 07884(RXNORM) Formerly [facility] 884145([facility] ED CT) Repository 05/29/2017 DRUG PENICILLIN SWELLING [facility] INGREDI/419 [facility] 495672([facility] ED CT) [id number] PENICILLIN [facility] System CT) Repository ENCOUNTERS ENCOUNTERS ADMIT/DISCHARGE ACCOUNT NUMBER ADMITTING ENCOUNTER LOCATION SOURCE CLASS 10/19/2018/10/21/20 [id number] Ambulatory [address] Repository 10/13/2018/10/14/20 [id number] Ambulatory [address] Repository 10/10/2018 [id number] Ambulatory General acute hospital ding:MARIE.BRO Repository OKA 10/08/2018/10/09/20 [id number] Ambulatory [address] Repository 09/29/2018/09/29/20 [id number] Emergency [address] ding:ED Repository 07/28/2018 [id number] Ambulatory General acute hospital ding:MARIE.BRO Repository OKA 07/27/2018/07/27/20 [id number] Ambulatory [address] [place] Repository 07/27/2018/07/28/20 [id number] Ambulatory [address] [place] Repository 07/27/2018/07/27/20 [id number] Ambulatory [address] [place] Repository 07/27/2018/07/29/20 [id number] Ambulatory [address] [place] Repository 07/17/2018/07/20/20 [id number] Ambulatory [address] [place] Repository 07/14/2018/07/14/20 [id number] Emergency Manuela Manuel[address] ding:ED Repository 07/08/2018/07/09/20 [id number] Ambulatory [address] Repository 07/08/2018 [id number] Ambulatory General acute hospital ding:BRO Repository OKA 07/01/2018/07/03/20 [id number] Ambulatory [address] [place] Repository 06/19/2018/06/19/20 [id number] Ambulatory [address] [place] Repository 06/11/2018/06/12/20 [id number] Ambulatory [address] [place] Repository 06/05/2018/06/05/20 [id number] Ambulatory [address] [place] Repository 06/02/2018/06/05/20 [id number] Ambulatory [address] [place] Repository 05/31/2018/06/01/20 [id number] Emergency Ferdinand Manuela[address] ding:ED Repository 04/12/2018/04/12/20 [id number] Emergency Ferdinand Manuela[address] ding:ED Repository 04/07/2018/04/07/20 [id number] Ambulatory [address] Repository 04/07/2018 [id number] Ambulatory [facility] MEDICAL Repository CENTERBuildi ng:CAGWS 03/27/2018/03/30/20 [id number] Ambulatory [address] [place] Repository 03/18/2018 [id number] Ambulatory [facility] [place] Repository 03/18/2018/03/19/20 [id number] Ambulatory [address] Repository 03/16/2018/03/16/20 [id number] Ambulatory [address] Repository 02/27/2018/03/03/20 [id number] Ambulatory [address] Repository 02/24/2018/02/27/20 [id number] Ambulatory [address] Repository 02/23/2018/02/24/20 [id number] Ambulatory [address] Repository 02/15/2018/02/18/20 [id number] [place] Inpatient Manuela Ferdinand [address] [place] [address] ding:[id number] Repository : RZ533Nsc: 1 02/15/2018 [id number] [place] Ambulatory BMSBuilding: Manuela BMS.[facility] Repository 02/15/2018 [id number] [place] [place] Ambulatory BMSBuilding: Ferdinand BMS.[facility] Repository 02/15/2018 [id number] [place] [place] Ambulatory BMSBuilding: Ferdinand BMS.[facility] Repository 02/09/2018/02/10/20 [id number] Ambulatory [address] Repository 02/02/2018/02/03/20 [id number] OMID Ambulatory [address] Repository 01/19/2018/01/20/20 [id number] Ambulatory [address] Repository 01/16/2018/01/17/20 [id number] Ambulatory [address] Repository 01/16/2018 [id number] Ambulatory [facility] Repository 01/16/2018/01/20/20 [id number] Ambulatory [address] Repository 01/16/2018/01/17/20 [id number] Ambulatory [address] Repository 01/12/2018/01/14/20 [id number] Ambulatory [address] Repository 12/10/2017/12/15/19 [id number] Ambulatory [address] Repository 11/28/2017/12/02/19 [id number] Ambulatory [address] Repository 11/24/2017/11/25/19 [id number] Ambulatory [address] Repository 11/17/2017/11/18/19 [id number] Ambulatory [address] Repository 11/14/2017/11/18/19 [id number] Ambulatory [address] Repository 11/12/2017/11/13/19 [id number] Ambulatory [address] Repository 10/30/2017/11/06/20 [id number] Ambulatory [address] Repository PAYERS PAYERS ENCOUNTER GUARANTOR PAYER SUBSCRIBER SOURCE 10/10/2018 SANDRA L Primary SANDRA L Manuela [place] Insurance:HUMANA MCR SAUCIERDOB: Community PLACE OF [id number] HMO IN [id number] [facility] [address] 09/10/18Policy Repository [address] [place] [address] Number: [id number]: [phone] [id number] [phone] (HP) Date:7567-23-02OH [address] [place] [phone]: 10/10/2018 Secondary NOT GIVENUNK Ferdinand Insurance:SELF PAY [facility] Number: Effective Repository Date:2018-10-10 09/29/2018 SANDRA L Primary SANDRA L Manuela [place] Insurance:HUMANA MCR SAUCIERDOB: Community PLACE OF [id number] HMO IN [facility] [id number] Health [address] 09/10/18Policy Repository [address] [place] [address] Number: [id number]: 636 [id number] [phone] (HP) Date:7637-00-64KN [address] [place] [phone]: 09/29/2018 Secondary NOT GIVENUNK Manuela Insurance:SELF PAY [facility] Number: Effective Repository Date:2018-09-29 07/28/2018 SANDRA L Primary SANDRA L Manuela [place] Insurance:HUMANA [facility] SAUCIERDOB: Community [id number] [place] HMO -OUT OF [id number] [address] Repository [address]Xod: ([phone]) Number: [phone] () [id number] Date:3087-93-45ZG [address] [place], [place] [phone]: 07/28/2018 Secondary NOT GIVENUNK Manuela Insurance:SELF PAY [facility] Number: Effective Repository Date:2018-07-28 07/14/2018 SANDRA L Primary SANDRA L Manuela [place] Insurance:HUMANA MCR SAUCIERDOB: Community [id number] [place] [address] -OUT OF [id number] Hospital [address] Repository [address]Mbf: (636) Number: [phone] () [id number] Date:5715-01-00BH [address] [place], [place] [id number]: 07/14/2018 Secondary NOT GIVENUNK Ferdinand Insurance:SELF PAY [facility] Number: Effective Repository Date:2018-07-14 07/08/2018 SANDRA L Primary SANDRA L Ferdinand [place] Insurance:HUMANA MCR SAUCIERDOB: Formerly [facility] [id number] [place] [address] -OUT OF [id number] [address] Repository [address]Ddq: ([phone]) Number: [phone] () [id number] Date:7597-33-59PH [address] [place] [phone]: 07/08/2018 Secondary NOT GIVENUNK Ferdinand Insurance:SELF PAY [facility] Number: Effective Repository Date:2018-07-08 05/31/2018 SANDRA L Primary SANDRA L Ferdinand [place] Insurance:HUMANA MCR SAUCIERDOB: Formerly [facility] [id number] [place], [place] [address]OUT OF [id number] [address] Repository [address]Efi: (636) Number: [phone] () [id number] Date:9486-76-89SE [address]46[address]WP: 05/31/2018 Secondary NOT GIVENUNK Manuela Insurance:SELF PAY [facility] Number: Effective Repository Date:2018-05-31 04/12/2018 SANDRA L [id number] Primary SANDRA L Ferdinand ROJAS Insurance:HUMANA MCR SAUCIERDOB: [place], [place] HMO -OUT OF [id number] Hospital [address]Ene: (054) NETWORKPolicy Repository [phone] () Number: [id number] Date:8477-96-18MP [address] [place] [phone]: 04/12/2018 Secondary NOT GIVENUNK Ferdinand Insurance:SELF PAY [facility] Number: Effective Repository Date:2018-04-12 04/07/2018 SANDRA L SAUCIERDOB: Primary SANDRA L [facility] [id number] Insurance:HUMANA SAUCIERDOB: [facility] [id number] Repository [address] [place] [address] Number: [phone]: (145) [id number] [phone] () Date: 02/15/2018 SANDRA [id number] Primary SANDRA Manuela ROJAS Insurance:HUMANA MCR SAUCIERDOB: [place], [place] HMO -OUT OF [id number] Hospital [address]Ssu: NETWORKPolicy Repository [phone] Number: () [id number] Date:8537-68-04AJ [address] [place] [address]KV: 02/15/2018 Secondary NOT GIVENUNK Manuela Insurance:SELF PAY [facility] Number: Effective Repository Date:2018-02-15 02/15/2018 SANDRA [id number] Primary SANDRA Manuela ROJAS Insurance:HUMANA MCR SAUCIERDOB: [place] HMO -OUT OF [id number] Hospital [address]Vty: NETWORKPolicy Repository [phone] Number: () [id number] Date:3660-75-83HM [address] [place] [phone]: 02/15/2018 Secondary NOT GIVENUNK Manuela Insurance:SELF PAY [facility] Number: Effective Repository Date:2018-02-15 02/15/2018 SANDRA [id number] Primary SANDRA Manuela ROJAS Insurance:HUMANA MCR SAUCIERDOB: [place] HMO -OUT OF [id number] Hospital [address]Qpb: NETWORKPolicy Repository [phone] Number: () [id number] Date:0362-49-30ZU [address] [place] [phone]: 02/15/2018 Secondary NOT GIVENUNK Ferdinand Insurance:SELF PAY [facility] Number: Effective Repository Date:2018-02-15 02/15/2018 SANDRA [id number] Primary SANDRA Ferdinand ROJAS Insurance:HUMANA MCR SAUCIERDOB: [place], [place] HMO -OUT OF [id number] Hospital [address]Cuh: NETWORKPolicy Repository [phone] Number: () [id number] Date:8259-50-19ON [address] [place] [phone]: 02/15/2018 Secondary NOT GIVENUNK Manuela Insurance:SELF PAY [facility] Number: Effective Repository Date:2018-02-15
== END ==
PROVIDERS: Visit Provider Family Medicine
DX: R46.89 Other symptoms and signs involving appearance and behavior (principal); Z87.440 Personal history of urinary (tract) infections
CPT/HCPCS: 81002; 87086; 87088; 87186

== ENCOUNTER → 2018-12-03 06:00 | Outpatient (REF) | payer MEDICARE, SELFPAY ==
[2018-12-03 17:48] LABS: Mucous, Urine 0 SEEN /hpf (<or=2+); Red Blood Cells-Urine 0 SEEN /hpf (0-5)
[2018-12-03 18:22] LABS: Color, Urine Yellow (Yellow); Glucose, Dipstick Normal (Normal); Ketone-Dipstick Negative (Negative); Leukocyte Esterase-Dipstick 500 /ul (Negative); Nitrite-Dipstick Positive (Negative); Occult Blood-Urine 50 /ul (Negative); Protein-Dipstick 15 mg/dl (Negative); Urine Bilirubin Dipstick Negative (Negative); Urine Clarity Sl. Cloudy (Clear); Urine Urobilinogen Normal (Normal)
[2018-12-03 18:33] LABS: Squamous Epithelial Cells - UA 0-5 SEEN /hpf (5-10); White Blood Cells 0-5 SEEN /hpf (0-5)
[2018-12-03 18:34] LABS: Bacteria 2+ /hpf (None Seen); Calcium Oxalate Crystals Ur RARE /hpf (<or=2+)
== END ==
DX: N39.0 Urinary tract infection, site not specified (principal); R41.0 Disorientation, unspecified
CPT/HCPCS: 81001; 87077; 87086; 87088; 87186